=== PATIENT | female | born 1980 | race Caucasian/White ===

== ENCOUNTER 2016-08-23 15:30 | Emergency (ER) | payer MEDICARE, OTHER ==
[2016-08-23 15:47] VITALS: BP 133/86; PULSE 88; RESP 20; TEMP 98.3
--- NOTE | 2016-08-23 16:33 | XR ---
Right foot HISTORY: Pain, contusion 3 views of the right foot Bone mineralization, joint spaces and alignment are maintained. There is a plantar calcaneus spur. Mi ld degenerative change present at the first metatarsophalangeal joint. Small ossific densities presen t at the proximal fifth metatarsal. Question the acuity of this finding. Some spurring present at the intertarsal joints compatible with degenerative change. IMPRESSION: Correlate for point tenderness to assess for acuity of possible fracture proximal fifth m etatarsal.
--- NOTE | 2016-08-23 16:34 | ED ---
Lower Extremity Injury HPI - General Chief Complaint: Extremity Injury, Lower Stated Complaint: rt foot injury Time Seen by Provider: 08/23/16 15:54 Source: patient, RN notes reviewed Mode of arrival: ambulatory Limitations: no limitations - History of Present Illness Initial Comments: Patient is a 36-year-old female she complaint of right foot injury 2 weeks ago. She reports that she saw the Medical Center and They Told Her Was Broken. They State That They Gave Her a Blue She's Knowing Where Because It Was Too Big. She States That She Is Continuing to Have Pain over Her Right Foot. She Wants a Second Opinion to Conservative It's Broken. Patient States That She Hasn't Been Able to Walk Normally and Does Have To Walk with a Limp. She Denies Any Other Associated Symptoms. She Reports the Pain Is Mainly over the Fifth Metatarsal. She Denies Any Ankle or Lower Leg Pain. - Related Data Home Medications Medication Instructions Recorded Confirmed Albuterol Inhaler [Ventolin Hfa 1 - 2 puff INHALATION RT-QID PRN 08/23/16 Inhaler] Albuterol Nebulized [Ventolin 2.5 mg INHALATION RT-QID PRN 08/23/16 08/23/16 Nebulized] Cetirizine HCl [Zyrtec] 10 mg PO DAILY 08/23/16 08/23/16 Hydrocodone/Acetaminophen [Aston 1 tab PO BID 08/23/16 08/23/16 5-325] Paliperidone IM [Invega Sustenna] 234 mg IM Q30D 08/23/16 08/23/16 Sertraline [Zoloft] 100 mg PO BID 08/23/16 08/23/16 lamoTRIgine [LaMICtal] 150 mg PO BID 08/23/16 08/23/16 Allergies Allergy/AdvReac Type Severity Reaction Status Date / Time aspirin Allergy Anaphylaxis Verified 08/23/16 16:05 enalapril maleate Allergy Anaphylaxis Verified 08/23/16 16:05 [From Vasotec] enalaprilat dihydrate Allergy Anaphylaxis Verified 08/23/16 16:05 [From Vasotec] famotidine [From Pepcid] Allergy Anaphylaxis Verified 08/23/16 16:05 ibuprofen [From Motrin] Allergy Anaphylaxis Verified 08/23/16 16:05 methylphenidate HCl Allergy Anaphylaxis Verified 08/23/16 16:05 [From Ritalin] ranitidine HCl [From Zantac] Allergy Anaphylaxis Verified 08/23/16 16:05 ziprasidone HCl [From Geodon] Allergy Anaphylaxis Verified 08/23/16 16:05 ziprasidone mesylate Allergy Anaphylaxis Verified 08/23/16 16:05 [From Geodon] Review of Systems ROS Statement: Those systems with pertinent positive or pertinent negative responses have been documented in the HPI. ROS Other: All systems not noted in ROS Statement are negative. Past Medical History Past Medical History: Asthma, Chest Pain / Angina, COPD, Fibromyalgia, GERD/ Reflux, Hypertension, Memory Impairment, Syncope Additional Past Medical History / Comment(s): tachycardia,nerve damage lt leg, back pain/ neck pain has pinched nerves,bronchits,non alcoholic fatty liver disease, uti, small hiatal hernia, migraines, tmj, kidney stones,ddd, History of Any Multi-Drug Resistant Organisms: None Reported Past Surgical History: Cholecystectomy, Orthopedic Surgery, Tubal Ligation Additional Past Surgical History / Comment(s): sinus, stomach biopsy, egd w/ antral bx-neg, rt carpal tunnel release Past Anesthesia/Blood Transfusion Reactions: No Reported Reaction Additional Past Anesthesia/Blood Transfusion Reaction / Comment(s): clausterphobia Past Psychological History: Bipolar, Depression, Schizophrenia Additional Psychological History / Comment(s): pt lives with her asife is independant Smoking Status: Former smoker Past Alcohol Use History: Occasional Additional Past Alcohol Use History / Comment(s): quit smoking 2008 smopked 3 years 1 ppd Past Drug Use History: Marijuana Additional Drug Use History / Comment(s): smokes marijuana for pain controll General Exam - General Exam Comments Initial Comments: Pleasant 36-year-old female. No distress. Limitations: no limitations General appearance: alert, in no apparent distress Head exam: Present: atraumatic, normocephalic, normal inspection Eye exam: Present: normal appearance, PERRL, EOMI. Absent: scleral icterus, conjunctival injection, periorbital swelling ENT exam: Present: normal exam, mucous membranes moist Neck exam: Present: normal inspection. Absent: tenderness, meningismus, lymphadenopathy Respiratory exam: Present: normal lung sounds bilaterally. Absent: respiratory distress, wheezes, rales, rhonchi, stridor Cardiovascular Exam: Present: regular rate, normal rhythm, normal heart sounds. Absent: systolic murmur, diastolic murmur, rubs, gallop, clicks GI/Abdominal exam: Present: soft, normal bowel sounds. Absent: distended, tenderness, guarding, rebound, rigid Extremities exam: Present: normal inspection, full ROM, normal capillary refill. Absent: tenderness, pedal edema, joint swelling, calf tenderness Right Knee exam: Present: normal inspection, full ROM Lower Leg exam: Present: normal inspection, full ROM Ankle exam: Present: normal inspection, full ROM Foot/Toe exam: Present: normal inspection, tenderness (Swelling and tenderness over the fourth and fifth metatarsals.), swelling Neurovascular tendon exam: Present: no vascular compromise Gait: observed and normal Back exam: Present: normal inspection Neurological exam: Present: alert, oriented X3, CN II-XII intact Psychiatric exam: Present: normal affect, normal mood Skin exam: Present: warm, dry, intact, normal color. Absent: rash Course Vital Signs 08/23/16 15:42 Temperature 98.3 F Pulse Rate 88 Respiratory 20 Rate Blood Pressure 133/86 O2 Sat by Pulse 98 Oximetry Procedures - Orthopedic Splinting/Casting Injury #1 Side: right Lower Extremity Injury Location: foot Lower Extremity Immobilizer: posterior splint Medical Decision Making - Medical Decision Making Patient is a 36-year-old female with 2 weeks of right foot pain. She states that she was diagnosed with a fracture but is not wearing her boot the past 2 weeks. She states she is wondering whether still pain. X-ray was reviewed to show evidence of a proximal fifth metatarsal fracture. Patient will be put in a posterior OCL. Discuss that she has follow-up with orthopedic physician. Patient agrees with treatment plan will comply. Return parameters were discussed. Disposition Clinical Impression: Fracture of fifth metatarsal bone of right foot Disposition: HOME SELF-CARE Condition: Good Instructions: Foot Fracture in Adults (ED) Additional Instructions: Patient advised to elevate extremity. Patient needs to remain in splint until seen by orthopedic. Return the emergency department if any alarming signs or symptoms occur. Referrals: Reba Licea MD [Primary Care Provider] - 1-2 days Stevenson Gan MD [STAFF PHYSICIAN] - 1-2 days Time of Disposition: 16:34
== END 2016-08-23 16:30 | disposition home or self-care (01) ==
LOC: EC 15:30
DX: S92.351A Displaced fracture of fifth metatarsal bone, right foot, initial encounter for closed fracture (principal); M79.7 Fibromyalgia; F20.9 Schizophrenia, unspecified; F31.9 Bipolar disorder, unspecified; Z87.891 Personal history of nicotine dependence; Z79.891 Long term (current) use of opiate analgesic; Z79.899 Other long term (current) drug therapy; Z88.6 Allergy status to analgesic agent; Z88.8 Allergy status to other drugs, medicaments and biological substances; Z86.69 Personal history of other diseases of the nervous system and sense organs; X58.XXXA Exposure to other specified factors, initial encounter
CPT/HCPCS: 29515; 99283

== ENCOUNTER 2017-05-09 13:59 | Emergency (ER) | payer MEDICARE, OTHER ==
--- NOTE | 2017-05-09 14:15 | ED ---
General Adult HPI - General Chief complaint: Skin/Abscess/Foreign Body Stated complaint: Rash Time Seen by Provider: 05/09/17 14:06 Source: patient, RN notes reviewed Mode of arrival: ambulatory Limitations: no limitations - History of Present Illness Initial comments: Patient 37-year-old female who presents emergency room today with chief complaint of infection to the right side of the chest wall. Patient does admit that he noticed it when she was in the shower yesterday. States she follow-up the results of drainage from the area. Patient denies any other complaints or symptoms. Patient denies any recent fever, chills, shortness of breath, chest pain, back pain, abdominal pain, nausea or vomiting, numbness or tingling, dysuria or hematuria, constipation or diarrhea, headaches or visual changes, or any other complaints. - Related Data Home Medications Medication Instructions Recorded Confirmed Albuterol Inhaler [Ventolin Hfa 1 - 2 puff INHALATION RT-QID PRN 08/23/16 Inhaler] Albuterol Nebulized [Ventolin 2.5 mg INHALATION RT-QID PRN 08/23/16 08/23/16 Nebulized] Cetirizine HCl [Zyrtec] 10 mg PO DAILY 08/23/16 08/23/16 Hydrocodone/Acetaminophen [[place]lett 1 tab PO BID 08/23/16 08/23/16 5-325] Paliperidone IM [Invega Sustenna] 234 mg IM Q30D 08/23/16 08/23/16 Sertraline [Zoloft] 100 mg PO BID 08/23/16 08/23/16 lamoTRIgine [LaMICtal] 150 mg PO BID 08/23/16 08/23/16 Previous Rx's Medication Instructions Recorded Mupirocin 2% Oint [Bactroban Oint] 1 applic TOPICAL TID #1 gm 05/09/17 Sulfamethox-Tmp 800-160Mg [Bactrim 1 tab PO Q12HR #28 tab 05/09/17 DS 800-160 mg] Allergies Allergy/AdvReac Type Severity Reaction Status Date / Time aspirin Allergy Anaphylaxis Verified 05/09/17 14:04 enalapril maleate Allergy Anaphylaxis Verified 05/09/17 14:04 [From Vasotec] enalaprilat dihydrate Allergy Anaphylaxis Verified 05/09/17 14:04 [From Vasotec] famotidine [From Pepcid] Allergy Anaphylaxis Verified 05/09/17 14:04 ibuprofen [From Motrin] Allergy Anaphylaxis Verified 05/09/17 14:04 methylphenidate HCl Allergy Anaphylaxis Verified 05/09/17 14:04 [From Ritalin] ranitidine HCl [From Zantac] Allergy Anaphylaxis Verified 05/09/17 14:04 ziprasidone HCl [From Geodon] Allergy Anaphylaxis Verified 05/09/17 14:04 ziprasidone mesylate Allergy Anaphylaxis Verified 05/09/17 14:04 [From Geodon] Review of Systems ROS Statement: Those systems with pertinent positive or pertinent negative responses have been documented in the HPI. ROS Other: All systems not noted in ROS Statement are negative. Past Medical History Past Medical History: Asthma, Chest Pain / Angina, COPD, Fibromyalgia, GERD/ Reflux, Hypertension, Memory Impairment, Syncope Additional Past Medical History / Comment(s): tachycardia,nerve damage lt leg, back pain/ neck pain has pinched nerves,bronchits,non alcoholic fatty liver disease, uti, small hiatal hernia, migraines, tmj, kidney stones,ddd, History of Any Multi-Drug Resistant Organisms: None Reported Past Surgical History: Cholecystectomy, Orthopedic Surgery, Tubal Ligation Additional Past Surgical History / Comment(s): sinus, stomach biopsy, egd w/ antral bx-neg, rt carpal tunnel release Past Anesthesia/Blood Transfusion Reactions: No Reported Reaction Additional Past Anesthesia/Blood Transfusion Reaction / Comment(s): clausterphobia Past Psychological History: Bipolar, Depression, Schizophrenia Smoking Status: Former smoker Past Alcohol Use History: Occasional Past Drug Use History: Marijuana General Exam - General Exam Comments Initial Comments: General: The patient is awake and alert, in no distress, and does not appear acutely ill. Eye: Pupils are equal, round and reactive to light, extra-ocular movements are intact. No nystagmus. There is normal conjunctiva bilaterally. No signs of icterus. Ears, nose, mouth and throat: There are moist mucous membranes and no oral lesions. Neck: The neck is supple, there is no tenderness or JVD. Cardiovascular: There is a regular rate and rhythm. No murmur, rub or gallop is appreciated. Respiratory: Lungs are clear to auscultation, respirations are non-labored, breath sounds are equal. No wheezes, stridor, rales, or rhonchi. Musculoskeletal: Normal ROM, no tenderness. Strength 5/5. Sensation intact. Pulses equal bilaterally 2+. Neurological: A&O x 3. CN II-XII intact, There are no obvious motor or sensory deficits. Coordination appears grossly intact. Speech is normal. Skin: patient does have some skin breakdown between skin folds to the right side of the chest wall. Area measures approximately 3-4 cm. Psychiatric: Cooperative, appropriate mood & affect, normal judgment. Limitations: no limitations Course Vital Signs 05/09/17 14:01 Temperature 97.6 F Pulse Rate 116 H Respiratory 18 Rate Blood Pressure 136/87 O2 Sat by Pulse 98 Oximetry Medical Decision Making - Medical Decision Making patient advised to use topical antibiotic and also placed gauze into the skin fold to allow the. Given that the area for healing. Advised to also use oral antibiotic and continue to watch this area return if symptoms are increasing worsening. Disposition Clinical Impression: Skin infection Disposition: HOME SELF-CARE Condition: Good Instructions: Abscess (ED) Additional Instructions: Please use gauze to the area with topical antibiotics as discussed. Please call family doctor the next 2 days. Please return here to the emergency room symptoms increase worsen or fail concerns. Prescriptions: Mupirocin 2% Oint [Bactroban Oint] 1 applic TOPICAL TID #1 gm Sulfamethox-Tmp 800-160Mg [Bactrim DS 800-160 mg] 1 tab PO Q12HR #28 tab Referrals: Reba Licea MD [Primary Care Provider] - 1-2 days Time of Disposition: 14:14
[2017-05-09 16:41] VITALS: BP 136/87; PULSE 116; RESP 18; TEMP 97.6
== END 2017-05-09 14:29 | disposition home or self-care (01) ==
LOC: EC 13:59
DX: L08.9 Local infection of the skin and subcutaneous tissue, unspecified (principal); F20.9 Schizophrenia, unspecified; F31.9 Bipolar disorder, unspecified; Z87.891 Personal history of nicotine dependence; Z79.891 Long term (current) use of opiate analgesic; Z79.899 Other long term (current) drug therapy; Z88.6 Allergy status to analgesic agent; Z88.8 Allergy status to other drugs, medicaments and biological substances; Z87.39 Personal history of other diseases of the musculoskeletal system and connective tissue; Z86.69 Personal history of other diseases of the nervous system and sense organs
CPT/HCPCS: 99282

== ENCOUNTER → 2018-01-31 | Outpatient (CLI) | payer MEDICARE, OTHER | END | disposition home or self-care (01) | LOC: LABWHC1 15:23 | PROVIDERS: ATTEND Internal Medicine | DX: Z53.9 Procedure and treatment not carried out, unspecified reason (principal) ==

== ENCOUNTER → 2018-02-14 | Outpatient (CLI) | payer MEDICARE, OTHER | END | disposition home or self-care (01) | LOC: RADECHMAIN 12:25 | PROVIDERS: ATTEND Internal Medicine | DX: I49.3 Ventricular premature depolarization (principal) | CPT/HCPCS: 93225; 93226 ==

== ENCOUNTER 2018-08-15 14:30 | Observation (INO) | payer MEDICARE, OTHER ==
[2018-08-15] MEDS ORDERED: ASPIRIN 81 MG PO STA (14:53)
[2018-08-15] MEDS ORDERED: SODIUM CHLORIDE 0.9% 1,000 ML IV STA ×2 (14:53)
--- NOTE | 2018-08-15 15:05 | ED ---
SOB HPI - General Chief Complaint: Shortness of Breath Stated Complaint: Sob Time Seen by Provider: 08/15/18 14:32 Source: patient, EMS, RN notes reviewed, old records reviewed Mode of arrival: EMS Limitations: no limitations - History of Present Illness Initial Comments: Patient is a 38-year-old female who presents emergency department today complaining of dyspnea on exertion. She reports she was walking outside today and became very short of breath. She came into the building she was walking to and hadn't severe fatigue and near syncopal episode. Patient states that she has had a history of asthma and does use an inhaler. Patient states that it feel that she was coughing. She does report she's also been having some chest pain on exertion. Patient denies any recent fevers or chills, abdominal pain. - Related Data Home Medications Medication Instructions Recorded Confirmed Albuterol Inhaler [Ventolin Hfa 1 - 2 puff INHALATION RT-QID PRN 08/23/16 08/15/18 Inhaler] lamoTRIgine [LaMICtal] 150 mg PO BID 08/23/16 08/15/18 Atomoxetine HCl [Strattera] 60 mg PO DAILY 08/15/18 08/15/18 metFORMIN HCL 500 mg PO TID 08/15/18 08/15/18 Allergies Allergy/AdvReac Type Severity Reaction Status Date / Time aspirin Allergy Anaphylaxis Verified 08/15/18 14:57 enalapril maleate Allergy Anaphylaxis Verified 08/15/18 14:57 [From Vasotec] enalaprilat dihydrate Allergy Anaphylaxis Verified 08/15/18 14:57 [From Vasotec] famotidine [From Pepcid] Allergy Anaphylaxis Verified 08/15/18 14:57 ibuprofen [From Motrin] Allergy Anaphylaxis Verified 08/15/18 14:57 methylphenidate HCl Allergy Anaphylaxis Verified 08/15/18 14:57 [From Ritalin] ranitidine HCl [From Zantac] Allergy Anaphylaxis Verified 08/15/18 14:57 ziprasidone HCl [From Geodon] Allergy Anaphylaxis Verified 08/15/18 14:57 ziprasidone mesylate Allergy Anaphylaxis Verified 08/15/18 14:57 [From Geodon] Review of Systems ROS Statement: Those systems with pertinent positive or pertinent negative responses have been documented in the HPI. ROS Other: All systems not noted in ROS Statement are negative. Past Medical History Past Medical History: Asthma, Chest Pain / Angina, COPD, Fibromyalgia, GERD/Reflux, Hypertension, Memory Impairment, Syncope Additional Past Medical History / Comment(s): tachycardia,nerve damage lt leg, back pain/ neck pain has pinched nerves,bronchits,non alcoholic fatty liver disease, uti, small hiatal hernia, migraines, tmj, kidney stones,ddd, History of Any Multi-Drug Resistant Organisms: None Reported Past Surgical History: Cholecystectomy, Orthopedic Surgery, Tubal Ligation Additional Past Surgical History / Comment(s): sinus, stomach biopsy, egd w/antral bx-neg, rt carpal tunnel release Past Anesthesia/Blood Transfusion Reactions: No Reported Reaction Additional Past Anesthesia/Blood Transfusion Reaction / Comment(s): clausterphobia Past Psychological History: Bipolar, Depression, Schizophrenia Smoking Status: Former smoker Past Alcohol Use History: Occasional Past Drug Use History: Marijuana General Exam - General Exam Comments Initial Comments: Morbidly obese 38-year-old female. Limitations: no limitations General appearance: alert, in no apparent distress Head exam: Present: atraumatic, normocephalic, normal inspection Eye exam: Present: normal appearance, PERRL, EOMI. Absent: scleral icterus, conjunctival injection, periorbital swelling ENT exam: Present: normal exam, mucous membranes moist, other (hirsuitism noted. ) Neck exam: Present: normal inspection. Absent: tenderness, meningismus, lymphadenopathy Respiratory exam: Present: normal lung sounds bilaterally. Absent: respiratory distress, wheezes, rales, rhonchi, stridor Cardiovascular Exam: Present: regular rate, normal rhythm, normal heart sounds. Absent: systolic murmur, diastolic murmur, rubs, gallop, clicks GI/Abdominal exam: Present: soft, normal bowel sounds. Absent: distended, t enderness, guarding, rebound, rigid Extremities exam: Present: normal inspection, full ROM, normal capillary refill. Absent: tenderness, pedal edema, joint swelling, calf tenderness Back exam: Present: normal inspection Neurological exam: Present: alert, oriented X3, CN II-XII intact Psychiatric exam: Present: normal affect, normal mood Skin exam: Present: warm, dry, intact, normal color. Absent: rash Course Vital Signs 08/15/18 08/15/18 14:32 15:17 Temperature 98.3 F Pulse Rate 121 H 109 H Respiratory 18 18 Rate Blood Pressure 116/75 97/72 O2 Sat by Pulse 95 96 Oximetry Medical Decision Making - Medical Decision Making Patient is a 38-year-old female present sprains from table chest pain dyspnea on exertion. She is morbidly obese. History of hypertension is managed with atenolol. Patient this time as sinus tachycardia, otherwise normal EKG noted. First troponin is negative. She reports that when she was having difficulty breathing to came to play she was going to a walking and felt very fatigued close to collapsing. Patient at this time will be admitted for chest pain rule out. Repeat troponins. She is ALLERGIC to aspirin. This was held at this time. - Lab Data Result diagrams: 08/15/18 15:15 08/15/18 15:15 Lab Results 08/15/18 08/15/18 08/15/18 Range/Units 15:15 15:15 15:15 WBC 5.2 (3.8-10.6) k/uL RBC 5.06 (3.80-5.40) m/uL Hgb 14.1 (11.4-16.0) gm/dL Hct 43.9 (34.0-46.0) % MCV 86.8 (80.0-100.0) fL MCH 27.8 (25.0-35.0) pg MCHC 32.1 (31.0-37.0) g/dL RDW 13.3 (11.5-15.5) % Plt Count 157 (150-450) k/uL Neutrophils % 62 % Lymphocytes % 26 % Monocytes % 6 % Eosinophils % 4 % Basophils % 1 % Neutrophils # 3.2 (1.3-7.7) k/uL Lymphocytes # 1.3 (1.0-4.8) k/uL Monocytes # 0.3 (0-1.0) k/uL Eosinophils # 0.2 (0-0.7) k/uL Basophils # 0.1 (0-0.2) k/uL PT 10.4 (9.0-12.0) sec INR 1.0 (<1.2) APTT 27.7 (22.0-30.0) sec D-Dimer 0.45 (<0.60) mg/L FEU Sodium 137 (137-145) mmol/L Potassium 4.1 (3.5-5.1) mmol/L Chloride 105 (98-107) mmol/L Carbon Dioxide 23 (22-30) mmol/L Anion Gap 9 mmol/L BUN 5 L (7-17) mg/dL Creatinine 0.48 L (0.52-1.04) mg/dL Est GFR (CKD-EPI)AfAm >90 (>60 ml/min/1.73 sqM) Est GFR (CKD-EPI)NonAf >90 (>60 ml/min/1.73 sqM) Glucose 150 H (74-99) mg/dL Calcium 9.3 (8.4-10.2) mg/dL Magnesium 1.9 (1.6-2.3) mg/dL Total Bilirubin 0.5 (0.2-1.3) mg/dL AST 30 (14-36) U/L ALT 34 (9-52) U/L Alkaline Phosphatase 76 (38-126) U/L Troponin I (0.000-0.034) ng/mL NT-Pro-B Natriuret Pep pg/mL Total Protein 7.0 (6.3-8.2) g/dL Albumin 4.2 (3.5-5.0) g/dL 08/15/18 08/15/18 Range/Units 15:15 15:15 WBC (3.8-10.6) k/uL RBC (3.80-5.40) m/uL Hgb (11.4-16.0) gm/dL Hct (34.0-46.0) % MCV (80.0-100.0) fL MCH (25.0-35.0) pg MCHC (31.0-37.0) g/dL RDW (11.5-15.5) % Plt Count (150-450) k/uL Neutrophils % % Lymphocytes % % Monocytes % % Eosinophils % % Basophils % % Neutrophils # (1.3-7.7) k/uL Lymphocytes # (1.0-4.8) k/uL Monocytes # (0-1.0) k/uL Eosinophils # (0-0.7) k/uL Basophils # (0-0.2) k/uL PT (9.0-12.0) sec INR (<1.2) APTT (22.0-30.0) sec D-Dimer (<0.60) mg/L FEU Sodium (137-145) mmol/L Potassium (3.5-5.1) mmol/L Chloride (98-107) mmol/L Carbon Dioxide (22-30) mmol/L Anion Gap mmol/L BUN (7-17) mg/dL Creatinine (0.52-1.04) mg/dL Est GFR (CKD-EPI)AfAm (>60 ml/min/1.73 sqM) Est GFR (CKD-EPI)NonAf (>60 ml/min/1.73 sqM) Glucose (74-99) mg/dL Calcium (8.4-10.2) mg/dL Magnesium (1.6-2.3) mg/dL Total Bilirubin (0.2-1.3) mg/dL AST (14-36) U/L ALT (9-52) U/L Alkaline Phosphatase (38-126) U/L Troponin I <0.012 (0.000-0.034) ng/mL NT-Pro-B Natriuret Pep 31 pg/mL Total Protein (6.3-8.2) g/dL Albumin (3.5-5.0) g/dL 08/15/18 16:26 EKG shows sinus tachycardia, otherwise normal EKG. Ventricular rate of 117 bpm. KS interval is 1:30 milliseconds. QRS ration 86 no seconds. QT QTc is 332/463 ms. - Radiology Data Radiology results: report reviewed No acute process. Disposition Clinical Impression: Chest pain, Dyspnea on exertion Disposition: ADMITTED IP TO THIS HOSP Condition: Good Is patient prescribed a controlled substance at d/c from ED?: No Referrals: Reba Licea MD [Primary Care Provider] - 1-2 days Time of Disposition: 16:38
--- NOTE | 2018-08-15 15:39 | XR ---
EXAMINATION TYPE: XR chest 2V DATE OF EXAM: 08/15/2018 COMPARISON: 08/24/2015 HISTORY: Chest pain TECHNIQUE: Frontal and lateral views of the chest are obtained. FINDINGS: There is no focal air space opacity. No evidence for pneumothorax. No pleural effusion. The cardiac silhouette size is within normal limits. The osseous structures are grossly intact. IMPRESSION: 1. No acute cardiopulmonary process.
[2018-08-15 15:40] LABS: ALT 34 U/L (9-52); AST 30 U/L (14-36); Albumin 4.2 g/dL (3.5-5.0); Alkaline Phosphatase 76 U/L (38-126); Anion Gap 9 mmol/L; Blood Urea Nitrogen 5 mg/dL (7-17); Calcium 9.3 mg/dL (8.4-10.2); Carbon Dioxide 23 mmol/L (22-30); Chloride 105 mmol/L (98-107); Glucose 150 mg/dL (74-99); Magnesium 1.9 mg/dL (1.6-2.3); Sodium 137 mmol/L (137-145); Total Bilirubin 0.5 mg/dL (0.2-1.3)
[2018-08-15 15:43] LABS: Potassium 4.1 mmol/L (3.5-5.1)
[2018-08-15 15:47] LABS: Basophils # (A) 0.1 k/uL (0-0.2); Basophils % (A) 1 %; Eosinophils # (A) 0.2 k/uL (0-0.7); Eosinophils % (A) 4 %; HCT 43.9 % (34.0-46.0); HGB 14.1 gm/dL (11.4-16.0); Lymphocytes # (A) 1.3 k/uL (1.0-4.8); Lymphocytes % (A) 26 %; MCH 27.8 pg (25.0-35.0); MCHC 32.1 g/dL (31.0-37.0); MCV 86.8 fL (80.0-100.0); Mean Platelet Volume 9.7; Monocytes # (A) 0.3 k/uL (0-1.0); Monocytes % (A) 6 %; Neutrophils # (A) 3.2 k/uL (1.3-7.7); Neutrophils % (A) 62 %; Platelet Count 157 k/uL (150-450); RBC 5.06 m/uL (3.80-5.40); RDW 13.3 % (11.5-15.5); WBC 5.2 k/uL (3.8-10.6)
[2018-08-15 15:49] LABS: D-Dimer 0.45 mg/L FEU (<0.60); Prothrombin Time 10.4 sec (9.0-12.0)
[2018-08-15 15:50] LABS: Partial Thromboplastin Time 27.7 sec (22.0-30.0)
[2018-08-15] MEDS ORDERED: NITROGLYCERIN SL TABS 0.4 MG TAB SUBLINGUAL PRN (16:39)
[2018-08-15 21:14] LABS: Glucose,Whole Blood 123 mg/dL (75-99)
[2018-08-15] MEDS: INSULIN ASPART (NovoLOG) 100 UNIT/ML VIAL SQ SCH (21:17)
[2018-08-15] MEDS: HEPARIN SODIUM,PORCINE 5,000 UNIT/ML 1 ML VIAL SQ SCH (21:35)
[2018-08-15] MEDS: ACETAMINOPHEN TAB 325 MG TAB PO PRN (21:35)
[2018-08-15] MEDS: lamoTRIgine 100 MG TAB PO SCH (21:35)
[2018-08-16] MEDS: HEPARIN SODIUM,PORCINE 5,000 UNIT/ML 1 ML VIAL SQ SCH ×4 (00:09→23:58)
[2018-08-16 03:02] LABS: Hemoglobin A1C 5.5 % (4.0-6.0)
[2018-08-16 03:16] LABS: Cholesterol 131 mg/dL (<200); HDL Cholesterol 62 mg/dL (40-60); LDL Cholesterol,Calculated 48 mg/dL (0-99); Triglycerides 103 mg/dL (<150)
[2018-08-16 06:37] LABS: Glucose,Whole Blood 119 mg/dL (75-99)
[2018-08-16] MEDS: ACETAMINOPHEN TAB 325 MG TAB PO PRN (06:40)
[2018-08-16] MEDS: IPRATROPIUM-ALBUTEROL 3 ML NEB INHALATION PRN (07:03)
[2018-08-16] MEDS: INSULIN ASPART (NovoLOG) 100 UNIT/ML VIAL SQ SCH ×5 (09:19→20:46)
[2018-08-16] MEDS: PANTOPRAZOLE 40 MG TABLET PO SCH (09:25)
[2018-08-16] MEDS: lamoTRIgine 100 MG TAB PO SCH ×2 (09:25→20:08)
--- NOTE | 2018-08-16 10:42 | P.CRDCN ---
History of Present Illness History of present illness: this is a pleasant 38-year-old female past medical history significant for diabetes mellitus, asthma, schizophrenia, tachycardia and obesity. We have been asked to see her in consultation secondary to symptoms of chest discomfort. She states yesterday while she was walking to the mental health clinic for her scheduled appointment she started feeling a very heavy sensation in the chest described like someone was sitting on her chest associated with shortness of breath and wheezing. She was able to make it to her appointment but by the time she got there she was significantly short of breath since she called EMS. By the time EMS arrived she had been sitting for approximately 5-10 minutes and states all of her symptoms had subsided. She has had no further symptoms of c hest discomfort or shortness of breath since arriving at the hospital. She is seen and examined resting comfortably in bed in no acute distress. She states she has undergone stress testing in the past in our office with Dr. Wilson and per the patient her stress test was normal. EKG reveals sinus mechanism with no acute ST or T wave abnormalities noted. chest x-ray is negative for an acute cardiopulmonary process. Laboratory data reviewed, WBC 5.2, hemoglobin 14.1, platelets 157, d-dimer 0.45, sodium 137, potassium 4.1, creatinine 0.48, cardiac enzymes negative 3, LDL 48, NT proBNP 31 and TSH 2.46. Most recent echocardiogram obtained in 2016 reveals preserved left ventricular systolic function with ejection fraction 55-60%. She takes no daily cardiac medications. At the time of my exam: CONSTITUTIONAL: Denies fever. Denies chills. EYES: Denies blurred vision. Denies vision changes. Denies eye pain. EARS, NOSE, MOUTH & THROAT: Denies headache. Denies sore throat. Denies ear pain. CARDIOVASCULAR: Denies chest pain. Denies shortness of breath. Denies orthopnea. Denies PND. Denies palpitations. RESPIRATORY: Denies cough. GASTROINTESTINAL: Denies abdominal pain. Denies diarrhea. Denies constipation. Denies nausea. Denies vomiting. MUSCULOSKELETAL: Denies myalgias. INTEGUMENTARY: Denies pruitis. Denies rash. NEUROLOGIC: Denies numbness. Denies tingling. Denies weakness. PSYCHIATRIC: Denies anxiety. Denies depression. ENDOCRINE: Denies fatigue. Denies weight change. Denies polydipsia. Denies polyurina. GENITOURINARY: Denies burning, hematuria or urgency with micturation. HEMATOLOGIC: Denies history of anemia. Denies bleeding. Blood pressure 109/70 heart rate 108 afebrile maintaining oxygen saturation on room air GENERAL: This is a 38-year-old female in no apparent distress at the time of my examination.obese. HEENT: Head is atraumatic, normocephalic. Pupils are equal, round. Sclerae anicteric. Conjunctivae are clear. Mucous membranes of the mouth are moist. Neck is supple. There is no jugular venous distention. No carotid bruit is heard. LUNGS: Clear to auscultation no wheezes, rales or rhonchi. No chest wall tenderness is noted on palpation or with deep breathing. HEART: Regular rate and rhythm without murmurs, rubs or gallops. S1 and S2 heard. ABDOMEN: Soft, nontender. Bowel sounds are heard. No organomegaly noted. EXTREMITIES: No evidence of peripheral edema and no calf tenderness noted. VASCULAR: Radial and dorsalis pedis pulses palpated, no evidence of clubbing. NEUROLOGIC: Patient is awake, alert and oriented x3. ASSESSMENT Chest pain with shortness of breath and wheezing. An acute coronary event has been ruled out. Asthma Diabetes mellitus Obesity, BMI 37 PLAN An acute coronary event has been ruled out. Obtain 2D echocardiogram and doppler study to assess cardiac structure and function. Increase activity and ambulation in halls. Assess for ongoing symptoms of chest discomfort. If she remains asymptomatic she may be discharged home to follow up with Dr. Wilson for outpatient stress testing. Thank you kindly for this consultation. Nurse Practitioner note has been reviewed, I agree with a documented findings and plan of care. Patient was seen and examined. Past Medical History Past Medical History: Asthma, Chest Pain / Angina, COPD, Fibromyalgia, GERD/Reflux, Hypertension, Memory Impairment, Syncope Additional Past Medical History / Comment(s): tachycardia,nerve damage lt leg, back pain/ neck pain has pinched nerves,bronchits,non alcoholic fatty liver disease, uti, small hiatal hernia, migraines, tmj, kidney stones,ddd, History of Any Multi-Drug Resistant Organisms: None Reported Past Surgical History: Cholecystectomy, Orthopedic Surgery, Tubal Ligation Additional Past Surgical History / Comment(s): sinus, stomach biopsy, egd w/antral bx-neg, rt carpal tunnel release Past Anesthesia/Blood Transfusion Reactions: No Reported Reaction Additional Past Anesthesia/Blood Transfusion Reaction / Comment(s): frankie mann Past Psychological History: Bipolar, Depression, Schizophrenia Additional Psychological History / Comment(s): pt lives with her fiancee is independant. History of tobacco use does not work outside of the home. Multiple tattoos none of them are new. No current recreational drug use. No experience. No international travel. No animals in the home. 2 teenage children live with them Smoking Status: Former smoker Past Alcohol Use History: Occasional Additional Past Alcohol Use History / Comment(s): quit smoking 2007 smopked 3 years 1 ppd Past Drug Use History: Marijuana Additional Drug Use History / Comment(s): smokes marijuana for pain controll Medications and Allergies Home Medications Medication Instructions Recorded Confirmed Type Albuterol Inhaler [Ventolin Hfa 1 - 2 puff INHALATION RT-QID PRN 08/23/16 08/15/18 History Inhaler] lamoTRIgine [LaMICtal] 150 mg PO BID 08/23/16 08/15/18 History Atomoxetine HCl [Strattera] 60 mg PO DAILY 08/15/18 08/15/18 History metFORMIN HCL 500 mg PO TID 08/15/18 08/15/18 History Allergies Allergy/AdvReac Type Severity Reaction Status Date / Time aspirin Allergy Anaphylaxis Verified 08/15/18 14:57 enalapril maleate Allergy Anaphylaxis Verified 08/15/18 14:57 [From Vasotec] enalaprilat dihydrate Allergy Anaphylaxis Verified 08/15/18 14:57 [From Vasotec] famotidine [From Pepcid] Allergy Anaphylaxis Verified 08/15/18 14:57 ibuprofen [From Motrin] Allergy Anaphylaxis Verified 08/15/18 14:57 methylphenidate HCl Allergy Anaphylaxis Verified 08/15/18 14:57 [From Ritalin] ranitidine HCl [From Zantac] Allergy Anaphylaxis Verified 08/15/18 14:57 ziprasidone HCl [From Geodon] Allergy Anaphylaxis Verified 08/15/18 14:57 ziprasidone mesylate Allergy Anaphylaxis Verified 08/15/18 14:57 [From Geodon] Physical Exam Vitals: Vital Signs Temp Pulse Pulse Resp BP BP Pulse Ox 08/16/18 07:13 90 08/16/18 07:03 88 08/16/18 04:00 98.2 F 107 H 15 109/66 97 08/16/18 00:00 110 H 15 08/15/18 23:43 98.0 F 110 H 15 124/72 98 08/15/18 20:00 110 H 15 08/15/18 19:35 97.4 F L 108 H 15 125/76 97 08/15/18 17:43 24 08/15/18 17:33 97.4 F L 108 H 16 130/81 98 08/15/18 17:02 97.9 F 111 H 18 124/77 97 08/15/18 15:17 109 H 18 97/72 96 08/15/18 14:32 98.3 F 121 H 18 116/75 95 Intake and Output 08/15/18 08/16/18 08/16/18 22:59 06:59 14:59 Other: Voiding Method Toilet Toilet # Voids 1 Results 08/15/18 15:15 08/15/18 15:15 Cardiac Enzymes 08/15/18 08/15/18 08/15/18 Range/Units 15:15 15:15 21:30 AST 30 (14-36) U/L Troponin I <0.012 <0.012 (0.000-0.034) ng/mL 08/16/18 Range/Units 02:43 AST (14-36) U/L Troponin I <0.012 (0.000-0.034) ng/mL Coagulation 08/15/18 Range/Units 15:15 PT 10.4 (9.0-12.0) sec APTT 27.7 (22.0-30.0) sec Lipids 08/16/18 Range/Units 02:43 Triglycerides 103 (<150) mg/dL Cholesterol 131 (<200) mg/dL HDL Cholesterol 62 H (40-60) mg/dL CBC 08/15/18 Range/Units 15:15 WBC 5.2 (3.8-10.6) k/uL RBC 5.06 (3.80-5.40) m/uL Hgb 14.1 (11.4-16.0) gm/dL Hct 43.9 (34.0-46.0) % Plt Count 157 (150-450) k/uL Comprehensive Metabolic Panel 08/15/18 Range/Units 15:15 Sodium 137 (137-145) mmol/L Potassium 4.1 (3.5-5.1) mmol/L Chloride 105 (98-107) mmol/L Carbon Dioxide 23 (22-30) mmol/L BUN 5 L (7-17) mg/dL Creatinine 0.48 L (0.52-1.04) mg/dL Glucose 150 H (74-99) mg/dL Calcium 9.3 (8.4-10.2) mg/dL AST 30 (14-36) U/L ALT 34 (9-52) U/L Alkaline Phosphatase 76 (38-126) U/L Total Protein 7.0 (6.3-8.2) g/dL Albumin 4.2 (3.5-5.0) g/dL Current Medications Generic Name Dose Route Start Last Admin Trade Name Freq PRN Reason Stop Dose Admin Acetaminophen 650 mg 08/15/18 18:52 08/16/18 06:40 Tylenol Tab PO 650 mg Q6HR PRN Administration Fever and/ or Pain Albuterol/Ipratropium 3 ml 08/15/18 18:52 08/16/18 07:03 Duoneb 0.5 Mg-3 Mg/3 Ml Soln INHALATION 3 ml RT-QID PRN Administration Shortness Of Breath Heparin Sodium (Porcine) 5,000 unit 08/15/18 19:00 08/16/18 00:09 Heparin SQ Not Given Q8HR [facility] Insulin Aspart 0 unit 08/15/18 21:00 08/15/18 21:17 Novolog SQ Not Given ACHS [facility] Protocol Lamotrigine 150 mg 08/15/18 21:00 08/15/18 21:35 Lamictal PO 150 mg BID EDY Administration Nitroglycerin 0.4 mg 08/15/18 16:39 Nitrostat SUBLINGUAL Q5M PRN Chest Pain Pantoprazole Sodium 40 mg 08/16/18 07:30 Protonix PO AC-BRKFST [facility] Intake and Output 08/15/18 08/16/18 08/16/18 22:59 06:59 14:59 Other: Voiding Method Toilet Toilet # Voids 1 08/15/18 15:15 08/15/18 15:15
--- NOTE | 2018-08-16 10:55 | ECHOF ---
Referral Reason:cp MEASUREMENTS -------- HEIGHT: 170.2 cm WEIGHT: 107.1 kg BP: RVIDd: 2.8 cm (< 3.3) IVSd: 1.2 cm (0.6 - 1.1) LVIDd: 5.6 cm (3.9 - 5.3) LVPWd: 1.4 cm (0.6 - 1.1) IVSs: 1.4 cm LVIDs: 4.0 cm LVPWs: 1.7 cm Ao Diam: 2.7 cm (2.0 - 3.7) LA Diam: 3.7 cm (2.7 - 3.8) MV EXCURSION: 22.256 mm (> 18.000) MV EF SLOPE: 108 mm/s (70 - 150) EPSS: 0.6 cm MV E Terry: 0.79 m/s MV DecT: 178 ms MV A Terry: 0.68 m/s MV E/A Ratio: 1.16 FINDINGS -------- Sinus rhythm. Morbid Obesity This was a techncally difficult study with suboptimal views, , Lumason utilized for enhancement of im ages. The left ventricular size is normal. There is mild concentric left ventricular hypertrophy. Overa ll left ventricular systolic function is normal with, an EF between 60 - 65 %. The right ventricle is normal in size. The left atrial size is normal. The right atrial size is normal. 5.0mg OF Lumason UTLIZED: 2 OR MORE WALL SEGMENTS NOT VISUALIZED. The aortic valve was not well visualized. The mitral valve was not well visualized. The tricuspid valve was not well visualized. Unable to estimate RVSP due to inadequate TR jet spect ral doppler profile. There is no pericardial effusion. CONCLUSIONS -------- 1. Morbid Obesity 2. This was a techncally difficult study with suboptimal views, , Lumason utilized for enhancement of images. 3. The left ventricular size is normal. 4. There is mild concentric left ventricular hypertrophy. 5. Overall left ventricular systolic function is normal with, an EF between 60 - 65 %. 6. The right ventricle is normal in size. 7. The left atrial size is normal. 8. The right atrial size is normal. 9. 5.0mg OF Lumason UTLIZED: 2 OR MORE WALL SEGMENTS NOT VISUALIZED. 10. The aortic valve was not well visualized. 11. The mitral valve was not well visualized. 12. The tricuspid valve was not well visualized. 13. Unable to estimate RVSP due to inadequate TR jet spectral doppler profile. 14. There is no pericardial effusion. HOME HELP AIDE: Zarina Farmer RDCS
[2018-08-16 11:36] LABS: Glucose,Whole Blood 109 mg/dL (75-99)
[2018-08-16] MEDS: predniSONE 50 MG TAB PO SCH (13:13)
[2018-08-16 16:14] LABS: Amorphous Sediment,Urine Rare /hpf; Appearance,Urine Clear (Clear); Bacteria,Urine Few /hpf; Bilirubin,Urine Negative (Negative); Blood,Urine Negative (Negative); Color,Urine Light Yellow; Glucose,Urine (UA) Negative (Negative); Ketones,Urine Negative (Negative); Leukocyte Esterase,Urine Trace (Negative); Nitrite,Urine Negative (Negative); Protein,Urine Negative (Negative); Specific Gravity,Urine 1.011 (1.001-1.035); Squamous Epithelial Cell,Urine 1 /hpf (0-4); Urobilinogen,Urine <2.0 mg/dL (<2.0); WBC,Urine <1 /hpf (0-5)
[2018-08-16 16:42] LABS: Glucose,Whole Blood 132 mg/dL (75-99)
[2018-08-16 19:56] LABS: Glucose,Whole Blood 185 mg/dL (75-99)
[2018-08-17 06:35] LABS: Glucose,Whole Blood 123 mg/dL (75-99)
[2018-08-17 07:16] LABS: Basophils % (A) 0 %; Eosinophils # (A) 0.1 k/uL (0-0.7); Eosinophils % (A) 2 %; HCT 42.7 % (34.0-46.0); HGB 13.7 gm/dL (11.4-16.0); Lymphocytes # (A) 1.3 k/uL (1.0-4.8); Lymphocytes % (A) 23 %; MCHC 32.2 g/dL (31.0-37.0); MCV 86.9 fL (80.0-100.0); Mean Platelet Volume 9.1; Monocytes # (A) 0.4 k/uL (0-1.0); Monocytes % (A) 7 %; Neutrophils # (A) 3.8 k/uL (1.3-7.7); Neutrophils % (A) 66 %; Platelet Count 153 k/uL (150-450); RBC 4.91 m/uL (3.80-5.40); RDW 13.5 % (11.5-15.5); WBC 5.8 k/uL (3.8-10.6)
[2018-08-17 07:28] LABS: ALT 35 U/L (9-52); AST 18 U/L (14-36); Albumin 3.7 g/dL (3.5-5.0); Alkaline Phosphatase 65 U/L (38-126); Anion Gap 7 mmol/L; Blood Urea Nitrogen 11 mg/dL (7-17); Calcium 9.4 mg/dL (8.4-10.2); Carbon Dioxide 28 mmol/L (22-30); Chloride 106 mmol/L (98-107); Glucose 131 mg/dL (74-99); Potassium 3.8 mmol/L (3.5-5.1); Sodium 141 mmol/L (137-145); Total Bilirubin 0.4 mg/dL (0.2-1.3); Total Protein 6.6 g/dL (6.3-8.2)
[2018-08-17] MEDS ORDERED: INSULIN ASPART (NovoLOG) 100 UNIT/ML VIAL SQ SCH (07:30)
[2018-08-17] MEDS: IPRATROPIUM-ALBUTEROL 3 ML NEB INHALATION PRN (07:37)
--- NOTE | 2018-08-17 07:52 | PN ---
PROGRESS NOTE Niki is a 58-year-old lady who is admitted to hospital with chest pain. EKG does not reveal ischemic changes. This morning myocardial infarction was ruled out. At the time of my evaluation this morning, she appears comfortable at rest and is ambulating without any issue. She had an echocardiogram that showed normal LV function and wall motion is normal. EXAM: She is comfortable at rest. Blood pressure is 120/75. There is no jugular venous distention. Carotid upstroke is normal. No bruit. Chest exam reveals good air entry bilaterally. Heart exam reveals first and second heart sounds. No gallop. Abdomen is soft. Exam of extremities did not reveal any edema. Peripheral pulses are felt. LABS: Show a hemoglobin of 13.7, platelet count is 153. Potassium is 4.1. Creatinine is 0.48. Troponins are negative. ASSESSMENT: Chest pain atypical in a patient. Echocardiogram is normal. Cardiac enzymes have been negative. From cardiac standpoint, she is stable for discharge. She will follow up with Dr. Wilson and will have outpatient stress test. MMODL / IJN: [id number] /
[2018-08-17] MEDS: INSULIN ASPART (NovoLOG) 100 UNIT/ML VIAL SQ SCH ×4 (07:53→20:58)
[2018-08-17] MEDS: lamoTRIgine 100 MG TAB PO SCH ×2 (08:12→19:41)
[2018-08-17] MEDS: HEPARIN SODIUM,PORCINE 5,000 UNIT/ML 1 ML VIAL SQ SCH ×3 (08:12→23:03)
[2018-08-17] MEDS: PANTOPRAZOLE 40 MG TABLET PO SCH (08:12)
[2018-08-17] MEDS: predniSONE 50 MG TAB PO SCH (08:13)
[2018-08-17] MEDS: ACETAMINOPHEN TAB 325 MG TAB PO PRN (09:46)
[2018-08-17] MEDS ORDERED: RX INFO: IV CONTRAST WAS GIVEN 1 EACH MISC MISCELLANE PRN (11:37)
[2018-08-17 11:38] LABS: Glucose,Whole Blood 154 mg/dL (75-99)
--- NOTE | 2018-08-17 12:19 | P.HPIM ---
History of Present Illness H&P Date: 08/16/18 Chief Complaint: Chest pain and shortness of breath Mrs. wyatt is a 38-year-old female with a past medical history of asthma, schizophrenia, morbid obesity,chronic tachycardia coming into the hospital with a chief complaint of chest discomfort and difficulty in breathing. The patient states that she was walking from her mental health clinic and she felt a heavy sensation in her chest along with difficulty in breathing. Patient also mentions about having wheezing at that time. Patient denies having any nausea vomiting diaphoresis at that time. Patient's symptoms lasted for about 5-10 minutes. Patient denied having any loss of consciousness. Patient denies hav ing any recent travel or swelling of her lower extremities. Patient has history of asthma and takes albuterol 2-3 times a day for difficulty in breathing. Patient denies having any history of smoking. Patient denies having any history of underlying cardiac issues. In the ED patient had a chest x-ray and EKG within normal limits. Troponins 2 have been within normal limits. Patient d-dimer is 0.45. Patient had an echocardiogram done this morning and results are pending. As per nursing staff report patient had an audible wheeze this morning and she received a breathing treatment after which the patient's wheezing subsided. Review of Systems REVIEW OF SYSTEMS: PSYCH: History of seizure frenula. Patient denies having any depression or anxiety NEURO:No c/o weakness of the extremties, No facial droop, No speech abnormalities. VASCULAR: She complains of pain in both her lower extremities that is chronic HEMATOLOGIC: No history of easy bleeding and bruising . No recent infections . RESPIRATORY: As per HPI IMMUNE: No infections INTEGUMENT: no rashes OPHTHALMOLOGIC: No blurry vision and no eye discharge : No dysuria or hematuria APPEALS BOARD REFEREE: No bleeding PV CARDIAC: No paroxysmal nocturnal dyspnea. MUSCULOSKELETAL : No Aches or pains in the joints or muscles. GI: No abdominal pain, Nausea or vomiting. No constipation or diarrhea. Past Medical History Past Medical History: Asthma, Chest Pain / Angina, COPD, Fibromyalgia, GERD/Reflux, Hypertension, Memory Impairment, Syncope Additional Past Medical History / Comment(s): tachycardia,nerve damage lt leg, back pain/ neck pain has pinched nerves,bronchits,non alcoholic fatty liver disease, uti, small hiatal hernia, migraines, tmj, kidney stones,ddd, History of Any Multi-Drug Resistant Organisms: None Reported Past Surgical History: Cholecystectomy, Orthopedic Surgery, Tubal Ligation Additional Past Surgical History / Comment(s): sinus, stomach biopsy, egd w/antral bx-neg, rt carpal tunnel release Past Anesthesia/Blood Transfusion Reactions: No Reported Reaction Additional Past Anesthesia/Blood Transfusion Reaction / Comment(s): clausterphobia Past Psychological History: Bipolar, Depression, Schizophrenia Additional Psychological History / Comment(s): pt lives with her fiancee is independant. History of tobacco use does not work outside of the home. Multiple tattoos none of them are new. No current recreational drug use. No experience. No international travel. No animals in the home. 2 teenage children live with them Smoking Status: Former smoker Past Alcohol Use History: Occasional Additional Past Alcohol Use History / Comment(s): quit smoking 2007 smopked 3 years 1 ppd Past Drug Use History: Marijuana Additional Drug Use History / Comment(s): smokes marijuana for pain controll Medications and Allergies Home Medications Medication Instructions Recorded Confirmed Type Albuterol Inhaler [Ventolin Hfa 1 - 2 puff INHALATION RT-QID PRN 08/23/1604/23 History Inhaler] lamoTRIgine [LaMICtal] 150 mg PO BID 08/23/16 08/15/18 History Atomoxetine HCl [Strattera] 60 mg PO DAILY 08/15/18 08/15/18 History metFORMIN HCL 500 mg PO TID 08/15/18 08/15/18 History Allergies Allergy/AdvReac Type Severity Reaction Status Date / Time aspirin Allergy Anaphylaxis Verified 08/15/18 14:57 enalapril maleate Allergy Anaphylaxis Verified 08/15/18 14:57 [From Vasotec] enalaprilat dihydrate Allergy Anaphylaxis Verified 08/15/18 14:57 [From Vasotec] famotidine [From Pepcid] Allergy Anaphylaxis Verified 08/15/18 14:57 ibuprofen [From Motrin] Allergy Anaphylaxis Verified 08/15/18 14:57 methylphenidate HCl Allergy Anaphylaxis Verified 08/15/18 14:57 [From Ritalin] ranitidine HCl [From Zantac] Allergy Anaphylaxis Verified 08/15/18 14:57 ziprasidone HCl [From Geodon] Allergy Anaphylaxis Verified 08/15/18 14:57 ziprasidone mesylate Allergy Anaphylaxis Verified 08/15/18 14:57 [From Geodon] Physical Exam Vitals: Vital Signs Temp Pulse Pulse Resp BP BP Pulse Ox 08/16/18 12:00 98.4 F 107 H 16 126/81 95 08/16/18 08:00 98.1 F 108 H 18 109/70 95 08/16/18 07:13 90 08/16/18 07:03 88 08/16/18 04:00 98.2 F 107 H 15 109/66 97 08/16/18 00:00 110 H 15 08/15/18 23:43 98.0 F 110 H 15 124/72 98 08/15/18 20:00 110 H 15 08/15/18 19:35 97.4 F L 108 H 15 125/76 97 08/15/18 17:43 24 08/15/18 17:33 97.4 F L 108 H 16 130/81 98 08/15/18 17:02 97.9 F 111 H 18 124/77 97 08/15/18 15:17 109 H 18 97/72 96 08/15/18 14:32 98.3 F 121 H 18 116/75 95 Intake and Output 08/15/18 08/16/18 08/16/18 22:59 06:59 14:59 Other: Voiding Method Toilet Toilet Toilet # Voids 1 Physical EXAM GEN. APPEARANCE: Morbidly obese HEAD EXAM: atraumatic, normocephalic, normal inspection EYE EXAM: normal appearance, PERRL, EOMI. Absent: scleral icterus, conjunctival injection, periorbital swelling ENT EXAM: normal exam, mucous membranes moist NECK EXAM: normal inspection. Absent: tenderness, meningismus, full ROM, lymphadenopathy RESPIRATORY EXAM: Bilateral breath sounds are positive. No wheezes or crackles. CARDIOVASCULAR EXAM: S1 and S2 heard. Tachycardia. GI/ABDOMINAL EXAM: soft, normal bowel sounds. Difficult to appreciate organomegaly due to huge body habitus EXTREMITIES EXAM: No edema. No cough tenderness. NEUROLOGICAL EXAM: alert, oriented X3, no focal neurological deficits on gross exam. PSYCHIATRIC EXAM: normal affect, normal mood SKIN EXAM: warm, dry, intact, normal color. Absent: rash Results CBC & Chem 7: 08/15/18 15:15 08/15/18 15:15 Labs: Abnormal Lab Results - Last 24 Hours (Table) 08/15/18 08/15/18 08/16/18 Range/Units 15:15 21:12 02:43 BUN 5 L (7-17) mg/dL Creatinine 0.48 L (0.52-1.04) mg/dL Glucose 150 H (74-99) mg/dL POC Glucose (mg/dL) 123 H (75-99) mg/dL HDL Cholesterol 62 H (40-60) mg/dL 08/16/18 08/16/18 Range/Units 06:34 11:34 BUN (7-17) mg/dL Creatinine (0.52-1.04) mg/dL Glucose (74-99) mg/dL POC Glucose (mg/dL) 119 H 109 H (75-99) mg/dL HDL Cholesterol (40-60) mg/dL Thrombosis Risk Factor Assmnt - Choose All That Apply Any of the Below Risk Factors Present?: Yes Each Factor Represents 1 point: Abnormal pulmonary function (COPD) Thrombosis Risk Factor Assessment Total Risk Factor Score: 1 Thrombosis Risk Factor Assessment Level: Low Risk Assessment and Plan Assessment: ASSESSMENT Chest pain -workup for acute coronary syndrome with serial troponins and EKGs has been negative so far. Asthma exacerbation Obesity with BMI of 37 History of schizophrenia History of chronic tachycardia PLAN: Patient had workup for acute coronary syndrome with serial troponins and EKGs that have been negative so far. Currently we're treating her asthma exacerbation with breathing treatments and will add steroids. Continue with DVT prophylaxis and her home medications. Further recommendations to follow depending on the progress of the patient.
--- NOTE | 2018-08-17 12:48 | P.PN ---
Subjective Progress Note Date: 08/17/18 Principal diagnosis: Chest pain Ms. German is a 38-year-old female with a past medical history of asthma, schizophrenia, morbid obesity,chronic tachycardia coming into the hospital with a chief complaint of chest discomfort and difficulty in breathing. The patient states that she was walking from her mental health clinic and she felt a heavy sensation in her chest along with difficulty in breathing. Patient also mentions about having wheezing at that time. Patient denies having any nausea vomiting diaphoresis at that time. Patient's symptoms lasted for about 5-10 minutes. Patient denied having any loss of consciousness. Patient denies having any recent travel or swelling of her lower extremities. Patient has history of asthma and takes albuterol 2-3 times a day for difficulty in breathing. Patient denies having any history of smoking. Patient denies having any history of underlying cardiac issues. In the ED patient had a chest x-ray and EKG within normal limits. Troponins 2 have been within normal limits. Patient d-dimer is 0.45. Patient and an echoc ardiogram done yesterday showing ejection fraction of 60-65%. This morning patient is lying in bed, states that she still continues to have difficulty in breathing. She is okay when she is lying in the bed but when she gets up and moves around she has difficulty in breathing. She does not have any chest pain but complains of chest discomfort. Patient denies having any orthopnea or PND. No complaints of swelling in her lower extremities. Patient denies having any nausea vomiting or abdominal pain. No dysuria or hematuria. Patient's medications and labs have been reviewed. Active Medications Acetaminophen (Tylenol Tab) 650 mg PO Q6HR PRN PRN Reason: Fever and/ or Pain Last Admin: 08/17/18 09:46 Dose: 650 mg Documented by: Albuterol/Ipratropium (Duoneb 0.5 Mg-3 Mg/3 Ml Soln) 3 ml INHALATION RT-QID PRN PRN Reason: Shortness Of Breath Last Admin: 08/17/18 07:37 Dose: 3 ml Documented by: Heparin Sodium (Porcine) (Heparin) 5,000 unit SQ Q8HR EDY Last Admin: 08/17/18 08:12 Dose: 5,000 unit Documented by: Insulin Aspart (Novolog) 0 unit SQ ACHS [facility]; Protocol Last Admin: 08/17/18 11:54 Dose: 2 unit Documented by: Lamotrigine (Lamictal) 150 mg PO BID [facility] Last Admin: 08/17/18 08:12 Dose: 150 mg Documented by: Miscellaneous Information (Rx Info: Iv Contrast Was Given) 1 each MISCELLANE DAILY PRN PRN Reason: Per Protocol Stop: 08/19/18 11:38 Nitroglycerin (Nitrostat) 0.4 mg SUBLINGUAL Q5M PRN PRN Reason: Chest Pain Pantoprazole Sodium (Protonix) 40 mg PO AC-BRKFST [facility] Last Admin: 08/17/18 08:12 Dose: 40 mg Documented by: Prednisone () 50 mg PO DAILY [facility] Last Admin: 08/17/18 08:13 Dose: 50 mg Documented by: Objective - Vital Signs Vital signs: Vital Signs Temp 98.1 F 08/17/18 12:00 Pulse 107 H 08/17/18 12:00 Resp 16 08/17/18 08:00 BP 124/80 08/17/18 12:00 Pulse Ox 91 L 08/17/18 12:00 Intake & Output 08/16/18 08/17/18 08/17/18 18:59 06:59 18:59 Intake Total 240 Balance 240 Intake: Oral 240 Other: Voiding Method Toilet Toilet Toilet # Voids 2 - Exam GEN. APPEARANCE: Morbidly obese HEAD EXAM: atraumatic, normocephalic, normal inspection EYE EXAM: normal appearance, PERRL, EOMI. Absent: scleral icterus, conjunctival injection, periorbital swelling ENT EXAM: normal exam, mucous membranes moist NECK EXAM: normal inspection. Absent: tenderness, meningismus, full ROM, lymphadenopathy RESPIRATORY EXAM: Bilateral breath sounds are positive. No wheezes or crackles. CARDIOVASCULAR EXAM: S1 and S2 heard. Tachycardia. GI/ABDOMINAL EXAM: soft, normal bowel sounds. Difficult to appreciate organomegaly due to huge body habitus EXTREMITIES EXAM: No edema. No cough tenderness. NEUROLOGICAL EXAM: alert, oriented X3, no focal neurological deficits on gross exam. PSYCHIATRIC EXAM: normal affect, normal mood SKIN EXAM: warm, dry, intact, normal color. Absent: rash - Labs CBC & Chem 7: 08/17/18 06:47 08/17/18 06:47 Labs: Abnormal Lab Results - Last 24 Hours (Table) 08/16/18 08/16/18 08/16/18 Range/Units 16:03 16:40 19:55 Glucose (74-99) mg/dL POC Glucose (mg/dL) 132 H 185 H (75-99) mg/dL Ur Leukocyte Esterase Trace H (Negative) Amorphous Sediment Rare H (None) /hpf Urine Bacteria Few H (None) /hpf 08/17/18 08/17/18 08/17/18 Range/Units 06:33 06:47 11:36 Glucose 131 H (74-99) mg/dL POC Glucose (mg/dL) 123 H 154 H (75-99) mg/dL Ur Leukocyte Esterase (Negative) Amorphous Sediment (None) /hpf Urine Bacteria (None) /hpf Assessment and Plan Assessment: ASSESSMENT Chest pain -workup for acute coronary syndrome with serial troponins and EKGs has been negative so far. Asthma exacerbation Obesity with BMI of 37 History of schizophrenia History of chronic tachycardia PLAN: Patient had workup for acute coronary syndrome with serial troponins and EKGs that have been negative so far. Patient has been started on steroids, but she had only minimal relief of her symptoms. Patient get CTA of the chest and pulmonary medicine was also consulted. Continue with DVT prophylaxis and her home medications. Further recommendations to follow depending on the progress of the patient.
--- NOTE | 2018-08-17 15:44 | CT ---
EXAMINATION TYPE: CT chest angio for PE DATE OF EXAM: 08/17/2018 COMPARISON: None HISTORY: SOB CT DLP: 1113.4 mGycm Automated exposure control for dose reduction was used. CONTRAST: CT Chest for pulmonary embolism performed with with IV Contrast, patient injected with 87cc mL of Iso emily 370. FINDINGS: There are 3-D post processed images. Exam limited slightly by the patient size. Lungs are clear of consolidation. There is no evidence of a pulmonary mass. There is no mediastinal adenopathy. There are no hilar masses. Heart size is normal . There is no pericardial effusion. There is no pleural effusion. I see no filling defects in the pulmonary arteries. The thoracic aorta appears intact without evidenc e of aneurysm or dissection. The bony thorax appears intact. IMPRESSION: No evidence of pulmonary embolism. Negative exam.
--- NOTE | 2018-08-17 15:52 | P.CNPUL ---
History of Present Illness Consult date: 08/17/18 Reason for consult: dyspnea History of present illness: A 38-year-old female patient, morbidly obese with a BMI of 37, known history of schizophrenia and intermittent bronchial asthma maintained on Ventolin as needed basis in addition to diabetes mellitus, fibromyalgia, chronic and neck and back pain related to disc disease. The patient came into the hospital because of worsening shortness of breath and she states that she is chronically shortness of breath and recently her condition got worse and for that reason she came in. She was walking outside and she felt more short of breath. She also had a heavy sensation in her chest and she describes as if somebody was sitting on her chest along with some increased wheezing. She was brought in via EMS. Had no fever. No chills. Night sweats. No pleurisy. No hemoptysis. The patient has chronic pain in lower extremities bilaterally to the osteoarthritis and her morbid obesity. She has trace chronic lower extremity edema. Her EKG was nonspecific sinus rhythm. Chest x-ray was normal. White cell count was nonelevated. Kidney function was within normal limits. ProBNP level was 31. Cardiac enzymes essentially was negative. Echocardiogram from 2016 showed a normal ejection fraction and her d-dimer was also low at 0.4. The patient another echocardiogram that came back negative and the patient was seen by cardiology and ultimately sign off the case. There was suspicious for asthma exacerbation the patient was given is on burst taper starting with 50 mg and currently she is on DuoNeb nebulized treatment [id number] 4 times a day. I was informed by the nurse that she was slightly wheezy on yesterday's evaluation. I do not the patient any wheezing today. Her room air pulse ox is 93%. She does not use home oxygen. She is afebrile. On a separate note, the patient has typical features of obstructive sleep apnea. She has chronic tiredness and fatigue and sleepiness and she has a port history of apneas and loud snoring. No previous history of DVT. No previous history of pulmonary embolism. Review of Systems Constitutional: Reports chronic pain, Reports daytime sleepiness, Reports fatigue, Reports weakness, Reports weight gain Eyes: denies as per HPI, denies blurred vision, denies bulging eye, denies decreased vision, denies diplopia, denies discharge, denies dry eye, denies irritation, denies itching, denies pain, denies photophobia, denies loss of peripheral vision, denies loss of vision, denies tunnel vision/blind spots Ears: deny: decreased hearing, ear discharge, earache, tinnitus Ears, nose, mouth and throat: Denies headache, Denies sore throat Breasts: absent: as per HPI, change in shape, gynecomastia, masses, nipple discharge, pain, skin changes, swelling Cardiovascular: Reports decreased exercise tolerance, Reports dyspnea on exertion Respiratory: Reports dyspnea, Reports sleep apnea, Reports wheezing Gastrointestinal: Reports as per HPI Genitourinary: Reports as per HPI Musculoskeletal: Reports low back pain, Reports muscle weakness, Reports neck pain Musculoskeletal: bilateral: ankle swelling, absent: ankle pain, ankle stiffness Integumentary: Denies pruritus, Denies rash Neurological: Reports weakness Psychiatric: Reports as per HPI, Reports anxiety, Reports anxiety attacks, Reports depression, Reports hypersomnia, Reports memory loss, Reports sleep disturbances Endocrine: Reports as per HPI, Reports fatigue Hematologic/Lymphatic: Reports as per HPI Allergic/Immunologic: Reports as per HPI Past Medical History Past Medical History: Asthma, Fibromyalgia, GERD/Reflux, Hypertension, Memory Impairment, Syncope Additional Past Medical History / Comment(s): Schizophrenia, history of sinus tachycardia,nerve damage lt leg, back pain/ neck pain has pinched nerves,,non alcoholic fatty liver disease, uti, small hiatal hernia, migraines, tmj, kidney stones,ddd, History of Any Multi-Drug Resistant Organisms: None Reported Past Surgical History: Cholecystectomy, Orthopedic Surgery, Tubal Ligation Additional Past Surgical History / Comment(s): sinus, stomach biopsy, egd w/antral bx-neg, rt carpal tunnel release Past Anesthesia/Blood Transfusion Reactions: No Reported Reaction Additional Past Anesthesia/Blood Transfusion Reaction / Comment(s): clausterphobia Past Psychological History: Bipolar, Depression, Schizophrenia Additional Psychological History / Comment(s): pt lives with her fiancee is independant. History of tobacco use does not work outside of the home. Multiple tattoos none of them are new. No current recreational drug use. No experience. No international travel. No animals in the home. 2 teenage children live with them Smoking Status: Former smoker Past Alcohol Use History: Occasional Additional Past Alcohol Use History / Comment(s): quit smoking 2008 smopked 3 years 1 ppd Past Drug Use History: Marijuana Additional Drug Use History / Comment(s): smokes marijuana for pain controll Medications and Allergies Home Medications Medication Instructions Recorded Confirmed Type Albuterol Inhaler [Ventolin Hfa 1 - 2 puff INHALATION RT-QID PRN 08/23/16 08/15/18 History Inhaler] lamoTRIgine [LaMICtal] 150 mg PO BID 08/23/16 08/15/18 History Atomoxetine HCl [Strattera] 60 mg PO DAILY 08/15/18 08/15/18 History metFORMIN HCL 500 mg PO TID 08/15/18 08/15/18 History Allergies Allergy/AdvReac Type Severity Reaction Status Date / Time aspirin Allergy Anaphylaxis Verified 08/15/18 14:57 enalapril maleate Allergy Anaphylaxis Verified 08/15/18 14:57 [From Vasotec] enalaprilat dihydrate Allergy Anaphylaxis Verified 08/15/18 14:57 [From Vasotec] famotidine [From Pepcid] Allergy Anaphylaxis Verified 08/15/18 14:57 ibuprofen [From Motrin] Allergy Anaphylaxis Verified 08/15/18 14:57 methylphenidate HCl Allergy Anaphylaxis Verified 08/15/18 14:57 [From Ritalin] ranitidine HCl [From Zantac] Allergy Anaphylaxis Verified 08/15/18 14:57 ziprasidone HCl [From Geodon] Allergy Anaphylaxis Verified 08/15/18 14:57 ziprasidone mesylate Allergy Anaphylaxis Verified 08/15/18 14:57 [From Geodon] Physical Exam Vitals: Vital Signs Temp Pulse Pulse Pulse Resp BP Pulse Ox 08/17/18 15:42 93 L 08/17/18 12:00 98.1 F 107 H 124/80 91 L 08/17/18 08:00 97.7 F 104 H 16 120/80 93 L 08/17/18 07:51 108 H 08/17/18 07:39 100 94 L 08/17/18 04:00 98.3 F 101 H 15 120/75 94 L 08/17/18 03:18 15 08/16/18 23:57 98.6 F 109 H 15 101/67 96 08/16/18 23:10 15 08/16/18 20:00 15 08/16/18 18:50 99.8 F H 110 H 15 121/83 98 08/16/18 16:00 98.3 F 99 16 125/81 94 L Intake and Output 08/17/18 08/17/18 08/17/18 06:59 14:59 22:59 Other: Voiding Method Toilet Toilet Toilet # Voids 2 Morbid obese, comfortable not in acute distress is able to speak in full sentences without any major difficulties. She has hirsutism and facial hair. Head exam was generally normal. There was no scleral icterus or corneal arcus. Mucous membranes were moist. Neck was supple and without jugular venous distension, thyromegaly, or carotid bruits. Carotids were easily palpable bilaterally. There was no adenopathy. She has a Mallampati class IV was significant crowding of the posterior pharynx Lung sounds are diminished bilaterally. No significant wheezes appreciated. No crackles. No rhonchi. Heart sounds are tachycardic, normal S1-S2 and there is no significant murmurs appreciated. Abdomen is obese soft nontender organs cannot be accurately palpated. No direct tenderness rebound tensile guarding. No organomegaly. No ascites. Extremities trace edema and there is no cyanosis or clubbing. Examination of the skin revealed no evidence of significant rashes, suspicious appearing nevi or other concerning lesions. Neurologically awake and alert and there is no focal neurological deficit. Psychiatrically the patient has chronic anxiety and schizophrenia. Results - Laboratory Findings CBC and BMP: 08/17/18 06:47 08/17/18 06:47 PT/INR, D-dimer PT 10.4 sec (9.0-12.0) 08/15/18 15:15 INR 1.0 (<1.2) 08/15/18 15:15 D-Dimer 0.45 mg/L FEU (<0.60) 08/15/18 15:15 Abnormal lab findings: Abnormal Labs 08/15/18 08/15/18 08/16/18 15:15 21:12 02:43 BUN 5 L Creatinine 0.48 L Glucose 150 H POC Glucose (mg/dL) 123 H HDL Cholesterol 62 H Ur Leukocyte Esterase Amorphous Sediment Urine Bacteria 08/16/18 08/16/18 08/16/18 06:34 11:34 16:03 BUN Creatinine Glucose POC Glucose (mg/dL) 119 H 109 H HDL Cholesterol Ur Leukocyte Esterase Trace H Amorphous Sediment Rare H Urine Bacteria Few H 0408/16/18 08/17/18 16:40 19:55 06:33 BUN Creatinine Glucose POC Glucose (mg/dL) 132 H 185 H 123 H HDL Cholesterol Ur Leukocyte Esterase Amorphous Sediment Urine Bacteria 08/17/18 08/17/18 06:47 11:36 BUN Creatinine Glucose 131 H POC Glucose (mg/dL) 154 H HDL Cholesterol Ur Leukocyte Esterase Amorphous Sediment Urine Bacteria - Diagnostic Findings Chest x-ray: image reviewed CT scan - chest: image reviewed Assessment and Plan Plan: Assessment 1 shortness of breath multifactorial. The patient is morbidly obese and obviously she may have an underlying extrapulmonary restriction related to her morbid obesity. She does have some mild baseline hypoxemia in addition to that she has a mild component of bronchial asthma which is mild intermittent in nature which was probably active time of admission. D-dimer was low. CT angiogram was reviewed and there is no evidence of any pulmonary embolism or pneumonias. The patient is currently on a prednisone burst taper in addition to a donut otherwise units [id number]. Feeling already better and she is less short of breath 2 chronic sinus tachycardia 3 morbid obesity with a BMI of 37 4 hypertension suspicion for obstructive sleep apnea. 5 fibromyalgia 6 chronic neck and back pain 7 mental illness with depression and schizophrenia 8 small hiatal hernia 9 osteoarthritis 10 diabetes mellitus maintained on metformin Plan Discharge this patient home on a prednisone burst taper, and she can be given a short tapering course starting with 30 mg for 4 days, 20 mg for 4 days and then 10 mg for 4 days. Use Ventolin rescue inhaler on as needed basis. Weight loss. She is a nonsmoker. CTA jugular was checked and there is no evidence of any pulmonary embolism. She will need an outpatient follow-up regarding obstructive sleep apnea. I have a very high suspicion that she has less and she is quite symptomatically from that. Echocardiogram was noted and the patient has a normal LV function with a normal ejection fraction. No evidence of any valvular heart disease and a right-sided pressures could not be estimated because of her body habitus and absence of a tricuspid regurgitation jet. I will be glad to follow-up this patient outpatient basis patient will need to be supported function tests. She will need a sleep study. Discharge per medicine. I will sign off the case.
[2018-08-17 16:35] LABS: Glucose,Whole Blood 149 mg/dL (75-99)
[2018-08-17 20:12] LABS: Glucose,Whole Blood 158 mg/dL (75-99)
[2018-08-18 06:44] LABS: Glucose,Whole Blood 119 mg/dL (75-99)
[2018-08-18 06:56] VITALS: BP 141/84; RESP 16; TEMP 98.3
[2018-08-18] MEDS: INSULIN ASPART (NovoLOG) 100 UNIT/ML VIAL SQ SCH ×2 (09:18→16:54)
[2018-08-18] MEDS: lamoTRIgine 100 MG TAB PO SCH (09:18)
[2018-08-18] MEDS: HEPARIN SODIUM,PORCINE 5,000 UNIT/ML 1 ML VIAL SQ SCH ×2 (09:18→16:52)
[2018-08-18] MEDS: PANTOPRAZOLE 40 MG TABLET PO SCH (09:18)
[2018-08-18] MEDS: predniSONE 50 MG TAB PO SCH (09:18)
[2018-08-18] MEDS: ACETAMINOPHEN TAB 325 MG TAB PO PRN (09:23)
[2018-08-18 12:08] LABS: Glucose,Whole Blood 120 mg/dL (75-99)
[2018-08-18 15:01] VITALS: PULSE 97
--- NOTE | 2018-08-18 15:41 | P.DS ---
Providers Date of admission: 08/15/18 16:40 Attending physician: Maria Elena Rangel Consults: 08/15/18 16:40 Consult Physician Urgent Consulting Provider: Rob Ramirez Consult Reason/Comments: unstable angina Do you want consulting provider notified?: Yes 08/17/18 12:32 Consult Physician Routine Consulting Provider: Phil Starks Consult Reason/Comments: COPD/asthma Do you want consulting provider notified?: Yes Primary care physician: Vinayak Britton Hospital Course: Diagnoses: Chest pain, cardiac causes has been ruled out. Patient has been evaluated and cleared by pulmonary and cardiology teams for discharge. Resolved Bronchial asthma, with mild to moderate exacerbation. Dyspnea, multifactorial, related to bronchial asthma and possible obesity and obstructive sleep apnea. Improving Obesity with BMI of 37 History of schizophrenia Tachycardia on admission, resolved and his heart rate in the 90s which is within normal limits upon discharge Fibromyalgia Chronic neck and back pain Diabetes mellitus on metformin Hospital course This is a pleasant 68 years old female with past medical history of asthma, obesity, fibromyalgia, GERD, diabetes mellitus, hypertension. Presents with chest pain and dyspnea which are both resolved. Patient still have some exertional dyspnea which is close to her baseline. Patient had negative CT angiogram of the chest for pulmonary embolism. However patient has been evaluated by cardiology and pulmonary team and both teams cleared the patient for discharge. As per cardiology patient patient can follow up with her discovery guide Dr. Wilson and recommended outpatient stress test, patient informed about this recommendation and she agrees. Pulmonary evaluated the patient and recommended Taper steroids upon discharge and outpatient follow-up for evaluation for possible sleep study for possible obstructive sleep apnea. Patient denies abdominal pain. She is tolerating diet well. No nausea vomiting. She has regular bowel movements. She is mobile. No fever. Patient is back to her baseline due to think she can go home. Problems and management plan was discussed with patient in details and she verbalized understanding and acceptance Patient was found stable and can be discharged home however she needs follow-up as an outpatient. Gen: patient is a AAOx3, no distress, obese CVS: S1-S2, RRR, no murmur Lungs: B/L CTA, no wheezing Abdomen: soft, no distention, no tenderness, positive bowel sounds Extremity: no leg edema or induration Time spent more than 35 minutes Patient Condition at Discharge: Good Plan - Discharge Summary Discharge Rx Participant: No New Discharge Prescriptions: No Action Albuterol Inhaler [Ventolin Hfa Inhaler] 1 - 2 puff INHALATION RT-QID PRN PRN Reason: Shortness Of Breath lamoTRIgine [LaMICtal] 150 mg PO BID Atomoxetine HCl [Strattera] 60 mg PO DAILY metFORMIN HCL 500 mg PO TID Discharge Medication List Albuterol Inhaler [Ventolin Hfa Inhaler] 1 - 2 puff INHALATION RT-QID PRN 08/23/16 [History] lamoTRIgine [LaMICtal] 150 mg PO BID 08/23/16 [History] Atomoxetine HCl [Strattera] 60 mg PO DAILY 08/15/18 [History] metFORMIN HCL 500 mg PO TID 08/15/18 [History] Follow up Appointment(s)/Referral(s): Reba Licea MD [Primary Care Provider] - 1-2 days Phil Starks MD [STAFF PHYSICIAN] - 1 Week Domingo Wilson MD [STAFF PHYSICIAN] - 1 Week
[2018-08-18 16:12] LABS: Glucose,Whole Blood 166 mg/dL (75-99)
== END 2018-08-18 17:27 | disposition home or self-care (01) ==
LOC: EC 14:30 → 1SOBS 16:40
PROVIDERS: ADMIT Hospitalist; ATTEND Hospitalist
DX: R07.89 Other chest pain (principal); J45.21 Mild intermittent asthma with (acute) exacerbation; E11.9 Type 2 diabetes mellitus without complications; E66.01 Morbid (severe) obesity due to excess calories; Z68.37 Body mass index [BMI] 37.0-37.9, adult; F32.9 Major depressive disorder, single episode, unspecified; K76.0 Fatty (change of) liver, not elsewhere classified; R09.02 Hypoxemia; G47.33 Obstructive sleep apnea (adult) (pediatric); I10 Essential (primary) hypertension; F20.9 Schizophrenia, unspecified; G89.29 Other chronic pain; J44.9 Chronic obstructive pulmonary disease, unspecified; M19.90 Unspecified osteoarthritis, unspecified site; R00.0 Tachycardia, unspecified; K21.9 Gastro-esophageal reflux disease without esophagitis; K44.9 Diaphragmatic hernia without obstruction or gangrene; M54.2 Cervicalgia; M54.9 Dorsalgia, unspecified; M79.7 Fibromyalgia; Z87.442 Personal history of urinary calculi; Z87.891 Personal history of nicotine dependence; Z88.6 Allergy status to analgesic agent; Z79.84 Long term (current) use of oral hypoglycemic drugs; Z79.899 Other long term (current) drug therapy; Z90.49 Acquired absence of other specified parts of digestive tract; Z98.51 Tubal ligation status
CPT/HCPCS: 96372 ×4; 96360; 99285; 36415; 94640 ×2; 94760; 93005; 85379; 83880 ×2; 80061; 80053 ×2; 84443; 83735; 84484 ×2; 85025 ×2; 85610; 85730; 81001; 83036; 71046; 71275; G0378 ×4; C8929; J1644 ×4; J7512 ×3; Q9950; Q9967; 93306

== ENCOUNTER 2018-09-16 13:12 | Emergency (ER) | payer MEDICARE, OTHER ==
[2018-09-16 13:30] VITALS: BP 156/77; PULSE 103; RESP 20; TEMP 98
--- NOTE | 2018-09-16 15:06 | ED ---
General Adult HPI - General Chief complaint: Extremity Injury, Lower Stated complaint: Knee pain Time Seen by Provider: 09/16/18 14:27 Source: patient, RN notes reviewed, old records reviewed Mode of arrival: ambulatory Limitations: no limitations - History of Present Illness Initial comments: 38-year-old female patient presents to ED with chief complaint of pain of right knee. Patient reports that for approximately one week she has pain in anterior and posterior aspect of her right knee. Patient was initially seen by her primary care physician for this and told that she had a cyst. Patient reports that she has had pain while walking in her knee area. Patient denies any recent falls or trauma. Patient denies any chest pain or shortness of breath. Patient denies all other complaints at this time. Systemic: Pt denies fatigue, myalgia, fever/chills, rash. Pt denies weakness, night sweats, weight loss. Neuro: Pt denies headache, visual disturbances, syncope or pre-syncope. HEENT: Pt denies ocular discharge or irritation, otalgia, rhinorrhea, pharyngitis or notable lymphadenopathy. Cardiopulmonary: Pt denies chest pain, SOB, heart palpitations, dyspnea on exertion. Abdominal/GI: Pt denies abdominal pain, n/v/d. : Pt denies dysuria, burning w/ urination, frequency/urgency. Denies new onset urinary or bowel incontinence. MSK: Pt denies myalgia, loss of strength or function in extremities. Neuro: Pt denies new onset weakness, paresthesias. - Related Data Home Medications Medication Instructions Recorded Confirmed Albuterol Inhaler [Ventolin Hfa 1 - 2 puff INHALATION RT-QID PRN 08/23/16 08/15/18 Inhaler] lamoTRIgine [LaMICtal] 150 mg PO BID 08/23/16 08/15/18 metFORMIN HCL 500 mg PO TID 08/15/18 08/15/18 Previous Rx's Medication Instructions Recorded Nitroglycerin Sl Tabs [Nitrostat] 0.4 mg SUBLINGUAL Q5M PRN #20 tab 08/18/18 Pantoprazole [Protonix] 40 mg PO AC-BRKFST #30 tablet. 08/18/18 predniSONE 10 mg PO DIRECTED #24 tab 08/18/18 Allergies Allergy/AdvReac Type Severity Reaction Status Date / Time aspirin Allergy Anaphylaxis Verified 09/16/18 13:30 enalapril maleate Allergy Anaphylaxis Verified 09/16/18 13:30 [From Vasotec] enalaprilat dihydrate Allergy Anaphylaxis Verified 09/16/18 13:30 [From Vasotec] famotidine [From Pepcid] Allergy Anaphylaxis Verified 09/16/18 13:30 ibuprofen [From Motrin] Allergy Anaphylaxis Verified 09/16/18 13:30 methylphenidate HCl Allergy Anaphylaxis Verified 09/16/18 13:30 [From Ritalin] ranitidine HCl [From Zantac] Allergy Anaphylaxis Verified 09/16/18 13:30 ziprasidone HCl [From Geodon] Allergy Anaphylaxis Verified 09/16/18 13:30 ziprasidone mesylate Allergy Anaphylaxis Verified 09/16/18 13:30 [From Geodon] Review of Systems ROS Statement: Those systems with pertinent positive or pertinent negative responses have been documented in the HPI. ROS Other: All systems not noted in ROS Statement are negative. Past Medical History Past Medical History: Asthma, Fibromyalgia, GERD/Reflux, Hypertension, Memory Impairment, Syncope Additional Past Medical History / Comment(s): Schizophrenia, history of sinus tachycardia,nerve damage lt leg, back pain/ neck pain has pinched nerves,,non alcoholic fatty liver disease, uti, small hiatal hernia, migraines, tmj, kidney stones,ddd, History of Any Multi-Drug Resistant Organisms: None Reported Past Surgical History: Cholecystectomy, Orthopedic Surgery, Tubal Ligation Additional Past Surgical History / Comment(s): sinus, stomach biopsy, egd w/antral bx-neg, rt carpal tunnel release Past Anesthesia/Blood Transfusion Reactions: No Reported Reaction Additional Past Anesthesia/Blood Transfusion Reaction / Comment(s): clausterphobia Past Psychological History: Bipolar, Depression, Schizophrenia Smoking Status: Former smoker Past Alcohol Use History: Occasional Past Drug Use History: Marijuana General Exam - General Exam Comments Initial Comments: Constitutional: NAD, AOX3, Pt has pleasant affect. HEENT: NC/AT, trachea midline, neck supple, no lymphadenopathy. Posterior pharynx non erythematous, without exudates. External ears appear normal, without discharge. Mucous membranes moist. Eyes PERRLA, EOM intact. There is no scleral icterus. No pallor noted. Cardiopulmonary: RRR, no murmurs, rubs or gallops, no JVD noted. Lungs CTAB in anterior and posterior viveros. No peripheral edema. Abdominal exam: Abdomen soft and non-distended. Abdomen non-tender to palpation in all 4 quadrants. Bowel sounds active in LLQ. No hepatosplenomegaly. No ecchymosis Neuro: CN II-XII grossly intact. No nuchal rigidity. MSK: Right knee nonerythematous, nontender to palpation. Full active range of motion of knee. Patient able to bear weight without difficulty. No posterior calf tenderness bilaterally, homans sign negative bilaterally. Posterior tibialis and radial pulse +2 bilaterally. Sensation intact in upper and lower extremities. Full active ROM in upper and lower extremities, 5/5 stregnth. Limitations: no limitations Course Vital Signs 09/16/18 13:27 Temperature 98 F Pulse Rate 103 H Respiratory 20 Rate Blood Pressure 156/77 O2 Sat by Pulse 99 Oximetry Medical Decision Making - Medical Decision Making 38-year-old female patient presents to ED with chief complaint of pain of right knee. Patient reports that for approximately one week she has pain in anterior and posterior aspect of her right knee. Patient was initially seen by her primary care physician for this and told that she had a cyst. Patient reports that she has had pain while walking in her knee area. Patient denies any recent falls or trauma. Patient denies any chest pain or shortness of breath. Patient denies all other complaints at this time. Patient vital signs stable, afebrile. Physical exam displayed: Right knee nonerythematous, nontender to palpation. Full active range of motion of knee. Patient able to bear weight without difficulty. No posterior calf tenderness bilaterally, homans sign negative bilaterally. Posterior tibialis and radial pulse +2 bilaterally. Sensation intact in upper and lower extremities. Full active ROM in upper and lower extremities, 5/5 stregnth. Plain film of the knee displayed mild to moderate arthropathy. Venous Doppler right lower extremity was negative for DVT. Etiology of patient's pain is likely arthritis. Patient was discharged with orthopedic follow-up. Patient used Tylenol Motrin as needed for pain. Patient return to ER if condition worsens in any way. Case discussed with Dr. Duff. Disposition Clinical Impression: Knee pain, Arthralgia Disposition: HOME SELF-CARE Condition: Stable Instructions (If sedation given, give patient instructions): Knee Pain (ED) Additional Instructions: Patient to adhere to previously discussed treatment plan and will take medication(s) as directed. Patient to follow up with PCP in 1-2 days. Patient to return to ED if symptoms do not improve. Please follow-up with orthopedic consult 1-2 days. Please follow-up with primary care provider in 1-2 days. Return to ER if condition worsens in any way. Is patient prescribed a controlled substance at d/c from ED?: No Referrals: Reba Licea MD [Primary Care Provider] - 1-2 days Star Solis MD [STAFF PHYSICIAN] - 1-2 days
--- NOTE | 2018-09-16 15:09 | XR ---
EXAMINATION TYPE: XR knee 4V RT DATE OF EXAM: 09/16/2018 CLINICAL HISTORY: Right knee pain with no known injury TECHNIQUE: Three views of the right knee are obtained. COMPARISON: None. FINDINGS: There is no acute fracture/dislocation evident in right knee. The tri-compartment joint s paces demonstrate joint space narrowing with small marginal osteophytes. No radio opaque foreign body . The overlying soft tissue appears unremarkable. IMPRESSION: There is no acute fracture or dislocation in the right knee. Mild to moderate tricompart mental arthropathy, advanced for the patient's age.
[2018-09-16] MEDS ORDERED: TOPICAL SKIN ADHESIVE 1 EACH AMP TOPICAL ONE (15:30)
--- NOTE | 2018-09-16 15:57 | US ---
EXAMINATION TYPE: US venous doppler duplex LE RT DATE OF EXAM: 09/16/2018 2:47 PM COMPARISON: NONE CLINICAL HISTORY: Pain. Right leg pain SIDE PERFORMED: Right TECHNIQUE: The lower extremity deep venous system is examined utilizing real time linear array sonog aryan with graded compression, doppler sonography and color-flow sonography. VESSELS IMAGED: External Iliac Vein (EIV) Common Femoral Vein Deep Femoral Vein Greater Saphenous Vein * Femoral Vein Popliteal Vein Small Saphenous Vein * Proximal Calf Veins (* superficial vessels) Difficult and limited study due to patient body habitus Right Leg: Appears negative for DVT There is normal flow, compressibility, vascular waveforms. Peripheral aspect of the femoral vein is n ot well evaluated. IMPRESSION: Exam is limited technically. No evident deep venous thrombosis at or above the right kn ee as described. Follow-up as indicated.
== END 2018-09-16 16:30 | disposition home or self-care (01) ==
LOC: EC 13:12
DX: M25.561 Pain in right knee (principal); M12.861 Other specific arthropathies, not elsewhere classified, right knee; J45.909 Unspecified asthma, uncomplicated; F31.9 Bipolar disorder, unspecified; Z87.891 Personal history of nicotine dependence; Z88.6 Allergy status to analgesic agent; Z88.8 Allergy status to other drugs, medicaments and biological substances; Z79.84 Long term (current) use of oral hypoglycemic drugs; Z79.899 Other long term (current) drug therapy; Z53.8 Procedure and treatment not carried out for other reasons
CPT/HCPCS: 99284

== ENCOUNTER 2018-11-19 14:25 | Observation (INO) | payer MEDICARE, OTHER ==
[2018-11-19] MEDS ORDERED: ASPIRIN 81 MG PO STA (14:36)
[2018-11-19] MEDS ORDERED: SODIUM CHLORIDE 0.9% 1,000 ML IV STA (14:36)
[2018-11-19 15:31] LABS: Basophils % (A) 1 %; Eosinophils # (A) 0.2 k/uL (0-0.7); Eosinophils % (A) 4 %; HCT 44.8 % (34.0-46.0); HGB 14.8 gm/dL (11.4-16.0); Lymphocytes % (A) 22 %; MCH 28.3 pg (25.0-35.0); MCV 85.8 fL (80.0-100.0); Mean Platelet Volume 10.2; Monocytes # (A) 0.3 k/uL (0-1.0); Monocytes % (A) 5 %; Neutrophils # (A) 3.2 k/uL (1.3-7.7); Neutrophils % (A) 68 %; Platelet Count 139 k/uL (150-450); RBC 5.22 m/uL (3.80-5.40); RDW 15.2 % (11.5-15.5); WBC 4.8 k/uL (3.8-10.6)
[2018-11-19 15:34] LABS: Appearance,Urine Cloudy (Clear); Bacteria,Urine Rare /hpf; Bilirubin,Urine Negative (Negative); Blood,Urine Trace (Negative); Color,Urine Yellow; Glucose,Urine (UA) Negative (Negative); Ketones,Urine Negative (Negative); Leukocyte Esterase,Urine Small (Negative); Mucus,Urine Occasional /hpf; Nitrite,Urine Negative (Negative); Protein,Urine Trace (Negative); RBC,Urine 2 /hpf (0-5); Specific Gravity,Urine 1.026 (1.001-1.035); Squamous Epithelial Cell,Urine 6 /hpf (0-4); WBC,Urine 4 /hpf (0-5)
--- NOTE | 2018-11-19 15:36 | XR ---
EXAMINATION TYPE: XR chest 2V DATE OF EXAM: 11/19/2018 COMPARISON: 08/15/2018 INDICATION: Chest pain TECHNIQUE: Frontal and lateral views of the chest are obtained. FINDINGS: The heart size is normal. The pulmonary vasculature is normal. The lungs are clear. IMPRESSION: 1. No acute pulmonary process.
[2018-11-19 15:39] LABS: INR 0.9 (<1.2); Partial Thromboplastin Time 23.4 sec (22.0-30.0); Prothrombin Time 9.5 sec (9.0-12.0)
[2018-11-19 15:40] LABS: ALT 17 U/L (9-52); AST 19 U/L (14-36); African American GFR (CKD) >90 (>60 ml/min/1.73 sqM); Albumin 4.3 g/dL (3.5-5.0); Alkaline Phosphatase 81 U/L (38-126); Amylase 43 U/L (30-110); Anion Gap 10 mmol/L; Blood Urea Nitrogen 9 mg/dL (7-17); Calcium 9.4 mg/dL (8.4-10.2); Carbon Dioxide 26 mmol/L (22-30); Chloride 104 mmol/L (98-107); Glucose 98 mg/dL (74-99); Lipase 87 U/L (23-300); Magnesium 2.2 mg/dL (1.6-2.3); Potassium 4.2 mmol/L (3.5-5.1); Sodium 140 mmol/L (137-145); Total Bilirubin 0.5 mg/dL (0.2-1.3); Total Protein 7.1 g/dL (6.3-8.2)
[2018-11-19] MEDS ORDERED: MORPHINE SULFATE 4 MG/ML SYRINGE IVP STA (16:31)
--- NOTE | 2018-11-19 16:33 | ED ---
Chest Pain HPI - General Chief Complaint: Chest Pain Stated Complaint: Chest Pain Time Seen by Provider: 11/19/18 14:35 Source: patient, RN notes reviewed, old records reviewed Mode of arrival: wheelchair Limitations: no limitations - History of Present Illness Initial Comments: Patient is a 38-year-old female presents emergency department today with co mplaining of heaviness to her chest. She states it seems to be at all times, with exertion and resting. Patient states that she's had no significant cough first denies any significant shortness of breath or nausea. She reports that she has a history of palpitations. She's previously seen Dr. Berumen, for cardiology. She is a diabetic. Patient states that she has had no significant fevers or chills. No history of blood clots. Denies any leg swelling. - Related Data Home Medications Medication Instructions Recorded Confirmed metFORMIN HCL 500 mg PO TID 08/15/18 11/19/18 Atomoxetine HCl [Strattera] 60 mg PO QAM 11/19/18 11/19/18 Benztropine Mesylate 1 mg PO BID 11/19/18 11/19/18 Diltiazem HCl 30 mg PO BID 11/19/18 11/19/18 Loratadine [Claritin] 10 mg PO DAILY 11/19/18 11/19/18 Meloxicam [Mobic] 15 mg PO DAILY 11/19/18 11/19/18 Paliperidone IM [Invega Sustenna] 234 mg IM Q14D 11/19/18 11/19/18 Sertraline HCl [Zoloft] 100 mg PO BID 11/19/18 11/19/18 lamoTRIgine [LaMICtal] 150 mg PO BID 11/19/18 11/19/18 Allergies Allergy/AdvReac Type Severity Reaction Status Date / Time aspirin Allergy Anaphylaxis Verified 11/19/18 15:57 enalapril maleate Allergy Anaphylaxis Verified 11/19/18 15:57 [From Vasotec] enalaprilat dihydrate Allergy Anaphylaxis Verified 11/19/18 15:57 [From Vasotec] famotidine [From Pepcid] Allergy Anaphylaxis Verified 11/19/18 15:57 ibuprofen [From Motrin] Allergy Anaphylaxis Verified 11/19/18 15:57 methylphenidate HCl Allergy Anaphylaxis Verified 11/19/18 15:57 [From Ritalin] ranitidine HCl [From Zantac] Allergy Anaphylaxis Verified 11/19/18 15:57 ziprasidone HCl [From Geodon] Allergy Anaphylaxis Verified 11/19/18 15:57 ziprasidone mesylate Allergy Anaphylaxis Verified 11/19/18 15:57 [From Geodon] Review of Systems ROS Statement: Those systems with pertinent positive or pertinent negative responses have been documented in the HPI. ROS Other: All systems not noted in ROS Statement are negative. EKG Findings - EKG Comments: EKG Findings:: EKG performed at work and 48 shows sinus rhythm normal EKG. Ventricular rate 96 bpm. FL interval is 1:30 milliseconds. QS duration 80 ms. QT QTc is 350/452 ms. Past Medical History Past Medical History: Asthma, Fibromyalgia, GERD/Reflux, Hypertension, Memory Impairment, Syncope Additional Past Medical History / Comment(s): Schizophrenia, history of sinus tachycardia,nerve damage lt leg, back pain/ neck pain has pinched nerves,,non alcoholic fatty liver disease, uti, small hiatal hernia, migraines, tmj, kidney stones,ddd, History of Any Multi-Drug Resistant Organisms: None Reported Past Surgical History: Cholecystectomy, Orthopedic Surgery, Tubal Ligation Additional Past Surgical History / Comment(s): sinus, stomach biopsy, egd w/antral bx-neg, rt carpal tunnel release Past Anesthesia/Blood Transfusion Reactions: No Reported Reaction Additional Past Anesthesia/Blood Transfusion Reaction / Comment(s): clausterphobia Past Psychological History: Bipolar, Depression, Schizophrenia Smoking Status: Former smoker Past Alcohol Use History: Occasional Past Drug Use History: Marijuana General Exam - General Exam Comments Initial Comments: Patient is a morbidly obese 38-year-old female. No significant distress. Limitations: no limitations General appearance: alert, in no apparent distress Head exam: Present: atraumatic, normocephalic, normal inspection Eye exam: Present: normal appearance, PERRL, EOMI. Absent: scleral icterus, conjunctival injection, periorbital swelling ENT exam: Present: normal exam, mucous membranes moist Neck exam: Present: normal inspection. Absent: tenderness, meningismus, lymphadenopathy Respiratory exam: Present: normal lung sounds bilaterally. Absent: respiratory distress, wheezes, rales, rhonchi, stridor Cardiovascular Exam: Present: regular rate, normal rhythm, normal heart sounds, other (Chest pain is not reproducible.). Absent: systolic murmur, diastolic murmur, rubs, gallop, clicks GI/Abdominal exam: Present: soft, normal bowel sounds. Absent: distended, tenderness, guarding, rebound, rigid Extremities exam: Present: normal inspection, full ROM, normal capillary refill. Absent: tenderness, pedal edema, joint swelling, calf tenderness Back exam: Present: normal inspection Neurological exam: Present: alert, oriented X3, CN II-XII intact Psychiatric exam: Present: normal affect, normal mood Course Vital Signs 11/19/18 11/19/18 11/19/18 14:30 15:02 16:37 Temperature 97.8 F Pulse Rate 98 100 Pulse Rate [ 92 [employer] ] Respiratory 16 18 Rate Blood Pressure 120/84 137/67 O2 Sat by Pulse 98 100 Oximetry Chest Pain MDM - MDM This is a 38-year-old female, history diabetes, hypertension. She presents emergency department today for evaluation. Heavy chest pain. Onset of today. Patient's EKG was reviewed to be normal. Initial troponin is negative. She describes as persistent sitting on her chest. She does report some radiation to the neck and jaw. Denies any arm tingling or shortness of breath. Patient's labwork was reviewed and unremarkable. Chest x-rays negative for any acute process. At this time Patient admitted with atypical chest pain symptoms rule out ACS. Repeat troponins. Patient's case discussed with Dr. Carrasco Disposition Clinical Impression: Chest pain Disposition: ADMITTED IP TO THIS HOSP Condition: Stable Is patient prescribed a controlled substance at d/c from ED?: No Referrals: Reba Licea MD [Primary Care Provider] - 1-2 days Time of Disposition: 16:57
[2018-11-19] MEDS ORDERED: HEPARIN SODIUM,PORCINE 5,000 UNIT/ML 1 ML VIAL IV ONE (16:57)
[2018-11-19] MEDS ORDERED: NITROGLYCERIN SL TABS 0.4 MG TAB SUBLINGUAL PRN (16:57)
[2018-11-19] MEDS ORDERED: HEPARIN SOD,PORK IN 0.45% NACL 25,000 UNIT in 0.45% NACL 1 250ML.BAG IV SCH (17:30)
[2018-11-19 18:03] VITALS: BMI 56.9
[2018-11-19 18:13] LABS: Glucose,Whole Blood 106 mg/dL (75-99)
[2018-11-19] MEDS: lamoTRIgine 100 MG TAB PO SCH (20:08)
[2018-11-19] MEDS: metFORMIN 500 MG TAB PO SCH (20:09)
[2018-11-19] MEDS: DILTIAZEM ORAL 30 MG TAB PO SCH (20:09)
[2018-11-19] MEDS: SERTRALINE 100 MG TAB PO SCH (20:09)
[2018-11-19] MEDS: BENZTROPINE MESYLATE 1 MG TAB PO SCH (20:09)
[2018-11-19 20:26] LABS: Glucose,Whole Blood 141 mg/dL (75-99)
[2018-11-20 06:12] LABS: Cholesterol 132 mg/dL (<200); HDL Cholesterol 62 mg/dL (40-60); LDL Cholesterol,Calculated 58 mg/dL (0-99); Triglycerides 61 mg/dL (<150)
[2018-11-20 06:54] LABS: Glucose,Whole Blood 105 mg/dL (75-99)
[2018-11-20] MEDS: ATOMOXETINE HCL 60 MG PO SCH (08:29)
[2018-11-20] MEDS ORDERED: ASPIRIN 325 MG TAB PO SCH (09:00)
[2018-11-20] MEDS ORDERED: DOBUTamine DRIP for NUC MED 500 MG in DEXTROSE/WATER 1 250ML.BAG IV ONE (09:20)
--- NOTE | 2018-11-20 11:16 | P.CRDCN ---
History of Present Illness History of present illness: This is a pleasant 38-year-old female past medical history significant for hypertension, diabetes mellitus, schizophrenia, fibromyalgia and asthma. She follows in the office with Dr. Frost. We have been asked to see her in consultation secondary to chest discomfort. She states yesterday while she was laying in bed after waking up she started feeling a heavy pressure sensation in the left precordial region described as somebody sitting on her chest. She took sublingual nitroglycerin and it subsided her discomfort. At that time there is no radiation to the arm, back, neck or jaw. There is no associated shortness of breath, dizziness, nausea, vomiting, palpitations or diaphoresis. Couple of hours later while she was sitting up playing cards she again had another heavy pressure sensation in the left precordial region. Again there is no radiation or associated symptoms. She took a sublingual nitroglycerin and this time it did not subside her discomfort she came to the hospital for further evaluation. Upon arrival she was having ongoing chest discomfort and received morphine and her symptoms subsided. She has had no further chest discomfort since coming to the hospital. She has been following in the office and recently underwent a Lexiscan stress test revealing mild reversibility in the anterior lateral aspect. She is scheduled in the office for a dobutamine stress test December 03. Recent echocardiogram obtained this year reveals preserved LV systolic function with ejection fraction 60-60%. EKG reveals sinus mechanism with no acute ST or T wave abnormalities noted. Chest x-ray is negative for acute cardiopulmonary process. Laboratory data reviewed, WBC 4.8, hemoglobin 14.8, platelets 139, sodium 140, potassium 4.2, creatinine 0.66, magnesium 2.2, cardiac enzymes negative 3, LDL 58. Current cardiac medications include diltiazem 30 mg twice a day. At the time of my exam: CONSTITUTIONAL: Denies fever. Denies chills. EYES: Denies blurred vision. Denies vision changes. Denies eye pain. EARS, NOSE, MOUTH & THROAT: Denies headache. Denies sore throat. Denies ear pain. CARDIOVASCULAR: Denies chest pain. Denies shortness of breath. Denies orthopnea. Denies PND. Denies palpitations. RESPIRATORY: Denies cough. GASTROINTESTINAL: Denies abdominal pain. Denies diarrhea. Denies constipation. Denies nausea. Denies vomiting. MUSCULOSKELETAL: Denies myalgias. INTEGUMENTARY: Denies pruitis. Denies rash. NEUROLOGIC: Denies numbness. Denies tingling. Denies weakness. PSYCHIATRIC: Denies anxiety. Denies depression. ENDOCRINE: Denies fatigue. Denies weight change. Denies polydipsia. Denies polyurina. GENITOURINARY: Denies burning, hematuria or urgency with micturation. HEMATOLOGIC: Denies history of anemia. Denies bleeding. Blood pressure 111/75 heart rate 87 afebrile maintaining oxygen saturation on room air GENERAL: This is a 38-year-old female in no apparent distress at the time of my examination. Morbidly obese. HEENT: Head is atraumatic, normocephalic. Pupils are equal, round. Sclerae anicteric. Conjunctivae are clear. Mucous membranes of the mouth are moist. Neck is supple. There is no jugular venous distention. No carotid bruit is heard. LUNGS: Faint expiratory wheeze on auscultation, no rales or rhonchi. No chest wall tenderness is noted on palpation or with deep breathing. HEART: Regular rate and rhythm without murmurs, rubs or gallops. S1 and S2 heard. ABDOMEN: Soft, nontender. Bowel sounds are heard. No organomegaly noted. EXTREMITIES: No evidence of peripheral edema and no calf tenderness noted. VASCULAR: Radial and dorsalis pedis pulses palpated, no evidence of clubbing. NEUROLOGIC: Patient is awake, alert and oriented x3. ASSESSMENT Chest pain at rest, atypical for angina. An acute coronary event has been ruled out. Hypertension Diabetes mellitus Asthma Fibromyalgia Schizophrenia Morbid obesity, BMI 57 PLAN An acute coronary event has been ruled out, discontinue heparin infusion. Proceed with dobutamine stress echocardiogram to assess for stress-induced cardiac ischemia. If stress test is normal she is stable from a cardiac perspective. Symptoms possibly related to gastroesophageal reflux disease, consider initiation of an antacid. Follow-up in the office with Dr. Frost upon discharge. Thank you kindly for this consultation. Nurse Practitioner note has been reviewed, I agree with a documented findings and plan of care. Patient was seen and examined. Past Medical History Past Medical History: Asthma, Fibromyalgia, GERD/Reflux, Hypertension, Memory Impairment, Syncope Additional Past Medical History / Comment(s): Schizophrenia, history of sinus tachycardia,nerve damage lt leg, back pain/ neck pain has pinched nerves,,non alcoholic fatty liver disease, uti, small hiatal hernia, migraines, tmj, kidney stones,ddd, History of Any Multi-Drug Resistant Organisms: None Reported Past Surgical History: Cholecystectomy, Tubal Ligation Additional Past Surgical History / Comment(s): sinus, stomach biopsy, egd w/antral bx-neg, rt carpal tunnel release Past Anesthesia/Blood Transfusion Reactions: No Reported Reaction Additional Past Anesthesia/Blood Transfusion Reaction / Comment(s): clausterphobia Past Psychological History: Bipolar, Depression, Schizophrenia Additional Psychological History / Comment(s): pt takes marijuana at home for pain Smoking Status: Former smoker Past Alcohol Use History: Occasional Additional Past Alcohol Use History / Comment(s): pt stated quit smoking in high school Past Drug Use History: Marijuana Additional Drug Use History / Comment(s): smokes marijuana for pain control - Past Family History Father Family Medical History: No Reported History Mother Family Medical History: Diabetes Mellitus Medications and Allergies Home Medications Medication Instructions Recorded Confirmed Type metFORMIN HCL 500 mg PO TID 08/15/18 11/19/18 History Atomoxetine HCl [Strattera] 60 mg PO QAM 11/19/18 11/19/18 History Benztropine Mesylate 1 mg PO BID 11/19/18 11/19/18 History Diltiazem HCl 30 mg PO BID 11/19/18 11/19/18 History Loratadine [Claritin] 10 mg PO DAILY 11/19/18 11/19/18 History Meloxicam [Mobic] 15 mg PO DAILY 11/19/18 11/19/18 History Paliperidone IM [Invega Sustenna] 234 mg IM Q14D 11/19/18 11/19/18 History Sertraline HCl [Zoloft] 100 mg PO BID 11/19/18 11/19/18 History lamoTRIgine [LaMICtal] 150 mg PO BID 11/19/18 11/19/18 History Allergies Allergy/AdvReac Type Severity Reaction Status Date / Time aspirin Allergy Anaphylaxis Verified 11/19/18 15:57 enalapril maleate Allergy Anaphylaxis Verified 11/19/18 15:57 [From Vasotec] enalaprilat dihydrate Allergy Anaphylaxis Verified 11/19/18 15:57 [From Vasotec] famotidine [From Pepcid] Allergy Anaphylaxis Verified 11/19/18 15:57 ibuprofen [From Motrin] Allergy Anaphylaxis Verified 11/19/18 15:57 methylphenidate HCl Allergy Anaphylaxis Verified 11/19/18 15:57 [From Ritalin] ranitidine HCl [From Zantac] Allergy Anaphylaxis Verified 11/19/18 15:57 ziprasidone HCl [From Geodon] Allergy Anaphylaxis Verified 11/19/18 15:57 ziprasidone mesylate Allergy Anaphylaxis Verified 11/19/18 15:57 [From Geodon] Physical Exam Vitals: Vital Signs Temp Pulse Pulse Pulse Resp BP BP 11/20/18 07:39 98.7 F 87 18 111/75 11/20/18 07:12 11/20/18 03:55 98.7 F 94 18 118/71 11/20/18 02:26 16 11/19/18 23:37 16 11/19/18 23:35 98.7 F 98 16 126/72 11/19/18 20:00 16 11/19/18 19:29 98.5 F 92 16 110/73 11/19/18 17:45 97.5 F L 93 20 132/81 11/19/18 17:22 92 18 117/69 11/19/18 16:37 100 18 137/67 11/19/18 15:02 92 11/19/18 14:30 97.8 F 98 16 120/84 Pulse Ox 11/20/18 07:39 96 11/20/18 07:12 94 L 11/20/18 03:55 94 L 11/20/18 02:26 11/19/18 23:37 11/19/18 23:35 96 11/19/18 20:00 11/19/18 19:29 96 11/19/18 17:45 97 11/19/18 17:22 99 11/19/18 16:37 100 11/19/18 15:02 11/19/18 14:30 98 Intake and Output 11/19/18 11/20/18 11/20/18 22:59 06:59 14:59 Intake Total 500 59.106 Balance 500 59.106 Intake: Amount of Fluid Infused ( 500 ml) Intake, IV Titration 59.106 Amount Heparin Sod,Pork in 0.45% 59.106 NaCl 25,000 unit In 0.45 % NaCl 1 250ml.bag @ 6 UNITS/KG/HR 9.906 mls/hr IV .Q24H [facility] Rx#: [id number] Other: # Voids 1 Results 11/19/18 15:14 11/19/18 15:14 Cardiac Enzymes 11/19/18 11/19/18 11/19/18 Range/Units 15:14 15:14 22:21 AST 19 (14-36) U/L Troponin I <0.012 <0.012 (0.000-0.034) ng/mL 11/20/18 Range/Units 03:07 AST (14-36) U/L Troponin I <0.012 (0.000-0.034) ng/mL Coagulation 11/19/18 11/19/18 11/20/18 Range/Units 15:14 22:21 05:34 PT 9.5 (9.0-12.0) sec APTT 23.4 34.5 H 57.3 H (22.0-30.0) sec Lipids 11/20/18 Range/Units 05:34 Triglycerides 61 (<150) mg/dL Cholesterol 132 (<200) mg/dL HDL Cholesterol 62 H (40-60) mg/dL CBC 11/19/18 Range/Units 15:14 WBC 4.8 (3.8-10.6) k/uL RBC 5.22 (3.80-5.40) m/uL Hgb 14.8 (11.4-16.0) gm/dL Hct 44.8 (34.0-46.0) % Plt Count 139 L (150-450) k/uL Comprehensive Metabolic Panel 11/19/18 Range/Units 15:14 Sodium 140 (137-145) mmol/L Potassium 4.2 (3.5-5.1) mmol/L Chloride 104 (98-107) mmol/L Carbon Dioxide 26 (22-30) mmol/L BUN 9 (7-17) mg/dL Creatinine 0.66 (0.52-1.04) mg/dL Glucose 98 (74-99) mg/dL Calcium 9.4 (8.4-10.2) mg/dL AST 19 (14-36) U/L ALT 17 (9-52) U/L Alkaline Phosphatase 81 (38-126) U/L Total Protein 7.1 (6.3-8.2) g/dL Albumin 4.3 (3.5-5.0) g/dL Current Medications Generic Name Dose Route Start Last Admin Trade Name Gregorio PRN Reason Stop Dose Admin Benztropine Mesylate 1 mg 11/19/18 21:00 11/19/18 20:09 Cogentin PO 1 mg BID EDY Administration Diltiazem HCl 30 mg 11/19/18 21:00 11/19/18 20:09 Cardizem Oral PO 30 mg BID EDY Administration Heparin Sodium/Sodium Chloride 250 mls @ 9.906 mls/hr 11/19/18 17:30 11/19/18 23:17 25,000 unit/ Sodium Chloride IV 9 units/kg/hr .Q24H EDY 14.86 mls/hr Titration Protocol 6 UNITS/KG/HR Lamotrigine 150 mg 11/19/18 21:00 11/19/18 20:08 Lamictal PO 150 mg BID EDY Administration Loratadine 10 mg 11/20/18 09:00 Claritin PO DAILY [facility] Meloxicam 15 mg 11/20/18 09:00 Mobic PO DAILY [facility] Metformin HCl 500 mg 11/19/18 22:00 11/19/18 20:09 Glucophage PO 500 mg TID EDY Administration Nitroglycerin 0.4 mg 11/19/18 16:57 Nitrostat SUBLINGUAL Q5M PRN Chest Pain Non-Formulary Medication 60 mg 11/20/18 09:00 Atomoxetine Hcl [Strattera] PO QAM [facility] Paliperidone Palmitate 234 mg 11/25/18 09:00 Invega Sustenna IM Q14D [facility] Sertraline HCl 100 mg 11/19/18 21:00 11/19/18 20:09 Zoloft PO 100 mg BID EDY Administration Intake and Output 11/19/18 11/20/18 11/20/18 22:59 06:59 14:59 Intake Total 500 59.106 Balance 500 59.106 Intake: Amount of Fluid Infused ( 500 ml) Intake, IV Titration 59.106 Amount Heparin Sod,Pork in 0.45% 59.106 NaCl 25,000 unit In 0.45 % NaCl 1 250ml.bag @ 6 UNITS/KG/HR 9.906 mls/hr IV .Q24H [facility] Rx#: [id number] Other: # Voids 1 11/19/18 15:14 11/19/18 15:14
[2018-11-20 11:39] LABS: Glucose,Whole Blood 91 mg/dL (75-99)
[2018-11-20] MEDS: DILTIAZEM ORAL 30 MG TAB PO SCH ×2 (11:43→20:10)
[2018-11-20] MEDS: BENZTROPINE MESYLATE 1 MG TAB PO SCH ×2 (11:43→20:10)
[2018-11-20] MEDS: SERTRALINE 100 MG TAB PO SCH ×2 (11:44→20:10)
[2018-11-20] MEDS: LORATADINE 10 MG TAB PO SCH (11:44)
[2018-11-20] MEDS: lamoTRIgine 100 MG TAB PO SCH ×2 (11:44→20:10)
[2018-11-20] MEDS: MELOXICAM 7.5 MG TAB PO SCH (11:44)
[2018-11-20] MEDS: metFORMIN 500 MG TAB PO SCH ×3 (11:44→20:10)
--- NOTE | 2018-11-20 11:57 | P.HPIM ---
History of Present Illness Chief Complaint: Chest pain This is a minute history and physical and discharge summary for this patient This very pleasant 38-year-old morbidly obese female with a past medical history significant for hypertension, diabetes, fibromyalgia, asthma comes in for above- mentioned complaints. The patient said that she was okay until yesterday morning when she suddenly started having heaviness in the chest while lying on the bed and this summary sitting on her chest. She was having the sensation more on the left side. She said that she was also having associated shortness of breath but no cough. She did not complain of any radiation of the pain, she did not complain of any diaphoresis, any dizziness, no abdominal pain, nausea and vomiting, no diarrhea constipation. She did not complain of any palpitations as well. She tried to take nitro but did not help the discomfort. She does came to the ER for further evaluation and management. He ER course-Labwork was done which showed WBC 4.8 hemoglobin 14.8 platelets 139 sodium 140 potassium 4.2 creatinine 0.66 magnesium 2.2 troponins were negative. Patient's EKG showed no ST-T wave changes, chest x-ray showed no acute cardiopulmonary process. Patient was given morphine of the chest pain subsided. Patient was thus admitted to the hospitalist service a further evaluation and management with a cardiology consult Review of Systems All systems: negative Past Medical History Past Medical History: Asthma, Fibromyalgia, GERD/Reflux, Hypertension, Memory Impairment, Syncope Additional Past Medical History / Comment(s): Schizophrenia, history of sinus tachycardia,nerve damage lt leg, back pain/ neck pain has pinched nerves,,non alcoholic fatty liver disease, uti, small hiatal hernia, migraines, tmj, kidney stones,ddd, History of Any Multi-Drug Resistant Organisms: None Reported Past Surgical History: Cholecystectomy, Tubal Ligation Additional Past Surgical History / Comment(s): sinus, stomach biopsy, egd w/antral bx-neg, rt carpal tunnel release Past Anesthesia/Blood Transfusion Reactions: No Reported Reaction Additional Past Anesthesia/Blood Transfusion Reaction / Comment(s): clausterphobia Past Psychological History: Bipolar, Depression, Schizophrenia Additional Psychological History / Comment(s): pt takes marijuana at home for pain Smoking Status: Former smoker Past Alcohol Use History: Occasional Additional Past Alcohol Use History / Comment(s): pt stated quit smoking in high school Past Drug Use History: Marijuana Additional Drug Use History / Comment(s): smokes marijuana for pain control - Past Family History Father Family Medical History: No Reported History Mother Family Medical History: Diabetes Mellitus Medications and Allergies Home Medications Medication Instructions Recorded Confirmed Type metFORMIN HCL 500 mg PO TID 08/15/18 11/19/18 History Atomoxetine HCl [Strattera] 60 mg PO QAM 11/19/18 11/19/18 History Benztropine Mesylate 1 mg PO BID 11/19/18 11/19/18 History Diltiazem HCl 30 mg PO BID 11/19/18 11/19/18 History Loratadine [Claritin] 10 mg PO DAILY 11/19/18 11/19/18 History Meloxicam [Mobic] 15 mg PO DAILY 11/19/18 11/19/18 History Paliperidone IM [Invega Sustenna] 234 mg IM Q14D 11/19/18 11/19/18 History Sertraline HCl [Zoloft] 100 mg PO BID 11/19/18 11/19/18 History lamoTRIgine [LaMICtal] 150 mg PO BID 11/19/18 11/19/18 History Allergies Allergy/AdvReac Type Severity Reaction Status Date / Time aspirin Allergy Anaphylaxis Verified 11/19/18 15:57 enalapril maleate Allergy Anaphylaxis Verified 11/19/18 15:57 [From Vasotec] enalaprilat dihydrate Allergy Anaphylaxis Verified 11/19/18 15:57 [From Vasotec] famotidine [From Pepcid] Allergy Anaphylaxis Verified 11/19/18 15:57 ibuprofen [From Motrin] Allergy Anaphylaxis Verified 11/19/18 15:57 methylphenidate HCl Allergy Anaphylaxis Verified 11/19/18 15:57 [From Ritalin] ranitidine HCl [From Zantac] Allergy Anaphylaxis Verified 11/19/18 15:57 ziprasidone HCl [From Geodon] Allergy Anaphylaxis Verified 11/19/18 15:57 ziprasidone mesylate Allergy Anaphylaxis Verified 11/19/18 15:57 [From Geodon] Physical Exam Vitals: Vital Signs Temp Pulse Pulse Pulse Resp BP BP 11/20/18 07:39 98.7 F 87 18 111/75 11/20/18 07:12 11/20/18 03:55 98.7 F 94 18 118/71 11/20/18 02:26 16 11/19/18 23:37 16 11/19/18 23:35 98.7 F 98 16 126/72 11/19/18 20:00 16 11/19/18 19:29 98.5 F 92 16 110/73 11/19/18 17:45 97.5 F L 93 20 132/81 11/19/18 17:22 92 18 117/69 11/19/18 16:37 100 18 137/67 11/19/18 15:02 92 11/19/18 14:30 97.8 F 98 16 120/84 Pulse Ox 11/20/18 07:39 96 11/20/18 07:12 94 L 11/20/18 03:55 94 L 11/20/18 02:26 11/19/18 23:37 11/19/18 23:35 96 11/19/18 20:00 11/19/18 19:29 96 11/19/18 17:45 97 11/19/18 17:22 99 11/19/18 16:37 100 11/19/18 15:02 11/19/18 14:30 98 Intake and Output 11/19/18 11/20/18 11/20/18 22:59 06:59 14:59 Intake Total 500 59.106 Balance 500 59.106 Intake: Amount of Fluid Infused ( 500 ml) Intake, IV Titration 59.106 Amount Heparin Sod,Pork in 0.45% 59.106 NaCl 25,000 unit In 0.45 % NaCl 1 250ml.bag @ 6 UNITS/KG/HR 9.906 mls/hr IV .Q24H [facility] Rx#: [id number] Other: # Voids 1 Weight 165.108 kg On exam, alert and oriented x3. Morbidly obese HEENT: Conjunctivae normal. eyes normal. NECK: No JVD. No thyroid enlargement. No LNs CARDIOVASCULAR: S1, S2 muffled. No murmur RESPIRATION: Breath sounds diminished in the bases. No rhonchi or crackles. No bronchial breathing. ABDOMEN: Soft, nontender . No guarding. no masses palpable. No ascites, No hepatosplenomegaly.Bowel sounds heard. LEGS: No edema. no swelling NERVOUS SYSTEM: Cranial N 2-12 grossly normal. Moves all 4 limbs. No focal deficits. No sensory deficit. No signs of cerebellar dysfucntion. Skin: no ulcer no rash Joints: No active swelling. No inflammation. Lymphatic system. No LN neck axilla or groin. Results CBC & Chem 7: 11/19/18 15:14 11/19/18 15:14 Labs: Abnormal Lab Results - Last 24 Hours (Table) 11/19/18 11/19/18 11/19/18 Range/Units 15:14 15:14 18:12 Plt Count 139 L (150-450) k/uL APTT (22.0-30.0) sec POC Glucose (mg/dL) 106 H (75-99) mg/dL HDL Cholesterol (40-60) mg/dL Urine Appearance Cloudy H (Clear) Urine Protein Trace H (Negative) Urine Blood Trace H (Negative) Ur Leukocyte Esterase Small H (Negative) Ur Squamous Epith Cells 6 H (0-4) /hpf Urine Bacteria Rare H (None) /hpf Urine Mucus Occasional H (None) /hpf 11/19/18 11/19/18 11/20/18 Range/Units 20:07 22:21 05:34 Plt Count (150-450) k/uL APTT 34.5 H (22.0-30.0) sec POC Glucose (mg/dL) 141 H (75-99) mg/dL HDL Cholesterol 62 H (40-60) mg/dL Urine Appearance (Clear) Urine Protein (Negative) Urine Blood (Negative) Ur Leukocyte Esterase (Negative) Ur Squamous Epith Cells (0-4) /hpf Urine Bacteria (None) /hpf Urine Mucus (None) /hpf 11/20/18 11/20/18 Range/Units 05:34 06:53 Plt Count (150-450) k/uL APTT 57.3 H (22.0-30.0) sec POC Glucose (mg/dL) 105 H (75-99) mg/dL HDL Cholesterol (40-60) mg/dL Urine Appearance (Clear) Urine Protein (Negative) Urine Blood (Negative) Ur Leukocyte Esterase (Negative) Ur Squamous Epith Cells (0-4) /hpf Urine Bacteria (None) /hpf Urine Mucus (None) /hpf Thrombosis Risk Factor Assmnt - Choose All That Apply Any of the Below Risk Factors Present?: Yes Each Factor Represents 1 point: Obesity (BMI >25) Thrombosis Risk Factor Assessment Total Risk Factor Score: 1 Thrombosis Risk Factor Assessment Level: Low Risk Assessment and Plan Assessment: - Chest pain acute coronary event has been ruled out - Hypertension - Diabetes - Fibromyalgia - Asthma - Schizophrenia - Morbid obesity BMI 57 Plan - Patient is admitted to observation telemetry - She was initially started on heparin infusion which was DC'd. Patient had a dobutamine stress echo. Awaiting results - She was complaining of shortness of breath along with chest pain she is not complaining of either right now. We'll order for d-dimer and if elevated would pursue further with a CTA to rule out PE - If the above results are negative, patient can be discharged and followed up with ship fastener and PCP as an outpatient - In the meanwhile we will continue her home medications - DVT and GI prophylaxis - We'll order for lab work in the morning if the patient is abstaining - Patient is full code
--- NOTE | 2018-11-20 12:30 | P.STRESS ---
- Stress Test Note Stress Test Results/Findings: Exam Performed: dobutamine stress echo with con Exam Date: 11/20/18 Reason for Exam: CHEST PAIN Height: 5 ft 7 in Weight: 165.108 kg Protocol: DOBUTAMINE STRESS ECHO Stage: IV Duration of Exercise: 10:45 Resting Heart Rate: 86 Resting Blood Pressure: 152/59 Maximum Achieved Heart Rate: 157 Maximum Achieved Blood Pressure: 213/93 85% PMHR: 154 100% PMHR: 181 METS: N/A Technologist Comment: Stress Test Results/Findings: This is a 38-year-old female was admitted to the hospital with chest pain. She has history of hypercholesterolemia and hypertension. EKGs and cardiac enzymes are negative. Stress data: Baseline EKG showed sinus rhythm with normal WA interval and QRS duration. This tenderness on dobutamine was initiated and was titrated to maximum of 40 mics, achieving a maximal rate of 157 with a blood pressure 150/52. EKGs taken today and after the exercise did not reveal any changes of ischemia. Patient did not experience any chest pain. No arrhythmias were detected. Echo data. This stress echo is done with contrast. Baseline echo images show normal wall motion and thickening. Echo images at low dose and high dose dobutamine showed augmentation of wall motion and thickening in all the segments. Final impression: #1. Negative dobutamine stress test #2 #2. Negative dobutamine stress echo
[2018-11-20 16:44] LABS: Glucose,Whole Blood 110 mg/dL (75-99)
--- NOTE | 2018-11-20 16:45 | ECHOS ---
Stress Test Results/Findings: Exam Performed: dobutamine stress echo with con Exam Date: 11/20/18 Reason for Exam: CHEST PAIN Height: 5 ft 7 in Weight: 165.108 kg Protocol: DOBUTAMINE STRESS ECHO Stage: IV Duration of Exercise: 10:45 Resting Heart Rate: 86 Resting Blood Pressure: 152/59 Maximum Achieved Heart Rate: 157 Maximum Achieved Blood Pressure: 213/93 85% PMHR: 154 100% PMHR: 181 METS: N/A Technologist Comment: Stress Test Results/Findings: This is a 38-year-old female was admitted to the hospital with chest pain. She has history of hypercholesterolemia and hypertension. EKGs and cardiac enzymes are negative. Stress data: Baseline EKG showed sinus rhythm with normal HI interval and QRS duration. This tenderness on dobutamine was initiated and was titrated to maximum of 40 mics, achieving a maximal rate of 157 with a blood pressure 150/52. EKGs taken today and after the exercise did not reveal any changes of ischemia. Patient did not experience any chest pain. No arrhythmias were detected. Echo data. This stress echo is done with contrast. Baseline echo images show normal wall motion and thickening. Echo images at low dose and high dose dobutamine showed augmentation of wall motion and thickening in all the segments. Final impression: #1. Negative dobutamine stress test #2 #2. Negative dobutamine stress echo MTDD
--- NOTE | 2018-11-20 19:06 | CT ---
EXAMINATION TYPE: CT chest angio for PE DATE OF EXAM: 11/20/2018 COMPARISON: 08/17/2018 HISTORY: Left chest pain and elevated d-dimer. CT DLP: 1037.2 mGycm Automated exposure control for dose reduction was used. CONTRAST: CT Chest for pulmonary embolism performed with with IV Contrast, patient injected with 100 mL of Isov ue 370. FINDINGS: There is no pericardial effusion. Heart appears borderline enlarged. There is no pleural effusion. Th ere are no hilar masses. There is no mediastinal adenopathy. Thoracic aorta is intact. There is no ev idence of aneurysm or dissection. There is normal contrast opacification of the pulmonary arteries. I see no filling defect. The lungs are clear of infiltrate. There is no evidence of a pulmonary mass. The bony thorax is intac t. IMPRESSION: Negative CT scan of the chest. No evidence of pulmonary embolism. No change compared to old exam.
[2018-11-20 20:07] LABS: Glucose,Whole Blood 100 mg/dL (75-99)
[2018-11-21 06:05] LABS: HCT 37.7 % (34.0-46.0); HGB 12.6 gm/dL (11.4-16.0); MCH 28.7 pg (25.0-35.0); MCHC 33.3 g/dL (31.0-37.0); MCV 86.2 fL (80.0-100.0); Mean Platelet Volume 9.8; Platelet Count 141 k/uL (150-450); RBC 4.37 m/uL (3.80-5.40); RDW 14.2 % (11.5-15.5); WBC 4.1 k/uL (3.8-10.6)
[2018-11-21 06:15] LABS: African American GFR (CKD) >90 (>60 ml/min/1.73 sqM); Anion Gap 7 mmol/L; Blood Urea Nitrogen 8 mg/dL (7-17); Carbon Dioxide 27 mmol/L (22-30); Chloride 105 mmol/L (98-107); Glucose 91 mg/dL (74-99); Sodium 139 mmol/L (137-145)
[2018-11-21 06:40] LABS: Glucose,Whole Blood 93 mg/dL (75-99)
[2018-11-21] MEDS: BENZTROPINE MESYLATE 1 MG TAB PO SCH (08:32)
[2018-11-21] MEDS: DILTIAZEM ORAL 30 MG TAB PO SCH (08:32)
[2018-11-21] MEDS: lamoTRIgine 100 MG TAB PO SCH (08:33)
[2018-11-21] MEDS: MELOXICAM 7.5 MG TAB PO SCH (08:33)
[2018-11-21] MEDS: LORATADINE 10 MG TAB PO SCH (08:33)
[2018-11-21] MEDS: SERTRALINE 100 MG TAB PO SCH (08:34)
[2018-11-21 08:37] VITALS: RESP 18
[2018-11-21] MEDS: ATOMOXETINE HCL 60 MG PO SCH (08:45)
[2018-11-21 11:37] LABS: Glucose,Whole Blood 103 mg/dL (75-99)
[2018-11-21] MEDS: metFORMIN 500 MG TAB PO SCH (12:07)
[2018-11-21 12:09] VITALS: BP 130/80; PULSE 86; TEMP 98.4
--- NOTE | 2018-11-21 12:18 | P.PN ---
Subjective Principal diagnosis: Patient not complaining of any chest pain racing heart No cough no shortness of breath Objective - Vital Signs Vital signs: Vital Signs Temp 98.4 F 11/21/18 12:00 Pulse 86 11/21/18 12:00 Resp 18 11/21/18 12:00 BP 130/80 11/21/18 12:00 Pulse Ox 95 11/21/18 12:00 Intake & Output 11/20/18 11/21/18 11/21/18 18:59 06:59 18:59 Weight 165.108 kg - Exam On exam, alert and oriented x3 morbidly obese. HEENT: Conjunctivae normal. eyes normal. NECK: No JVD. No thyroid enlargement. No LNs CARDIOVASCULAR: S1, S2 muffled. No murmur RESPIRATION: Breath sounds diminished in the bases. No rhonchi or crackles. No bronchial breathing. ABDOMEN: Soft, nontender . No guarding. no masses palpable. No ascites, No hepatosplenomegaly.Bowel sounds heard. LEGS: No edema. no swelling NERVOUS SYSTEM: Cranial N 2-12 grossly normal. Moves all 4 limbs. No focal deficits. No sensory deficit. No signs of cerebellar dysfucntion. Skin: no ulcer no rash Joints: No active swelling. No inflammation. Lymphatic system. No LN neck axilla or groin. - Labs CBC & Chem 7: 11/21/18 05:20 11/21/18 05:20 Labs: Abnormal Lab Results - Last 24 Hours (Table) 11/20/18 11/20/18 11/20/18 Range/Units 11:55 16:42 20:03 Plt Count (150-450) k/uL D-Dimer 0.76 H (<0.60) mg/L FEU POC Glucose (mg/dL) 110 H 100 H (75-99) mg/dL 11/21/18 11/21/18 Range/Units 05:20 11:37 Plt Count 141 L (150-450) k/uL D-Dimer (<0.60) mg/L FEU POC Glucose (mg/dL) 103 H (75-99) mg/dL Assessment and Plan Assessment: - Chest pain acute coronary event has been ruled out - Hypertension - Diabetes - Fibromyalgia - Asthma - Schizophrenia - Morbid obesity BMI 57 Plan - Patient is admitted to observation telemetry - She was initially started on heparin infusion which was DC'd. Patient had a dobutamine stress echo. Awaiting results - She was complaining of shortness of breath along with chest pain she is not complaining of either right now. We'll order for d-dimer and if elevated would pursue further with a CTA to rule out PE - If the above results are negative, patient can be discharged and followed up with lead vulcanizing operator and PCP as an outpatient - In the meanwhile we will continue her home medications - DVT and GI prophylaxis - We'll order for lab work in the morning if the patient is abstaining - Patient is full code 11/21/2018 Computed tomography scan negative patient can be discharged
[2018-11-25] MEDS ORDERED: PALIPERIDONE IM 234 MG/1.5 ML SYG IM SCH (09:00)
== END 2018-11-21 14:05 | disposition home or self-care (01) ==
LOC: EC 14:25 → 1SOBS 16:58
PROVIDERS: ADMIT Hospitalist; ATTEND Hospitalist
DX: R07.89 Other chest pain (principal); I10 Essential (primary) hypertension; E11.9 Type 2 diabetes mellitus without complications; M79.7 Fibromyalgia; J45.909 Unspecified asthma, uncomplicated; F20.9 Schizophrenia, unspecified; E66.01 Morbid (severe) obesity due to excess calories; Z68.43 Body mass index [BMI] 50.0-59.9, adult; K21.9 Gastro-esophageal reflux disease without esophagitis; R41.3 Other amnesia; K76.0 Fatty (change of) liver, not elsewhere classified; M54.9 Dorsalgia, unspecified; M54.2 Cervicalgia; R00.0 Tachycardia, unspecified; K44.9 Diaphragmatic hernia without obstruction or gangrene; G43.909 Migraine, unspecified, not intractable, without status migrainosus; F40.240 Claustrophobia; F31.9 Bipolar disorder, unspecified; M26.609 Unspecified temporomandibular joint disorder, unspecified side; F12.90 Cannabis use, unspecified, uncomplicated; Z79.84 Long term (current) use of oral hypoglycemic drugs; Z79.1 Long term (current) use of non-steroidal anti-inflammatories (NSAID); Z79.899 Other long term (current) drug therapy; Z88.6 Allergy status to analgesic agent; Z88.8 Allergy status to other drugs, medicaments and biological substances; Z87.442 Personal history of urinary calculi; Z87.440 Personal history of urinary (tract) infections; Z90.49 Acquired absence of other specified parts of digestive tract; Z98.51 Tubal ligation status; Z86.79 Personal history of other diseases of the circulatory system; Z87.891 Personal history of nicotine dependence; Z83.3 Family history of diabetes mellitus
CPT/HCPCS: 96366 ×2; 96376; 96361; 96365; 96375; 99285; 36415; 94760; 93005; 85379; 83880; 80061; 80053; 80048; 82150; 83690; 83735; 84484 ×2; 85025; 85027; 85610; 85730 ×2; 81001; 71046; 71275; G0378 ×3; C8930; J1250; J2270; J1644 ×2; Q9950; Q9967; 93351

== ENCOUNTER 2019-07-16 | Observation (INO) | payer MEDICARE, OTHER | END 2019-07-16 21:35 | disposition home or self-care (01) | PROVIDERS: ADMIT Internal Medicine | CPT/HCPCS: 96374; 99285; 36415; 94640; 93005; 85379; 83880; 80053; 83735; 84484; 85025; 85610; 85730; 71046; G0378; J2270 ==

== ENCOUNTER 2020-08-05 10:48 | Inpatient (IN) | payer MEDICARE, OTHER ==
[2020-08-05] MEDS ORDERED: DEXAMETHASONE SOD PHOSPHATE 10 MG/ML 1 ML VIAL IV STA (11:14)
[2020-08-05] MEDS ORDERED: ALBUTEROL HFA INHALER INHALATION STA (11:14)
[2020-08-05] MEDS ORDERED: ACETAMINOPHEN TAB 500 MG TAB PO STA (11:14)
--- NOTE | 2020-08-05 11:18 | ED ---
General Adult HPI - General Chief complaint: Shortness of Breath Stated complaint: Poss Vaccine Reaction Time Seen by Provider: 08/05/20 10:50 Source: patient, RN notes reviewed, old records reviewed Mode of arrival: ambulatory Limitations: no limitations - History of Present Illness Initial comments: This is a 40-year-old female who presents emergency Department complaining of difficulty breathing and dizziness. Patient states she was so dizzy it was making it difficult for her to walk. Patient states she got the first of 2 vaccines for COVID and the day after she got the vaccine on July 28 she started having the symptoms. Patient states he short of breath has gotten considerably worse. Patient also complains that she has had a fever and chills. Patient denies any diarrhea. Patient denies any abdominal pain patient denies nausea or vomiting. Patient denies any headache patient denies any numbness or weakness. - Related Data Home Medications Medication Instructions Recorded Confirmed Atomoxetine HCl [Strattera] 60 mg PO DAILY 11/19/18 08/05/20 Benztropine Mesylate 1 mg PO BID 11/19/18 08/05/20 Loratadine [Claritin] 10 mg PO DAILY 11/19/18 08/05/20 Paliperidone IM [Invega Sustenna] 234 mg IM Q28D 11/19/18 08/05/20 Sertraline HCl [Zoloft] 100 mg PO BID 11/19/18 08/05/20 lamoTRIgine [LaMICtal] 150 mg PO BID 11/19/18 08/05/20 Advair Unkown Dose 1 puff INHALATION RT-DAILY PRN 07/16/19 08/05/20 Oxybutynin Chloride [Ditropan XL] 5 mg PO DAILY 08/05/20 08/05/20 metFORMIN HCL [Glucophage] 500 mg PO DAILY 08/05/20 08/05/20 Allergies Allergy/AdvReac Type Severity Reaction Status Date / Time aspirin Allergy Anaphylaxis Verified 08/05/20 12:17 enalapril maleate Allergy Anaphylaxis Verified 08/05/20 12:17 [From Vasotec] enalaprilat dihydrate Allergy Anaphylaxis Verified 08/05/20 12:17 [From Vasotec] famotidine [From Pepcid] Allergy Anaphylaxis Verified 08/05/20 12:17 ibuprofen [From Motrin] Allergy Anaphylaxis Verified 08/05/20 12:17 methylphenidate HCl Allergy Anaphylaxis Verified 08/05/20 12:17 [From Ritalin] ranitidine HCl [From Zantac] Allergy Anaphylaxis Verified 08/05/20 12:17 ziprasidone HCl [From Geodon] Allergy Anaphylaxis Verified 08/05/20 12:17 ziprasidone mesylate Allergy Anaphylaxis Verified 08/05/20 12:17 [From Geodon] Review of Systems ROS Statement: Those systems with pertinent positive or pertinent negative responses have been documented in the HPI. ROS Other: All systems not noted in ROS Statement are negative. Past Medical History Past Medical History: Asthma, Chest Pain / Angina, COPD, Fibromyalgia, GERD/Reflux, Hypertension, Liver Disease, Memory Impairment, Pneumonia, Renal Disease, Syncope Additional Past Medical History / Comment(s): Bronchitis, small hiatal hernia, migraines, TMJ, sinus tach, chronic back and cervical pain d/t pinched nerves, DDD, L leg nerve damage, nonalcoholic fatty liver, nephrolithiasis-passed stones on he own, UTI, past cellulitis beneath r breast History of Any Multi-Drug Resistant Organisms: None Reported Past Surgical History: Cholecystectomy, Tubal Ligation Additional Past Surgical History / Comment(s): EGD with stomach scraping/bx, R carpal tunnel release, sinus surgery. Past Anesthesia/Blood Transfusion Reactions: No Reported Reaction Additional Past Anesthesia/Blood Transfusion Reaction / Comment(s): clausterphobia Past Psychological History: Bipolar, Depression, Schizophrenia Past Alcohol Use History: None Reported, Occasional Past Drug Use History: Marijuana - Past Family History Father History Unknown: Yes Family Medical History: No Reported History Mother Family Medical History: Diabetes Mellitus Additional Family Medical History / Comment(s): Mother is living. General Exam - General Exam Comments Initial Comments: GENERAL: Patient is well-developed and well-nourished. Patient is nontoxic and well- hydrated and is in no acute distress. Patient's pulse ox on room air was in the 60s on arrival ENT: Neck is soft and supple. No significant lymphadenopathy is noted. Oropharynx is clear. Moist mucous membranes. Neck has full range of motion without elic iting any pain. EYES: The sclera were anicteric and conjunctiva were pink and moist. Extraocular movements were intact and pupils were equal round and reactive to light. Eyelids were unremarkable. PULMONARY: Patient has wheezing diffusely and is decreased lung volumes. CARDIOVASCULAR: There is a regular rate and rhythm without any murmurs gallops or rubs. ABDOMEN: Soft and nontender with normal bowel sounds. SKIN: Skin is clear with no lesions or rashes and otherwise unremarkable. NEUROLOGIC: Patient is alert and oriented x3. Cranial nerves II through XII are grossly intact. Motor and sensory are also intact. Normal speech, volume and content. Symmetrical smile. MUSCULOSKELETAL: Normal extremities with adequate strength and full range of motion. No calf tenderness. LYMPHATICS: No significant lymphadenopathy is noted PSYCHIATRIC: Normal psychiatric evaluation. Limitations: no limitations Course Vital Signs 08/05/20 08/05/20 08/05/20 10:53 11:31 11:32 Temperature 102.2 F H Pulse Rate 121 H 115 H Respiratory 56 H 42 H 42 H Rate Blood Pressure 109/55 118/65 O2 Sat by Pulse 66 L 92 L Oximetry 08/05/20 13:43 Temperature Pulse Rate 104 H Respiratory 40 H Rate Blood Pressure 113/72 O2 Sat by Pulse 91 L Oximetry Medical Decision Making - Medical Decision Making EKG shows sinus tachycardia at 116 bpm PA interval 218 QRS is 84 QT interval 328 QTC is 455. Patient's EKG shows no ST segment elevation or depression. X-ray shows signs of colon pneumonia bilaterally. I placed the patient high flow oxygen. Patient was able to oxygenate in the 90s on this. I spoke with Dr. Rangel he agreed to admit the patient admitted the patient I consulted pulmonary. Patient was started on steroids. Lactic acidosis is secondary to hypoxia - Lab Data Result diagrams: 08/05/20 11:28 08/05/20 11:28 Lab Results 08/05/20 08/05/20 08/05/20 Range/Units 11:28 11:28 11:28 WBC 3.0 L (3.8-10.6) k/uL RBC 4.65 (3.80-5.40) m/uL Hgb 13.3 (11.4-16.0) gm/dL Hct 39.8 (34.0-46.0) % MCV 85.6 (80.0-100.0) fL MCH 28.7 (25.0-35.0) pg MCHC 33.5 (31.0-37.0) g/dL RDW 14.1 (11.5-15.5) % Plt Count 102 L (150-450) k/uL MPV 10.2 Neutrophils % 82 % Lymphocytes % 11 % Monocytes % 5 % Eosinophils % 1 % Basophils % 1 % Neutrophils # 2.4 (1.3-7.7) k/uL Lymphocytes # 0.3 L (1.0-4.8) k/uL Monocytes # 0.2 (0-1.0) k/uL Eosinophils # 0.0 (0-0.7) k/uL Basophils # 0.0 (0-0.2) k/uL PT 10.4 (9.0-12.0) sec INR 1.0 (<1.2) APTT 26.4 (22.0-30.0) sec D-Dimer 1.05 H (<0.60) mg/L FEU Sodium (137-145) mmol/L Potassium (3.5-5.1) mmol/L Chloride (98-107) mmol/L Carbon Dioxide (22-30) mmol/L Anion Gap mmol/L BUN (7-17) mg/dL Creatinine (0.52-1.04) mg/dL Est GFR (CKD-EPI)AfAm (>60 ml/min/1.73 sqM) Est GFR (CKD-EPI)NonAf (>60 ml/min/1.73 sqM) Glucose (74-99) mg/dL Plasma Lactic Acid Rob (0.7-2.0) mmol/L Calcium (8.4-10.2) mg/dL Magnesium (1.6-2.3) mg/dL Total Bilirubin (0.2-1.3) mg/dL AST (14-36) U/L ALT (4-34) U/L Alkaline Phosphatase (38-126) U/L Lactate Dehydrogenase (313-618) U/L C-Reactive Protein (<10.0) mg/L Total Protein (6.3-8.2) g/dL Albumin (3.5-5.0) g/dL Coronavirus (PCR) Detected A (Not Detectd) 08/05/20 08/05/20 Range/Units 11:28 11:28 WBC (3.8-10.6) k/uL RBC (3.80-5.40) m/uL Hgb (11.4-16.0) gm/dL Hct (34.0-46.0) % MCV (80.0-100.0) fL MCH (25.0-35.0) pg MCHC (31.0-37.0) g/dL RDW (11.5-15.5) % Plt Count (150-450) k/uL MPV Neutrophils % % Lymphocytes % % Monocytes % % Eosinophils % % Basophils % % Neutrophils # (1.3-7.7) k/uL Lymphocytes # (1.0-4.8) k/uL Monocytes # (0-1.0) k/uL Eosinophils # (0-0.7) k/uL Basophils # (0-0.2) k/uL PT (9.0-12.0) sec INR (<1.2) APTT (22.0-30.0) sec D-Dimer (<0.60) mg/L FEU Sodium 138 (137-145) mmol/L Potassium 3.1 L (3.5-5.1) mmol/L Chloride 94 L (98-107) mmol/L Carbon Dioxide 31 H (22-30) mmol/L Anion Gap 13 mmol/L BUN 13 (7-17) mg/dL Creatinine 1.14 H (0.52-1.04) mg/dL Est GFR (CKD-EPI)AfAm 69 (>60 ml/min/1.73 sqM) Est GFR (CKD-EPI)NonAf 60 (>60 ml/min/1.73 sqM) Glucose 156 H (74-99) mg/dL Plasma Lactic Acid Rob 5.9 H* (0.7-2.0) mmol/L Calcium 7.8 L (8.4-10.2) mg/dL Magnesium 1.9 (1.6-2.3) mg/dL Total Bilirubin 0.9 (0.2-1.3) mg/dL AST 173 H (14-36) U/L ALT 87 H (4-34) U/L Alkaline Phosphatase 74 (38-126) U/L Lactate Dehydrogenase 1382 H (313-618) U/L C-Reactive Protein 170.9 H (<10.0) mg/L Total Protein 6.6 (6.3-8.2) g/dL Albumin 3.9 (3.5-5.0) g/dL Coronavirus (PCR) (Not Detectd) Critical Care Time Critical Care Time: Yes Total Critical Care Time: 35 Disposition Clinical Impression: Pneumonia due to COVID-19 virus Disposition: ADMITTED IP TO THIS HOSP Referrals: Reba Licea MD [Primary Care Provider] - 1-2 days Time of Disposition: 14:09
[2020-08-05 11:57] LABS: Basophils % (A) 1 %; Eosinophils % (A) 1 %; HCT 39.8 % (34.0-46.0); HGB 13.3 gm/dL (11.4-16.0); Lymphocytes # (A) 0.3 k/uL (1.0-4.8); Lymphocytes % (A) 11 %; MCH 28.7 pg (25.0-35.0); MCHC 33.5 g/dL (31.0-37.0); MCV 85.6 fL (80.0-100.0); Mean Platelet Volume 10.2; Monocytes # (A) 0.2 k/uL (0-1.0); Monocytes % (A) 5 %; Neutrophils # (A) 2.4 k/uL (1.3-7.7); Neutrophils % (A) 82 %; Platelet Count 102 k/uL (150-450); RBC 4.65 m/uL (3.80-5.40); RDW 14.1 % (11.5-15.5)
[2020-08-05 12:08] LABS: Partial Thromboplastin Time 26.4 sec (22.0-30.0); Prothrombin Time 10.4 sec (9.0-12.0)
[2020-08-05 12:12] LABS: Albumin 3.9 g/dL (3.5-5.0); Calcium 7.8 mg/dL (8.4-10.2); Magnesium 1.9 mg/dL (1.6-2.3); Potassium 3.1 mmol/L (3.5-5.1); Total Bilirubin 0.9 mg/dL (0.2-1.3); Total Protein 6.6 g/dL (6.3-8.2)
[2020-08-05 12:32] LABS: D-Dimer 1.05 mg/L FEU (<0.60)
[2020-08-05 12:44] LABS: C Reactive Protein 170.9 mg/L (<10.0)
--- NOTE | 2020-08-05 13:28 | XR ---
EXAMINATION TYPE: XR chest 1V portable DATE OF EXAM: 08/05/2020 Comparison: 07/16/2019 Clinical History: 40 year-old female shortness of breath, chest pain, Suspected COVID-19 pneumonia Findings: Extensive bilateral airspace disease, right greater than left obscuring the heart margins. No sizable effusion. Large patient body habitus. Impression: Extensive bilateral airspace disease, right greater than left, can be seen with COVID pneumonia.
[2020-08-05] MEDS ORDERED: SODIUM CHLORIDE 0.9% 1,000 ML IV ONE (14:09)
[2020-08-05] MEDS ORDERED: HYDROmorphone 0.5 MG/0.5 ML SYRINGE IVP PRN (17:30)
[2020-08-05] MEDS ORDERED: HYDROcodone/APAP 5-325MG 1 EACH TAB PO PRN (17:30)
[2020-08-05] MEDS ORDERED: ALPRAZolam 0.25 MG TAB PO PRN (17:30)
--- NOTE | 2020-08-05 19:55 | CT ---
EXAMINATION TYPE: CT angio chest DATE OF EXAM: 08/05/2020 COMPARISON: 11/20/2018 HISTORY: PE CT DLP: 930.1 mGycm Automated exposure control for dose reduction was used. CONTRAST: Performed with IV Contrast, patient injected with 100 mL of Isovue 370. There are 3-D post processed images. There is extensive bilateral airspace and interstitial infiltrates. Heart is slightly enlarged. There is no pericardial effusion. There is no pleural effusion. There is no mediastinal adenopathy. Thoracic aorta is intact. There is no aneurysm or dissection. I s ee no evidence of filling defect in the pulmonary arteries. The bony thorax is intact. Sternum is intact upper abdominal soft tissues are intact. IMPRESSION: No evidence of pulmonary embolism. There is extensive bilateral pneumonia which is new compared to old exam.
--- NOTE | 2020-08-05 20:18 | HP ---
HISTORY AND PHYSICAL CHIEF COMPLAINT: Shortness of breath. HISTORY OF PRESENT ILLNESS: This 40-year-old woman with a past medical history of multiple medical problems, including asthma, COPD, fibromyalgia, GERD, hypertension, liver disease, being followed by Dr. Licea in the outpatient setting, apparently had a COVID vaccine recently. The last dose was on July 27. The patient was having shortness of breath and cough and other symptoms which were getting progressively worse. The patient came to [facility] and was admitted for further evaluation and treatment. COVID-19 was positive. The patient also had multiple other medical abnormalities, including elevated lactic acid. D-dimer was 1.05. The chest x-ray, which was personally reviewed by me, showed evidence of extensive bilateral airspace disease. The patient was admitted for further evaluation and treatment. There is no history of any fever, rigor or chills. No history of headache, loss of consciousness, seizures at this time. PAST MEDICAL HISTORY: History of asthma, COPD, fibromyalgia, GERD, hypertension, history of memory impairment, history of pneumonia, history of cholecystectomy, history of bipolar, depression, schizophrenia. HOME MEDICATIONS: Glucophage, Lamictal, Zoloft, Invega, Ditropan, Claritin, benztropine, Strattera, Advair. ALLERGIES: ASPIRIN, VASOTEC, PEPCID, MOTRIN, RITALIN, ZANTAC, GEODON. FAMILY HISTORY: No history of heart disease or strokes in the family. SOCIAL HISTORY: Previous history of smoking. History of THC. REVIEW OF SYSTEMS: ENT: No diminished hearing. No diminished vision. CARDIOVASCULAR SYSTEM: No angina, palpitations. RESPIRATORY SYSTEM: As mentioned earlier. GI: As mentioned earlier. : No dysuria or retention. NERVOUS SYSTEM: No numbness, weakness. ALLERGY/IMMUNOLOGY: As mentioned earlier. HEMATOLOGY/ONCOLOGY: No history of anemia. ENDOCRINE: As mentioned earlier. CONSTITUTIONAL: As mentioned earlier. DERMATOLOGY: Negative. RHEUMATOLOGY: Negative. PSYCHIATRY: As mentioned earlier. PHYSICAL EXAMINATION: Patient is alert, oriented x3. The pulse is 100, blood pressure 113/72, respiration 40, temperature 99.2, pulse ox 90% on 15 L high-flow nasal cannula. HEENT: Conjunctivae normal. NECK: No jugular venous distention. CARDIOVASCULAR SYSTEM: S1, S2 muffled. RESPIRATORY SYSTEM: Breath sounds diminished at the bases. Bilateral scattered rhonchi and crackles. ABDOMEN: Soft, obese, non-tender. LEGS: No edema. No swelling. NERVOUS SYSTEM: Higher functions as mentioned earlier. Moves all 4 limbs. No focal motor or sensory deficit. LYMPHATICS: No lymph node palpable in neck, axillae or groin. SKIN: No ulcer, rash, bleeding. JOINTS: No active deforming arthropathy. LABS: WBC 3 and platelets are 102. Sodium 138, potassium 3.1. ASSESSMENT: 1. Acute bilateral COVID-19 interstitial pneumonia with acute hypoxic hypercarbic respiratory failure. 2. Possible sepsis with elevated lactic acid, present on admission. 3. Leukopenia. 4. Thrombocytopenia. 5. Hypokalemia. 6. Increased creatinine with mild acute renal failure. 7. Elevated AST, ALT. 8. Elevated inflammatory markers of COVID-19, including LDH and C-reactive protein. 9. History of asthma, chronic obstructive pulmonary disease. 10.Fibromyalgia. 11.Gastroesophageal reflux disease. 12.Hypertension. 13.History of chronic liver disease. 14.History of memory impairment. 15.History of pneumonia. 16.History of syncope. 17.History of bronchitis. 18.History of degenerative joint disease. 19.History of nephrolithiasis. 20.History of cholecystectomy. 21.History of bipolar, depression, schizophrenia. 22.History of tetrahydrocannabinol. 23.Morbid obesity with a body mass index of 56.5. RECOMMENDATIONS AND DISCUSSION: In this 40-year-old woman who presented with multiple medical issues, we will monitor the patient closely, continue the current medications, continue symptomatic treatment, bronchodilators, steroids. I would also recommend pulmonary and infectious disease consultations. Patient might be a candidate for remdesivir. Other than that, I would recommend resuming the home medications. Prognosis is extremely guarded because of multiple problems and medical issues. The patient has a history of vaccine, but because of the temporal association, it could be that this may not indicate a complete vaccine failure; however, the possibility of variants of the COVID-19 is to be considered. Overall prognosis guarded. Further recommendations to follow. A copy of this dictation is being forwarded to Dr. Licea, who is the primary physician. MMODL / IJN: [id number] /
[2020-08-05] MEDS: ALBUTEROL HFA INHALER INHALATION SCH (20:27)
[2020-08-05 21:07] LABS: ALT 122 U/L (4-34); AST 214 U/L (14-36); African American GFR (CKD) >90 (>60 ml/min/1.73 sqM); Albumin 3.8 g/dL (3.5-5.0); Alkaline Phosphatase 73 U/L (38-126); Anion Gap 11 mmol/L; Blood Urea Nitrogen 17 mg/dL (7-17); Calcium 7.8 mg/dL (8.4-10.2); Carbon Dioxide 32 mmol/L (22-30); Chloride 95 mmol/L (98-107); Glucose 172 mg/dL (74-99); Non-African American GFR(CKD) 85 (>60 ml/min/1.73 sqM); Potassium 3.6 mmol/L (3.5-5.1); Sodium 138 mmol/L (137-145); Total Bilirubin 0.8 mg/dL (0.2-1.3); Total Protein 6.6 g/dL (6.3-8.2)
[2020-08-05 22:40] LABS: Appearance,Urine Clear (Clear); Bilirubin,Urine Negative (Negative); Blood,Urine Large (Negative); Color,Urine Yellow; Glucose,Urine (UA) Negative (Negative); Ketones,Urine 1+ (Negative); Leukocyte Esterase,Urine Negative (Negative); Nitrite,Urine Negative (Negative); PH, Urine 6.5 (5.0-8.0); Protein,Urine 1+ (Negative); RBC,Urine 16 /hpf (0-5); Squamous Epithelial Cell,Urine <1 /hpf (0-4); Urobilinogen,Urine <2.0 mg/dL (<2.0); WBC,Urine 2 /hpf (0-5)
[2020-08-05] MEDS ORDERED: ALPRAZolam 0.5 MG TAB PO STA (23:04)
[2020-08-05 23:18] LABS: Specific Gravity,Urine >1.050 (1.001-1.035)
[2020-08-05] MEDS: SERTRALINE 100 MG TAB PO SCH ×2 (23:20→23:21)
[2020-08-05] MEDS: lamoTRIgine 100 MG TAB PO SCH (23:21)
[2020-08-05] MEDS: ENOXAPARIN 40 MG/0.4 ML SYRINGE SQ SCH (23:21)
[2020-08-05 23:27] LABS: Ferritin 514.6 ng/mL (10.0-291.0)
[2020-08-06 00:50] LABS: Glucose,Whole Blood 216 mg/dL (75-99)
[2020-08-06] MEDS: ALBUTEROL HFA INHALER INHALATION PRN ×2 (00:54→23:27)
[2020-08-06] MEDS: BENZTROPINE MESYLATE 1 MG TAB PO SCH ×3 (01:00→21:15)
[2020-08-06 05:01] LABS: Basophils % (A) 0 %; Eosinophils # (A) 0.1 k/uL (0-0.7); Eosinophils % (A) 1 %; HCT 38.3 % (34.0-46.0); HGB 13.2 gm/dL (11.4-16.0); Lymphocytes # (A) 0.4 k/uL (1.0-4.8); Lymphocytes % (A) 10 %; MCH 29.7 pg (25.0-35.0); MCHC 34.5 g/dL (31.0-37.0); MCV 85.9 fL (80.0-100.0); Mean Platelet Volume 10.3; Monocytes # (A) 0.3 k/uL (0-1.0); Monocytes % (A) 7 %; Neutrophils # (A) 3.4 k/uL (1.3-7.7); Neutrophils % (A) 81 %; Platelet Count 105 k/uL (150-450); RBC 4.46 m/uL (3.80-5.40); RDW 14.1 % (11.5-15.5); WBC 4.2 k/uL (3.8-10.6)
[2020-08-06 05:10] LABS: ALT 114 U/L (4-34); AST 200 U/L (14-36); African American GFR (CKD) >90 (>60 ml/min/1.73 sqM); Albumin 3.5 g/dL (3.5-5.0); Alkaline Phosphatase 69 U/L (38-126); Anion Gap 5 mmol/L; Blood Urea Nitrogen 14 mg/dL (7-17); Calcium 7.6 mg/dL (8.4-10.2); Carbon Dioxide 35 mmol/L (22-30); Chloride 97 mmol/L (98-107); Glucose 171 mg/dL (74-99); Non-African American GFR(CKD) >90 (>60 ml/min/1.73 sqM); Potassium 3.7 mmol/L (3.5-5.1); Sodium 137 mmol/L (137-145); Total Bilirubin 0.7 mg/dL (0.2-1.3); Total Protein 6.3 g/dL (6.3-8.2)
[2020-08-06 05:54] LABS: Glucose,Whole Blood 171 mg/dL (75-99)
[2020-08-06] MEDS: INSULIN ASPART (NovoLOG) 100 UNIT/ML VIAL SQ SCH ×4 (06:22→21:13)
[2020-08-06] MEDS: POTASSIUM CHLORIDE 10 MEQ in WATER FOR INJECTION 1 100ML.BAG IVPB SCH ×2 (06:23→09:20)
--- NOTE | 2020-08-06 07:04 | XR ---
EXAMINATION TYPE: XR chest 1V portable DATE OF EXAM: 08/06/2020 COMPARISON: 08/05/2020 HISTORY: Covid pneumonia TECHNIQUE: Single frontal view of the chest is obtained. FINDINGS: There is marked diffuse interstitial and airspace opacity bilaterally when allowing for di fferences in technique compared to the prior study and essentially stable. There is no pneumothorax. There is no large pleural effusion. The osseous structures are intact IMPRESSION: No significant interval change.
[2020-08-06] MEDS ORDERED: PANTOPRAZOLE 40 MG TABLET PO SCH (07:30)
[2020-08-06] MEDS: ALBUTEROL HFA INHALER INHALATION SCH ×4 (07:38→19:38)
[2020-08-06] MEDS ORDERED: DEXAMETHASONE SOD PHOSPHATE 10 MG/ML 1 ML VIAL IV SCH (09:00)
[2020-08-06] MEDS: ENOXAPARIN 40 MG/0.4 ML SYRINGE SQ SCH ×2 (09:18→21:14)
[2020-08-06] MEDS: ZINC SULFATE 220 MG CAP PO SCH (09:19)
[2020-08-06] MEDS: lamoTRIgine 100 MG TAB PO SCH ×2 (09:19→21:15)
[2020-08-06] MEDS: CHOLECALCIFEROL 25 MCG (1000 IU) TABLET PO SCH (09:20)
[2020-08-06] MEDS: ASCORBIC ACID 500 MG TAB PO SCH (09:20)
[2020-08-06] MEDS: LORATADINE 10 MG TAB PO SCH (09:20)
[2020-08-06] MEDS: DEXAMETHASONE SOD PHOSPHATE 10 MG/ML 1 ML VIAL IV SCH ×2 (09:21→21:14)
[2020-08-06] MEDS: OXYBUTYNIN XL 5 MG TAB.ER.24 PO SCH (10:24)
[2020-08-06] MEDS: ATOMOXETINE HCL 60 MG PO SCH (10:32)
[2020-08-06 11:22] LABS: Glucose,Whole Blood 133 mg/dL (75-99)
--- NOTE | 2020-08-06 14:12 | P.CNPUL ---
History of Present Illness Consult date: 08/06/20 Requesting physician: Maria Elena Rangel Reason for consult: dyspnea, abnormal CXR/CT Chief complaint: Shortness of breath History of present illness: This is a pleasant 40-year-old female patient who has a history of obesity, fibromyalgia, hypertension, fatty liver disease, asthma schizophrenia, marijuana use. She presented to the emergency room yesterday with complaints of increasing shortness of breath, dizziness and lightheadedness. She states she had gotten a first dose of the CoVID vaccine on July 28 and started having symptoms shortly after that. She had symptoms of progressive shortness of breath, fever, chills. She tested positive for the CoVID 19 infection. CAT scan of the chest ruled out pulmonary embolism. There is extensive bilateral pneumonia bilaterally. White count 4.2. Hemoglobin 13.2. Lymphocytes 0.4. D- dimer 1.05. Sodium 137. Potassium 3.7. Creatinine 0.62. AST 200, ALT 114. Pro-calcitonin 0.15. LDH 1382. C-reactive protein 170. She is seen today in consultation in the intensive care unit. She is currently on BiPAP 14/7 and 100% FiO2 to maintain O2 saturations in the mid to upper 80s. She has been initiated on bronchodilators, Lovenox, dexamethasone vitamin supplements Review of Systems REVIEW OF SYSTEMS: CONSTITUTIONAL: Denies any recent significant weight loss or weight gain. EYES: Denies change in vision. EARS, NOSE, MOUTH, THROAT: Denies headaches, denies sore throat. CARDIOVASCULAR: Denies chest pain, palpitations or syncopal episodes. RESPIRATORY: Positive for shortness of breath, cough, congestion or hemoptysis. GASTROINTESTINAL: Denies change in appetite, denies abdominal pain GENITOURINARY: Denies hematuria, denies infections. MUSKULOSKELETAL: Denies pain, denies swelling. INTEGUMENTARY: Denies rash, denies eczema. NEUROLOGICAL: Denies recent memory loss, no recent seizure activity. PSYCHIATRIC: Denies anxiety, denies depression. HEMATOLOGIC/LYMPHATIC: Denies anemia, denies enlarged lymph nodes. Past Medical History Past Medical History: Asthma, Chest Pain / Angina, COPD, Fibromyalgia, GERD/Reflux, Hypertension, Liver Disease, Memory Impairment, Pneumonia, Renal Disease, Syncope Additional Past Medical History / Comment(s): Bronchitis, small hiatal hernia, migraines, TMJ, sinus tach, chronic back and cervical pain d/t pinched nerves, DDD, L leg nerve damage, nonalcoholic fatty liver, nephrolithiasis-passed stones on he own, UTI, past cellulitis beneath r breast History of Any Multi-Drug Resistant Organisms: None Reported Past Surgical History: Cholecystectomy, Tubal Ligation Additional Past Surgical History / Comment(s): EGD with stomach scraping/bx, R carpal tunnel release, sinus surgery. Past Anesthesia/Blood Transfusion Reactions: No Reported Reaction Additional Past Anesthesia/Blood Transfusion Reaction / Comment(s): clausterphobia Past Psychological History: Bipolar, Depression, Schizophrenia Additional Psychological History / Comment(s): Pt resides with a friend. She uses no assistive device. She does not drive, she uses the bus or her friend will drive. Pt is seen at [facility] and they deliver her medications. Smoking Status: Former smoker Past Alcohol Use History: None Reported, Occasional Additional Past Alcohol Use History / Comment(s): Pt started smoking in 2004 and quit in 2007 Past Drug Use History: Marijuana Additional Drug Use History / Comment(s): smokes marijuana for pain control on occasion. - Past Family History Father History Unknown: Yes Family Medical History: No Reported History Mother Family Medical History: Diabetes Mellitus Additional Family Medical History / Comment(s): Mother is living. Medications and Allergies Home Medications Medication Instructions Recorded Confirmed Type Atomoxetine HCl [Strattera] 60 mg PO DAILY 11/19/18 08/05/20 History Benztropine Mesylate 1 mg PO BID 11/19/18 08/05/20 History Loratadine [Claritin] 10 mg PO DAILY 11/19/18 08/05/20 History Paliperidone IM [Invega Sustenna] 234 mg IM Q28D 11/19/18 08/05/20 History Sertraline HCl [Zoloft] 100 mg PO BID 11/19/18 08/05/20 History lamoTRIgine [LaMICtal] 150 mg PO BID 11/19/18 08/05/20 History Advair Unkown Dose 1 puff INHALATION RT-DAILY PRN 07/16/19 08/05/20 History Oxybutynin Chloride [Ditropan XL] 5 mg PO DAILY 08/05/20 08/05/20 History metFORMIN HCL [Glucophage] 500 mg PO DAILY 08/05/20 08/05/20 History Allergies Allergy/AdvReac Type Severity Reaction Status Date / Time aspirin Allergy Anaphylaxis Verified 08/05/20 12:17 enalapril maleate Allergy Anaphylaxis Verified 08/05/20 12:17 [From Vasotec] enalaprilat dihydrate Allergy Anaphylaxis Verified 08/05/20 12:17 [From Vasotec] famotidine [From Pepcid] Allergy Anaphylaxis Verified 08/05/20 12:17 ibuprofen [From Motrin] Allergy Anaphylaxis Verified 08/05/20 12:17 methylphenidate HCl Allergy Anaphylaxis Verified 08/05/20 12:17 [From Ritalin] ranitidine HCl [From Zantac] Allergy Anaphylaxis Verified 08/05/20 12:17 ziprasidone HCl [From Geodon] Allergy Anaphylaxis Verified 08/05/20 12:17 ziprasidone mesylate Allergy Anaphylaxis Verified 08/05/20 12:17 [From Geodon] Physical Exam Vitals: Vital Signs Temp Pulse Pulse Resp BP BP Pulse Ox 08/06/20 13:00 74 52 H 110/70 86 L 08/06/20 12:30 74 49 H 110/70 85 L 08/06/20 12:00 98.1 F 73 95 54 H 112/63 84 L 08/06/20 11:30 82 43 H 112/63 84 L 08/06/20 11:00 90 49 H 113/71 84 L 08/06/20 10:30 86 51 H 113/71 85 L 08/06/20 10:00 86 44 H 110/73 86 L 08/06/20 09:30 71 53 H 110/73 87 L 08/06/20 09:00 77 42 H 116/77 87 L 08/06/20 08:30 77 49 H 116/77 84 L 08/06/20 08:00 97.6 F 90 95 51 H 112/71 84 L 08/06/20 07:30 76 55 H 112/71 84 L 08/06/20 07:00 85 51 H 112/71 85 L 08/06/20 06:30 87 52 H 88 L 08/06/20 06:00 73 51 H 109/75 88 L 08/06/20 05:30 74 48 H 86 L 08/06/20 05:00 73 45 H 116/71 86 L 08/06/20 04:30 71 45 H 116/71 87 L 08/06/20 04:00 99 F 72 30 H 85 L 08/06/20 03:30 70 35 H 114/66 89 L 08/06/20 03:00 71 35 H 87 L 08/06/20 02:30 76 35 H 122/71 87 L 08/06/20 02:04 44 H 08/06/20 02:00 77 45 H 133/57 86 L 08/06/20 01:30 80 44 H 119/73 85 L 08/06/20 01:00 80 43 H 124/75 90 L 08/06/20 00:48 87 19 08/06/20 00:00 52 H 82 L 08/05/20 22:45 48 H 87 L 08/05/20 22:30 98.3 F 88 95 32 H 113/71 129/77 75 L 08/05/20 22:29 75 L 08/05/20 21:52 88 32 H 99/74 87 L 08/05/20 20:30 90 L 08/05/20 20:23 82 L 08/05/20 17:25 89 22 102/81 89 L 08/05/20 15:25 99.1 F 100 26 H 90 L 08/05/20 14:33 94 L Intake and Output 08/05/20 08/06/20 08/06/20 22:59 06:59 14:59 Intake Total 480 300 125 Output Total 1215 660 Balance 480 -997 -535 Intake: IV 300 75 Sodium Chloride 0.9% 1, 300 75 000 ml @ 75 mls/hr IV . [id number] ONE Rx#:[id number] Oral 480 50 Output: Urine 1215 660 Uretheral (K[place]s) 180 Other: Voiding Method Indwelling Catheter Indwelling Catheter Indwelling Catheter Weight 158.757 kg GENERAL EXAM: Alert, pleasant, morbidly obese 40-year-old female patient on BiP AP at 100%, comfortable in no apparent distress. HEAD: Normocephalic. EYES: Normal reaction of pupils, equal size. NOSE: Clear with pink turbinates. THROAT: No erythema or exudates. NECK: No masses, no JVD. CHEST: No chest wall deformity. LUNGS: Equal air entry with bibasilar crackles. CVS: S1 and S2 normal with no audible murmur, regular rhythm. ABDOMEN: No hepatosplenomegaly, normal bowel sounds, no guarding or rigidity. SPINE: No scoliosis or deformity SKIN: No rashes CENTRAL NERVOUS SYSTEM: No focal deficits, tone is normal in all 4 extremities. EXTREMITIES: There is no peripheral edema. No clubbing, no cyanosis. Peripheral pulses are intact. Results - Laboratory Findings CBC and BMP: 08/06/20 04:45 08/06/20 04:45 PT/INR, D-dimer PT 10.4 sec (9.0-12.0) 08/05/20 11:28 INR 1.0 (<1.2) 08/05/20 11:28 D-Dimer 1.05 mg/L FEU (<0.60) H 08/05/20 11:28 Abnormal lab findings: Abnormal Labs 08/05/20 08/05/20 08/05/20 11:28 11:28 11:28 WBC 3.0 L Plt Count 102 L Lymphocytes # 0.3 L D-Dimer 1.05 H Potassium Chloride Carbon Dioxide Creatinine Glucose POC Glucose (mg/dL) Plasma Lactic Acid Rob Calcium Ferritin AST ALT Lactate Dehydrogenase CK-MB (CK-2) C-Reactive Protein Procalcitonin Ur Specific [place] Urine Protein Urine Ketones Urine Blood Urine RBC Coronavirus (PCR) Detected A 08/05/20 08/05/20 08/05/20 11:28 11:28 11:28 WBC Plt Count Lymphocytes # D-Dimer Potassium 3.1 L Chloride 94 L Carbon Dioxide 31 H Creatinine 1.14 H Glucose 156 H POC Glucose (mg/dL) Plasma Lactic Acid Rob 5.9 H* Calcium 7.8 L Ferritin 514.6 H AST 173 H ALT 87 H Lactate Dehydrogenase 1382 H CK-MB (CK-2) C-Reactive Protein 170.9 H Procalcitonin 0.15 H Ur Specific [place] Urine Protein Urine Ketones Urine Blood Urine RBC Coronavirus (PCR) 08/05/20 08/05/20 08/06/20 17:42 22:10 00:15 WBC Plt Count Lymphocytes # D-Dimer Potassium Chloride 95 L Carbon Dioxide 32 H Creatinine Glucose 172 H POC Glucose (mg/dL) Plasma Lactic Acid Rob Calcium 7.8 L Ferritin AST 214 H ALT 122 H Lactate Dehydrogenase CK-MB (CK-2) 5.9 H C-Reactive Protein Procalcitonin Ur Specific [place] >1.050 H Urine Protein 1+ H Urine Ketones 1+ H Urine Blood Large H Urine RBC 16 H Coronavirus (PCR) 08/06/20 08/06/20 08/06/20 00:48 04:45 04:45 WBC Plt Count 105 L Lymphocytes # 0.4 L D-Dimer Potassium Chloride 97 L Carbon Dioxide 35 H Creatinine Glucose 171 H POC Glucose (mg/dL) 216 H Plasma Lactic Acid Rob Calcium 7.6 L Ferritin AST 200 H ALT 114 H Lactate Dehydrogenase CK-MB (CK-2) C-Reactive Protein Procalcitonin Ur Specific [place] Urine Protein Urine Ketones Urine Blood Urine RBC Coronavirus (PCR) 08/06/20 08/06/20 05:53 11:20 WBC Plt Count Lymphocytes # D-Dimer Potassium Chloride Carbon Dioxide Creatinine Glucose POC Glucose (mg/dL) 171 H 133 H Plasma Lactic Acid Rob Calcium Ferritin AST ALT Lactate Dehydrogenase CK-MB (CK-2) C-Reactive Protein Procalcitonin Ur Specific [place] Urine Protein Urine Ketones Urine Blood Urine RBC Coronavirus (PCR) - Diagnostic Findings Chest x-ray: image reviewed CT scan - chest: image reviewed Assessment and Plan Assessment: 1 Acute hypoxemic respiratory failure secondary to acute CoVID 19 pneumonia/pneumonitis 2 Transaminitis in a patient with a known history of fatty liver disease versus CoVID 19 infection 3 Elevated inflammatory markers secondary to above 4 Morbid obesity 5 History of bipolar disorder 6 History of schizophrenia 7 History of chronic bronchial asthma 8 History of fibromyalgia 9 Hypertension 10 Gastric esophageal reflux disease Plan: The patient was seen and evaluated by Dr. Arzola Chest x-ray, CAT scan of labs reviewed Continue BiPAP support for now at 100% FiO2 May require intubation and mechanical ventilatory support Lovenox 40 mg subcutaneous twice a day Increase Decadron to 6 mg IV twice a day Order a unit of convalescent plasma Repeat chest x-ray, inflammatory markers, d-dimer in a.m. We'll continue to follow and make further recommendations based on her clinical status I, the cosigning physician, performed a history & physical examination of the patient. Lungs sounds worse crackles in the bilateral posterior bases. Maintaining good O2 saturations in the 90s on 100% FiO2 via the BiPAP. I discussed the assessment and plan of care with my nurse practitioner, Christina Casey. I attest to the above consultation as dictated by her. Time with Patient: Greater than 30
--- NOTE | 2020-08-06 14:46 | PN ---
PROGRESS NOTE DATE OF SERVICE: 08/06/2020 This 40-year-old woman who was admitted with shortness of breath and acute bilateral COVID-19 pneumonia is on BiPAP. Patient is monitored in the ICU at this time. The most recent chest x-ray which was reviewed personally by me showed extensive bilateral pneumonia. The patient has been ordered to have convalescent plasma. At this time the patient is on Dexamethasone as well as Lovenox also. PAST MEDICAL HISTORY: Reviewed. REVIEW OF SYSTEMS: Could not be taken, the patient is on BiPAP. CURRENT MEDICATIONS: Reviewed include Veyo, ventolin, Xanax, vitamin C, Cogentin, vitamin D3 PHYSICAL EXAM: Patient is alert, oriented x2. Pulse blood pressure 110/70, respiration 24, temperature 98.0, pulse ox 86% on BiPAP. HEENT: Conjunctivae normal. Oral mucosa moist. NECK: No jugular venous distention. No lymph node enlargement. CARDIOVASCULAR: S1, S2, muffled. No S3, no S4, RESPIRATORY: Diminished breath sounds at the bases. Bilateral scattered rhonchi and crackles. ABDOMEN: Soft, obese. LEGS: No edema, no swelling. NERVOUS SYSTEM: No focal motor or sensory deficits. LABS: Accu-Cheks 171. WBC 4, hemoglobin 13.2. Labs are reviewed. ASSESSMENT: 1. Acute bilateral COVID-19 interstitial pneumonia with acute hypoxic and hypercarbic respiratory failure. 2. Possible sepsis with elevated lactic acid present on admission. 3. Leukopenia. 4. Thrombocytopenia, possibly viral induced. 5. Hypokalemia. 6. Increased creatinine with mild acute renal failure. 7. Elevated AST ALT. 8. Elevated inflammatory markers of COVID-19 including LDH and CRP. 9. History of asthma, chronic obstructive pulmonary disease. 10.Fibromyalgia. 11.Gastroesophageal reflux disease. 12.History of Hypertension. 13.History of chronic liver disease. 14.History of memory impairment. 15.History of pneumonia. 16.History of syncope. 17.History of bronchitis. 18.History of degenerative joint disease. 19.History of nephrolithiasis. 20.History of cholecystectomy. 21.History of bipolar depression. 22.Schizophrenia. 23.History of THC. 24.Morbid obesity with body mass index of 56.5. RECOMMENDATIONS: Recommend to continue current management, continue symptomatic treatment. This patient admitted with COVID has got extensive bilateral pneumonia with significant hypoxia. The Pulmonology and Infectious Disease evaluation in progress at this time. Otherwise, will monitor blood sugars closely. Continue the BiPAP. Repeat labs. Guarded prognosis because of multiple complex medical issues and further recommendations to follow. Prognosis extremely guarded. MMODL / IJN: [id number] /
[2020-08-06 16:47] LABS: Glucose,Whole Blood 148 mg/dL (75-99)
[2020-08-06 20:45] LABS: Glucose,Whole Blood 139 mg/dL (75-99)
[2020-08-06] MEDS: SERTRALINE 100 MG TAB PO SCH (21:14)
--- NOTE | 2020-08-06 22:36 | CONS ---
CONSULTATION DATE OF SERVICE: 08/06/2020 REASON FOR CONSULTATION: Covid. HISTORY OF PRESENT ILLNESS: The patient is a 40-year-old morbidly obese female who presented to the ER yesterday afternoon for evaluation of difficulty in breathing. The patient apparently got her vaccine on July 28 and the patient started having symptoms of increasing shortness of breath and cough on the same day. The patient has been complaining of fever and chills and diarrhea with breathing getting worse. She presented to the hospital for further evaluation. The patient denies having any chest pain. She did have a cough with occasional sputum. No hemoptysis. Some nausea but no vomiting. No abdominal pain. Did have some diarrhea. With these symptoms, the patient has been evaluated by the ER physician. On arrival to the ER, the patient did have fever of 102 degrees Fahrenheit. The patient was hypoxic, saturating 86. She was 66% on presentation to hospital. Currently on a BiPAP setting at about 85%. She is hemodynamically stable, not on pressor support though. She did have a normal white count with no lymphopenia. D. dimer 1.05. Liver enzymes elevated. Procalcitonin 0.15. Urine is negative. Beckwith PCR is positive. The patient did have a chest x-ray with evidence of extensive bilateral infiltrate, which was confirmed on a CT angiogram of the chest. There was no PE. The patient is currently in the ICU and is being treated with zinc, Lovenox, dexamethasone, ascorbic acid. Infectious disease was consulted for further management. REVIEW OF SYSTEMS: Positive points have been mentioned in HPI. Rest of systems are negative. PAST MEDICAL HISTORY: Asthma, chest pain, COPD, fibromyalgia, gastroesophageal reflux disease, hypertension, pneumonia, renal insufficiency. PAST SURGICAL HISTORY: Cholecystectomy, tubal ligation, right carpal tunnel release. SOCIAL HISTORY: The patient occasionally drinks. Dos admit to marijuana use. FAMILY HISTORY: Mother history of diabetes. ALLERGIES: TO MULTIPLE MEDICATION and those have been reviewed on the chart. MEDICATIONS: Currently the patient is on Pattison, Ventolin, Xanax, vitamin C, vitamin D3, Decadron 6 mg q.12h, Lovenox, Claritin, Ditropan, Protonix, Zoloft and zinc. PHYSICAL EXAMINATION: Her blood pressure is 114/74, pulse of 72. Temperature is 97.6, she is 85% on BiPAP. General description is a middle-aged female lying in bed in no distress. No tachypnea or accessory muscles of respiration use. HEENT: Examination shows no pallor or scleral icterus. Oral mucosa could not be done because of the BiPAP. NECK: Trachea central. No thyromegaly. LUNGS unlabored breathing with coarse breath sounds bilaterally. No wheeze. HEART S1, S2. Regular rate and rhythm. ABDOMEN: Soft, no tenderness. No guarding. No rigidity. EXTREMITIES: No edema of the feet. SKIN: No rash or mass palpable. NEUROLOGICAL patient is awake, alert, oriented times three. Mood and affect normal. LABS: Hemoglobin 13.1, white count 4.2, BUN of 14, creatinine 0.62, elevated liver enzymes. Chest x-ray report as mentioned above. DIAGNOSTIC IMPRESSION AND PLAN: Patient with acute respiratory failure secondary to COVID-19 pneumonia and with evidence of extensive disease on this chest x-ray and CT in this patient has been sick since July 28 and is currently out of the therapeutic window per institution policy as her symptoms have been more than for 7 days. With extensive infiltrate, more likely dealing with picture and no evidence of any secondary bacterial pneumonia. PLAN: 1. The patient benefit from Actemra. This will be ordered after discussion with Pulmonary. 2. The patient to continue with dexamethasone, Lovenox, zinc and ascorbic acid. 3. Droplet isolation and respiratory support. 4. We will follow up on clinical condition to further adjust medication if needed. Thank you for this consultation. We will follow this patient along with you. MMODL / IJN: [id number] /
[2020-08-07] MEDS ORDERED: propofoL 100 ML IV ONE (03:20)
[2020-08-07] MEDS ORDERED: SUCCINYLCHOLINE CHLORIDE VIAL 200 MG/10 ML VIAL IV ONE (03:45)
[2020-08-07] MEDS ORDERED: PROPOFOL 10 MG/ML 20 ML VIAL IV ONE (03:45)
[2020-08-07] MEDS ORDERED: CISATRACURIUM 2 MG/ML 5 ML VIAL IV ONE (03:54)
--- NOTE | 2020-08-07 04:09 | XR ---
EXAM: XR Chest, 1 View CLINICAL HISTORY: Endotracheal tube placement. TECHNIQUE: Frontal view of the chest. COMPARISON: 42,021. FINDINGS: Lungs: There is extensive and diffuse consolidation throughout the right lung having worsened since the previous study. There is extensive consolidation of the left lung most notably in the mid lower lung zones also having slightly worsened. Pleural space: Unremarkable. No pneumothorax. Heart: Cardiomegaly per Mediastinum: Unremarkable. Bones/joints: Osteopenia. Tubes, lines and devices: Endotracheal tube is noted in place with its tip at the thoracic inlet approximate 3 cm above the demetrius. IMPRESSION: 1. Endotracheal tube is noted in place in good position. 2. Extensive and diffuse consolidation of both lungs having worsened since the earlier study. 3. Cardiomegaly. 4. Osteopenia.
[2020-08-07] MEDS: fentaNYL (PF) 1,000 MCG in SODIUM CHLORIDE 0.9% 80 ML IV SCH ×4 (04:33→20:15)
[2020-08-07] MEDS: CISATRACURIUM 200 MG in SODIUM CHLORIDE 0.9% 180 ML IV SCH ×2 (04:35→09:24)
[2020-08-07 05:05] LABS: Basophils % (A) 0 %; Eosinophils % (A) 0 %; HCT 38.5 % (34.0-46.0); HGB 12.7 gm/dL (11.4-16.0); Lymphocytes # (A) 0.3 k/uL (1.0-4.8); Lymphocytes % (A) 7 %; MCH 28.8 pg (25.0-35.0); MCV 87.2 fL (80.0-100.0); Mean Platelet Volume 10.2; Monocytes # (A) 0.2 k/uL (0-1.0); Monocytes % (A) 6 %; Neutrophils # (A) 3.3 k/uL (1.3-7.7); Neutrophils % (A) 86 %; Platelet Count 127 k/uL (150-450); RBC 4.42 m/uL (3.80-5.40); RDW 14.2 % (11.5-15.5); WBC 3.9 k/uL (3.8-10.6)
[2020-08-07 05:13] LABS: ALT 97 U/L (4-34); AST 193 U/L (14-36); African American GFR (CKD) >90 (>60 ml/min/1.73 sqM); Albumin 3.3 g/dL (3.5-5.0); Alkaline Phosphatase 65 U/L (38-126); Anion Gap 4 mmol/L; Blood Urea Nitrogen 18 mg/dL (7-17); Calcium 7.5 mg/dL (8.4-10.2); Carbon Dioxide 36 mmol/L (22-30); Chloride 102 mmol/L (98-107); Glucose 169 mg/dL (74-99); LDH 1583 U/L (313-618); Non-African American GFR(CKD) >90 (>60 ml/min/1.73 sqM); Potassium 3.9 mmol/L (3.5-5.1); Sodium 142 mmol/L (137-145); Total Bilirubin 0.7 mg/dL (0.2-1.3)
[2020-08-07 05:15] LABS: D-Dimer 1.74 mg/L FEU (<0.60)
[2020-08-07] MEDS ORDERED: Potassium Replacement Protocol 1 EACH MISC MISCELLANE PRN (05:42)
[2020-08-07 05:54] LABS: Creatine Kinase 5648 U/L (30-135)
[2020-08-07 06:09] LABS: Allen Test Performed? Yes
[2020-08-07 06:10] LABS: ABG Base Excess 10.6 mmol/L; ABG HCO3 36 mmol/L (21-25); ABG PCO2 61 mmHg (35-45); ABG PH 7.38 (7.35-7.45); ABG PO2 87 mmHg (83-108); ABG TCO2 38 mmol/L (19-24)
[2020-08-07 06:45] LABS: Glucose,Whole Blood 172 mg/dL (75-99)
[2020-08-07] MEDS: INSULIN ASPART (NovoLOG) 100 UNIT/ML VIAL SQ SCH ×4 (06:49→23:38)
--- NOTE | 2020-08-07 07:40 | XR ---
EXAMINATION TYPE: XR chest 1V portable DATE OF EXAM: 08/07/2020 COMPARISON: Earlier same day HISTORY: 2 placement TECHNIQUE: Single frontal view of the chest is obtained. FINDINGS: There is interval placement of nasogastric tube coursing below the diaphragm. The endotrac heal tube remains in place. There is improved mild aeration. There is slight decrease of bilateral di ffuse patchy opacities, relatively sparing the left apex with moderate residual. No pleural effusion, or pneumothorax seen. The cardiac silhouette size is stable. The osseous structures are unchanged . IMPRESSION: Improved mild aeration with ongoing diffuse airspace disease.
[2020-08-07] MEDS: DEXAMETHASONE SOD PHOSPHATE 10 MG/ML 1 ML VIAL IV SCH ×2 (08:07→20:45)
[2020-08-07] MEDS: ASCORBIC ACID 500 MG TAB PO SCH (08:07)
[2020-08-07] MEDS: lamoTRIgine 100 MG TAB PO SCH ×2 (08:07→20:46)
[2020-08-07] MEDS: ENOXAPARIN 40 MG/0.4 ML SYRINGE SQ SCH ×2 (08:07→20:45)
[2020-08-07] MEDS: CHOLECALCIFEROL 25 MCG (1000 IU) TABLET PO SCH (08:07)
[2020-08-07] MEDS: PANTOPRAZOLE 40 MG/10 ML VIAL IVP SCH (08:07)
[2020-08-07] MEDS: LORATADINE 10 MG TAB PO SCH (08:07)
[2020-08-07] MEDS: ZINC SULFATE 220 MG CAP PO SCH (08:07)
[2020-08-07] MEDS: SERTRALINE 100 MG TAB PO SCH ×2 (08:08→20:46)
[2020-08-07] MEDS: BENZTROPINE MESYLATE 1 MG TAB PO SCH ×2 (08:08→20:46)
[2020-08-07] MEDS: OXYBUTYNIN XL 5 MG TAB.ER.24 PO SCH (08:08)
[2020-08-07] MEDS: ATOMOXETINE HCL 60 MG PO SCH (08:09)
[2020-08-07] MEDS: CHLORHEXIDINE GLUCONATE 15 ML CUP MUCOUS MEM SCH ×2 (08:14→20:45)
[2020-08-07] MEDS: ALBUTEROL HFA INHALER INHALATION SCH ×4 (08:52→20:33)
[2020-08-07] MEDS ORDERED: PALIPERIDONE IM 234 MG/1.5 ML SYG IM SCH (09:00)
[2020-08-07] MEDS ORDERED: POTASSIUM BICARBONATE/CIT AC 20 MEQ TABLET.EFF NG-TUBE SCH (09:00)
--- NOTE | 2020-08-07 11:21 | XR ---
EXAMINATION TYPE: XR chest 1V confirm line plcky DATE OF EXAM: 08/07/2020 COMPARISON: Earlier today HISTORY: 40-year-old female right IJ line placement. TECHNIQUE: Single frontal view of the chest is obtained. FINDINGS: ET and NG tubes are satisfactory. Interval placement of right IJ CVC with tip in the mid right atrium . Heart mildly enlarged. Bilateral diffuse airspace opacity persists. No sizable effusion on the fron loretta view. IMPRESSION: 1. Right IJ CVC tip in the mid right atrium. 2. Continued bilateral diffuse airspace disease.
[2020-08-07 11:40] LABS: Glucose,Whole Blood 177 mg/dL (75-99)
--- NOTE | 2020-08-07 12:15 | P.PN ---
Subjective Progress Note Date: 08/07/20 Principal diagnosis: Acute hypoxemic respiratory failure secondary to CoVID 19 pneumonia/pneumonitis This is a pleasant 40-year-old female patient who has a history of obesity, fi bromyalgia, hypertension, fatty liver disease, asthma schizophrenia, marijuana use. She presented to the emergency room yesterday with complaints of increasing shortness of breath, dizziness and lightheadedness. She states she had gotten a first dose of the CoVID vaccine on July 28 and started having symptoms shortly after that. She had symptoms of progressive shortness of breath, fever, chills. She tested positive for the CoVID 19 infection. CAT scan of the chest ruled out pulmonary embolism. There is extensive bilateral pneumonia bilaterally. White count 4.2. Hemoglobin 13.2. Lymphocytes 0.4. D- dimer 1.05. Sodium 137. Potassium 3.7. Creatinine 0.62. AST 200, ALT 114. Pro-calcitonin 0.15. LDH 1382. C-reactive protein 170. She is seen today in consultation in the intensive care unit. She is currently on BiPAP 14/7 and 100% FiO2 to maintain O2 saturations in the mid to upper 80s. She has been initiated on bronchodilators, Lovenox, dexamethasone vitamin supplements The patient is seen today 08/07/2020 in follow-up in the intensive care unit. She ended up requiring intubation mechanical ventilatory support earlier this morning for continued poor oxygenation. She is currently on mechanical ventilator with assist control mode at a rate of 26, tidal volume 400, FiO2 100% and a PEEP of 17. Blood gases revealed a pO2 of 87, pCO2 61, pH 7.38. She is now sedated on propofol 50 mcg/kg/m, Nimbex at 2 mcg/kg/m, fentanyl at 1 mcg/kg per hour. Normal saline at 75 ML's per hour. She does now qualify for tocilizumab, however, none is available today. We will order convalescent plasma. Right internal jugular triple lumen catheter and right radial arterial lines were placed this morning. Blood cultures reveal no growth. White count 3.9. Hemoglobin 12.7. D-dimer 1.74. Sodium 142. Potassium 3.9. Creatinine 0.68. Lactic dehydrogenase 1583. Creatinine kinase 5648. She remains on Lovenox, dexamethasone, vitamin supplements. Objective - Vital Signs Vital signs: Vital Signs Temp 98.1 F 04/04/21 08:00 Pulse 85 08/07/20 10:00 Resp 13 08/07/20 10:00 BP 110/60 08/07/20 10:00 Pulse Ox 91 L 08/07/20 10:00 Intake & Output 08/06/20 08/07/20 08/07/20 18:59 06:59 18:59 Intake Total 125 962.075 593.708 Output Total 1230 455 100 Balance -1105 507.075 493.708 Weight 164.4 kg Intake: IV 75 900 225 Sodium Chloride 0.9% 1, 75 900 225 000 ml @ 75 mls/hr IV . [id number] [facility] Rx#:[id number] Intake, IV Titration 62.075 368.708 Amount Cisatracurium 200 mg In 0.159 91.445 Sodium Chloride 0.9% 180 ml @ 1 MCG/KG/MIN 9.525 mls/hr IV .Q21H [facility] Rx#: [id number] fentaNYL (PF) 1,000 mcg 77.263 In Sodium Chloride 0.9% 80 ml @ Per Protocol IV . Q0M [facility] Rx#:[id number] propofoL 1,000 mg In 61.916 200 Empty Bag 1 bag @ Titrate IV .Q0M [facility] Rx#: [id number] Oral 50 Output: Urine 1230 455 100 Uretheral ([place]s) 210 Other: Voiding Method Indwelling Catheter Indwelling Catheter Indwelling Catheter - Exam GENERAL EXAM: Intubated, sedated, paralyzed morbidly obese 40-year-old female patient on FiO2 at 100%, comfortable in no apparent distress. HEAD: Normocephalic. EYES: Normal reaction of pupils, equal size. NOSE: Clear with pink turbinates. THROAT: No erythema or exudates. NECK: No masses, no JVD. CHEST: No chest wall deformity. LUNGS: Equal air entry with bibasilar crackles. CVS: S1 and S2 normal with no audible murmur, regular rhythm. ABDOMEN: No hepatosplenomegaly, normal bowel sounds, no guarding or rigidity. SPINE: No scoliosis or deformity SKIN: No rashes CENTRAL NERVOUS SYSTEM: Sedated, paralyzed, tone is normal in all 4 extremities. EXTREMITIES: There is no peripheral edema. No clubbing, no cyanosis. Peripheral pulses are intact. - Labs CBC & Chem 7: 04/04/21 04:47 08/07/20 04:47 Labs: Abnormal Lab Results - Last 24 Hours (Table) 08/06/20 08/06/20 08/07/20 Range/Units 16:46 20:44 04:47 Plt Count (150-450) k/uL Lymphocytes # (1.0-4.8) k/uL Fibrinogen 584 H (200-500) mg/dL D-Dimer 1.74 H (<0.60) mg/L FEU ABG pCO2 (35-45) mmHg ABG HCO3 (21-25) mmol/L ABG Total CO2 (19-24) mmol/L Carbon Dioxide (22-30) mmol/L BUN (7-17) mg/dL Glucose (74-99) mg/dL POC Glucose (mg/dL) 148 H 139 H (75-99) mg/dL Calcium (8.4-10.2) mg/dL Ferritin (10.0-291.0) ng/mL AST (14-36) U/L ALT (4-34) U/L Lactate Dehydrogenase (313-618) U/L Creatine Kinase (30-135) U/L Total Protein (6.3-8.2) g/dL Albumin (3.5-5.0) g/dL 08/07/20 08/07/20 08/07/20 Range/Units 04:47 04:47 05:57 Plt Count 127 L (150-450) k/uL Lymphocytes # 0.3 L (1.0-4.8) k/uL Fibrinogen (200-500) mg/dL D-Dimer (<0.60) mg/L FEU ABG pCO2 61 H (35-45) mmHg ABG HCO3 36 H (21-25) mmol/L ABG Total CO2 38 H (19-24) mmol/L Carbon Dioxide 36 H (22-30) mmol/L BUN 18 H (7-17) mg/dL Glucose 169 H (74-99) mg/dL POC Glucose (mg/dL) (75-99) mg/dL Calcium 7.5 L (8.4-10.2) mg/dL Ferritin 410.0 H (10.0-291.0) ng/mL AST 193 H (14-36) U/L ALT 97 H (4-34) U/L Lactate Dehydrogenase 1583 H (313-618) U/L Creatine Kinase 5648 H* (30-135) U/L Total Protein 6.0 L (6.3-8.2) g/dL Albumin 3.3 L (3.5-5.0) g/dL 08/07/20 08/07/20 Range/Units 06:44 11:39 Plt Count (150-450) k/uL Lymphocytes # (1.0-4.8) k/uL Fibrinogen (200-500) mg/dL D-Dimer (<0.60) mg/L FEU ABG pCO2 (35-45) mmHg ABG HCO3 (21-25) mmol/L ABG Total CO2 (19-24) mmol/L Carbon Dioxide (22-30) mmol/L BUN (7-17) mg/dL Glucose (74-99) mg/dL POC Glucose (mg/dL) 172 H 177 H (75-99) mg/dL Calcium (8.4-10.2) mg/dL Ferritin (10.0-291.0) ng/mL AST (14-36) U/L ALT (4-34) U/L Lactate Dehydrogenase (313-618) U/L Creatine Kinase (30-135) U/L Total Protein (6.3-8.2) g/dL Albumin (3.5-5.0) g/dL Microbiology - Last 24 Hours (Table) 08/05/20 11:28 Blood Culture - Preliminary Blood No Growth after 24 hours 08/05/20 11:28 Blood Culture - Preliminary Blood No Growth after 24 hours Assessment and Plan Assessment: 1 Acute hypoxemic respiratory failure secondary to acute CoVID 19 pneumonia/pne umonitis requiring intubation and mechanical ventilatory support on 08/07/2020. No tocilizumab available. Ordered convalescent plasma. 2 Transaminitis in a patient with a known history of fatty liver disease versus CoVID 19 infection 3 Elevated inflammatory markers secondary to above 4 Morbid obesity 5 History of bipolar disorder 6 History of schizophrenia 7 History of chronic bronchial asthma 8 History of fibromyalgia 9 Hypertension 10 Gastric esophageal reflux disease Plan: The patient was seen and evaluated by Dr. Arzola Chest x-ray, ABGs and labs reviewed. Increase PEEP to 18 Continue FiO2 at 100% No tocilizumab available today, ordered and pending now Ordered a unit of convalescent plasma Remains on Lovenox, dexamethasone, vitamin supplements Repeat chest x-ray, ABGs, inflammatory markers, d-dimer in a.m. We'll continue to follow and make further recommendations based on her clinical status Critical care time 38 minutes, not including procedures I, the cosigning physician, performed a history & physical examination of the patient. Lungs sounds worse crackles in the bilateral posterior bases. Maintaining good O2 saturations in the 90s on 100% FiO2 via the mechanical ventilator. I discussed the assessment and plan of care with my nurse pra Christina bela. I attest to the above note as dictated by her.
--- NOTE | 2020-08-07 12:37 | PCN ---
PROCEDURE NOTE OPERATIVE REPORT: Placement of the right IJ triple-lumen catheter. PREOPERATIVE DIAGNOSIS: Acute hypoxic respiratory failure secondary to Covid 19 pneumonitis. POSTOPERATIVE DIAGNOSIS: Acute hypoxic respiratory failure secondary to Covid 19 pneumonitis. ANESTHESIA USED: 2 mL of 1% lidocaine. PROCEDURE DETAILS: The patient was placed in the Trendelenburg position, the area of the right neck was prepared in a sterile fashion and drapes were applied. Using the anterior approach, the right internal jugular vein was easily cannulated, and this was after localizing the area with 2 mL of 1% lidocaine. After cannulating the right IJ vein, a guidewire was placed, the area around the guidewire wire was dilated, and a triple-lumen catheter was inserted over the guidewire, and guidewire was removed. Good blood flow noted, no evidence of any immediate complications. Line was secured using 3.0 silk sutures, chest x-ray showed adequate placement of central line. MMODL / IJN: [id number] /
--- NOTE | 2020-08-07 12:40 | PCN ---
PROCEDURE NOTE OPERATIVE REPORT: Placement of a right radial arterial line. PREOPERATIVE DIAGNOSIS: Acute hypoxic respiratory failure secondary to Covid 19 pneumonitis. POSTOPERATIVE DIAGNOSIS: Acute hypoxic respiratory failure secondary to Covid 19 pneumonitis. ANESTHESIA: Used none deployed. PROCEDURE DETAILS: The patient was placed in supine position, the right chest was prepared in a sterile fashion. Drapes were applied. The right radial artery was palpated, cannulated easily. A guidewire was placed. A Cook's catheter was inserted over the guidewire, and the guidewire was removed. Good blood flow and good waveform noted, no evidence of any immediate complications. MMODL / IJN: [id number] /
[2020-08-07 14:13] LABS: Hemoglobin A1C 5.9 % (4.0-6.0)
--- NOTE | 2020-08-07 15:28 | PN ---
PROGRESS NOTE DATE OF SERVICE: 08/07/2020 INTERVAL HISTORY: This is a 40-year-old woman who was admitted with acute bilateral COVID-19 pneumonia, interstitial pneumonia also had hypoxic hypercarbic respiratory failure. The patient had progressive worsening of the respiratory status. The patient required mechanical ventilation early this morning because of poor oxygenation the Dr. Arzola is following the patient closely. The most recent chest x-ray which was reviewed personally by me showed significant bilateral interstitial COVID-19 pneumonia, right more the left, indicative of interstitial viral pneumonia. The patient is being closely monitored. Currently the patient is on Nimbex and propofol, tidal volume of 400, 50% FiO2 with 18 of PEEP. The patient is saturating around 96%. The patient is also seen by Infectious Disease. Currently the patient is on usual treatment including Lovenox and as well as dexamethasone. The patient is being closely monitored. D-dimer is 1.74. There is no evidence of any pulmonary embolism. Patient's creatinine kinase is also elevated. PAST MEDICAL HISTORY: Reviewed. REVIEW OF SYSTEMS: Could not be taken. The patient is mechanically ventilated and sedated. CURRENT MEDICATIONS: Reviewed include [place], Ventolin, Cogentin, vitamin C, vitamin D3, Lovenox. Doses reviewed. PHYSICAL EXAM: GENERAL: Patient is mechanically ventilated and sedated. VITAL SIGNS: Pulse 66, blood pressure 111/50, respirations 20, temperature 98.3, pulse ox 94% on mechanical ventilation with vent settings noted as above. HEENT: Conjunctivae normal. Oral mucosa moist. NECK: No jugular venous distention. No carotid bruits. No lymph node enlargement. RESPIRATORY: Breath sounds diminished at the bases. A few scattered rhonchi. HEART: S1 and S2, muffled. ABDOMEN: Soft, obese. EXTREMITIES: No edema, no swelling. NERVOUS: Patient is mechanically sedated. LABS: WBC 3.2, hemoglobin 12.7, platelets are 127. D-dimer is 1.74. Other labs are noted. ASSESSMENT: 1. Acute bilateral COVID-19 interstitial pneumonia with acute hypoxic hypercarbic respiratory failure on mechanical ventilation. 2. Possible sepsis with elevated lactic acid, present on admission. 3. Leukopenia. 4. Thrombocytopenia possibly viral induced. 5. Hypokalemia. 6. Increased creatinine with mild acute renal failure. 7. Acute rhabdomyolysis. 8. Elevated AST and ALT. 9. Elevated inflammatory markers of COVID-19 including LDH and CRP. 10.History of asthma and chronic obstructive pulmonary disease. 11.Fibromyalgia. 12.Gastroesophageal reflux disease. 13.Hypotension. 14.Chronic liver disease. 15.History of chronic memory impairment. 16.History of pneumonia. 17.History of syncope. 18.History of bronchitis. 19.History of degenerative joint disease. 20.History of nephrolithiasis. 21.History of cholecystectomy. 22.History of bipolar depression. 23.Schizophrenia. 24.History of THC. 25.Morbid obesity with body mass index of 56.5. RECOMMENDATIONS AND DISCUSSION: I recommend to continue current medications, continue with monitoring and symptomatic treatment. Otherwise at this time continue with mechanical ventilation. Tocilizumab was apparently not available. We will monitor the creatinine closely. Continue the usual medications including dexamethasone and Lovenox. Monitor blood sugars closely. Continue the rest of medications. Serum procalcitonin is slightly elevated. I would recommend a sputum culture and repeat a serum procalcitonin. Continue to monitor. Further recommendations to follow. MMODL / IJN: [id number] /
[2020-08-07 17:31] LABS: Glucose,Whole Blood 179 mg/dL (75-99)
--- NOTE | 2020-08-07 19:02 | PN ---
PROGRESS NOTE DATE OF SERVICE: 08/07/2020 REASON FOR FOLLOWUP: COVID-19 pneumonia. INTERVAL HISTORY: Patient is getting intubated for worsening respiratory status. The patient is currently hemodynamically stable, not on any pressor support. FiO2 is currently 95%. No significant purulent secretions through the ET or any diarrhea reported by nursing staff. PHYSICAL EXAMINATION: Blood pressure 135/73, pulse of 56, temperature 98. She is 93% on 95% FiO2. General description is a middle-aged female intubated on the vent. Respiratory system: Unlabored breathing, decreased intensity of breath sounds, no wheeze. Heart S1, S2. Regular rate and rhythm. Abdomen soft, no tenderness. LABS: Hemoglobin is 12.8, white count 3.9, BUN of 18, creatinine 0.68. Blood culture has been negative. IMPRESSION/PLAN: Patient with acute respiratory failure, multifactorial and this patient did have a COVID-19 pneumonia and concern for possible ( ). We did ask for Actemra, unfortunately not available at this facility. The patient is currently covered with dexamethasone, Lovenox, zinc and ascorbic acid and monitor clinical course closely. MMODL / IJN: [id number] /
[2020-08-07] MEDS: SODIUM CHLORIDE 0.9% 1,000 ML IV SCH (22:25)
[2020-08-07 23:31] LABS: Glucose,Whole Blood 172 mg/dL (75-99)
[2020-08-07] MEDS: ARTIFICIAL TEARS-HYPROMELLOSE DROPS 15 ML BTL BOTH EYES SCH (23:38)
[2020-08-08] MEDS: fentaNYL (PF) 1,000 MCG in SODIUM CHLORIDE 0.9% 80 ML IV SCH ×3 (04:00→18:57)
[2020-08-08 05:50] LABS: Glucose,Whole Blood 179 mg/dL (75-99)
[2020-08-08] MEDS: ALBUTEROL HFA INHALER INHALATION SCH ×4 (07:13→20:51)
--- NOTE | 2020-08-08 07:33 | XR ---
EXAMINATION TYPE: XR chest 1V portable DATE OF EXAM: 08/08/2020 Comparison: 08/07/2020 Clinical History: 40-year-old female Tube placement Findings: ET tube tip at the level of the medial clavicular heads. NG tube courses below the diaphragm. Right I J CVC tip in the upper right atrium. Heart mildly enlarged. Diffuse interstitial opacities and patchy mid and lower lung airspace opacities persist without significant change. No sizable effusion. Impression: Similar mild cardiomegaly and diffuse interstitial changes with bilateral airspace disease in the mid and lower lungs.
[2020-08-08 07:38] LABS: ABG Base Excess 11.7 mmol/L; ABG HCO3 36 mmol/L (21-25); ABG PCO2 55 mmHg (35-45); ABG PH 7.43 (7.35-7.45); ABG PO2 147 mmHg (83-108); ABG TCO2 38 mmol/L (19-24); Allen Test Performed? Yes
[2020-08-08] MEDS: CISATRACURIUM 200 MG in SODIUM CHLORIDE 0.9% 180 ML IV SCH (07:48)
[2020-08-08] MEDS: ARTIFICIAL TEARS-HYPROMELLOSE DROPS 15 ML BTL BOTH EYES SCH ×5 (07:49→20:31)
[2020-08-08 07:52] LABS: Glucose,Whole Blood 185 mg/dL (75-99)
[2020-08-08] MEDS: SODIUM CHLORIDE 0.9% 1,000 ML IV SCH ×2 (07:52→20:31)
[2020-08-08] MEDS: INSULIN ASPART (NovoLOG) 100 UNIT/ML VIAL SQ SCH ×3 (07:56→17:51)
[2020-08-08 08:06] LABS: Basophils % (A) 1 %; Eosinophils % (A) 1 %; HCT 36.2 % (34.0-46.0); Lymphocytes # (A) 0.3 k/uL (1.0-4.8); Lymphocytes % (A) 7 %; MCHC 33.1 g/dL (31.0-37.0); MCV 87.7 fL (80.0-100.0); Mean Platelet Volume 10.2; Monocytes # (A) 0.3 k/uL (0-1.0); Monocytes % (A) 8 %; Neutrophils # (A) 3.2 k/uL (1.3-7.7); Neutrophils % (A) 82 %; Platelet Count 153 k/uL (150-450); RBC 4.13 m/uL (3.80-5.40); RDW 14.3 % (11.5-15.5); WBC 3.9 k/uL (3.8-10.6)
[2020-08-08 08:31] LABS: ALT 127 U/L (4-34); AST 186 U/L (14-36); African American GFR (CKD) >90 (>60 ml/min/1.73 sqM); Albumin 3.2 g/dL (3.5-5.0); Alkaline Phosphatase 68 U/L (38-126); Anion Gap 2 mmol/L; Blood Urea Nitrogen 14 mg/dL (7-17); Calcium 7.7 mg/dL (8.4-10.2); Carbon Dioxide 38 mmol/L (22-30); Chloride 103 mmol/L (98-107); Glucose 192 mg/dL (74-99); Non-African American GFR(CKD) >90 (>60 ml/min/1.73 sqM); Potassium 4.5 mmol/L (3.5-5.1); Sodium 143 mmol/L (137-145); Total Bilirubin 1.3 mg/dL (0.2-1.3); Total Protein 5.8 g/dL (6.3-8.2)
[2020-08-08] MEDS: lamoTRIgine 100 MG TAB PO SCH ×2 (09:14→20:30)
[2020-08-08] MEDS: ENOXAPARIN 40 MG/0.4 ML SYRINGE SQ SCH ×2 (09:14→20:31)
[2020-08-08] MEDS: CHOLECALCIFEROL 25 MCG (1000 IU) TABLET PO SCH (09:14)
[2020-08-08] MEDS: ASCORBIC ACID 500 MG TAB PO SCH (09:15)
[2020-08-08] MEDS: CHLORHEXIDINE GLUCONATE 15 ML CUP MUCOUS MEM SCH ×2 (09:15→20:31)
[2020-08-08] MEDS: PANTOPRAZOLE 40 MG/10 ML VIAL IVP SCH (09:15)
[2020-08-08] MEDS: ZINC SULFATE 220 MG CAP PO SCH (09:15)
[2020-08-08] MEDS: SERTRALINE 100 MG TAB PO SCH ×2 (09:16→20:30)
[2020-08-08] MEDS: BENZTROPINE MESYLATE 1 MG TAB PO SCH ×2 (09:17→20:30)
[2020-08-08] MEDS: LORATADINE 10 MG TAB PO SCH (09:18)
[2020-08-08] MEDS: DEXAMETHASONE SOD PHOSPHATE 10 MG/ML 1 ML VIAL IV SCH ×2 (09:18→20:30)
[2020-08-08] MEDS: OXYBUTYNIN XL 5 MG TAB.ER.24 PO SCH (09:18)
[2020-08-08] MEDS: ATOMOXETINE HCL 60 MG PO SCH (09:30)
[2020-08-08] MEDS ORDERED: TOCILIZUMAB 800 MG in SODIUM CHLORIDE 0.9% 60 ML IV ONE (10:30)
[2020-08-08 11:47] LABS: Glucose,Whole Blood 209 mg/dL (75-99)
--- NOTE | 2020-08-08 13:09 | P.PN ---
Subjective Progress Note Date: 08/08/20 Principal diagnosis: Hypoxemic respiratory failure. This is a pleasant 40-year-old female patient who has a history of obesity, fibromyalgia, hypertension, fatty liver disease, asthma schizophrenia, marijuana use. She presented to the emergency room yesterday with complaints of increasing shortness of breath, dizziness and lightheadedness. She states she had gotten a first dose of the CoVID vaccine on July 28 and started having symptoms shortly after that. She had symptoms of progressive shortness of breath, fever, chills. She tested positive for the CoVID 19 infection. CAT scan of the chest ruled out pulmonary embolism. There is extensive bilateral pneumonia bilaterally. White count 4.2. Hemoglobin 13.2. Lymphocytes 0.4. D- dimer 1.05. Sodium 137. Potassium 3.7. Creatinine 0.62. AST 200, ALT 114. Pro-calcitonin 0.15. LDH 1382. C-reactive protein 170. She is seen today in consultation in the intensive care unit. She is currently on BiPAP 14/7 and 100% FiO2 to maintain O2 saturations in the mid to upper 80s. She has been initiated on bronchodilators, Lovenox, dexamethasone vitamin supplements The patient is seen today 08/07/2020 in follow-up in the intensive care unit. She ended up requiring intubation mechanical ventilatory support earlier this morning for continued poor oxygenation. She is currently on mechanical ventilator with assist control mode at a rate of 26, tidal volume 400, FiO2 100% and a PEEP of 17. Blood gases revealed a pO2 of 87, pCO2 61, pH 7.38. She is now sedated on propofol 50 mcg/kg/m, Nimbex at 2 mcg/kg/m, fentanyl at 1 mcg/kg per hour. Normal saline at 75 ML's per hour. She does now qualify for tocilizu mab, however, none is available today. We will order convalescent plasma. Right internal jugular triple lumen catheter and right radial arterial lines were placed this morning. Blood cultures reveal no growth. White count 3.9. Hemoglobin 12.7. D-dimer 1.74. Sodium 142. Potassium 3.9. Creatinine 0.68. Lactic dehydrogenase 1583. Creatinine kinase 5648. She remains on Lovenox, dexamethasone, vitamin supplements. Progress note dated 08/08/2020. This is a 40-year-old female, quite obese, admitted on August 05, with COVID 19 pneumonia. The patient was intubated on August 07 for worsening respiratory status. Currently, she is on the volume assist control mode, rate is 26, tidal volume 400, FiO2 now down to 70%, PEEP of 18. Arterial blood gases on 85%, show pO2 147, a CO2 of 55, and a pH is 7.43. The patient is receiving saline at 75 mL an hour, fentanyl 1 mcg/kg/h, propofol at 40 mcg/kg/m, and Nimbex at 1 mcg/m. The patient we started on tube feeds today. We did order TOCI on this patient. It may or may not be available. The Rocephin was discontinued. White count is 3.9, hemoglobin 12, hematocrit 36.2, platelet count 153,000. D-dimer is 3.23. Sodium 143, potassium 4.5, chlorides 103, CO2 38, anion gap 2, BUN 14, and creatinine 0.61. Chest x-ray shows diffuse bilateral infiltrates. Objective - Vital Signs Vital signs: Vital Signs Temp 97.6 F 08/08/20 12:00 Pulse 54 L 08/08/20 12:00 Resp 26 H 08/08/20 12:00 BP 131/81 08/08/20 12:00 Pulse Ox 97 08/08/20 12:00 Intake & Output 08/07/20 08/08/20 08/08/20 18:59 06:59 18:59 Intake Total 2014.890 1453.412 885.295 Output Total 425 695 420 Balance 1589.890 758.412 465.295 Weight 163.7 kg 163.7 kg Intake: IV 825 900 465 0.9 NS 600 900 450 0.9NS flush 15 Sodium Chloride 0.9% 1, 225 000 ml @ 75 mls/hr IV . [id number] Rx#:[id number] Intake, IV Titration 876.890 553.412 350.295 Amount Cisatracurium 200 mg In 195.749 95.696 Sodium Chloride 0.9% 180 ml @ 1 MCG/KG/MIN 9.525 mls/hr IV .Q21H [facility] Rx#: [id number] Tocilizumab 800 mg In 60 Sodium Chloride 0.9% 60 ml @ 100 mls/hr IV [facility] Rx#:[id number] cefTRIAXone 1 gm In 50 Sodium Chloride 0.9% 50 ml @ 100 mls/hr IVPB Q24HR [facility] Rx#:[id number] fentaNYL (PF) 1,000 mcg 177.263 170.913 100 In Sodium Chloride 0.9% 80 ml @ Per Protocol IV . Q0M [facility] Rx#:[id number] propofoL 1,000 mg In 453.878 286.803 190.295 Empty Bag 1 bag @ Titrate IV .Q0M [facility] Rx#: [id number] Tube Feeding 40 Blood Product 313 Ffp Convalescent Plasma 313 Cpd Unit [id number] Other 30 Output: Urine 425 695 420 Other: Voiding Method Indwelling Catheter Indwelling Catheter Indwelling Catheter # Bowel Movements 1 ABP, PAP, CO, CI - Last Documented Arterial Blood Pressure 100/79 - Exam Sedated and paralyzed, with an orally placed endotracheal tube and NG tube. HEENT examination is grossly unremarkable. Neck supple. Full range of motion. No adenopathy thyromegaly or neck vein distention. Cardiovascular examination reveals regular rhythm rate. S1-S2 normal. No S3 or S4. No discernible murmur noted. Heart rate 54 bpm. Lungs diminished bilateral breath sounds. No wheezes or rhonchi. Sounds equal bilaterally. Bilateral crackles are noted. Abdomen soft bowel sounds are heard. No masses or tenderness. Abdomen is obese. Extremities are intact. No cyanosis clubbing or edema. Skin is without rash or lesion. Neurologic examination cannot be adequately assessed as the patient's currently sedated and paralyzed. - Labs CBC & Chem 7: 08/08/20 07:50 08/08/20 07:50 Labs: Abnormal Lab Results - Last 24 Hours (Table) 08/07/20 08/07/20 08/08/20 Range/Units 17:30 23:29 05:48 Lymphocytes # (1.0-4.8) k/uL D-Dimer (<0.60) mg/L FEU ABG pCO2 (35-45) mmHg ABG pO2 (83-108) mmHg ABG HCO3 (21-25) mmol/L ABG Total CO2 (19-24) mmol/L ABG O2 Saturation (94-97) % Carbon Dioxide (22-30) mmol/L Glucose (74-99) mg/dL POC Glucose (mg/dL) 179 H 172 H 179 H (75-99) mg/dL Calcium (8.4-10.2) mg/dL AST (14-36) U/L ALT (4-34) U/L Total Protein (6.3-8.2) g/dL Albumin (3.5-5.0) g/dL 08/08/20 08/08/20 08/08/20 Range/Units 07:30 07:50 07:50 Lymphocytes # 0.3 L (1.0-4.8) k/uL D-Dimer 3.23 H (<0.60) mg/L FEU ABG pCO2 55 H (35-45) mmHg ABG pO2 147 H (83-108) mmHg ABG HCO3 36 H (21-25) mmol/L ABG Total CO2 38 H (19-24) mmol/L ABG O2 Saturation 99.0 H (94-97) % Carbon Dioxide (22-30) mmol/L Glucose (74-99) mg/dL POC Glucose (mg/dL) (75-99) mg/dL Calcium (8.4-10.2) mg/dL AST (14-36) U/L ALT (4-34) U/L Total Protein (6.3-8.2) g/dL Albumin (3.5-5.0) g/dL 08/08/20 08/08/20 08/08/20 Range/Units 07:50 07:50 11:45 Lymphocytes # (1.0-4.8) k/uL D-Dimer (<0.60) mg/L FEU ABG pCO2 (35-45) mmHg ABG pO2 (83-108) mmHg ABG HCO3 (21-25) mmol/L ABG Total CO2 (19-24) mmol/L ABG O2 Saturation (94-97) % Carbon Dioxide 38 H (22-30) mmol/L Glucose 192 H (74-99) mg/dL POC Glucose (mg/dL) 185 H 209 H (75-99) mg/dL Calcium 7.7 L (8.4-10.2) mg/dL AST 186 H (14-36) U/L ALT 127 H (4-34) U/L Total Protein 5.8 L (6.3-8.2) g/dL Albumin 3.2 L (3.5-5.0) g/dL Microbiology - Last 24 Hours (Table) 08/07/20 20:40 Sputum Culture - Preliminary Sputum 08/08/20 00:15 Sputum Culture - Preliminary Sputum 08/05/20 11:28 Blood Culture - Preliminary Blood No Growth after 48 hours 08/05/20 11:28 Blood Culture - Preliminary Blood No Growth after 48 hours Assessment and Plan Assessment: Acute hypoxemic respiratory failure secondary to COVID 19 pneumonia/pneumonitis. Status post intubation and mechanical ventilation on 08/07/2020. Morbid obesity. History of bipolar disorder. History of schizophrenia. History of chronic bronchial asthma. History of fibromyalgia. History of hypertension. History of gastroesophageal reflux disease. Plan: Plan dated 08/08/2020. The patient's FiO2 was reduced from 85%, down to 70%. Blood gases showed a PaO2 of 147. In addition, the patient will be started on tube feeds. We'll discontinue the Rocephin. TOCI has been ordered. The patient did receive convalescent plasma. Additional recommendations and suggestions forthcoming. Prognosis is guarded. We'll continue to follow make recommendations were ap propriate. The medications will be reviewed. Time with Patient: Greater than 30
[2020-08-08 14:16] LABS: Amorphous Sediment,Urine Moderate /hpf; Appearance,Urine Turbid (Clear); Bilirubin,Urine 1+ (Negative); Blood,Urine Moderate (Negative); Color,Urine Dark Brown; Glucose,Urine (UA) Negative (Negative); Ketones,Urine 1+ (Negative); Leukocyte Esterase,Urine Negative (Negative); Mucus,Urine Rare /hpf; Nitrite,Urine Negative (Negative); PH, Urine 6.5 (5.0-8.0); Protein,Urine 1+ (Negative); RBC,Urine 153 /hpf (0-5); Specific Gravity,Urine 1.034 (1.001-1.035); WBC,Urine 3 /hpf (0-5)
[2020-08-08 17:06] LABS: Glucose,Whole Blood 206 mg/dL (75-99)
--- NOTE | 2020-08-08 22:10 | PN ---
PROGRESS NOTE DATE OF SERVICE: 08/08/2020 This 40-year-old woman who was admitted with acute bilateral COVID-19 interstitial pneumonia with acute hypoxic hypercarbic respiratory failure is on mechanical ventilation at this time. The patient had possible sepsis also with elevated lactic acid. The most recent chest x-ray, which was reviewed personally by me, showed extensive bilateral pulmonary infiltrates, left more than the right. The cultures are negative so far. Otherwise, the patient does have hematuria. Multiple consultants are following the patient closely. The patient has also received tocilizumab 800 mg dosage. The patient is on Lovenox. Past medical history reviewed. Review of systems could not be taken; the patient is mechanically ventilated. CURRENT MEDICATIONS: Current medications include Ventolin, Artificial Tears, vitamin C, Peridex, vitamin D3, dexamethasone, Lovenox, fentanyl, Lamictal, Ditropan, Protonix, Invega, Zoloft, propofol. PHYSICAL EXAMINATION: Patient is mechanically ventilated and sedated. Pulse is 55, blood pressure 120/70, respiration 26, temperature 97.6, pulse ox 96% on mechanical ventilation. HEENT: Conjunctivae normal. NECK: No jugular venous distention. CARDIOVASCULAR SYSTEM: S1, S2 muffled. RESPIRATORY SYSTEM: Breath sounds diminished at the bases. A few scattered rhonchi and crackles. ABDOMEN: Soft, obese, non-tender. LEGS: No edema. No swelling. NERVOUS SYSTEM: No focal deficit. LABS: D-dimer is 3.23. UA noted. ASSESSMENT: 1. Acute bilateral COVID-19 interstitial pneumonia with acute hypoxic hypercarbic respiratory failure, on mechanical ventilation. 2. Status post tocilizumab. 3. Possible sepsis with elevated lactic acid, present on admission. 4. Leukopenia. 5. Thrombocytopenia, possibly viral-induced. 6. Hypokalemia. 7. Increased creatinine with mild acute renal failure. 8. Acute rhabdomyolysis. 9. Increased AST, ALT. 10.Elevated inflammatory markers of COVID-19, including LDH and CRP. 11.History of asthma, chronic obstructive pulmonary disease. 12.Fibromyalgia. 13.Gastroesophageal reflux disease. 14.Hypertension. 15.History of chronic liver disease. 16.Chronic memory impairment. 17.History of pneumonia. 18.History of syncope. 19.History of bronchitis. 20.History of degenerative joint disease. 21.History of nephrolithiasis. 22.History of cholecystectomy. 23.History of bipolar, depression. 24.Schizophrenia. 25.History of tetrahydrocannabinol. 26.Morbid obesity with body mass index of 56.5. RECOMMENDATIONS AND DISCUSSION: I recommend to continue current medications, continue with the monitoring, symptomatic treatment. Otherwise, will continue to monitor. Continue with mechanical ventilation. Overall prognosis is guarded because of multiple complex medical issues. Further recommendations to follow. MMODL / IJN: [id number] /
--- NOTE | 2020-08-08 23:18 | PN ---
PROGRESS NOTE DATE OF SERVICE: 08/08/2020 REASON FOR FOLLOWUP: COVID-19 pneumonia. INTERVAL HISTORY: The patient remains afebrile. The patient is hemodynamically stable. The patient remains intubated on the vent. FiO2 is currently 70%. No significant purulent secretions in the ET or diarrhea reported by the nursing staff. PHYSICAL EXAMINATION: Blood pressure 129/73, pulse of 56, temperature 98. He is 97% on 70% FiO2. General description is a middle-aged female lying in bed in no distress. RESPIRATORY SYSTEM: Unlabored breathing with decreased intensity of breath sounds. HEART: S1, S2. Regular rate and rhythm. ABDOMEN: Soft. No tenderness. LABS: Hemoglobin is 12, white count of 3.9, BUN of 14, creatinine 0.61. Liver enzymes are mildly elevated. Urine is negative. Sputum culture is pending. DIAGNOSTIC IMPRESSION AND PLAN: Patient with acute respiratory failure which is multifactorial in this patient who did have a component of COVID-19 infection, severe, requiring intubation. Chest x-ray with no worsening. The patient is currently on dexamethasone, Lovenox, zinc, ascorbic acid; to continue. She has received a dose of Actemra. Will monitor her clinical course closely. MMODL / IJN: [id number] /
[2020-08-09 00:24] LABS: Glucose,Whole Blood 194 mg/dL (75-99)
[2020-08-09] MEDS: INSULIN ASPART (NovoLOG) 100 UNIT/ML VIAL SQ SCH ×4 (00:24→18:05)
[2020-08-09] MEDS: ARTIFICIAL TEARS-HYPROMELLOSE DROPS 15 ML BTL BOTH EYES SCH ×6 (00:24→19:43)
[2020-08-09] MEDS: fentaNYL (PF) 1,000 MCG in SODIUM CHLORIDE 0.9% 80 ML IV SCH ×4 (00:25→19:59)
[2020-08-09] MEDS: CISATRACURIUM 200 MG in SODIUM CHLORIDE 0.9% 180 ML IV SCH (03:35)
[2020-08-09 04:54] LABS: Basophils % (A) 1 %; Eosinophils % (A) 0 %; HCT 35.8 % (34.0-46.0); Lymphocytes # (A) 0.2 k/uL (1.0-4.8); Lymphocytes % (A) 7 %; MCH 29.5 pg (25.0-35.0); MCHC 33.7 g/dL (31.0-37.0); MCV 87.6 fL (80.0-100.0); Monocytes # (A) 0.3 k/uL (0-1.0); Monocytes % (A) 8 %; Neutrophils # (A) 2.8 k/uL (1.3-7.7); Neutrophils % (A) 82 %; Platelet Count 185 k/uL (150-450); RBC 4.08 m/uL (3.80-5.40); RDW 14.1 % (11.5-15.5); WBC 3.4 k/uL (3.8-10.6)
[2020-08-09 05:10] LABS: ABG Base Excess 12.3 mmol/L; ABG HCO3 37 mmol/L (21-25); ABG Oxygen Saturation 99.1 % (94-97); ABG PCO2 55 mmHg (35-45); ABG PH 7.44 (7.35-7.45); ABG PO2 135 mmHg (83-108); ABG TCO2 38 mmol/L (19-24); Allen Test Performed? Yes
[2020-08-09 05:20] LABS: ALT 225 U/L (4-34); AST 220 U/L (14-36); African American GFR (CKD) >90 (>60 ml/min/1.73 sqM); Alkaline Phosphatase 68 U/L (38-126); Anion Gap -1 mmol/L; Blood Urea Nitrogen 15 mg/dL (7-17); Calcium 7.8 mg/dL (8.4-10.2); Carbon Dioxide 37 mmol/L (22-30); Chloride 104 mmol/L (98-107); Glucose 226 mg/dL (74-99); Non-African American GFR(CKD) >90 (>60 ml/min/1.73 sqM); Potassium 4.4 mmol/L (3.5-5.1); Sodium 140 mmol/L (137-145); Total Bilirubin 1.2 mg/dL (0.2-1.3); Total Protein 5.5 g/dL (6.3-8.2)
[2020-08-09 06:06] LABS: Glucose,Whole Blood 206 mg/dL (75-99)
[2020-08-09] MEDS: ALBUTEROL HFA INHALER INHALATION SCH ×4 (07:33→19:33)
[2020-08-09] MEDS: CHLORHEXIDINE GLUCONATE 15 ML CUP MUCOUS MEM SCH ×2 (08:12→19:43)
[2020-08-09] MEDS: PANTOPRAZOLE 40 MG/10 ML VIAL IVP SCH (08:13)
[2020-08-09] MEDS: lamoTRIgine 100 MG TAB PO SCH ×2 (08:15→19:43)
[2020-08-09] MEDS: CHOLECALCIFEROL 25 MCG (1000 IU) TABLET PO SCH (08:15)
[2020-08-09] MEDS: SERTRALINE 100 MG TAB PO SCH ×2 (08:15→19:43)
[2020-08-09] MEDS: BENZTROPINE MESYLATE 1 MG TAB PO SCH ×2 (08:15→19:43)
[2020-08-09] MEDS: ZINC SULFATE 220 MG CAP PO SCH (08:15)
[2020-08-09] MEDS: ASCORBIC ACID 500 MG TAB PO SCH (08:15)
[2020-08-09] MEDS: OXYBUTYNIN XL 5 MG TAB.ER.24 PO SCH (08:15)
[2020-08-09] MEDS: ENOXAPARIN 40 MG/0.4 ML SYRINGE SQ SCH ×2 (08:16→19:43)
[2020-08-09] MEDS: DEXAMETHASONE SOD PHOSPHATE 10 MG/ML 1 ML VIAL IV SCH ×2 (08:16→19:43)
[2020-08-09] MEDS: ATOMOXETINE HCL 60 MG PO SCH (08:16)
--- NOTE | 2020-08-09 10:04 | XR ---
EXAMINATION TYPE: XR chest 1V portable DATE OF EXAM: 08/09/2020 COMPARISON: 08/08/2020 INDICATION: Tube placement TECHNIQUE: Single frontal view of the chest is obtained. FINDINGS: The heart size is normal. The pulmonary vasculature is normal. Mild/moderate residual infiltrates are present of the mid to lower lung viveros. This has significantl y improved over the interval. Endotracheal tube tip remains above the demetrius. Nasogastric tube transverses the thorax. Right centra l venous catheter tip is in the proximal right atrium. IMPRESSION: 1. Improving bilateral lung infiltrates with mild residual the lung bases. 2. Lines and catheters discussed above.
--- NOTE | 2020-08-09 11:14 | P.PN ---
Subjective Progress Note Date: 08/09/20 Principal diagnosis: Hypoxemic respiratory failure. This is a pleasant 40-year-old female patient who has a history of obesity, fibromyalgia, hypertension, fatty liver disease, asthma schizophrenia, marijuana use. She presented to the emergency room yesterday with complaints of increasing shortness of breath, dizziness and lightheadedness. She states she had gotten a first dose of the CoVID vaccine on July 28 and started having symptoms shortly after that. She had symptoms of progressive shortness of breath, fever, chills. She tested positive for the CoVID 19 infection. CAT scan of the chest ruled out pulmonary embolism. There is extensive bilateral pneumonia bilaterally. White count 4.2. Hemoglobin 13.2. Lymphocytes 0.4. D- dimer 1.05. Sodium 137. Potassium 3.7. Creatinine 0.62. AST 200, ALT 114. Pro-calcitonin 0.15. LDH 1382. C-reactive protein 170. She is seen today in consultation in the intensive care unit. She is currently on BiPAP 14/7 and 100% FiO2 to maintain O2 saturations in the mid to upper 80s. She has been initiated on bronchodilators, Lovenox, dexamethasone vitamin supplements The patient is seen today 08/07/2020 in follow-up in the intensive care unit. She ended up requiring intubation mechanical ventilatory support earlier this morning for continued poor oxygenation. She is currently on mechanical ventilator with assist control mode at a rate of 26, tidal volume 400, FiO2 100% and a PEEP of 17. Blood gases revealed a pO2 of 87, pCO2 61, pH 7.38. She is now sedated on propofol 50 mcg/kg/m, Nimbex at 2 mcg/kg/m, fentanyl at 1 mcg/kg per hour. Normal saline at 75 ML's per hour. She does now qualify for tocilizu mab, however, none is available today. We will order convalescent plasma. Right internal jugular triple lumen catheter and right radial arterial lines were placed this morning. Blood cultures reveal no growth. White count 3.9. Hemoglobin 12.7. D-dimer 1.74. Sodium 142. Potassium 3.9. Creatinine 0.68. Lactic dehydrogenase 1583. Creatinine kinase 5648. She remains on Lovenox, dexamethasone, vitamin supplements. Progress note dated 08/08/2020. This is a 40-year-old female, quite obese, admitted on August 05, with COVID 19 pneumonia. The patient was intubated on August 07 for worsening respiratory status. Currently, she is on the volume assist control mode, rate is 26, tidal volume 400, FiO2 now down to 70%, PEEP of 18. Arterial blood gases on 85%, show pO2 147, a CO2 of 55, and a pH is 7.43. The patient is receiving saline at 75 mL an hour, fentanyl 1 mcg/kg/h, propofol at 40 mcg/kg/m, and Nimbex at 1 mcg/m. The patient we started on tube feeds today. We did order TOCI on this patient. It may or may not be available. The Rocephin was discontinued. White count is 3.9, hemoglobin 12, hematocrit 36.2, platelet count 153,000. D-dimer is 3.23. Sodium 143, potassium 4.5, chlorides 103, CO2 38, anion gap 2, BUN 14, and creatinine 0.61. Chest x-ray shows diffuse bilateral infiltrates. Progress note dated 08/09/2020. 40-year-old female, admitted on August 05 with COVID 19 pneumonia. The patient was intubated on August 07 for worsening respiratory failure. Currently, she remains on mechanical ventilator. She is on the volume assist control mode, rate 26, tidal volume 400, FiO2 65%, and a PEEP of 18. The blood gases show a PaO2 of 135, he's a CO2 of 55, the pH is 7.44. The FiO2 will be reduced down to 50%. Currently, patient's on saline at 75 mL an hour, fentanyl at 1 mcg/kg/h, Nimbex at 1 mcg/kg/m, propofol at 40 g kilogram per minute, vital high protein at 41 cc per hour, which is goal. In addition to reducing the FiO2 down to 50%, we'll see if we can discontinue the Nimbex. White count 3.4, hemoglobin and hematocrit and platelet count all normal. Sodium 140, potassium 4.4, chlorides 104, CO2 37, BUN 15, and creatinine 0.57. Chest x-ray show slightly improved infiltrates in both lungs. Objective - Vital Signs Vital signs: Vital Signs Temp 98.8 F 08/09/20 08:00 Pulse 58 L 08/09/20 10:00 Resp 26 H 08/09/20 10:00 BP 115/66 08/09/20 10:00 Pulse Ox 94 L 08/09/20 10:00 Intake & Output 08/08/20 08/09/20 08/09/20 18:59 06:59 18:59 Intake Total 1220.077 7535.488 493.814 Output Total 795 609 150 Balance 8483.312 6855.488 343.814 Weight 163.7 kg Intake: IV 933 936 228 0.9 NS 900 900 225 0.9NS flush 33 36 3 Intake, IV Titration 643.931 778.488 183.814 Amount Cisatracurium 200 mg In 188.437 Sodium Chloride 0.9% 180 ml @ 1 MCG/KG/MIN 9.525 mls/hr IV .Q21H [facility] Rx#: [id number] Tocilizumab 800 mg In 60 Sodium Chloride 0.9% 60 ml @ 100 mls/hr IV ONCE ONE Rx#:[id number] fentaNYL (PF) 1,000 mcg 200 177.282 In Sodium Chloride 0.9% 80 ml @ Per Protocol IV . Q0M [facility] Rx#:[id number] propofoL 1,000 mg In 383.931 412.769 183.814 Empty Bag 1 bag @ Titrate IV .Q0M [facility] Rx#: [id number] Tube Feeding 160 210 82 Other 60 60 Output: Urine 795 609 150 Other: Voiding Method Indwelling Catheter Indwelling Catheter Indwelling Catheter ABP, PAP, CO, CI - Last Documented Arterial Blood Pressure 102/73 - Exam Sedated and paralyzed, with an orally placed endotracheal tube and NG tube. HEENT examination is grossly unremarkable. Neck supple. Full range of motion. No adenopathy thyromegaly or neck vein distention. Cardiovascular examination reveals regular rhythm rate. S1-S2 normal. No S3 or S4. No discernible murmur noted. Heart rate 58 bpm. Lungs diminished severely diminished breath sounds bilaterally. A few scattered rhonchi. No wheezes. Some bilateral crackles are noted. Breath sounds equal bilaterally. Abdomen soft bowel sounds are heard. No masses or tenderness. Abdomen is obese. Extremities are intact. No cyanosis clubbing or edema. Skin is without rash or lesion. Neurologic examination cannot be adequately assessed as the patient's currently sedated and paralyzed. - Labs CBC & Chem 7: 08/09/20 04:35 08/09/20 04:35 Labs: Abnormal Lab Results - Last 24 Hours (Table) 08/08/20 08/08/20 08/08/20 Range/Units 11:10 11:45 17:05 WBC (3.8-10.6) k/uL Lymphocytes # (1.0-4.8) k/uL ABG pCO2 (35-45) mmHg ABG pO2 (83-108) mmHg ABG HCO3 (21-25) mmol/L ABG Total CO2 (19-24) mmol/L ABG O2 Saturation (94-97) % Carbon Dioxide (22-30) mmol/L Glucose (74-99) mg/dL POC Glucose (mg/dL) 209 H 206 H (75-99) mg/dL Calcium (8.4-10.2) mg/dL AST (14-36) U/L ALT (4-34) U/L Total Protein (6.3-8.2) g/dL Albumin (3.5-5.0) g/dL Urine Appearance Turbid H (Clear) Urine Protein 1+ H (Negative) Urine Ketones 1+ H (Negative) Urine Blood Moderate H (Negative) Urine Bilirubin 1+ H (Negative) Urine RBC 153 H (0-5) /hpf Amorphous Sediment Moderate H (None) /hpf Urine Mucus Rare H (None) /hpf 08/09/20 08/09/20 08/09/20 Range/Units 00:22 04:35 04:35 WBC 3.4 L (3.8-10.6) k/uL Lymphocytes # 0.2 L (1.0-4.8) k/uL ABG pCO2 (35-45) mmHg ABG pO2 (83-108) mmHg ABG HCO3 (21-25) mmol/L ABG Total CO2 (19-24) mmol/L ABG O2 Saturation (94-97) % Carbon Dioxide 37 H (22-30) mmol/L Glucose 226 H (74-99) mg/dL POC Glucose (mg/dL) 194 H (75-99) mg/dL Calcium 7.8 L (8.4-10.2) mg/dL AST 220 H (14-36) U/L ALT 225 H (4-34) U/L Total Protein 5.5 L (6.3-8.2) g/dL Albumin 3.0 L (3.5-5.0) g/dL Urine Appearance (Clear) Urine Protein (Negative) Urine Ketones (Negative) Urine Blood (Negative) Urine Bilirubin (Negative) Urine RBC (0-5) /hpf Amorphous Sediment (None) /hpf Urine Mucus (None) /hpf 08/09/20 08/09/20 Range/Units 04:56 06:04 WBC (3.8-10.6) k/uL Lymphocytes # (1.0-4.8) k/uL ABG pCO2 55 H (35-45) mmHg ABG pO2 135 H (83-108) mmHg ABG HCO3 37 H (21-25) mmol/L ABG Total CO2 38 H (19-24) mmol/L ABG O2 Saturation 99.1 H (94-97) % Carbon Dioxide (22-30) mmol/L Glucose (74-99) mg/dL POC Glucose (mg/dL) 206 H (75-99) mg/dL Calcium (8.4-10.2) mg/dL AST (14-36) U/L ALT (4-34) U/L Total Protein (6.3-8.2) g/dL Albumin (3.5-5.0) g/dL Urine Appearance (Clear) Urine Protein (Negative) Urine Ketones (Negative) Urine Blood (Negative) Urine Bilirubin (Negative) Urine RBC (0-5) /hpf Amorphous Sediment (None) /hpf Urine Mucus (None) /hpf Microbiology - Last 24 Hours (Table) 08/08/20 00:15 Gram Stain - Preliminary Sputum Sputum Culture - Preliminary 08/07/20 20:40 Gram Stain - Preliminary Sputum Sputum Culture - Preliminary 08/05/20 11:28 Blood Culture - Preliminary Blood No Growth after 72 hours 08/05/20 11:28 Blood Culture - Preliminary Blood No Growth after 72 hours Assessment and Plan Assessment: Acute hypoxemic respiratory failure secondary to COVID 19 pneumonia/pneumonitis. Status post intubation and mechanical ventilation on 08/07/2020. Morbid obesity. History of bipolar disorder. History of schizophrenia. History of chronic bronchial asthma. History of fibromyalgia. History of hypertension. History of gastroesophageal reflux disease. Plan: Plan dated 08/08/2020. The patient's FiO2 was reduced from 85%, down to 70%. Blood gases showed a PaO2 of 147. In addition, the patient will be started on tube feeds. We'll discontinue the Rocephin. TOCI has been ordered. The patient did receive convalescent plasma. Additional recommendations and suggestions forthcoming. Prognosis is guarded. We'll continue to follow make recommendations were appropriate. The medications will be reviewed. Plan dated 08/09/2020. The FiO2 was reduced further from 65% to 50%. The patient remains on PEEP of 18. Blood gases are reviewed. The patient's on saline at 75 mL an hour, fentanyl 1 mcg/kg per hour, Nimbex at 1 mcg/kg/m, and propofol at 40 mcg/kg/m. The nurse will try to DC Nimbex. The patient overall prognosis remains guarded. Labs and x-rays are reviewed. Additional recommendations and suggestions. The medications are reviewed. We did order TOCI for her yesterday. Time with Patient: Greater than 30
[2020-08-09 11:46] LABS: Glucose,Whole Blood 196 mg/dL (75-99)
[2020-08-09] MEDS: SODIUM CHLORIDE 0.9% 1,000 ML IV SCH (11:51)
--- NOTE | 2020-08-09 15:31 | PN ---
PROGRESS NOTE DATE OF SERVICE: 08/09/2020 This 40-year-old woman who was admitted with acute bilateral COVID-19 interstitial pneumonia has acute hypoxic respiratory failure. The patient is on mechanical ventilation at this time. The patient is being closely monitored. The most recent chest x-ray, which was reviewed personally by me, showed bilateral lower lobe lung lesions suggestive of interstitial pneumonia. The patient is being closely monitored. Dr. Lennon is following the patient closely. Cultures are showing Strep agalactiae group B in the sputum. The patient is on no antibiotics at this time. The patient . Past medical history reviewed. Review of systems could not be taken; the patient is mechanically ventilated and sedated. CURRENT MEDICATIONS: Reviewed. They include Ventolin, vitamin C, Cogentin, Peridex, cholecalciferol, Decadron, Lovenox, fentanyl. PHYSICAL EXAMINATION: Patient is alert, oriented x3. Pulse is 56, blood pressure 125/72, respiration 21, temperature 98.4, pulse ox 96% on 50% mechanical ventilation. HEENT: Conjunctivae normal. NECK: No jugular venous distention. CARDIOVASCULAR SYSTEM: S1, S2 muffled. RESPIRATORY SYSTEM: Breath sounds diminished at the bases. A few scattered rhonchi. ABDOMEN: Soft, non-tender. NERVOUS SYSTEM: Patient is mechanically ventilated and sedated. LABS: WBC 3.4. ABGs noted. Sodium 140, potassium 4.4. Glucose 206. AST is 220, ALT is 225. ASSESSMENT: 1. Acute bilateral COVID-19 interstitial pneumonia with acute hypoxic hypercarbic respiratory failure, on mechanical ventilation. 2. Strep agalactiae from the sputum culture. 3. Status post tocilizumab. 4. Possible sepsis with elevated lactic acid, present on admission. 5. Leukopenia. 6. Thrombocytopenia, possibly viral-induced. 7. Hypkalemia. 8. Increased creatinine with mild acute renal failure. 9. Acute rhabdomyolysis. 10.Increased AST, ALT. 11.Elevated inflammatory markers of COVID-19, including LDH and CRP. 12.History of asthma, chronic obstructive pulmonary disease. 13.Fibromyalgia. 14.Gastroesophageal reflux disease. 15.Hypertension. 16.History of chronic liver disease. 17.Chronic memory impairment. 18.History of pneumonia. 19.History of syncope. 20.History of bronchitis. 21.History of degenerative joint disease. 22.History of nephrolithiasis. 23.History of cholecystectomy. 24.History of bipolar, depression. 25.Schizophrenia. 26.History of tetrahydrocannabinol. 27.Morbid obesity with body mass index of 56.5. RECOMMENDATIONS AND DISCUSSION: I recommend to continue current medications, continue with the monitoring, symptomatic treatment. Monitor blood sugars closely. Otherwise, continue the rest of the medications. Also recommend a course of antibiotics. Further recommendations to follow. MMTERESAL / IJN: [id number] / MTDD
[2020-08-09 18:04] LABS: Glucose,Whole Blood 167 mg/dL (75-99)
[2020-08-10 00:03] LABS: Glucose,Whole Blood 161 mg/dL (75-99)
[2020-08-10] MEDS: INSULIN ASPART (NovoLOG) 100 UNIT/ML VIAL SQ SCH ×4 (00:49→18:20)
[2020-08-10] MEDS: SODIUM CHLORIDE 0.9% 1,000 ML IV SCH ×2 (00:50→15:19)
[2020-08-10] MEDS: ARTIFICIAL TEARS-HYPROMELLOSE DROPS 15 ML BTL BOTH EYES SCH (00:50)
[2020-08-10] MEDS: fentaNYL (PF) 1,000 MCG in SODIUM CHLORIDE 0.9% 80 ML IV SCH ×4 (02:14→20:59)
[2020-08-10 04:27] LABS: Basophils % (A) 1 %; Eosinophils % (A) 1 %; HCT 36.6 % (34.0-46.0); HGB 12.2 gm/dL (11.4-16.0); Lymphocytes # (A) 0.4 k/uL (1.0-4.8); Lymphocytes % (A) 12 %; MCH 29.2 pg (25.0-35.0); MCHC 33.4 g/dL (31.0-37.0); MCV 87.5 fL (80.0-100.0); Mean Platelet Volume 9.9; Monocytes # (A) 0.3 k/uL (0-1.0); Monocytes % (A) 9 %; Neutrophils # (A) 2.6 k/uL (1.3-7.7); Neutrophils % (A) 76 %; Platelet Count 199 k/uL (150-450); RBC 4.19 m/uL (3.80-5.40); RDW 14.1 % (11.5-15.5); WBC 3.4 k/uL (3.8-10.6)
[2020-08-10 04:37] LABS: ALT 318 U/L (4-34); AST 223 U/L (14-36); African American GFR (CKD) >90 (>60 ml/min/1.73 sqM); Alkaline Phosphatase 74 U/L (38-126); Anion Gap 1 mmol/L; Blood Urea Nitrogen 17 mg/dL (7-17); Calcium 7.9 mg/dL (8.4-10.2); Carbon Dioxide 38 mmol/L (22-30); Chloride 104 mmol/L (98-107); Glucose 192 mg/dL (74-99); Non-African American GFR(CKD) >90 (>60 ml/min/1.73 sqM); Potassium 4.6 mmol/L (3.5-5.1); Sodium 143 mmol/L (137-145); Total Protein 5.5 g/dL (6.3-8.2)
--- NOTE | 2020-08-10 05:28 | PN ---
PROGRESS NOTE DATE OF SERVICE: 08/09/2020 REASON FOR FOLLOWUP: Pneumonia. INTERVAL HISTORY: The patient remains to be intubated on the vent. The patient is hemodynamically stable, not on pressor support. FiO2 is currently down to 50%. No significant purulent secretions through the ET or diarrhea per the nursing staff. PHYSICAL EXAMINATION: Blood pressure 122/75, pulse of 53, temp 98, she is 97% on 50% FiO2. General description is a middle-aged female intubated on the vent. Respiratory system: Unlabored breathing with decreased intensity of breath sounds in the base, with no wheeze. Heart S1, S2. Regular rate and rhythm. ABDOMEN: Soft, no tenderness. LABS: Hemoglobin is 12.7, white count 3.4, BUN of 15, creatinine 0.57. Liver enzymes are mildly elevated. Sputum is Streptococcus agalactiae. DIAGNOSTIC IMPRESSION AND PLAN: Patient with acute respiratory failure which is multifactorial. This did a COVID-19 infection for which the patient has received a dose of Actemra. Currently on zinc, dexamethasone, vitamin C, Lovenox. Sputum with Streptococcus agalactiae, currently covered with Rocephin. Monitor clinical course closely. MMODL / IJN: [id number] /
[2020-08-10 05:40] LABS: ABG Base Excess 12.2 mmol/L; ABG HCO3 36 mmol/L (21-25); ABG Oxygen Saturation 98.7 % (94-97); ABG PCO2 49 mmHg (35-45); ABG PH 7.47 (7.35-7.45); ABG PO2 122 mmHg (83-108); ABG TCO2 37 mmol/L (19-24); Allen Test Performed? Yes
[2020-08-10 06:36] LABS: Glucose,Whole Blood 189 mg/dL (75-99)
--- NOTE | 2020-08-10 07:19 | XR ---
EXAMINATION TYPE: XR chest 1V portable DATE OF EXAM: 08/10/2020 COMPARISON: 08/09/2020 HISTORY: SOB, Follow Up FINDINGS: Indwelling tubes and catheters are unchanged. Scattered infiltrates are stable. Stable appearance of the cardio-mediastinal structures at this time. Pleural effusion unchanged. IMPRESSION: 1. Stable portable chest. Clinical correlation and follow up until resolution is recommended.
[2020-08-10] MEDS: ALBUTEROL HFA INHALER INHALATION SCH ×4 (08:35→21:00)
[2020-08-10] MEDS: CHLORHEXIDINE GLUCONATE 15 ML CUP MUCOUS MEM SCH ×2 (08:49→21:34)
[2020-08-10] MEDS: BENZTROPINE MESYLATE 1 MG TAB PO SCH ×2 (08:49→21:34)
[2020-08-10] MEDS: PANTOPRAZOLE 40 MG/10 ML VIAL IVP SCH (08:49)
[2020-08-10] MEDS: ENOXAPARIN 40 MG/0.4 ML SYRINGE SQ SCH ×2 (08:49→21:34)
[2020-08-10] MEDS: OXYBUTYNIN XL 5 MG TAB.ER.24 PO SCH (08:50)
[2020-08-10] MEDS: SERTRALINE 100 MG TAB PO SCH ×2 (08:50→21:34)
[2020-08-10] MEDS: CHOLECALCIFEROL 25 MCG (1000 IU) TABLET PO SCH (08:50)
[2020-08-10] MEDS: ZINC SULFATE 220 MG CAP PO SCH (08:50)
[2020-08-10] MEDS: ASCORBIC ACID 500 MG TAB PO SCH (08:50)
[2020-08-10] MEDS: DEXAMETHASONE SOD PHOSPHATE 10 MG/ML 1 ML VIAL IV SCH ×2 (08:50→21:34)
[2020-08-10] MEDS: lamoTRIgine 100 MG TAB PO SCH ×2 (08:50→21:34)
[2020-08-10] MEDS: ATOMOXETINE HCL 60 MG PO SCH (08:51)
--- NOTE | 2020-08-10 10:39 | PCN ---
PROCEDURE NOTE PULMONARY/CRITICAL CARE PROCEDURE NOTE: PROCEDURE: Left radial arterial line. PREOPERATIVE DIAGNOSIS: Frequent blood draws and blood gas monitoring. POSTOPERATIVE DIAGNOSIS: Frequent blood draws and blood gas monitoring. OPERATORS: Dr. Casey and Dr. Lennon. There was informed consent and universal timeout. ARTERIAL LINE PLACEMENT: Indications: Hemodynamic monitoring. A time-out was completed verifying correct patient, procedure, site, positioning, and implant(s) or special equipment if applicable. Ricci's test was performed to ensure adequate perfusion. The patient's left wrist was prepped and draped in sterile fashion. 1% Lidocaine was used to anesthetize the area. An 18G Arrow arterial line was introduced into the left radial artery. The catheter was threaded over the guide wire and the needle was removed with appropriate pulsatile blood return. Blood loss was minimal. The catheter was then sutured in place to the skin and a sterile dressing applied. Perfusion to the extremity distal to the point of catheter insertion was checked and found to be adequate. The patient tolerated the procedure well and there were no complications. We used the left radial artery. There was no immediate complication. The patient tolerated procedure well. There was good waveform and blood pressure reading. The catheter was sutured in place. Sterile dressing was applied by the nurse. MMODL / IJN: [id number] /
[2020-08-10 11:27] LABS: Glucose,Whole Blood 198 mg/dL (75-99)
--- NOTE | 2020-08-10 12:24 | P.PN ---
Subjective Progress Note Date: 08/10/20 Principal diagnosis: Acute hypoxemic respiratory failure secondary to CoVID 19 pneumonia/pneumonitis This is a pleasant 40-year-old female patient who has a history of obesity, fi bromyalgia, hypertension, fatty liver disease, asthma schizophrenia, marijuana use. She presented to the emergency room yesterday with complaints of increasing shortness of breath, dizziness and lightheadedness. She states she had gotten a first dose of the CoVID vaccine on July 28 and started having symptoms shortly after that. She had symptoms of progressive shortness of breath, fever, chills. She tested positive for the CoVID 19 infection. CAT scan of the chest ruled out pulmonary embolism. There is extensive bilateral pneumonia bilaterally. White count 4.2. Hemoglobin 13.2. Lymphocytes 0.4. D- dimer 1.05. Sodium 137. Potassium 3.7. Creatinine 0.62. AST 200, ALT 114. Pro-calcitonin 0.15. LDH 1382. C-reactive protein 170. She is seen today in consultation in the intensive care unit. She is currently on BiPAP 14/7 and 100% FiO2 to maintain O2 saturations in the mid to upper 80s. She has been initiated on bronchodilators, Lovenox, dexamethasone vitamin supplements The patient is seen today 08/07/2020 in follow-up in the intensive care unit. She ended up requiring intubation mechanical ventilatory support earlier this morning for continued poor oxygenation. She is currently on mechanical ventilator with assist control mode at a rate of 26, tidal volume 400, FiO2 100% and a PEEP of 17. Blood gases revealed a pO2 of 87, pCO2 61, pH 7.38. She is now sedated on propofol 50 mcg/kg/m, Nimbex at 2 mcg/kg/m, fentanyl at 1 mcg/kg per hour. Normal saline at 75 ML's per hour. She does now qualify for tocilizumab, however, none is available today. We will order convalescent plasma. Right internal jugular triple lumen catheter and right radial arterial lines were placed this morning. Blood cultures reveal no growth. White count 3.9. Hemoglobin 12.7. D-dimer 1.74. Sodium 142. Potassium 3.9. Creatinine 0.68. Lactic dehydrogenase 1583. Creatinine kinase 5648. She remains on Lovenox, dexamethasone, vitamin supplements. Progress note dated 08/08/2020. This is a 40-year-old female, quite obese, admitted on August 05, with COVID 19 pneumonia. The patient was intubated on August 07 for worsening respiratory status. Currently, she is on the volume assist control mode, rate is 26, tidal volume 400, FiO2 now down to 70%, PEEP of 18. Arterial blood gases on 85%, show pO2 147, a CO2 of 55, and a pH is 7.43. The patient is receiving saline at 75 mL an hour, fentanyl 1 mcg/kg/h, propofol at 40 mcg/kg/m, and Nimbex at 1 mcg/m. The patient we started on tube feeds today. We did order TOCI on this patient. It may or may not be available. The Rocephin was discontinued. White count is 3.9, hemoglobin 12, hematocrit 36.2, platelet count 153,000. D-dimer is 3.23. Sodium 143, potassium 4.5, chlorides 103, CO2 38, anion gap 2, BUN 14, and c reatinine 0.61. Chest x-ray shows diffuse bilateral infiltrates. Progress note dated 08/09/2020. 40-year-old female, admitted on August 05 with COVID 19 pneumonia. The patient was intubated on August 07 for worsening respiratory failure. Currently, she remains on mechanical ventilator. She is on the volume assist control mode, rate 26, tidal volume 400, FiO2 65%, and a PEEP of 18. The blood gases show a PaO2 of 135, he's a CO2 of 55, the pH is 7.44. The FiO2 will be reduced down to 50%. Currently, patient's on saline at 75 mL an hour, fentanyl at 1 mcg/kg/h, Nimbex at 1 mcg/kg/m, propofol at 40 g kilogram per minute, vital high protein at 41 cc per hour, which is goal. In addition to reducing the FiO2 down to 50%, we'll see if we can discontinue the Nimbex. White count 3.4, hemoglobin and hematocrit and platelet count all normal. Sodium 140, potassium 4.4, chlorides 104, CO2 37, BUN 15, and creatinine 0.57. Chest x-ray show slightly improved infiltrates in both lungs. The patient is seen today 08/10/2020 in follow-up in the intensive care unit. She remains intubated on the mechanical ventilator and assist control mode with a rate of 26, tidal on 400, FiO2 50% and a PEEP of 18. Morning blood gases revealed a PaO2 122, pCO2 49, pH 7.47. She is sedated on propofol at 40 mcg/kg/m. Fentanyl at 1 mcg/kg per hour. 0.9 normal saline at 75 ML's per hour. She is being nourished with vital HP at 41 mL per hour which is goal. Blood cultures reveal no growth. Sputum culture positive for strep agalactiae, group B. White count 3.4. Hemoglobin 12.2. Lymphocytes 0.4. Sodium 143. Potassium 4.6. Creatinine 0.65. AST 223. ALT 318. She remains on dexamethasone, Lovenox, vitamin supplements. Antibiotics in the form of ceftriaxone. Objective - Vital Signs Vital signs: Vital Signs Temp 98.8 F 08/10/20 12:00 Pulse 51 L 08/10/20 12:00 Resp 26 H 08/10/20 12:00 BP 126/74 08/10/20 10:00 Pulse Ox 96 08/10/20 12:00 Intake & Output 08/09/20 08/10/20 08/10/20 18:59 06:59 18:59 Intake Total 2116.682 2103.225 598 Output Total 650 640 150 Balance 7660.974 6129.225 448 Weight 173 kg 173 kg Intake: IV 228 936 225 0.9 NS 225 900 225 0.9NS flush 3 36 Intake, IV Titration 1387.682 574.225 250 Amount Cisatracurium 200 mg In 96.363 Sodium Chloride 0.9% 180 ml @ 1 MCG/KG/MIN 9.525 mls/hr IV .Q21H [facility] Rx#: [id number] Sodium Chloride 0.9% 1, 675 75 000 ml @ 75 mls/hr IV . [id number] [facility] Rx#:[id number] cefTRIAXone 1 gm In 50 50 Sodium Chloride 0.9% 50 ml @ 100 mls/hr IVPB Q24HR [facility] Rx#:[id number] fentaNYL (PF) 1,000 mcg 100 199.225 100 In Sodium Chloride 0.9% 80 ml @ Per Protocol IV . Q0M [facility] Rx#:[id number] propofoL 1,000 mg In 466.319 300 100 Empty Bag 1 bag @ Titrate IV .Q0M [facility] Rx#: [id number] Oral 50 Tube Feeding 451 533 123 Other 60 Output: Urine 650 640 150 Other: Voiding Method Indwelling Catheter Indwelling Catheter ABP, PAP, CO, CI - Last Documented Arterial Blood Pressure 121/79 - Exam GENERAL EXAM: Intubated, sedated, morbidly obese 40-year-old female patient on FiO2 at 50%, comfortable in no apparent distress. HEAD: Normocephalic. EYES: Normal reaction of pupils, equal size. NOSE: Clear with pink turbinates. THROAT: No erythema or exudates. NECK: No masses, no JVD. CHEST: No chest wall deformity. LUNGS: Equal air entry with bibasilar crackles. CVS: S1 and S2 normal with no audible murmur, regular rhythm. ABDOMEN: No hepatosplenomegaly, normal bowel sounds, no guarding or rigidity. SPINE: No scoliosis or deformity SKIN: No rashes CENTRAL NERVOUS SYSTEM: Sedated, tone is normal in all 4 extremities. EXTREMITIES: There is no peripheral edema. No clubbing, no cyanosis. Peripheral pulses are intact. - Labs CBC & Chem 7: 08/10/20 04:05 08/10/20 04:05 Labs: Abnormal Lab Results - Last 24 Hours (Table) 08/09/20 08/10/20 08/10/20 Range/Units 18:03 00:01 04:05 WBC 3.4 L (3.8-10.6) k/uL Lymphocytes # 0.4 L (1.0-4.8) k/uL ABG pH (7.35-7.45) ABG pCO2 (35-45) mmHg ABG pO2 (83-108) mmHg ABG HCO3 (21-25) mmol/L ABG Total CO2 (19-24) mmol/L ABG O2 Saturation (94-97) % Carbon Dioxide (22-30) mmol/L Glucose (74-99) mg/dL POC Glucose (mg/dL) 167 H 161 H (75-99) mg/dL Calcium (8.4-10.2) mg/dL AST (14-36) U/L ALT (4-34) U/L Total Protein (6.3-8.2) g/dL Albumin (3.5-5.0) g/dL 08/10/20 08/10/20 08/10/20 Range/Units 04:05 05:38 06:35 WBC (3.8-10.6) k/uL Lymphocytes # (1.0-4.8) k/uL ABG pH 7.47 H (7.35-7.45) ABG pCO2 49 H (35-45) mmHg ABG pO2 122 H (83-108) mmHg ABG HCO3 36 H (21-25) mmol/L ABG Total CO2 37 H (19-24) mmol/L ABG O2 Saturation 98.7 H (94-97) % Carbon Dioxide 38 H (22-30) mmol/L Glucose 192 H (74-99) mg/dL POC Glucose (mg/dL) 189 H (75-99) mg/dL Calcium 7.9 L (8.4-10.2) mg/dL AST 223 H (14-36) U/L ALT 318 H (4-34) U/L Total Protein 5.5 L (6.3-8.2) g/dL Albumin 3.0 L (3.5-5.0) g/dL 08/10/20 Range/Units 11:26 WBC (3.8-10.6) k/uL Lymphocytes # (1.0-4.8) k/uL ABG pH (7.35-7.45) ABG pCO2 (35-45) mmHg ABG pO2 (83-108) mmHg ABG HCO3 (21-25) mmol/L ABG Total CO2 (19-24) mmol/L ABG O2 Saturation (94-97) % Carbon Dioxide (22-30) mmol/L Glucose (74-99) mg/dL POC Glucose (mg/dL) 198 H (75-99) mg/dL Calcium (8.4-10.2) mg/dL AST (14-36) U/L ALT (4-34) U/L Total Protein (6.3-8.2) g/dL Albumin (3.5-5.0) g/dL Microbiology - Last 24 Hours (Table) 08/07/20 20:40 Gram Stain - Final Sputum Sputum Culture - Final 08/08/20 00:15 Gram Stain - Final Sputum Sputum Culture - Final Strep agalactiae - (group b) 08/05/20 11:28 Blood Culture - Preliminary Blood No Growth after 96 hours 08/05/20 11:28 Blood Culture - Preliminary Blood No Growth after 96 hours Assessment and Plan Assessment: 1 Acute hypoxemic respiratory failure secondary to acute CoVID 19 pneumonia/pneumonitis requiring intubation and mechanical ventilatory support on 08/07/2020. Received tocilizumab. Received convalescent plasma. 2 Transaminitis in a patient with a known history of fatty liver disease versus CoVID 19 infection 3 Elevated inflammatory markers secondary to above 4 Morbid obesity 5 History of bipolar disorder 6 History of schizophrenia 7 History of chronic bronchial asthma 8 History of fibromyalgia 9 Hypertension 10 Gastric esophageal reflux disease Plan: The patient was seen and evaluated by Dr. Lennon Chest x-ray, ABGs and labs reviewed Continue FiO2 at 50%, decreased PEEP to 15 Tocilizumab and convalescent plasma given previously Remains on Lovenox, dexamethasone, vitamin supplements Repeat chest x-ray, ABGs, inflammatory markers, d-dimer in a.m. Left radial art line placed We'll continue to follow and make further recommendations based on her clinical status Critical care time 35 minutes, not including procedures I, the cosigning physician, performed a history & physical examination of the patient. Lungs sounds worse crackles in the bilateral posterior bases. Maintaining good O2 saturations in the 90s on 50% FiO2 via the mechanical ventilator. I discussed the assessment and plan of care with my nurse practitioner, Christina Casey. I attest to the above note as dictated by her.
[2020-08-10] MEDS: CISATRACURIUM 200 MG in SODIUM CHLORIDE 0.9% 180 ML IV SCH (14:23)
--- NOTE | 2020-08-10 15:34 | US ---
EXAMINATION TYPE: US venous doppler duplex LE BI DATE OF EXAM: 08/10/2020 3:08 PM COMPARISON: NONE CLINICAL HISTORY: DVT. Intubated Covid ICU patient that is 381lbs, bilateral leg swelling. SIDE PERFORMED: Bilateral TECHNIQUE: The lower extremity deep venous system is examined utilizing real time linear array sonog aryan with graded compression, doppler sonography and color-flow sonography. VESSELS IMAGED: Common Femoral Vein Deep Femoral Vein Greater Saphenous Vein * Femoral Vein Popliteal Vein Small Saphenous Vein * Proximal Calf Veins (* superficial vessels) nondiagnostic exam on morbidly obese, intubated ICU patient with extensive edema and large panis th at blocked proximal FV and CFV bilaterally. Right Leg: very limited exam due to extensive swelling on morbidly obese patient. Right FV mid/dist blood flow was seen, right popiteal vein did compress and blood flow was only seen in TRV due to larg e, swollen habitus and could not turn probe SAG. Left Leg: very limited exam due to extensive swelling on morbidly obese patient. Left FV mid/dist bl ood flow was seen, left popiteal vein could not be properly assessed due to reasons stated above. IMPRESSION: Limited examination
[2020-08-10 17:37] LABS: Glucose,Whole Blood 187 mg/dL (75-99)
[2020-08-10 18:16] LABS: Glucose,Whole Blood 187 mg/dL (75-99)
--- NOTE | 2020-08-10 18:52 | PN ---
PROGRESS NOTE DATE OF SERVICE: 08/10/2020 This 40-year-old woman who was admitted with acute COVID-19 bilateral interstitial pneumonia is on mechanical ventilation. The patient being closely monitored at this time. The patient is on broad-spectrum IV antibiotics, dexamethasone and Lovenox also. The culture showed strep agalactiae group B from the sputum. PAST MEDICAL HISTORY: Reviewed. REVIEW OF SYSTEM: Could not be taken, the patient is mechanically ventilated and sedated. CURRENT MEDICATIONS: Current medications are reviewed and include Ventolin, vitamin C, Cogentin, Rocephin, vitamin D3, dexamethasone. PHYSICAL EXAMINATION: Patient is alert and oriented. Pulse is 54, blood pressure 129/76, respiration 26, temperature 98.8, pulse ox 96% on 50% mechanical ventilation. HEENT: Conjunctivae normal. NECK: No jugular venous distention. CARDIOVASCULAR: S1, S2 muffled. RESPIRATORY: Breath sounds diminished at the bases. A few scattered rhonchi. ABDOMEN: Soft, nontender. LEGS: No edema, no swelling. NERVOUS SYSTEM: No focal deficits. LABS: WBC 3.4. AST and ALT are elevated. Other labs are noted. ASSESSMENT: 1. Acute COVID-19 interstitial pneumonia with acute hypoxic hypercarbic respiratory failure on mechanical ventilation. 2. Strep agalactiae from the sputum culture, possibly superinfection. 3. Status post tocilizumab. 4. Possible sepsis and elevated lactic acid, present on admission. 5. Leukopenia. 6. Thrombocytopenia possibly viral induced. 7. Hypokalemia. 8. Increased creatinine with acute renal failure, acute tubular necrosis. 9. Acute rhabdomyolysis. 10.Increased AST ALT. 11.Elevated inflammatory markers of COVID-19 including LDH and CRP. 12.History of asthma, chronic obstructive pulmonary disease. 13.Fibromyalgia. 14.Gastroesophageal reflux disease. 15.Hypertension. 16.History of chronic liver disease. 17.Chronic memory impairment. 18.History of pneumonia. 19.History of syncope. 20.History of bronchitis. 21.History of degenerative joint disease. 22.History of nephrolithiasis. 23.History of cholecystectomy. 24.History of anxiety, bipolar, depression. 25.Schizophrenia. 26.History of THC. 27.Morbid obesity with body mass index of 56.5. RECOMMENDATIONS AND DISCUSSION: Recommend to continue current medications, continue symptomatic treatment. Otherwise, continue with antibiotics. Continue the bronchodilators. Continue with dexamethasone, continue Lovenox. Prognosis guarded because of multiple complex medical issues. Further recommendations to follow. D-dimer is also elevated but there was no evidence of PE. I would also recommend ultrasound of the leg to rule out the possibility of any DVT. MMODL / IJN: [id number] /
--- NOTE | 2020-08-10 22:23 | PN ---
PROGRESS NOTE DATE OF SERVICE: 08/10/2020 REASON FOR FOLLOWUP: COVID-19 pneumonia. INTERVAL HISTORY: The patient is currently afebrile. Patient remains to be intubated on the vent. FiO2 is currently 50%. No significant purulent secretions in the ET or any diarrhea per the nursing staff. PHYSICAL EXAMINATION: Blood pressure 146/74, pulse of 81, temperature 98. She is 96% on 50% FIO2. General description is a middle-aged female intubated on the vent. Respiratory system: Unlabored breathing, decreased intensity of breath sounds. No wheeze. HEART: S1, S2. Regular rate and rhythm. Abdomen soft, no tenderness. LABS: Hemoglobin is 2.1, white count 3.4. BUN of 17, creatinine 0.65. Sputum is Streptococcus agalactiae. DIAGNOSTIC IMPRESSION/PLAN: 1. Patient with acute respiratory failure which is multifactorial. This patient with acute Covid 19 pneumonia. The patient is currently on Dexamethasone, Lovenox, zinc, ascorbic acid. 2. Sputum showing a Streptococcus agalactiae. Antibiotic transitioned from Rocephin, to continue and monitor clinical course closely. MMODL / IJN: [id number] /
[2020-08-10 23:56] LABS: Glucose,Whole Blood 193 mg/dL (75-99)
[2020-08-11] MEDS: fentaNYL (PF) 1,000 MCG in SODIUM CHLORIDE 0.9% 80 ML IV SCH ×2 (02:26→19:56)
[2020-08-11] MEDS: SODIUM CHLORIDE 0.9% 1,000 ML IV SCH ×2 (02:26→16:08)
[2020-08-11 04:38] LABS: Basophils % (A) 0 %; Eosinophils % (A) 1 %; HCT 36.2 % (34.0-46.0); Lymphocytes # (A) 0.5 k/uL (1.0-4.8); Lymphocytes % (A) 14 %; MCH 28.9 pg (25.0-35.0); MCHC 33.1 g/dL (31.0-37.0); MCV 87.3 fL (80.0-100.0); Mean Platelet Volume 10.4; Monocytes # (A) 0.2 k/uL (0-1.0); Monocytes % (A) 6 %; Neutrophils # (A) 2.8 k/uL (1.3-7.7); Neutrophils % (A) 79 %; Platelet Count 183 k/uL (150-450); RBC 4.14 m/uL (3.80-5.40); RDW 14.1 % (11.5-15.5); WBC 3.5 k/uL (3.8-10.6)
[2020-08-11 04:57] LABS: ALT 341 U/L (4-34); AST 169 U/L (14-36); African American GFR (CKD) >90 (>60 ml/min/1.73 sqM); Albumin 2.9 g/dL (3.5-5.0); Alkaline Phosphatase 76 U/L (38-126); Anion Gap 4 mmol/L; Blood Urea Nitrogen 19 mg/dL (7-17); C Reactive Protein 14.7 mg/L (<10.0); Calcium 8.1 mg/dL (8.4-10.2); Carbon Dioxide 33 mmol/L (22-30); Chloride 103 mmol/L (98-107); Glucose 227 mg/dL (74-99); LDH 1100 U/L (313-618); Non-African American GFR(CKD) >90 (>60 ml/min/1.73 sqM); Potassium 4.7 mmol/L (3.5-5.1); Sodium 140 mmol/L (137-145); Total Bilirubin 0.8 mg/dL (0.2-1.3); Total Protein 5.3 g/dL (6.3-8.2)
[2020-08-11 05:25] LABS: ABG Base Excess 10.6 mmol/L; ABG HCO3 35 mmol/L (21-25); ABG Oxygen Saturation 96.6 % (94-97); ABG PCO2 50 mmHg (35-45); ABG PH 7.45 (7.35-7.45); ABG PO2 87 mmHg (83-108); ABG TCO2 36 mmol/L (19-24); Allen Test Performed? Yes
[2020-08-11 05:52] LABS: Glucose,Whole Blood 193 mg/dL (75-99)
[2020-08-11] MEDS: INSULIN ASPART (NovoLOG) 100 UNIT/ML VIAL SQ SCH ×5 (05:57→23:44)
--- NOTE | 2020-08-11 07:25 | XR ---
EXAMINATION TYPE: XR chest 1V portable DATE OF EXAM: 08/11/2020 COMPARISON: 08/10/2020 HISTORY: SOB, Follow Up FINDINGS: Indwelling tubes and catheters are unchanged. No change in bibasilar opacities. Stable appearance of the cardio-mediastinal structures at this time. Pleural effusion unchanged. IMPRESSION: 1. Stable portable chest. Clinical correlation and follow up until resolution is recommended.
[2020-08-11] MEDS: ASCORBIC ACID 500 MG TAB PO SCH (08:38)
[2020-08-11] MEDS: DEXAMETHASONE SOD PHOSPHATE 10 MG/ML 1 ML VIAL IV SCH ×2 (08:38→21:20)
[2020-08-11] MEDS: CHOLECALCIFEROL 25 MCG (1000 IU) TABLET PO SCH (08:38)
[2020-08-11] MEDS: lamoTRIgine 100 MG TAB PO SCH ×2 (08:38→21:20)
[2020-08-11] MEDS: ZINC SULFATE 220 MG CAP PO SCH (08:38)
[2020-08-11] MEDS: PANTOPRAZOLE 40 MG/10 ML VIAL IVP SCH (08:39)
[2020-08-11] MEDS: CHLORHEXIDINE GLUCONATE 15 ML CUP MUCOUS MEM SCH ×2 (08:39→21:20)
[2020-08-11] MEDS: ENOXAPARIN 40 MG/0.4 ML SYRINGE SQ SCH ×2 (08:39→21:20)
[2020-08-11] MEDS: SERTRALINE 100 MG TAB PO SCH ×2 (08:41→21:20)
[2020-08-11] MEDS: BENZTROPINE MESYLATE 1 MG TAB PO SCH ×2 (08:41→21:20)
[2020-08-11] MEDS: OXYBUTYNIN XL 5 MG TAB.ER.24 PO SCH (08:41)
[2020-08-11] MEDS: ALBUTEROL HFA INHALER INHALATION SCH ×4 (08:49→19:59)
[2020-08-11] MEDS: ATOMOXETINE HCL 60 MG PO SCH (10:08)
--- NOTE | 2020-08-11 10:36 | P.PN ---
Subjective This is a pleasant 40 years old female with past medical history of fibromyalgia, GERD, hypertension, COPD/asthma, non-alcoholic fatty liver disease , migraines, chronic back and cervical pain, degenerative disc disease, kidney stone and UTI. Presents with dyspnea and found to have bilateral colic pneumonia. Patient currently is debated and sedated in the ICU with pulmonary/critical care team following her closely No issues overnight, no sedation trial today. She is currently on fentanyl and propofol.no pressors. Also she is on vitamin C, vitamin D and zinc, she is on ceftriaxone, dexamethasone IV 6 mg twice a day, she is on normal saline 75 mL/h, Lovenox 40 mg twice a day She is a status post tocizilumab and convalescent plasma Review of system: N/a Active Medications Generic Name Dose Route Start Last Admin Trade Name Freq PRN Reason Stop Dose Admin Albuterol Sulfate 2 puff 08/05/20 20:00 08/11/20 08:49 Albuterol Hfa Inhaler INHALATION 2 puff RT-QID [facility] Administration Albuterol Sulfate 2 puff 08/05/20 23:41 08/06/20 23:27 Albuterol Hfa Inhaler INHALATION 2 puff RT-QID PRN Administration Shortness Of Breath Or Wheezing Ascorbic Acid 500 mg 08/06/20 09:00 08/11/20 08:38 Ascorbic Acid 500 Mg Tab PO 500 mg DAILY [facility] Administration Benztropine Mesylate 1 mg 08/05/20 21:00 08/11/20 08:41 Benztropine Mesylate 1 Mg Tab PO 1 mg BID [facility] Administration Chlorhexidine Gluconate 15 ml 08/07/20 09:00 08/11/20 08:39 Chlorhexidine Gluconate 15 Ml Cup MUCOUS MEM 15 ml BID [facility] Administration Cholecalciferol 25 mcg 08/06/20 09:00 08/11/20 08:38 Cholecalciferol 25 Mcg (1000 Iu) Tablet PO 25 mcg DAILY [facility] Administration Dexamethasone Sodium Phosphate 6 mg 08/06/20 09:15 08/11/20 08:38 Dexamethasone Sod Phosphate 10 Mg/Ml 1 Ml Vial IV 6 mg BID [facility] Administration Enoxaparin Sodium 40 mg 08/05/20 21:00 08/11/20 08:39 Enoxaparin 40 Mg/0.4 Ml Syringe SQ 40 mg BID [facility] Administration Fentanyl Citrate 1,000 mcg/ 100 mls @ 0 mls/hr 08/07/20 03:30 08/11/20 02:26 Sodium Chloride IV 1 mcg/kg/h .Q0M [facility] 15.876 mls/hr Administration Protocol Per Protocol Propofol 1,000 mg/ IV Solution 100 mls @ 0 mls/hr 08/07/20 03:30 08/11/20 07:00 IV 30 mcg/kg/min .Q0M [facility] 31.14 mls/hr Administration Protocol Titrate Cisatracurium Besylate 200 mg/ 200 mls @ 9.525 mls/hr 08/07/20 03:30 08/10/20 14:23 Sodium Chloride IV Not Given .Q21H [facility] Protocol 1 MCG/KG/MIN Sodium Chloride 1,000 mls @ 75 mls/hr 08/07/20 19:30 08/11/20 02:26 Saline 0.9% IV 75 mls/hr .[id number] [facility] Administration Ceftriaxone Sodium 1 gm/ 50 mls @ 100 mls/hr 08/09/20 14:45 08/11/20 08:39 Sodium Chloride IVPB 100 mls/hr Q24HR [facility] Administration Insulin Aspart 0 unit 08/07/20 12:00 08/11/20 05:57 Insulin Aspart (Novolog) 100 Unit/Ml Vial SQ 5 unit Q6HR [facility] Administration Protocol Lamotrigine 150 mg 08/05/20 21:00 08/11/20 08:38 Lamotrigine 100 Mg Tab PO 150 mg BID [facility] Administration Miscellaneous Information 1 each 08/07/20 05:42 Potassium Replacement Protocol 1 Each Misc MISCELLANE DAILY PRN Per Protocol Protocol Patient's Own( 60 mg 08/06/20 09:00 08/11/20 10:08 Atomoxetine Hcl [ PO Not Given Strattera] 60 Mg DAILY [facility] Capsule) Oxybutynin Chloride 5 mg 08/06/20 09:00 08/11/20 08:41 Oxybutynin Xl 5 Mg Tab.Er.24 PO 5 mg DAILY [facility] Administration Paliperidone Palmitate 234 mg 08/07/20 09:00 08/07/20 09:24 Paliperidone Im 234 Mg/1.5 Ml Syg IM 234 mg Q28D [facility] Administration Pantoprazole Sodium 40 mg 08/07/20 09:00 08/11/20 08:39 Pantoprazole 40 Mg/10 Ml Vial IVP 40 mg DAILY [facility] Administration Sertraline HCl 100 mg 08/05/20 21:00 08/11/20 08:41 Sertraline 100 Mg Tab PO 100 mg BID [facility] Administration Zinc Sulfate 220 mg 08/06/20 09:00 08/11/20 08:38 Zinc Sulfate 220 Mg Cap PO 220 mg DAILY [facility] Administration Objective - Vital Signs Vital signs: Vital Signs Temp 97.9 F 08/11/20 08:00 Pulse 49 L 08/11/20 10:00 Resp 17 08/11/20 10:00 BP 126/74 08/10/20 10:00 Pulse Ox 94 L 08/11/20 10:00 Intake & Output 08/10/20 08/11/20 08/11/20 18:59 06:59 18:59 Intake Total 3422.880 5180.363 370 Output Total 675 810 185 Balance 1067.362 1858.363 185 Weight 173 kg 175.1 kg Intake: IV 825 933 312 0.9 NS 825 900 300 pressure bag 33 12 Intake, IV Titration 595.678 475.363 Amount cefTRIAXone 1 gm In 50 Sodium Chloride 0.9% 50 ml @ 100 mls/hr IVPB Q24HR [facility] Rx#:[id number] fentaNYL (PF) 1,000 mcg 200 176.753 In Sodium Chloride 0.9% 80 ml @ Per Protocol IV . Q0M [facility] Rx#:[id number] propofoL 1,000 mg In 345.678 298.61 Empty Bag 1 bag @ Titrate IV .Q0M [facility] Rx#: [id number] Tube Feeding 526 638 58 Other 90 Output: Urine 675 810 185 Other: Voiding Method Indwelling Catheter Indwelling Catheter Indwelling Catheter ABP, PAP, CO, CI - Last Documented Arterial Blood Pressure 142/70 - Exam -GENERAL: The patient is Sedated and intubated HEENT: Pupils are round and equally reacting to light. EOMI. No scleral icterus. No conjunctival pallor. Normocephalic, atraumatic. No pharyngeal erythema. No thyromegaly. CARDIOVASCULAR: S1 and S2 present. No murmurs, rubs, or gallops. PULMONARY: Chest is clear to auscultation, no wheezing or crackles. ABDOMEN: Soft, nontender, nondistended, normoactive bowel sounds. No palpable organomegaly. MUSCULOSKELETAL: No joint swelling or deformity. EXTREMITIES: No cyanosis, clubbing, or pedal edema. NEUROLOGICAL: Gross neurological examination did not reveal any focal deficits. SKIN: No rashes. no petechiae. - Labs CBC & Chem 7: 08/11/20 04:00 08/11/20 04:00 Labs: Abnormal Lab Results - Last 24 Hours (Table) 08/10/20 08/10/20 08/10/20 Range/Units 11:26 17:36 18:15 WBC (3.8-10.6) k/uL Lymphocytes # (1.0-4.8) k/uL D-Dimer (<0.60) mg/L FEU ABG pCO2 (35-45) mmHg ABG HCO3 (21-25) mmol/L ABG Total CO2 (19-24) mmol/L Carbon Dioxide (22-30) mmol/L BUN (7-17) mg/dL Glucose (74-99) mg/dL POC Glucose (mg/dL) 198 H 187 H 187 H (75-99) mg/dL Calcium (8.4-10.2) mg/dL AST (14-36) U/L ALT (4-34) U/L Lactate Dehydrogenase (313-618) U/L C-Reactive Protein (<10.0) mg/L Total Protein (6.3-8.2) g/dL Albumin (3.5-5.0) g/dL 08/10/20 08/11/20 08/11/20 Range/Units 23:56 04:00 04:00 WBC 3.5 L (3.8-10.6) k/uL Lymphocytes # 0.5 L (1.0-4.8) k/uL D-Dimer 3.50 H (<0.60) mg/L FEU ABG pCO2 (35-45) mmHg ABG HCO3 (21-25) mmol/L ABG Total CO2 (19-24) mmol/L Carbon Dioxide (22-30) mmol/L BUN (7-17) mg/dL Glucose (74-99) mg/dL POC Glucose (mg/dL) 193 H (75-99) mg/dL Calcium (8.4-10.2) mg/dL AST (14-36) U/L ALT (4-34) U/L Lactate Dehydrogenase (313-618) U/L C-Reactive Protein (<10.0) mg/L Total Protein (6.3-8.2) g/dL Albumin (3.5-5.0) g/dL 08/11/20 08/11/20 08/11/20 Range/Units 04:00 05:20 05:51 WBC (3.8-10.6) k/uL Lymphocytes # (1.0-4.8) k/uL D-Dimer (<0.60) mg/L FEU ABG pCO2 50 H (35-45) mmHg ABG HCO3 35 H (21-25) mmol/L ABG Total CO2 36 H (19-24) mmol/L Carbon Dioxide 33 H (22-30) mmol/L BUN 19 H (7-17) mg/dL Glucose 227 H (74-99) mg/dL POC Glucose (mg/dL) 193 H (75-99) mg/dL Calcium 8.1 L (8.4-10.2) mg/dL AST 169 H (14-36) U/L ALT 341 H (4-34) U/L Lactate Dehydrogenase 1100 H (313-618) U/L C-Reactive Protein 14.7 H (<10.0) mg/L Total Protein 5.3 L (6.3-8.2) g/dL Albumin 2.9 L (3.5-5.0) g/dL Microbiology - Last 24 Hours (Table) 08/05/20 11:28 Blood Culture - Preliminary Blood No Growth after 120 hours 08/05/20 11:28 Blood Culture - Preliminary Blood No Growth after 120 hours 08/07/20 20:40 Gram Stain - Final Sputum Sputum Culture - Final 08/08/20 00:15 Gram Stain - Final Sputum Sputum Culture - Final Strep agalactiae - (group b) Assessment and Plan Assessment: Bilateral covid pneumonia Acute hypoxic respiratory failure needing mechanical ventilation Increased inflammatory markers Hypertension History of fibromyalgia History of COPD/asthma History of nonalcoholic fatty liver disease History of migraine Pain and cervical pain and degenerative disc disease History of kidney stones and UTI. History of schizophrenia, depression and bipolar Plan: This is a pleasant 40 years old female who presents with colic pneumonia. Continue with vitamin C, vitamin D and zinc. Also continue with Lovenox and steroids. New with antibiotic Pulmonary/critical care team will help with vent management. Labs and medication were reviewed.. Continue same treatment. Continue with symptomatic treatment. Resume home medication. Monitor lytes and vitals. DVT and GI prophylaxis. Further recommendationsas per clinical course of the patient DVT prophylaxis: Subcutaneous heparin GI Prophylaxis: Ppi Prognosis is guarded
--- NOTE | 2020-08-11 11:01 | P.PN ---
Subjective Progress Note Date: 08/11/20 Principal diagnosis: Acute hypoxemic respiratory failure secondary to CoVID 19 pneumonia/pneumonitis This is a pleasant 40-year-old female patient who has a history of obesity, fi bromyalgia, hypertension, fatty liver disease, asthma schizophrenia, marijuana use. She presented to the emergency room yesterday with complaints of increasing shortness of breath, dizziness and lightheadedness. She states she had gotten a first dose of the CoVID vaccine on July 28 and started having symptoms shortly after that. She had symptoms of progressive shortness of breath, fever, chills. She tested positive for the CoVID 19 infection. CAT scan of the chest ruled out pulmonary embolism. There is extensive bilateral pneumonia bilaterally. White count 4.2. Hemoglobin 13.2. Lymphocytes 0.4. D- dimer 1.05. Sodium 137. Potassium 3.7. Creatinine 0.62. AST 200, ALT 114. Pro-calcitonin 0.15. LDH 1382. C-reactive protein 170. She is seen today in consultation in the intensive care unit. She is currently on BiPAP 14/7 and 100% FiO2 to maintain O2 saturations in the mid to upper 80s. She has been initiated on bronchodilators, Lovenox, dexamethasone vitamin supplements The patient is seen today 08/07/2020 in follow-up in the intensive care unit. She ended up requiring intubation mechanical ventilatory support earlier this morning for continued poor oxygenation. She is currently on mechanical ventilator with assist control mode at a rate of 26, tidal volume 400, FiO2 100% and a PEEP of 17. Blood gases revealed a pO2 of 87, pCO2 61, pH 7.38. She is now sedated on propofol 50 mcg/kg/m, Nimbex at 2 mcg/kg/m, fentanyl at 1 mcg/kg per hour. Normal saline at 75 ML's per hour. She does now qualify for tocilizumab, however, none is available today. We will order convalescent plasma. Right internal jugular triple lumen catheter and right radial arterial lines were placed this morning. Blood cultures reveal no growth. White count 3.9. Hemoglobin 12.7. D-dimer 1.74. Sodium 142. Potassium 3.9. Creatinine 0.68. Lactic dehydrogenase 1583. Creatinine kinase 5648. She remains on Lovenox, dexamethasone, vitamin supplements. Progress note dated 08/08/2020. This is a 40-year-old female, quite obese, admitted on August 05, with COVID 19 pneumonia. The patient was intubated on August 07 for worsening respiratory status. Currently, she is on the volume assist control mode, rate is 26, tidal volume 400, FiO2 now down to 70%, PEEP of 18. Arterial blood gases on 85%, show pO2 147, a CO2 of 55, and a pH is 7.43. The patient is receiving saline at 75 mL an hour, fentanyl 1 mcg/kg/h, propofol at 40 mcg/kg/m, and Nimbex at 1 mcg/m. The patient we started on tube feeds today. We did order TOCI on this patient. It may or may not be available. The Rocephin was discontinued. White count is 3.9, hemoglobin 12, hematocrit 36.2, platelet count 153,000. D-dimer is 3.23. Sodium 143, potassium 4.5, chlorides 103, CO2 38, anion gap 2, BUN 14, and c reatinine 0.61. Chest x-ray shows diffuse bilateral infiltrates. Progress note dated 08/09/2020. 40-year-old female, admitted on August 05 with COVID 19 pneumonia. The patient was intubated on August 07 for worsening respiratory failure. Currently, she remains on mechanical ventilator. She is on the volume assist control mode, rate 26, tidal volume 400, FiO2 65%, and a PEEP of 18. The blood gases show a PaO2 of 135, he's a CO2 of 55, the pH is 7.44. The FiO2 will be reduced down to 50%. Currently, patient's on saline at 75 mL an hour, fentanyl at 1 mcg/kg/h, Nimbex at 1 mcg/kg/m, propofol at 40 g kilogram per minute, vital high protein at 41 cc per hour, which is goal. In addition to reducing the FiO2 down to 50%, we'll see if we can discontinue the Nimbex. White count 3.4, hemoglobin and hematocrit and platelet count all normal. Sodium 140, potassium 4.4, chlorides 104, CO2 37, BUN 15, and creatinine 0.57. Chest x-ray show slightly improved infiltrates in both lungs. The patient is seen today 08/10/2020 in follow-up in the intensive care unit. She remains intubated on the mechanical ventilator and assist control mode with a rate of 26, tidal on 400, FiO2 50% and a PEEP of 18. Morning blood gases revealed a PaO2 122, pCO2 49, pH 7.47. She is sedated on propofol at 40 mcg/kg/m. Fentanyl at 1 mcg/kg per hour. 0.9 normal saline at 75 ML's per hour. She is being nourished with vital HP at 41 mL per hour which is goal. Blood cultures reveal no growth. Sputum culture positive for strep agalactiae, group B. White count 3.4. Hemoglobin 12.2. Lymphocytes 0.4. Sodium 143. Potassium 4.6. Creatinine 0.65. AST 223. ALT 318. She remains on dexamethasone, Lovenox, vitamin supplements. Antibiotics in the form of ceftriaxone. The patient is seen today 08/11/2020 and follow-up in the intensive care unit. She remains intubated on the mechanical ventilator at assist control mode at a rate of 26, tidal volume 400, FiO2 50% and a PEEP of 15. Morning blood gases revealed a PaO2 of 87, pCO2 50, pH 7.44. Currently sedated on propofol at 30 mcg/kg/m. Fentanyl at 1 mcg/mg per hour. 0.9 normal saline at 75 ML's per hour. Vital HP at 58 MLS per hour which is goal. Doppler of the lower extremities were negative for DVT. Chest x-ray reveals bibasilar opacities. Stable compared to previous. Blood cultures reveal no growth. Sputum cultures revealed few strep agalactiae group B. White count 3.5. Hemoglobin 12.0. Lymphocytes 0.5. D-dimer 3.50. Sodium 140. Potassium 4.7. Creatinine 0.60. LDH 1100. C-reactive protein 14.7. She remains on ceftriaxone. Continued on dexamethasone, Lovenox, vitamin supplements. Objective - Vital Signs Vital signs: Vital Signs Temp 97.9 F 08/11/20 08:00 Pulse 49 L 08/11/20 10:00 Resp 17 08/11/20 10:00 BP 126/74 08/10/20 10:00 Pulse Ox 94 L 08/11/20 10:00 Intake & Output 08/10/20 08/11/20 08/11/20 18:59 06:59 18:59 Intake Total 2730.146 7033.363 370 Output Total 675 810 185 Balance 4940.101 2946.363 185 Weight 173 kg 175.1 kg Intake: IV 825 933 312 0.9 NS 825 900 300 pressure bag 33 12 Intake, IV Titration 595.678 475.363 Amount cefTRIAXone 1 gm In 50 Sodium Chloride 0.9% 50 ml @ 100 mls/hr IVPB Q24HR [facility] Rx#:[id number] fentaNYL (PF) 1,000 mcg 200 176.753 In Sodium Chloride 0.9% 80 ml @ Per Protocol IV . Q0M EDY Rx#:[id number] propofoL 1,000 mg In 345.678 298.61 Empty Bag 1 bag @ Titrate IV .Q0M EDY Rx#: [id number] Tube Feeding 526 638 58 Other 90 Output: Urine 675 810 185 Other: Voiding Method Indwelling Catheter Indwelling Catheter Indwelling Catheter ABP, PAP, CO, CI - Last Documented Arterial Blood Pressure 142/70 - Exam GENERAL EXAM: Intubated, sedated, morbidly obese 40-year-old female patient on FiO2 at 50%, comfortable in no apparent distress. HEAD: Normocephalic. EYES: Normal reaction of pupils, equal size. NOSE: Clear with pink turbinates. THROAT: Oral endotracheal and gastric tube secured in place. No erythema or exudates. NECK: No masses, no JVD. CHEST: No chest wall deformity. LUNGS: Equal air entry with bibasilar crackles. CVS: S1 and S2 normal with no audible murmur, regular rhythm. ABDOMEN: No hepatosplenomegaly, normal bowel sounds, no guarding or rigidity. SPINE: No scoliosis or deformity SKIN: No rashes CENTRAL NERVOUS SYSTEM: Sedated, tone is normal in all 4 extremities. EXTREMITIES: There is no peripheral edema. No clubbing, no cyanosis. Peripheral pulses are intact. - Labs CBC & Chem 7: 08/11/20 04:00 08/11/20 04:00 Labs: Abnormal Lab Results - Last 24 Hours (Table) 08/10/20 08/10/20 08/10/20 Range/Units 11:26 17:36 18:15 WBC (3.8-10.6) k/uL Lymphocytes # (1.0-4.8) k/uL D-Dimer (<0.60) mg/L FEU ABG pCO2 (35-45) mmHg ABG HCO3 (21-25) mmol/L ABG Total CO2 (19-24) mmol/L Carbon Dioxide (22-30) mmol/L BUN (7-17) mg/dL Glucose (74-99) mg/dL POC Glucose (mg/dL) 198 H 187 H 187 H (75-99) mg/dL Calcium (8.4-10.2) mg/dL AST (14-36) U/L ALT (4-34) U/L Lactate Dehydrogenase (313-618) U/L C-Reactive Protein (<10.0) mg/L Total Protein (6.3-8.2) g/dL Albumin (3.5-5.0) g/dL 08/10/20 08/11/20 08/11/20 Range/Units 23:56 04:00 04:00 WBC 3.5 L (3.8-10.6) k/uL Lymphocytes # 0.5 L (1.0-4.8) k/uL D-Dimer 3.50 H (<0.60) mg/L FEU ABG pCO2 (35-45) mmHg ABG HCO3 (21-25) mmol/L ABG Total CO2 (19-24) mmol/L Carbon Dioxide (22-30) mmol/L BUN (7-17) mg/dL Glucose (74-99) mg/dL POC Glucose (mg/dL) 193 H (75-99) mg/dL Calcium (8.4-10.2) mg/dL AST (14-36) U/L ALT (4-34) U/L Lactate Dehydrogenase (313-618) U/L C-Reactive Protein (<10.0) mg/L Total Protein (6.3-8.2) g/dL Albumin (3.5-5.0) g/dL 08/11/20 08/11/20 08/11/20 Range/Units 04:00 05:20 05:51 WBC (3.8-10.6) k/uL Lymphocytes # (1.0-4.8) k/uL D-Dimer (<0.60) mg/L FEU ABG pCO2 50 H (35-45) mmHg ABG HCO3 35 H (21-25) mmol/L ABG Total CO2 36 H (19-24) mmol/L Carbon Dioxide 33 H (22-30) mmol/L BUN 19 H (7-17) mg/dL Glucose 227 H (74-99) mg/dL POC Glucose (mg/dL) 193 H (75-99) mg/dL Calcium 8.1 L (8.4-10.2) mg/dL AST 169 H (14-36) U/L ALT 341 H (4-34) U/L Lactate Dehydrogenase 1100 H (313-618) U/L C-Reactive Protein 14.7 H (<10.0) mg/L Total Protein 5.3 L (6.3-8.2) g/dL Albumin 2.9 L (3.5-5.0) g/dL Microbiology - Last 24 Hours (Table) 08/05/20 11:28 Blood Culture - Preliminary Blood No Growth after 120 hours 08/05/20 11:28 Blood Culture - Preliminary Blood No Growth after 120 hours 08/07/20 20:40 Gram Stain - Final Sputum Sputum Culture - Final 08/08/20 00:15 Gram Stain - Final Sputum Sputum Culture - Final Strep agalactiae - (group b) Assessment and Plan Assessment: 1 Acute hypoxemic respiratory failure secondary to acute CoVID 19 pneumonia/pneumonitis requiring intubation and mechanical ventilatory support on 08/07/2020. Received tocilizumab. Received convalescent plasma. 2 Transaminitis in a patient with a known history of fatty liver disease versus CoVID 19 infection 3 Elevated inflammatory markers secondary to above 4 Morbid obesity 5 History of bipolar disorder 6 History of schizophrenia 7 History of chronic bronchial asthma 8 History of fibromyalgia 9 Hypertension 10 Gastric esophageal reflux disease Plan: The patient was seen and evaluated by Dr. Lennon Continue FiO2 at 50%, decreased PEEP to 10 Remains on Lovenox, dexamethasone, vitamin supplements We'll continue to follow and make further recommendations based on her clinical status Critical care time 36 minutes I, the cosigning physician, performed a history & physical examination of the patient. Lungs sounds worse crackles in the bilateral posterior bases. Maintaining good O2 saturations in the 90s on 50% FiO2 via the mechanical ventilator. I discussed the assessment and plan of care with my nurse practitioner, Christina Casey. I attest to the above note as dictated by her.
[2020-08-11 11:54] LABS: Glucose,Whole Blood 221 mg/dL (75-99)
[2020-08-11] MEDS: CISATRACURIUM 200 MG in SODIUM CHLORIDE 0.9% 180 ML IV SCH (16:08)
--- NOTE | 2020-08-11 17:51 | PN ---
PROGRESS NOTE DATE OF SERVICE: 08/11/2020 REASON FOR FOLLOWUP: COVID-19 infection/pneumonia. INTERVAL HISTORY: The patient is currently afebrile. The patient is hemodynamically stable, not on any pressor support. FiO2 is currently stable at 50%. The patient has been tolerating her tube feeds. No diarrhea has been reported. No purulent secretions through the ET. PHYSICAL EXAMINATION: Blood pressure 160/67 with a pulse of 55. Temperature 98.9. She is 92% on 50% FiO2. General description is a middle-aged female intubated on the vent. RESPIRATORY SYSTEM: Unlabored breathing with decreased intensity of breath sounds. No wheeze. HEART: S1, S2. Regular rate and rhythm. ABDOMEN: Soft. No tenderness. LABS: Hemoglobin is 12, white count 3.5. D-dimer is 3.50, creatinine 0.60. Sputum is Streptococcus agalactiae. DIAGNOSTIC IMPRESSION AND PLAN: Patient with acute respiratory failure which is multifactorial in this patient who did have COVID-19 pneumonia plus/minus a component of possible secondary bacterial with sputum showing Streptococcus agalactiae. The patient is currently covered with dexamethasone, Lovenox, zinc, ascorbic acid along with Rocephin. To continue and monitor clinical course closely. MMODL / IJN: [id number] /
[2020-08-11 18:50] LABS: Glucose,Whole Blood 226 mg/dL (75-99)
[2020-08-11 23:32] LABS: Glucose,Whole Blood 151 mg/dL (75-99)
[2020-08-12] MEDS: fentaNYL (PF) 1,000 MCG in SODIUM CHLORIDE 0.9% 80 ML IV SCH ×2 (01:56→07:05)
[2020-08-12 04:25] LABS: Basophils % (A) 0 %; Eosinophils # (A) 0.1 k/uL (0-0.7); Eosinophils % (A) 2 %; HGB 12.2 gm/dL (11.4-16.0); Lymphocytes # (A) 0.5 k/uL (1.0-4.8); Lymphocytes % (A) 10 %; MCH 29.5 pg (25.0-35.0); MCV 86.7 fL (80.0-100.0); Mean Platelet Volume 10.5; Monocytes # (A) 0.3 k/uL (0-1.0); Monocytes % (A) 6 %; Neutrophils # (A) 3.6 k/uL (1.3-7.7); Neutrophils % (A) 81 %; Platelet Count 189 k/uL (150-450); RBC 4.15 m/uL (3.80-5.40); RDW 14.2 % (11.5-15.5); WBC 4.5 k/uL (3.8-10.6)
[2020-08-12 05:01] LABS: ABG Base Excess 9.1 mmol/L; ABG HCO3 34 mmol/L (21-25); ABG Oxygen Saturation 94.9 % (94-97); ABG PCO2 51 mmHg (35-45); ABG PH 7.43 (7.35-7.45); ABG PO2 76 mmHg (83-108); ABG TCO2 35 mmol/L (19-24); Allen Test Performed? Yes
[2020-08-12 05:32] LABS: ALT 297 U/L (4-34); AST 83 U/L (14-36); African American GFR (CKD) >90 (>60 ml/min/1.73 sqM); Albumin 2.8 g/dL (3.5-5.0); Alkaline Phosphatase 69 U/L (38-126); Anion Gap 2 mmol/L; Blood Urea Nitrogen 20 mg/dL (7-17); C Reactive Protein 9.7 mg/L (<10.0); Calcium 8.2 mg/dL (8.4-10.2); Carbon Dioxide 33 mmol/L (22-30); Chloride 103 mmol/L (98-107); Glucose 204 mg/dL (74-99); LDH 737 U/L (313-618); Non-African American GFR(CKD) >90 (>60 ml/min/1.73 sqM); Potassium 4.6 mmol/L (3.5-5.1); Sodium 138 mmol/L (137-145); Total Bilirubin 0.7 mg/dL (0.2-1.3); Total Protein 5.2 g/dL (6.3-8.2)
[2020-08-12 06:05] LABS: Glucose,Whole Blood 190 mg/dL (75-99)
[2020-08-12] MEDS: INSULIN ASPART (NovoLOG) 100 UNIT/ML VIAL SQ SCH ×3 (06:19→19:38)
[2020-08-12] MEDS: SODIUM CHLORIDE 0.9% 1,000 ML IV SCH ×2 (06:19→21:13)
[2020-08-12] MEDS: ATOMOXETINE HCL 60 MG PO SCH (07:30)
[2020-08-12] MEDS: ALBUTEROL HFA INHALER INHALATION SCH ×4 (07:55→22:21)
--- NOTE | 2020-08-12 08:57 | XR ---
EXAMINATION TYPE: XR chest 1V portable DATE OF EXAM: 08/12/2020 Comparison: 08/11/2020 Clinical History: 40-year-old female Tube placement Findings: ET tube satisfactory. NG tube courses below the diaphragm. Right IJ CVC tip in the right atrium. Hear t is enlarged. Patient rotated and obliqued towards the right. Increasing interstitial opacities and continued patency basilar opacities. Impression: Cardiomegaly with slight worsening acute interstitial lung disease. Persistent patchy bibasilar infil trates.
[2020-08-12] MEDS: ENOXAPARIN 40 MG/0.4 ML SYRINGE SQ SCH ×2 (09:33→21:14)
[2020-08-12] MEDS: lamoTRIgine 100 MG TAB PO SCH ×2 (09:38→21:14)
[2020-08-12] MEDS: SERTRALINE 100 MG TAB PO SCH ×2 (09:38→21:14)
[2020-08-12] MEDS: ZINC SULFATE 220 MG CAP PO SCH (09:39)
[2020-08-12] MEDS: OXYBUTYNIN XL 5 MG TAB.ER.24 PO SCH (09:39)
[2020-08-12] MEDS: DEXAMETHASONE SOD PHOSPHATE 10 MG/ML 1 ML VIAL IV SCH ×2 (09:39→21:14)
[2020-08-12] MEDS: ASCORBIC ACID 500 MG TAB PO SCH (09:39)
[2020-08-12] MEDS: BENZTROPINE MESYLATE 1 MG TAB PO SCH ×2 (09:39→21:14)
[2020-08-12] MEDS: PANTOPRAZOLE 40 MG/10 ML VIAL IVP SCH (09:39)
[2020-08-12] MEDS: CHOLECALCIFEROL 25 MCG (1000 IU) TABLET PO SCH (09:39)
[2020-08-12] MEDS: CHLORHEXIDINE GLUCONATE 15 ML CUP MUCOUS MEM SCH ×2 (09:40→21:14)
[2020-08-12] MEDS: CISATRACURIUM 200 MG in SODIUM CHLORIDE 0.9% 180 ML IV SCH (09:40)
[2020-08-12] MEDS ORDERED: FUROSEMIDE 10 MG/ML 4 ML VIAL IV STA (11:17)
--- NOTE | 2020-08-12 11:17 | P.PN ---
Subjective Progress Note Date: 08/12/20 Principal diagnosis: Acute hypoxemic respiratory failure secondary to CoVID 19 pneumonia/pneumonitis This is a pleasant 40-year-old female patient who has a history of obesity, fi bromyalgia, hypertension, fatty liver disease, asthma schizophrenia, marijuana use. She presented to the emergency room yesterday with complaints of increasing shortness of breath, dizziness and lightheadedness. She states she had gotten a first dose of the CoVID vaccine on July 28 and started having symptoms shortly after that. She had symptoms of progressive shortness of breath, fever, chills. She tested positive for the CoVID 19 infection. CAT scan of the chest ruled out pulmonary embolism. There is extensive bilateral pneumonia bilaterally. White count 4.2. Hemoglobin 13.2. Lymphocytes 0.4. D- dimer 1.05. Sodium 137. Potassium 3.7. Creatinine 0.62. AST 200, ALT 114. Pro-calcitonin 0.15. LDH 1382. C-reactive protein 170. She is seen today in consultation in the intensive care unit. She is currently on BiPAP 14/7 and 100% FiO2 to maintain O2 saturations in the mid to upper 80s. She has been initiated on bronchodilators, Lovenox, dexamethasone vitamin supplements The patient is seen today 08/07/2020 in follow-up in the intensive care unit. She ended up requiring intubation mechanical ventilatory support earlier this morning for continued poor oxygenation. She is currently on mechanical ventilator with assist control mode at a rate of 26, tidal volume 400, FiO2 100% and a PEEP of 17. Blood gases revealed a pO2 of 87, pCO2 61, pH 7.38. She is now sedated on propofol 50 mcg/kg/m, Nimbex at 2 mcg/kg/m, fentanyl at 1 mcg/kg per hour. Normal saline at 75 ML's per hour. She does now qualify for tocilizumab, however, none is available today. We will order convalescent plasma. Right internal jugular triple lumen catheter and right radial arterial lines were placed this morning. Blood cultures reveal no growth. White count 3.9. Hemoglobin 12.7. D-dimer 1.74. Sodium 142. Potassium 3.9. Creatinine 0.68. Lactic dehydrogenase 1583. Creatinine kinase 5648. She remains on Lovenox, dexamethasone, vitamin supplements. Progress note dated 08/08/2020. This is a 40-year-old female, quite obese, admitted on August 05, with COVID 19 pneumonia. The patient was intubated on August 07 for worsening respiratory status. Currently, she is on the volume assist control mode, rate is 26, tidal volume 400, FiO2 now down to 70%, PEEP of 18. Arterial blood gases on 85%, show pO2 147, a CO2 of 55, and a pH is 7.43. The patient is receiving saline at 75 mL an hour, fentanyl 1 mcg/kg/h, propofol at 40 mcg/kg/m, and Nimbex at 1 mcg/m. The patient we started on tube feeds today. We did order TOCI on this patient. It may or may not be available. The Rocephin was discontinued. White count is 3.9, hemoglobin 12, hematocrit 36.2, platelet count 153,000. D-dimer is 3.23. Sodium 143, potassium 4.5, chlorides 103, CO2 38, anion gap 2, BUN 14, and c reatinine 0.61. Chest x-ray shows diffuse bilateral infiltrates. Progress note dated 08/09/2020. 40-year-old female, admitted on August 05 with COVID 19 pneumonia. The patient was intubated on August 07 for worsening respiratory failure. Currently, she remains on mechanical ventilator. She is on the volume assist control mode, rate 26, tidal volume 400, FiO2 65%, and a PEEP of 18. The blood gases show a PaO2 of 135, he's a CO2 of 55, the pH is 7.44. The FiO2 will be reduced down to 50%. Currently, patient's on saline at 75 mL an hour, fentanyl at 1 mcg/kg/h, Nimbex at 1 mcg/kg/m, propofol at 40 g kilogram per minute, vital high protein at 41 cc per hour, which is goal. In addition to reducing the FiO2 down to 50%, we'll see if we can discontinue the Nimbex. White count 3.4, hemoglobin and hematocrit and platelet count all normal. Sodium 140, potassium 4.4, chlorides 104, CO2 37, BUN 15, and creatinine 0.57. Chest x-ray show slightly improved infiltrates in both lungs. The patient is seen today 08/10/2020 in follow-up in the intensive care unit. She remains intubated on the mechanical ventilator and assist control mode with a rate of 26, tidal on 400, FiO2 50% and a PEEP of 18. Morning blood gases revealed a PaO2 122, pCO2 49, pH 7.47. She is sedated on propofol at 40 mcg/kg/m. Fentanyl at 1 mcg/kg per hour. 0.9 normal saline at 75 ML's per hour. She is being nourished with vital HP at 41 mL per hour which is goal. Blood cultures reveal no growth. Sputum culture positive for strep agalactiae, group B. White count 3.4. Hemoglobin 12.2. Lymphocytes 0.4. Sodium 143. Potassium 4.6. Creatinine 0.65. AST 223. ALT 318. She remains on dexamethasone, Lovenox, vitamin supplements. Antibiotics in the form of ceftriaxone. The patient is seen today 08/11/2020 and follow-up in the intensive care unit. She remains intubated on the mechanical ventilator at assist control mode at a rate of 26, tidal volume 400, FiO2 50% and a PEEP of 15. Morning blood gases revealed a PaO2 of 87, pCO2 50, pH 7.44. Currently sedated on propofol at 30 mcg/kg/m. Fentanyl at 1 mcg/mg per hour. 0.9 normal saline at 75 ML's per hour. Vital HP at 58 MLS per hour which is goal. Doppler of the lower extremities were negative for DVT. Chest x-ray reveals bibasilar opacities. Stable compared to previous. Blood cultures reveal no growth. Sputum cultures revealed few strep agalactiae group B. White count 3.5. Hemoglobin 12.0. Lymphocytes 0.5. D-dimer 3.50. Sodium 140. Potassium 4.7. Creatinine 0.60. LDH 1100. C-reactive protein 14.7. She remains on ceftriaxone. Continued on dexamethasone, Lovenox, vitamin supplements. The patient is seen today 08/22/2020 and follow-up in the intensive care unit. She remains intubated and sedated on the mechanical ventilator currently assist- control mode, rate of 26, FiO2 50%, tidal volume 400, PEEP of 10. Morning blood gases reveal a pO2 of 75, pCO2 50, pH 7.43. She is sedated on propofol at 30 mcg/kg/m. 0.9 normal saline at 75 ML's per hour. Fentanyl drip at 1 mcg/kg per hour. Vital HP at 56 ML's per hour which is goal. His chest x-ray reveals cardiomegaly with slight worsening of interstitial bilateral infiltrates. She did receive 1 unit of convalescent plasma. White count 4.5. Hemoglobin 12.2. D-dimer 3.8. Sodium 138. Potassium 4.6. Creatinine 0.53. LDH 737. C- reactive protein 9.7. Continued on dexamethasone, Lovenox, vitamin supplements. Antibiotics in the form of ceftriaxone. Previous sputum culture positive for strep agalactiae group B. Blood cultures revealed no growth. Objective - Vital Signs Vital signs: Vital Signs Temp 98.9 F 08/12/20 08:00 Pulse 55 L 08/12/20 08:00 Resp 20 08/12/20 08:00 BP 126/74 08/10/20 10:00 Pulse Ox 91 L 08/12/20 08:00 Intake & Output 08/11/20 08/12/20 08/12/20 18:59 06:59 18:59 Intake Total 1194 2059.256 295.761 Output Total 885 905 160 Balance 309 1154.256 135.761 Weight 177.9 kg 177.9 kg Intake: IV 936 936 156 0.9 NS 900 900 150 pressure bag 36 36 6 Intake, IV Titration 200 395.256 81.761 Amount fentaNYL (PF) 1,000 mcg 100 95.256 81.761 In Sodium Chloride 0.9% 80 ml @ Per Protocol IV . Q0M [facility] Rx#:[id number] propofoL 1,000 mg In 100 300 Empty Bag 1 bag @ Titrate IV .Q0M EDY Rx#: [id number] Tube Feeding 58 638 58 Other 90 Output: Urine 885 905 160 Other: Voiding Method Indwelling Catheter Indwelling Catheter Indwelling Catheter ABP, PAP, CO, CI - Last Documented Arterial Blood Pressure 123/58 - Exam GENERAL EXAM: Intubated, sedated, morbidly obese 40-year-old female patient on FiO2 at 50%, comfortable in no apparent distress. HEAD: Normocephalic. EYES: Normal reaction of pupils, equal size. NOSE: Clear with pink turbinates. THROAT: Oral endotracheal and gastric tube secured in place. No erythema or exudates. NECK: No masses, no JVD. CHEST: No chest wall deformity. LUNGS: Equal air entry with bibasilar crackles. CVS: S1 and S2 normal with no audible murmur, regular rhythm. ABDOMEN: No hepatosplenomegaly, normal bowel sounds, no guarding or rigidity. SPINE: No scoliosis or deformity SKIN: No rashes CENTRAL NERVOUS SYSTEM: Sedated, tone is normal in all 4 extremities. EXTREMITIES: There is no peripheral edema. No clubbing, no cyanosis. Peripheral pulses are intact. - Labs CBC & Chem 7: 08/12/20 04:00 08/12/20 04:00 Labs: Abnormal Lab Results - Last 24 Hours (Table) 08/11/20 08/11/20 08/11/20 Range/Units 11:54 18:49 23:31 Lymphocytes # (1.0-4.8) k/uL D-Dimer (<0.60) mg/L FEU ABG pCO2 (35-45) mmHg ABG pO2 (83-108) mmHg ABG HCO3 (21-25) mmol/L ABG Total CO2 (19-24) mmol/L Carbon Dioxide (22-30) mmol/L BUN (7-17) mg/dL Glucose (74-99) mg/dL POC Glucose (mg/dL) 221 H 226 H 151 H (75-99) mg/dL Calcium (8.4-10.2) mg/dL AST (14-36) U/L ALT (4-34) U/L Lactate Dehydrogenase (313-618) U/L Total Protein (6.3-8.2) g/dL Albumin (3.5-5.0) g/dL 08/12/20 08/12/20 08/12/20 Range/Units 04:00 04:00 04:00 Lymphocytes # 0.5 L (1.0-4.8) k/uL D-Dimer 3.80 H (<0.60) mg/L FEU ABG pCO2 (35-45) mmHg ABG pO2 (83-108) mmHg ABG HCO3 (21-25) mmol/L ABG Total CO2 (19-24) mmol/L Carbon Dioxide 33 H (22-30) mmol/L BUN 20 H (7-17) mg/dL Glucose 204 H (74-99) mg/dL POC Glucose (mg/dL) (75-99) mg/dL Calcium 8.2 L (8.4-10.2) mg/dL AST 83 H (14-36) U/L ALT 297 H (4-34) U/L Lactate Dehydrogenase 737 H (313-618) U/L Total Protein 5.2 L (6.3-8.2) g/dL Albumin 2.8 L (3.5-5.0) g/dL 08/12/20 08/12/20 Range/Units 04:55 06:04 Lymphocytes # (1.0-4.8) k/uL D-Dimer (<0.60) mg/L FEU ABG pCO2 51 H (35-45) mmHg ABG pO2 76 L (83-108) mmHg ABG HCO3 34 H (21-25) mmol/L ABG Total CO2 35 H (19-24) mmol/L Carbon Dioxide (22-30) mmol/L BUN (7-17) mg/dL Glucose (74-99) mg/dL POC Glucose (mg/dL) 190 H (75-99) mg/dL Calcium (8.4-10.2) mg/dL AST (14-36) U/L ALT (4-34) U/L Lactate Dehydrogenase (313-618) U/L Total Protein (6.3-8.2) g/dL Albumin (3.5-5.0) g/dL Microbiology - Last 24 Hours (Table) 08/05/20 11:28 Blood Culture - Final Blood No Growth after 144 hours 08/05/20 11:28 Blood Culture - Final Blood No Growth after 144 hours Assessment and Plan Assessment: 1 Acute hypoxemic respiratory failure secondary to acute CoVID 19 pneumonia/pneumonitis requiring intubation and mechanical ventilatory support on 08/07/2020. Received tocilizumab. Received convalescent plasma. 2 Transaminitis in a patient with a known history of fatty liver disease versus CoVID 19 infection 3 Elevated inflammatory markers secondary to above 4 Morbid obesity 5 History of bipolar disorder 6 History of schizophrenia 7 History of chronic bronchial asthma 8 History of fibromyalgia 9 Hypertension 10 Gastric esophageal reflux disease Plan: The patient was seen and evaluated by Dr. Lennon Chest x-ray, ABGs and labs reviewed Give Lasix 40 mg IVP 1 today Continue FiO2 at 50%, PEEP to 10 Remains on Lovenox, dexamethasone, vitamin supplements We'll continue to follow and make further recommendations based on her clinical status Critical care time 38 minutes I, the cosigning physician, performed a history & physical examination of the patient. Lungs sounds worse crackles in the bilateral posterior bases. Maintaining good O2 saturations in the 90s on 50% FiO2 via the mechanical ventilator. I discussed the assessment and plan of care with my nurse practitioner, Christina Casey. I attest to the above note as dictated by her.
[2020-08-12 11:49] LABS: Glucose,Whole Blood 188 mg/dL (75-99)
[2020-08-12 18:17] LABS: Glucose,Whole Blood 174 mg/dL (75-99)
--- NOTE | 2020-08-12 23:07 | P.PN ---
Subjective This is a pleasant 40 years old female with past medical history of fibromyalgia, GERD, hypertension, COPD/asthma, non-alcoholic fatty liver disease , migraines, chronic back and cervical pain, degenerative disc disease, kidney stone and UTI. Presents with dyspnea and found to have bilateral colic pneumonia. Patient currently is debated and sedated in the ICU with pulmonary/critical care team following her closely No issues overnight, no sedation trial today. She is currently on fentanyl and propofol.no pressors. Also she is on vitamin C, vitamin D and zinc, she is on ceftriaxone, dexamethasone IV 6 mg twice a day, she is on normal saline 75 mL/h, Lovenox 40 mg twice a day She is a status post tocizilumab and convalescent plasma 08/12/2020 Patient remains in the ICU sedated and intubated with pulmonary/critical care team following the case closely and manage and her friend. Currently she is on PEEP of 10. D-dimer is stable at 3.8 compared to 3.5 yesterday. LDH going down to 1100 to 73 7, C-reactive protein is back to normal today at 9.7. Sputum culture is growing Streptococcus agalactiae Patient is covered with ceftriaxone besides that dexamethasone, normal saline at 75, Lovenox 40 twice a day and vitamins Review of system: N/a Active Medications Generic Name Dose Route Start Last Admin Trade Name Freq PRN Reason Stop Dose Admin Albuterol Sulfate 2 puff 08/05/20 20:00 08/12/20 22:21 Albuterol Hfa Inhaler INHALATION 2 puff RT-QID EDY Administration Albuterol Sulfate 2 puff 08/05/20 23:41 08/06/20 23:27 Albuterol Hfa Inhaler INHALATION 2 puff RT-QID PRN Administration Shortness Of Breath Or Wheezing Ascorbic Acid 500 mg 08/06/20 09:00 08/12/20 09:39 Ascorbic Acid 500 Mg Tab PO 500 mg DAILY EDY Administration Benztropine Mesylate 1 mg 08/05/20 21:00 08/12/20 21:14 Benztropine Mesylate 1 Mg Tab PO 1 mg BID EDY Administration Chlorhexidine Gluconate 15 ml 08/07/20 09:00 08/12/20 21:14 Chlorhexidine Gluconate 15 Ml Cup MUCOUS MEM 15 ml BID EDY Administration Cholecalciferol 25 mcg 08/06/20 09:00 08/12/20 09:39 Cholecalciferol 25 Mcg (1000 Iu) Tablet PO 25 mcg DAILY EDY Administration Dexamethasone Sodium Phosphate 6 mg 08/06/20 09:15 08/12/20 21:14 Dexamethasone Sod Phosphate 10 Mg/Ml 1 Ml Vial IV 6 mg BID EDY Administration Enoxaparin Sodium 40 mg 08/05/20 21:00 08/12/20 21:14 Enoxaparin 40 Mg/0.4 Ml Syringe SQ 40 mg BID EDY Administration Fentanyl Citrate 1,000 mcg/ 100 mls @ 0 mls/hr 08/07/20 03:30 08/12/20 07:05 Sodium Chloride IV 1 mcg/kg/h .Q0M EDY 15.876 mls/hr Administration Protocol Per Protocol Propofol 1,000 mg/ IV Solution 100 mls @ 0 mls/hr 08/07/20 03:30 08/12/20 20:27 IV 30 mcg/kg/min .Q0M EDY 31.14 mls/hr Administration Protocol Titrate Cisatracurium Besylate 200 mg/ 200 mls @ 9.525 mls/hr 08/07/20 03:30 08/12/20 09:40 Sodium Chloride IV Not Given .Q21H EDY Protocol 1 MCG/KG/MIN Sodium Chloride 1,000 mls @ 75 mls/hr 08/07/20 19:30 08/12/20 21:13 Saline 0.9% IV 75 mls/hr .[id number] EDY Administration Ceftriaxone Sodium 1 gm/ 50 mls @ 100 mls/hr 08/09/20 14:45 08/12/20 09:39 Sodium Chloride IVPB 100 mls/hr Q24HR EDY Administration Insulin Aspart 0 unit 08/07/20 12:00 08/12/20 19:38 Insulin Aspart (Novolog) 100 Unit/Ml Vial SQ Not Given Q6HR EDY Protocol Lamotrigine 150 mg 08/05/20 21:00 08/12/20 21:14 Lamotrigine 100 Mg Tab PO 150 mg BID EDY Administration Miscellaneous Information 1 each 08/07/20 05:42 Potassium Replacement Protocol 1 Each Misc MISCELLANE DAILY PRN Per Protocol Protocol Patient's Own( 60 mg 08/06/20 09:00 08/12/20 07:30 Atomoxetine Hcl [ PO Not Given Strattera] 60 Mg DAILY EDY Capsule) Oxybutynin Chloride 5 mg 08/06/20 09:00 08/12/20 09:39 Oxybutynin Xl 5 Mg Tab.Er.24 PO 5 mg DAILY EDY Administration Paliperidone Palmitate 234 mg 08/07/20 09:00 08/07/20 09:24 Paliperidone Im 234 Mg/1.5 Ml Syg IM 234 mg Q28D EDY Administration Pantoprazole Sodium 40 mg 08/07/20 09:00 08/12/20 09:39 Pantoprazole 40 Mg/10 Ml Vial IVP 40 mg DAILY EDY Administration Sertraline HCl 100 mg 08/05/20 21:00 08/12/20 21:14 Sertraline 100 Mg Tab PO 100 mg BID EDY Administration Zinc Sulfate 220 mg 08/06/20 09:00 08/12/20 09:39 Zinc Sulfate 220 Mg Cap PO 220 mg DAILY EDY Administration Objective - Vital Signs Vital signs: Vital Signs Temp 98.9 F 08/12/20 08:00 Pulse 55 L 08/12/20 08:00 Resp 20 08/12/20 08:00 BP 126/74 08/10/20 10:00 Pulse Ox 91 L 08/12/20 08:00 Intake & Output 08/11/20 08/12/20 08/12/20 18:59 06:59 18:59 Intake Total 1194 2059.256 295.761 Output Total 885 905 160 Balance 309 1154.256 135.761 Weight 177.9 kg 177.9 kg Intake: IV 936 936 156 0.9 NS 900 900 150 pressure bag 36 36 6 Intake, IV Titration 200 395.256 81.761 Amount fentaNYL (PF) 1,000 mcg 100 95.256 81.761 In Sodium Chloride 0.9% 80 ml @ Per Protocol IV . Q0M EDY Rx#:[id number] propofoL 1,000 mg In 100 300 Empty Bag 1 bag @ Titrate IV .Q0M EDY Rx#: [id number] Tube Feeding 58 638 58 Other 90 Output: Urine 885 905 160 Other: Voiding Method Indwelling Catheter Indwelling Catheter Indwelling Catheter ABP, PAP, CO, CI - Last Documented Arterial Blood Pressure 123/58 - Exam -GENERAL: The patient is Sedated and intubated HEENT: Pupils are round and equally reacting to light. EOMI. No scleral icterus. No conjunctival pallor. Normocephalic, atraumatic. No pharyngeal erythema. No thyromegaly. CARDIOVASCULAR: S1 and S2 present. No murmurs, rubs, or gallops. PULMONARY: Chest is clear to auscultation, no wheezing or crackles. ABDOMEN: Soft, nontender, nondistended, normoactive bowel sounds. No palpable organomegaly. MUSCULOSKELETAL: No joint swelling or deformity. EXTREMITIES: No cyanosis, clubbing, or pedal edema. NEUROLOGICAL: Gross neurological examination did not reveal any focal deficits. SKIN: No rashes. no petechiae. - Labs CBC & Chem 7: 08/12/20 04:00 08/12/20 04:00 Labs: Abnormal Lab Results - Last 24 Hours (Table) 08/11/20 08/11/20 08/12/20 Range/Units 18:49 23:31 04:00 Lymphocytes # 0.5 L (1.0-4.8) k/uL D-Dimer (<0.60) mg/L FEU ABG pCO2 (35-45) mmHg ABG pO2 (83-108) mmHg ABG HCO3 (21-25) mmol/L ABG Total CO2 (19-24) mmol/L Carbon Dioxide (22-30) mmol/L BUN (7-17) mg/dL Glucose (74-99) mg/dL POC Glucose (mg/dL) 226 H 151 H (75-99) mg/dL Calcium (8.4-10.2) mg/dL AST (14-36) U/L ALT (4-34) U/L Lactate Dehydrogenase (313-618) U/L Total Protein (6.3-8.2) g/dL Albumin (3.5-5.0) g/dL 08/12/20 08/12/20 08/12/20 Range/Units 04:00 04:00 04:55 Lymphocytes # (1.0-4.8) k/uL D-Dimer 3.80 H (<0.60) mg/L FEU ABG pCO2 51 H (35-45) mmHg ABG pO2 76 L (83-108) mmHg ABG HCO3 34 H (21-25) mmol/L ABG Total CO2 35 H (19-24) mmol/L Carbon Dioxide 33 H (22-30) mmol/L BUN 20 H (7-17) mg/dL Glucose 204 H (74-99) mg/dL POC Glucose (mg/dL) (75-99) mg/dL Calcium 8.2 L (8.4-10.2) mg/dL AST 83 H (14-36) U/L ALT 297 H (4-34) U/L Lactate Dehydrogenase 737 H (313-618) U/L Total Protein 5.2 L (6.3-8.2) g/dL Albumin 2.8 L (3.5-5.0) g/dL 08/12/20 08/12/20 Range/Units 06:04 11:48 Lymphocytes # (1.0-4.8) k/uL D-Dimer (<0.60) mg/L FEU ABG pCO2 (35-45) mmHg ABG pO2 (83-108) mmHg ABG HCO3 (21-25) mmol/L ABG Total CO2 (19-24) mmol/L Carbon Dioxide (22-30) mmol/L BUN (7-17) mg/dL Glucose (74-99) mg/dL POC Glucose (mg/dL) 190 H 188 H (75-99) mg/dL Calcium (8.4-10.2) mg/dL AST (14-36) U/L ALT (4-34) U/L Lactate Dehydrogenase (313-618) U/L Total Protein (6.3-8.2) g/dL Albumin (3.5-5.0) g/dL Microbiology - Last 24 Hours (Table) 08/05/20 11:28 Blood Culture - Final Blood No Growth after 144 hours 08/05/20 11:28 Blood Culture - Final Blood No Growth after 144 hours Assessment and Plan Assessment: Bilateral covid pneumonia Acute hypoxic respiratory failure needing mechanical ventilation Increased inflammatory markers Hypertension History of fibromyalgia History of COPD/asthma History of nonalcoholic fatty liver disease History of migraine Pain and cervical pain and degenerative disc disease History of kidney stones and UTI. History of schizophrenia, depression and bipolar Plan: This is a pleasant 40 years old female who presents with colic pneumonia. Continue with vitamin C, vitamin D and zinc. Also continue with Lovenox and steroids. New with antibiotic Pulmonary/critical care team will help with vent management. Labs and medication were reviewed.. Continue same treatment. Continue with symptomatic treatment. Resume home medication. Monitor lytes and vitals. DVT and GI prophylaxis. Further recommendationsas per clinical course of the patient DVT prophylaxis: Subcutaneous heparin GI Prophylaxis: Ppi Prognosis is guarded
--- NOTE | 2020-08-12 23:16 | PN ---
PROGRESS NOTE DATE OF SERVICE: 08/12/2020 REASON FOR FOLLOWUP: Pneumonia. INTERVAL HISTORY: The patient remains intubated on the vent. The patient is hemodynamically stable, not on any pressor support. No fever. FiO2 is currently stable at 50%. No purulent secretions through the ET or diarrhea reported by the nursing staff. PHYSICAL EXAMINATION: Blood pressure 143/81 with a pulse of 82, temperature 98.6. She is 95% on 50% FiO2. General description is a middle-aged female intubated on the vent. RESPIRATORY SYSTEM: Unlabored breathing with decreased intensity of breath sounds. No wheeze. HEART: S1, S2. Regular rate and rhythm. ABDOMEN: Soft. No tenderness. LABS: Hemoglobin is 12.2, white count 4.5, BUN of 20, creatinine 0.53. DIAGNOSTIC IMPRESSION AND PLAN: Patient with acute respiratory failure which is multifactorial in this patient who did have a COVID-19 infection plus/minus a component of bacterial infection. Sputum has been streptococcus. Patient is covered with dexamethasone, Lovenox, zinc, ascorbic acid, Rocephin. Monitor her clinical course closely. MMODL / IJN: [id number] /
[2020-08-13 00:41] LABS: Glucose,Whole Blood 189 mg/dL (75-99)
[2020-08-13] MEDS: INSULIN ASPART (NovoLOG) 100 UNIT/ML VIAL SQ SCH ×5 (00:49→23:55)
[2020-08-13 04:25] LABS: Basophils % (A) 0 %; Eosinophils # (A) 0.1 k/uL (0-0.7); Eosinophils % (A) 2 %; HCT 36.4 % (34.0-46.0); HGB 12.3 gm/dL (11.4-16.0); Lymphocytes # (A) 0.5 k/uL (1.0-4.8); Lymphocytes % (A) 11 %; MCH 29.2 pg (25.0-35.0); MCV 85.9 fL (80.0-100.0); Mean Platelet Volume 10.5; Monocytes # (A) 0.3 k/uL (0-1.0); Monocytes % (A) 6 %; Neutrophils # (A) 3.5 k/uL (1.3-7.7); Neutrophils % (A) 80 %; Platelet Count 176 k/uL (150-450); RBC 4.23 m/uL (3.80-5.40); RDW 14.1 % (11.5-15.5); WBC 4.4 k/uL (3.8-10.6)
[2020-08-13 04:37] LABS: African American GFR (CKD) >90 (>60 ml/min/1.73 sqM); Albumin 2.8 g/dL (3.5-5.0); Blood Urea Nitrogen 21 mg/dL (7-17); Carbon Dioxide 33 mmol/L (22-30); Non-African American GFR(CKD) >90 (>60 ml/min/1.73 sqM); Total Protein 5.2 g/dL (6.3-8.2)
[2020-08-13 04:47] LABS: ALT 227 U/L (4-34); AST 47 U/L (14-36); Alkaline Phosphatase 66 U/L (38-126); Anion Gap 3 mmol/L; Calcium 8.4 mg/dL (8.4-10.2); Chloride 98 mmol/L (98-107); Glucose 223 mg/dL (74-99); Potassium 4.2 mmol/L (3.5-5.1); Sodium 134 mmol/L (137-145); Total Bilirubin 0.6 mg/dL (0.2-1.3)
[2020-08-13 05:37] LABS: Glucose,Whole Blood 237 mg/dL (75-99)
[2020-08-13] MEDS: CISATRACURIUM 200 MG in SODIUM CHLORIDE 0.9% 180 ML IV SCH (05:40)
[2020-08-13 05:44] LABS: ABG HCO3 34 mmol/L (21-25); ABG PCO2 52 mmHg (35-45); ABG PH 7.43 (7.35-7.45); ABG PO2 77 mmHg (83-108); ABG TCO2 36 mmol/L (19-24)
[2020-08-13 06:24] LABS: Allen Test Performed? no
[2020-08-13] MEDS: ALBUTEROL HFA INHALER INHALATION SCH ×4 (08:12→20:03)
[2020-08-13] MEDS: SODIUM CHLORIDE 0.9% 1,000 ML IV SCH ×2 (08:38→21:37)
[2020-08-13] MEDS: ATOMOXETINE HCL 60 MG PO SCH (08:39)
[2020-08-13] MEDS: ASCORBIC ACID 500 MG TAB PO SCH (08:39)
[2020-08-13] MEDS: CHLORHEXIDINE GLUCONATE 15 ML CUP MUCOUS MEM SCH ×2 (08:41→20:28)
[2020-08-13] MEDS: CHOLECALCIFEROL 25 MCG (1000 IU) TABLET PO SCH (08:41)
[2020-08-13] MEDS: DEXAMETHASONE SOD PHOSPHATE 10 MG/ML 1 ML VIAL IV SCH ×2 (08:41→20:29)
[2020-08-13] MEDS: ENOXAPARIN 40 MG/0.4 ML SYRINGE SQ SCH ×2 (08:43→20:29)
[2020-08-13] MEDS: lamoTRIgine 100 MG TAB PO SCH ×2 (08:43→20:29)
[2020-08-13] MEDS: PANTOPRAZOLE 40 MG/10 ML VIAL IVP SCH (08:44)
[2020-08-13] MEDS: ZINC SULFATE 220 MG CAP PO SCH (08:45)
[2020-08-13] MEDS: OXYBUTYNIN XL 5 MG TAB.ER.24 PO SCH (08:46)
[2020-08-13] MEDS: SERTRALINE 100 MG TAB PO SCH ×2 (09:04→20:29)
[2020-08-13] MEDS: BENZTROPINE MESYLATE 1 MG TAB PO SCH ×2 (09:04→20:29)
--- NOTE | 2020-08-13 11:19 | XR ---
EXAMINATION TYPE: XR chest 1V portable DATE OF EXAM: 08/13/2020 COMPARISON: 08/12/2020 INDICATION: COVID TECHNIQUE: Single frontal view of the chest is obtained. FINDINGS: The heart size is mildly prominent. The pulmonary vasculature is prominent. Bibasilar infiltrates are present. Findings are nonspecific and can be compatible with atypical pneum onia. Endotracheal tube tip is above the demetrius. Nasogastric tube transverses the thorax with tip in the pr oximal left upper quadrant. This could be advanced. Right central venous catheter is present with tip in the right atrium. IMPRESSION: 1. Cardiomegaly with prominent pulmonary vascular markings. Bibasilar infiltrates are present. Correl ate for congestive heart failure. Atypical pneumonia is within the differential. Continued follow-up is recommended. 2. Nasogastric tube tip is within the left upper quadrant of the abdomen but could be advanced for be tter seating.
[2020-08-13 11:29] LABS: Glucose,Whole Blood 176 mg/dL (75-99)
[2020-08-13] MEDS ORDERED: FUROSEMIDE 10 MG/ML 4 ML VIAL IV STA (11:56)
--- NOTE | 2020-08-13 11:57 | P.PN ---
Subjective Progress Note Date: 08/13/20 Principal diagnosis: Acute hypoxemic respiratory failure secondary to CoVID 19 pneumonia/pneumonitis This is a pleasant 40-year-old female patient who has a history of obesity, fi bromyalgia, hypertension, fatty liver disease, asthma schizophrenia, marijuana use. She presented to the emergency room yesterday with complaints of increasing shortness of breath, dizziness and lightheadedness. She states she had gotten a first dose of the CoVID vaccine on July 28 and started having symptoms shortly after that. She had symptoms of progressive shortness of breath, fever, chills. She tested positive for the CoVID 19 infection. CAT scan of the chest ruled out pulmonary embolism. There is extensive bilateral pneumonia bilaterally. White count 4.2. Hemoglobin 13.2. Lymphocytes 0.4. D- dimer 1.05. Sodium 137. Potassium 3.7. Creatinine 0.62. AST 200, ALT 114. Pro-calcitonin 0.15. LDH 1382. C-reactive protein 170. She is seen today in consultation in the intensive care unit. She is currently on BiPAP 14/7 and 100% FiO2 to maintain O2 saturations in the mid to upper 80s. She has been initiated on bronchodilators, Lovenox, dexamethasone vitamin supplements The patient is seen today 08/07/2020 in follow-up in the intensive care unit. She ended up requiring intubation mechanical ventilatory support earlier this morning for continued poor oxygenation. She is currently on mechanical ventilator with assist control mode at a rate of 26, tidal volume 400, FiO2 100% and a PEEP of 17. Blood gases revealed a pO2 of 87, pCO2 61, pH 7.38. She is now sedated on propofol 50 mcg/kg/m, Nimbex at 2 mcg/kg/m, fentanyl at 1 mcg/kg per hour. Normal saline at 75 ML's per hour. She does now qualify for tocilizumab, however, none is available today. We will order convalescent plasma. Right internal jugular triple lumen catheter and right radial arterial lines were placed this morning. Blood cultures reveal no growth. White count 3.9. Hemoglobin 12.7. D-dimer 1.74. Sodium 142. Potassium 3.9. Creatinine 0.68. Lactic dehydrogenase 1583. Creatinine kinase 5648. She remains on Lovenox, dexamethasone, vitamin supplements. Progress note dated 08/08/2020. This is a 40-year-old female, quite obese, admitted on August 05, with COVID 19 pneumonia. The patient was intubated on August 07 for worsening respiratory status. Currently, she is on the volume assist control mode, rate is 26, tidal volume 400, FiO2 now down to 70%, PEEP of 18. Arterial blood gases on 85%, show pO2 147, a CO2 of 55, and a pH is 7.43. The patient is receiving saline at 75 mL an hour, fentanyl 1 mcg/kg/h, propofol at 40 mcg/kg/m, and Nimbex at 1 mcg/m. The patient we started on tube feeds today. We did order TOCI on this patient. It may or may not be available. The Rocephin was discontinued. White count is 3.9, hemoglobin 12, hematocrit 36.2, platelet count 153,000. D-dimer is 3.23. Sodium 143, potassium 4.5, chlorides 103, CO2 38, anion gap 2, BUN 14, and c reatinine 0.61. Chest x-ray shows diffuse bilateral infiltrates. Progress note dated 08/09/2020. 40-year-old female, admitted on August 05 with COVID 19 pneumonia. The patient was intubated on August 07 for worsening respiratory failure. Currently, she remains on mechanical ventilator. She is on the volume assist control mode, rate 26, tidal volume 400, FiO2 65%, and a PEEP of 18. The blood gases show a PaO2 of 135, he's a CO2 of 55, the pH is 7.44. The FiO2 will be reduced down to 50%. Currently, patient's on saline at 75 mL an hour, fentanyl at 1 mcg/kg/h, Nimbex at 1 mcg/kg/m, propofol at 40 g kilogram per minute, vital high protein at 41 cc per hour, which is goal. In addition to reducing the FiO2 down to 50%, we'll see if we can discontinue the Nimbex. White count 3.4, hemoglobin and hematocrit and platelet count all normal. Sodium 140, potassium 4.4, chlorides 104, CO2 37, BUN 15, and creatinine 0.57. Chest x-ray show slightly improved infiltrates in both lungs. The patient is seen today 08/10/2020 in follow-up in the intensive care unit. She remains intubated on the mechanical ventilator and assist control mode with a rate of 26, tidal on 400, FiO2 50% and a PEEP of 18. Morning blood gases revealed a PaO2 122, pCO2 49, pH 7.47. She is sedated on propofol at 40 mcg/kg/m. Fentanyl at 1 mcg/kg per hour. 0.9 normal saline at 75 ML's per hour. She is being nourished with vital HP at 41 mL per hour which is goal. Blood cultures reveal no growth. Sputum culture positive for strep agalactiae, group B. White count 3.4. Hemoglobin 12.2. Lymphocytes 0.4. Sodium 143. Potassium 4.6. Creatinine 0.65. AST 223. ALT 318. She remains on dexamethasone, Lovenox, vitamin supplements. Antibiotics in the form of ceftriaxone. The patient is seen today 08/11/2020 and follow-up in the intensive care unit. She remains intubated on the mechanical ventilator at assist control mode at a rate of 26, tidal volume 400, FiO2 50% and a PEEP of 15. Morning blood gases revealed a PaO2 of 87, pCO2 50, pH 7.44. Currently sedated on propofol at 30 mcg/kg/m. Fentanyl at 1 mcg/mg per hour. 0.9 normal saline at 75 ML's per hour. Vital HP at 58 MLS per hour which is goal. Doppler of the lower extremities were negative for DVT. Chest x-ray reveals bibasilar opacities. Stable compared to previous. Blood cultures reveal no growth. Sputum cultures revealed few strep agalactiae group B. White count 3.5. Hemoglobin 12.0. Lymphocytes 0.5. D-dimer 3.50. Sodium 140. Potassium 4.7. Creatinine 0.60. LDH 1100. C-reactive protein 14.7. She remains on ceftriaxone. Continued on dexamethasone, Lovenox, vitamin supplements. The patient is seen today 08/12/2020 and follow-up in the intensive care unit. She remains intubated and sedated on the mechanical ventilator currently assist- control mode, rate of 26, FiO2 50%, tidal volume 400, PEEP of 10. Morning blood gases reveal a pO2 of 75, pCO2 50, pH 7.43. She is sedated on propofol at 30 mcg/kg/m. 0.9 normal saline at 75 ML's per hour. Fentanyl drip at 1 mcg/kg per hour. Vital HP at 56 ML's per hour which is goal. His chest x-ray reveals cardiomegaly with slight worsening of interstitial bilateral infiltrates. She did receive 1 unit of convalescent plasma. White count 4.5. Hemoglobin 12.2. D-dimer 3.8. Sodium 138. Potassium 4.6. Creatinine 0.53. LDH 737. C- reactive protein 9.7. Continued on dexamethasone, Lovenox, vitamin supplements. Antibiotics in the form of ceftriaxone. Previous sputum culture positive for strep agalactiae group B. Blood cultures revealed no growth. The patient is seen today 08/13/2020 and follow-up in the intensive care unit. She remains intubated and on mechanical ventilator. Current settings are assist-control mode at a rate of 26, tidal volume 400, FiO2 50% and a PEEP of 10. Arterial blood gases reveal a P O2 of 77, pCO2 52, pH 7.43. She is sedated on propofol 50 mcg/kg/m. 0.9 normal saline at 75 ML's per hour. Being nourished with vital HP 58 MLS per hour which is goal. Chest x-ray reveals cardiomegaly with prominent pulmonary vascular markings. Bibasilar infiltrates continued. She did receive convalescent plasma 1. Blood cultures revealed no growth. Sputum culture revealed no growth. White count 4.4. Hemoglobin 12.3. Lymphocytes 0.5. Sodium 134. Potassium 4.2. Creatinine 0.48. AST 47. ALT 227. She remains on dexamethasone, Lovenox, vitamin supplements. Objective - Vital Signs Vital signs: Vital Signs Temp 96.5 F L 08/13/20 08:00 Pulse 62 08/13/20 10:00 Resp 26 H 08/13/20 10:00 BP 126/74 08/10/20 10:00 Pulse Ox 94 L 08/13/20 10:00 Intake & Output 08/12/20 08/13/20 08/13/20 18:59 06:59 18:59 Intake Total 9834.225 3247.61 738.294 Output Total 510 1460 520 Balance 665.761 602.61 218.294 Weight 177.9 kg 173.3 kg Intake: IV 936 936 312 0.9 NS 900 900 300 pressure bag 36 36 12 Intake, IV Titration 181.761 398.61 164.294 Amount fentaNYL (PF) 1,000 mcg 81.761 In Sodium Chloride 0.9% 80 ml @ Per Protocol IV . Q0M EDY Rx#:[id number] propofoL 1,000 mg In 100 398.61 164.294 Empty Bag 1 bag @ Titrate IV .Q0M EDY Rx#: [id number] Tube Feeding 58 638 232 Other 90 30 Output: Urine 510 1460 520 Other: Voiding Method Indwelling Catheter Indwelling Catheter Indwelling Catheter ABP, PAP, CO, CI - Last Documented Arterial Blood Pressure 152/74 - Exam GENERAL EXAM: Intubated, sedated, morbidly obese 40-year-old female patient on FiO2 at 50%, comfortable in no apparent distress. HEAD: Normocephalic. EYES: Normal reaction of pupils, equal size. NOSE: Clear with pink turbinates. THROAT: Oral endotracheal and gastric tube secured in place. No erythema or exudates. NECK: No masses, no JVD. CHEST: No chest wall deformity. LUNGS: Equal air entry with bibasilar crackles. CVS: S1 and S2 normal with no audible murmur, regular rhythm. ABDOMEN: No hepatosplenomegaly, normal bowel sounds, no guarding or rigidity. SPINE: No scoliosis or deformity SKIN: No rashes CENTRAL NERVOUS SYSTEM: Sedated, tone is normal in all 4 extremities. EXTREMITIES: There is no peripheral edema. No clubbing, no cyanosis. Peripheral pulses are intact. - Labs CBC & Chem 7: 08/13/20 04:00 08/13/20 04:00 Labs: Abnormal Lab Results - Last 24 Hours (Table) 08/12/20 08/13/20 08/13/20 Range/Units 18:15 00:38 04:00 Lymphocytes # 0.5 L (1.0-4.8) k/uL ABG pCO2 (35-45) mmHg ABG pO2 (83-108) mmHg ABG HCO3 (21-25) mmol/L ABG Total CO2 (19-24) mmol/L Sodium (137-145) mmol/L Carbon Dioxide (22-30) mmol/L BUN (7-17) mg/dL Creatinine (0.52-1.04) mg/dL Glucose (74-99) mg/dL POC Glucose (mg/dL) 174 H 189 H (75-99) mg/dL AST (14-36) U/L ALT (4-34) U/L Total Protein (6.3-8.2) g/dL Albumin (3.5-5.0) g/dL 08/13/20 08/13/20 08/13/20 Range/Units 04:00 05:35 05:42 Lymphocytes # (1.0-4.8) k/uL ABG pCO2 52 H (35-45) mmHg ABG pO2 77 L (83-108) mmHg ABG HCO3 34 H (21-25) mmol/L ABG Total CO2 36 H (19-24) mmol/L Sodium 134 L (137-145) mmol/L Carbon Dioxide 33 H (22-30) mmol/L BUN 21 H (7-17) mg/dL Creatinine 0.48 L (0.52-1.04) mg/dL Glucose 223 H (74-99) mg/dL POC Glucose (mg/dL) 237 H (75-99) mg/dL AST 47 H (14-36) U/L ALT 227 H (4-34) U/L Total Protein 5.2 L (6.3-8.2) g/dL Albumin 2.8 L (3.5-5.0) g/dL 08/13/20 Range/Units 11:28 Lymphocytes # (1.0-4.8) k/uL ABG pCO2 (35-45) mmHg ABG pO2 (83-108) mmHg ABG HCO3 (21-25) mmol/L ABG Total CO2 (19-24) mmol/L Sodium (137-145) mmol/L Carbon Dioxide (22-30) mmol/L BUN (7-17) mg/dL Creatinine (0.52-1.04) mg/dL Glucose (74-99) mg/dL POC Glucose (mg/dL) 176 H (75-99) mg/dL AST (14-36) U/L ALT (4-34) U/L Total Protein (6.3-8.2) g/dL Albumin (3.5-5.0) g/dL Assessment and Plan Assessment: 1 Acute hypoxemic respiratory failure secondary to acute CoVID 19 pneumonia/pneumonitis requiring intubation and mechanical ventilatory support on 08/07/2020. Received tocilizumab. Received convalescent plasma. 2 Transaminitis in a patient with a known history of fatty liver disease versus CoVID 19 infection 3 Elevated inflammatory markers secondary to above 4 Morbid obesity 5 History of bipolar disorder 6 History of schizophrenia 7 History of chronic bronchial asthma 8 History of fibromyalgia 9 Hypertension 10 Gastric esophageal reflux disease Plan: The patient was seen and evaluated by Dr. Lennon Chest x-ray, ABGs and labs reviewed Daily interruption of sedation and spontaneous breathing trial, pressure support of 10 and a CPAP of 5 Give Lasix 40 mg IVP 1 today Remains on Lovenox, dexamethasone, vitamin supplements We'll continue to follow and make further recommendations based on her clinical status Critical care time 36 minutes I, the cosigning physician, performed a history & physical examination of the patient. Lungs sounds worse crackles in the bilateral posterior bases. Mainta ining good O2 saturations in the 90s on 50% FiO2 and a PEEP of 10 via the mechanical ventilator. I discussed the assessment and plan of care with my nurse practitioner, Christina Casey. I attest to the above note as dictated by her.
[2020-08-13 18:01] LABS: Glucose,Whole Blood 221 mg/dL (75-99)
--- NOTE | 2020-08-13 19:44 | PN ---
PROGRESS NOTE DATE OF SERVICE: 08/13/2020 REASON FOR FOLLOWUP: COVID-19 pneumonia. INTERVAL HISTORY: Patient is currently afebrile. The patient is hemodynamically stable not on pressor support. FiO2 is currently stable at 50%. No purulent secretions through the ET, diarrhea or any change reported by the nursing staff. PHYSICAL EXAMINATION: Blood pressure 120/75 with a pulse of 95, temperature 98.3. She is 95% on 50% FIO2. General description is a middle-aged female intubated on the vent. Respiratory system: Unlabored breathing, decreased intensity of breath sounds. No wheeze. HEART: S1, S2. Regular rate and rhythm. ABDOMEN: Soft, no tenderness. LABS: Hemoglobin is 12.1, white count 4.4. BUN of 21, creatinine 0.48. DIAGNOSTIC IMPRESSION AND PLAN: Patient acute respiratory failure which is multifactorial in this patient who did have a COVID-19 pneumonia. Sputum showing Streptococcus and the patient is covered with Rocephin in addition to the dexamethasone, Lovenox, zinc and ascorbic acid and monitor clinical course closely. MMODL / IJN: [id number] /
--- NOTE | 2020-08-13 23:18 | P.PN ---
Subjective This is a pleasant 40 years old female with past medical history of fibromyalgia, GERD, hypertension, COPD/asthma, non-alcoholic fatty liver disease , migraines, chronic back and cervical pain, degenerative disc disease, kidney stone and UTI. Presents with dyspnea and found to have bilateral colic pneumonia. Patient currently is debated and sedated in the ICU with pulmonary/critical care team following her closely No issues overnight, no sedation trial today. She is currently on fentanyl and propofol.no pressors. Also she is on vitamin C, vitamin D and zinc, she is on ceftriaxone, dexamethasone IV 6 mg twice a day, she is on normal saline 75 mL/h, Lovenox 40 mg twice a day She is a status post tocizilumab and convalescent plasma 08/12/2020 Patient remains in the ICU sedated and intubated with pulmonary/critical care team following the case closely and manage and her friend. Currently she is on PEEP of 10. D-dimer is stable at 3.8 compared to 3.5 yesterday. LDH going down to 1100 to 73 7, C-reactive protein is back to normal today at 9.7. Sputum culture is growing Streptococcus agalactiae Patient is covered with ceftriaxone besides that dexamethasone, normal saline at 75, Lovenox 40 twice a day and vitamins 08/13/2020 Patient still sedated and intubated, vent management as per pulmonary/critical care team. Patient needing PEEP of 10 daily. Similar to yesterday. She is undergoing sedation holiday and interruption. Chest x-ray showing bilateral infiltrates especially in the lower parts. She remains on ceftriaxone for pneumonia with Streptococcus and sputum culture. She is on Lovenox 40 mg twice daily, normal saline at 75 mL/h. Also she is on dexamethasone, vitamin cocktail for cold. Review of system: N/a Active Medications Generic Name Dose Route Start Last Admin Trade Name Freq PRN Reason Stop Dose Admin Albuterol Sulfate 2 puff 08/05/20 20:00 08/13/20 20:03 Albuterol Hfa Inhaler INHALATION 2 puff RT-QID EDY Administration Albuterol Sulfate 2 puff 08/05/20 23:41 08/06/20 23:27 Albuterol Hfa Inhaler INHALATION 2 puff RT-QID PRN Administration Shortness Of Breath Or Wheezing Ascorbic Acid 500 mg 08/06/20 09:00 08/13/20 08:39 Ascorbic Acid 500 Mg Tab PO 500 mg DAILY EDY Administration Benztropine Mesylate 1 mg 08/05/20 21:00 08/13/20 20:29 Benztropine Mesylate 1 Mg Tab PO 1 mg BID EDY Administration Chlorhexidine Gluconate 15 ml 08/07/20 09:00 08/13/20 20:28 Chlorhexidine Gluconate 15 Ml Cup MUCOUS MEM 15 ml BID EDY Administration Cholecalciferol 25 mcg 08/06/20 09:00 08/13/20 08:41 Cholecalciferol 25 Mcg (1000 Iu) Tablet PO 25 mcg DAILY EDY Administration Dexamethasone Sodium Phosphate 6 mg 08/06/20 09:15 08/13/20 20:29 Dexamethasone Sod Phosphate 10 Mg/Ml 1 Ml Vial IV 6 mg BID EDY Administration Enoxaparin Sodium 40 mg 08/05/20 21:00 08/13/20 20:29 Enoxaparin 40 Mg/0.4 Ml Syringe SQ 40 mg BID EDY Administration Fentanyl Citrate 1,000 mcg/ 100 mls @ 0 mls/hr 08/07/20 03:30 08/12/20 07:05 Sodium Chloride IV 1 mcg/kg/h .Q0M EDY 15.876 mls/hr Administration Protocol Per Protocol Propofol 1,000 mg/ IV Solution 100 mls @ 0 mls/hr 08/07/20 03:30 08/13/20 21:36 IV 50 mcg/kg/min .Q0M EDY 51.99 mls/hr Administration Protocol Titrate Cisatracurium Besylate 200 mg/ 200 mls @ 9.525 mls/hr 08/07/20 03:30 08/13/20 05:40 Sodium Chloride IV Not Given .Q21H EDY Protocol 1 MCG/KG/MIN Sodium Chloride 1,000 mls @ 75 mls/hr 08/07/20 19:30 08/13/20 21:37 Saline 0.9% IV 75 mls/hr .[id number] EDY Administration Ceftriaxone Sodium 1 gm/ 50 mls @ 100 mls/hr 08/09/20 14:45 08/13/20 08:40 Sodium Chloride IVPB 100 mls/hr Q24HR EDY Administration Insulin Aspart 0 unit 08/07/20 12:00 08/13/20 18:16 Insulin Aspart (Novolog) 100 Unit/Ml Vial SQ 7 unit Q6HR EDY Administration Protocol Lamotrigine 150 mg 08/05/20 21:00 08/13/20 20:29 Lamotrigine 100 Mg Tab PO 150 mg BID EDY Administration Miscellaneous Information 1 each 08/07/20 05:42 Potassium Replacement Protocol 1 Each Misc MISCELLANE DAILY PRN Per Protocol Protocol Patient's Own( 60 mg 08/06/20 09:00 08/13/20 08:39 Atomoxetine Hcl [ PO Not Given Strattera] 60 Mg DAILY EDY Capsule) Oxybutynin Chloride 5 mg 08/06/20 09:00 08/13/20 08:46 Oxybutynin Xl 5 Mg Tab.Er.24 PO Not Given DAILY EDY Paliperidone Palmitate 234 mg 08/07/20 09:00 08/07/20 09:24 Paliperidone Im 234 Mg/1.5 Ml Syg IM 234 mg Q28D EDY Administration Pantoprazole Sodium 40 mg 08/07/20 09:00 08/13/20 08:44 Pantoprazole 40 Mg/10 Ml Vial IVP 40 mg DAILY EDY Administration Sertraline HCl 100 mg 08/05/20 21:00 08/13/20 20:29 Sertraline 100 Mg Tab PO 100 mg BID EDY Administration Zinc Sulfate 220 mg 08/06/20 09:00 08/13/20 08:45 Zinc Sulfate 220 Mg Cap PO 220 mg DAILY EDY Administration Objective - Vital Signs Vital signs: Vital Signs Temp 97.7 F 08/13/20 12:00 Pulse 68 08/13/20 13:00 Resp 26 H 08/13/20 13:00 BP 126/74 08/10/20 10:00 Pulse Ox 95 08/13/20 13:00 Intake & Output 08/12/20 08/13/20 08/13/20 18:59 06:59 18:59 Intake Total 2214.046 9274.61 1100.602 Output Total 510 1460 1070 Balance 665.761 602.61 30.602 Weight 177.9 kg 173.3 kg Intake: IV 936 936 468 0.9 NS 900 900 450 pressure bag 36 36 18 Intake, IV Titration 181.761 398.61 224.602 Amount fentaNYL (PF) 1,000 mcg 81.761 In Sodium Chloride 0.9% 80 ml @ Per Protocol IV . Q0M EDY Rx#:[id number] propofoL 1,000 mg In 100 398.61 224.602 Empty Bag 1 bag @ Titrate IV .Q0M EDY Rx#: [id number] Tube Feeding 58 638 348 Other 90 60 Output: Urine 510 1460 1070 Other: Voiding Method Indwelling Catheter Indwelling Catheter Indwelling Catheter ABP, PAP, CO, CI - Last Documented Arterial Blood Pressure 140/67 - Exam -GENERAL: The patient is Sedated and intubated HEENT: Pupils are round and equally reacting to light. EOMI. No scleral icterus. No conjunctival pallor. Normocephalic, atraumatic. No pharyngeal erythema. No thyromegaly. CARDIOVASCULAR: S1 and S2 present. No murmurs, rubs, or gallops. PULMONARY: Chest is clear to auscultation, no wheezing or crackles. ABDOMEN: Soft, nontender, nondistended, normoactive bowel sounds. No palpable organomegaly. MUSCULOSKELETAL: No joint swelling or deformity. EXTREMITIES: No cyanosis, clubbing, or pedal edema. NEUROLOGICAL: Gross neurological examination did not reveal any focal deficits. SKIN: No rashes. no petechiae. - Labs CBC & Chem 7: 08/13/20 04:00 08/13/20 04:00 Labs: Abnormal Lab Results - Last 24 Hours (Table) 08/12/20 08/13/20 08/13/20 Range/Units 18:15 00:38 04:00 Lymphocytes # 0.5 L (1.0-4.8) k/uL ABG pCO2 (35-45) mmHg ABG pO2 (83-108) mmHg ABG HCO3 (21-25) mmol/L ABG Total CO2 (19-24) mmol/L Sodium (137-145) mmol/L Carbon Dioxide (22-30) mmol/L BUN (7-17) mg/dL Creatinine (0.52-1.04) mg/dL Glucose (74-99) mg/dL POC Glucose (mg/dL) 174 H 189 H (75-99) mg/dL AST (14-36) U/L ALT (4-34) U/L Total Protein (6.3-8.2) g/dL Albumin (3.5-5.0) g/dL 08/13/20 08/13/20 08/13/20 Range/Units 04:00 05:35 05:42 Lymphocytes # (1.0-4.8) k/uL ABG pCO2 52 H (35-45) mmHg ABG pO2 77 L (83-108) mmHg ABG HCO3 34 H (21-25) mmol/L ABG Total CO2 36 H (19-24) mmol/L Sodium 134 L (137-145) mmol/L Carbon Dioxide 33 H (22-30) mmol/L BUN 21 H (7-17) mg/dL Creatinine 0.48 L (0.52-1.04) mg/dL Glucose 223 H (74-99) mg/dL POC Glucose (mg/dL) 237 H (75-99) mg/dL AST 47 H (14-36) U/L ALT 227 H (4-34) U/L Total Protein 5.2 L (6.3-8.2) g/dL Albumin 2.8 L (3.5-5.0) g/dL 08/13/20 Range/Units 11:28 Lymphocytes # (1.0-4.8) k/uL ABG pCO2 (35-45) mmHg ABG pO2 (83-108) mmHg ABG HCO3 (21-25) mmol/L ABG Total CO2 (19-24) mmol/L Sodium (137-145) mmol/L Carbon Dioxide (22-30) mmol/L BUN (7-17) mg/dL Creatinine (0.52-1.04) mg/dL Glucose (74-99) mg/dL POC Glucose (mg/dL) 176 H (75-99) mg/dL AST (14-36) U/L ALT (4-34) U/L Total Protein (6.3-8.2) g/dL Albumin (3.5-5.0) g/dL Assessment and Plan Assessment: Bilateral covid pneumonia Acute hypoxic respiratory failure needing mechanical ventilation Increased inflammatory markers Hypertension History of fibromyalgia History of COPD/asthma History of nonalcoholic fatty liver disease History of migraine Pain and cervical pain and degenerative disc disease History of kidney stones and UTI. History of schizophrenia, depression and bipolar Plan: This is a pleasant 40 years old female who presents with colic pneumonia. Continue with vitamin C, vitamin D and zinc. Also continue with Lovenox and steroids. New with antibiotic Pulmonary/critical care team will help with vent management. Continue with sedation interruption per pulmonary/critical care team Labs and medication were reviewed.. Continue same treatment. Continue with symptomatic treatment. Resume home medication. Monitor lytes and vitals. DVT and GI prophylaxis. Further recommendationsas per clinical course of the patient DVT prophylaxis: Subcutaneous Lovenox GI Prophylaxis: Ppi Prognosis is guarded
[2020-08-13 23:50] LABS: Glucose,Whole Blood 182 mg/dL (75-99)
[2020-08-14] MEDS: CISATRACURIUM 200 MG in SODIUM CHLORIDE 0.9% 180 ML IV SCH (02:56)
[2020-08-14 04:28] LABS: Basophils % (A) 0 %; Eosinophils # (A) 0.1 k/uL (0-0.7); Eosinophils % (A) 1 %; HCT 39.3 % (34.0-46.0); HGB 12.6 gm/dL (11.4-16.0); Lymphocytes # (A) 0.5 k/uL (1.0-4.8); Lymphocytes % (A) 10 %; MCH 27.8 pg (25.0-35.0); MCHC 31.9 g/dL (31.0-37.0); MCV 86.9 fL (80.0-100.0); Mean Platelet Volume 11.1; Monocytes # (A) 0.3 k/uL (0-1.0); Monocytes % (A) 7 %; Neutrophils # (A) 3.6 k/uL (1.3-7.7); Neutrophils % (A) 80 %; Platelet Count 178 k/uL (150-450); RBC 4.53 m/uL (3.80-5.40); RDW 14.6 % (11.5-15.5); WBC 4.5 k/uL (3.8-10.6)
[2020-08-14 04:44] LABS: ALT 176 U/L (4-34); AST 35 U/L (14-36); African American GFR (CKD) >90 (>60 ml/min/1.73 sqM); Alkaline Phosphatase 62 U/L (38-126); Anion Gap 3 mmol/L; Blood Urea Nitrogen 20 mg/dL (7-17); C Reactive Protein 7.4 mg/L (<10.0); Calcium 8.6 mg/dL (8.4-10.2); Carbon Dioxide 33 mmol/L (22-30); Chloride 98 mmol/L (98-107); Glucose 196 mg/dL (74-99); LDH 457 U/L (313-618); Non-African American GFR(CKD) >90 (>60 ml/min/1.73 sqM); Potassium 4.4 mmol/L (3.5-5.1); Sodium 134 mmol/L (137-145); Total Bilirubin 0.6 mg/dL (0.2-1.3); Total Protein 5.3 g/dL (6.3-8.2)
[2020-08-14 05:58] LABS: Glucose,Whole Blood 218 mg/dL (75-99)
[2020-08-14] MEDS: INSULIN ASPART (NovoLOG) 100 UNIT/ML VIAL SQ SCH ×3 (06:11→17:54)
[2020-08-14 06:20] LABS: ABG Base Excess 10.5 mmol/L; ABG HCO3 34 mmol/L (21-25); ABG Oxygen Saturation 95.8 % (94-97); ABG PCO2 49 mmHg (35-45); ABG PH 7.46 (7.35-7.45); ABG PO2 79 mmHg (83-108); ABG TCO2 36 mmol/L (19-24)
[2020-08-14 07:14] LABS: Allen Test Performed? no
[2020-08-14] MEDS: ATOMOXETINE HCL 60 MG PO SCH (07:48)
[2020-08-14] MEDS: ENOXAPARIN 40 MG/0.4 ML SYRINGE SQ SCH ×2 (07:58→20:53)
[2020-08-14] MEDS: CHLORHEXIDINE GLUCONATE 15 ML CUP MUCOUS MEM SCH ×2 (07:58→20:53)
[2020-08-14] MEDS: PANTOPRAZOLE 40 MG/10 ML VIAL IVP SCH (07:59)
[2020-08-14] MEDS: DEXAMETHASONE SOD PHOSPHATE 10 MG/ML 1 ML VIAL IV SCH ×2 (07:59→20:54)
[2020-08-14] MEDS: CHOLECALCIFEROL 25 MCG (1000 IU) TABLET PO SCH (08:00)
[2020-08-14] MEDS: lamoTRIgine 100 MG TAB PO SCH ×2 (08:00→20:54)
[2020-08-14] MEDS: ASCORBIC ACID 500 MG TAB PO SCH (08:00)
[2020-08-14] MEDS: ZINC SULFATE 220 MG CAP PO SCH (08:01)
[2020-08-14] MEDS: ALBUTEROL HFA INHALER INHALATION SCH ×4 (09:19→19:48)
[2020-08-14] MEDS: OXYBUTYNIN XL 5 MG TAB.ER.24 PO SCH (09:46)
[2020-08-14] MEDS: BENZTROPINE MESYLATE 1 MG TAB PO SCH ×2 (09:46→21:00)
[2020-08-14] MEDS: SERTRALINE 100 MG TAB PO SCH ×2 (09:46→21:00)
[2020-08-14 11:31] LABS: Glucose,Whole Blood 185 mg/dL (75-99)
[2020-08-14] MEDS: SODIUM CHLORIDE 0.9% 1,000 ML IV SCH (12:21)
--- NOTE | 2020-08-14 12:39 | P.PN ---
Subjective Progress Note Date: 08/14/20 Principal diagnosis: Acute hypoxemic respiratory failure secondary to CoVID 19 pneumonia/pneumonitis This is a pleasant 40-year-old female patient who has a history of obesity, fi bromyalgia, hypertension, fatty liver disease, asthma schizophrenia, marijuana use. She presented to the emergency room yesterday with complaints of increasing shortness of breath, dizziness and lightheadedness. She states she had gotten a first dose of the CoVID vaccine on July 28 and started having symptoms shortly after that. She had symptoms of progressive shortness of breath, fever, chills. She tested positive for the CoVID 19 infection. CAT scan of the chest ruled out pulmonary embolism. There is extensive bilateral pneumonia bilaterally. White count 4.2. Hemoglobin 13.2. Lymphocytes 0.4. D- dimer 1.05. Sodium 137. Potassium 3.7. Creatinine 0.62. AST 200, ALT 114. Pro-calcitonin 0.15. LDH 1382. C-reactive protein 170. She is seen today in consultation in the intensive care unit. She is currently on BiPAP 14/7 and 100% FiO2 to maintain O2 saturations in the mid to upper 80s. She has been initiated on bronchodilators, Lovenox, dexamethasone vitamin supplements The patient is seen today 08/07/2020 in follow-up in the intensive care unit. She ended up requiring intubation mechanical ventilatory support earlier this morning for continued poor oxygenation. She is currently on mechanical ventilator with assist control mode at a rate of 26, tidal volume 400, FiO2 100% and a PEEP of 17. Blood gases revealed a pO2 of 87, pCO2 61, pH 7.38. She is now sedated on propofol 50 mcg/kg/m, Nimbex at 2 mcg/kg/m, fentanyl at 1 mcg/kg per hour. Normal saline at 75 ML's per hour. She does now qualify for tocilizumab, however, none is available today. We will order convalescent plasma. Right internal jugular triple lumen catheter and right radial arterial lines were placed this morning. Blood cultures reveal no growth. White count 3.9. Hemoglobin 12.7. D-dimer 1.74. Sodium 142. Potassium 3.9. Creatinine 0.68. Lactic dehydrogenase 1583. Creatinine kinase 5648. She remains on Lovenox, dexamethasone, vitamin supplements. Progress note dated 08/08/2020. This is a 40-year-old female, quite obese, admitted on August 05, with COVID 19 pneumonia. The patient was intubated on August 07 for worsening respiratory status. Currently, she is on the volume assist control mode, rate is 26, tidal volume 400, FiO2 now down to 70%, PEEP of 18. Arterial blood gases on 85%, show pO2 147, a CO2 of 55, and a pH is 7.43. The patient is receiving saline at 75 mL an hour, fentanyl 1 mcg/kg/h, propofol at 40 mcg/kg/m, and Nimbex at 1 mcg/m. The patient we started on tube feeds today. We did order TOCI on this patient. It may or may not be available. The Rocephin was discontinued. White count is 3.9, hemoglobin 12, hematocrit 36.2, platelet count 153,000. D-dimer is 3.23. Sodium 143, potassium 4.5, chlorides 103, CO2 38, anion gap 2, BUN 14, and c reatinine 0.61. Chest x-ray shows diffuse bilateral infiltrates. Progress note dated 08/09/2020. 40-year-old female, admitted on August 05 with COVID 19 pneumonia. The patient was intubated on August 07 for worsening respiratory failure. Currently, she remains on mechanical ventilator. She is on the volume assist control mode, rate 26, tidal volume 400, FiO2 65%, and a PEEP of 18. The blood gases show a PaO2 of 135, he's a CO2 of 55, the pH is 7.44. The FiO2 will be reduced down to 50%. Currently, patient's on saline at 75 mL an hour, fentanyl at 1 mcg/kg/h, Nimbex at 1 mcg/kg/m, propofol at 40 g kilogram per minute, vital high protein at 41 cc per hour, which is goal. In addition to reducing the FiO2 down to 50%, we'll see if we can discontinue the Nimbex. White count 3.4, hemoglobin and hematocrit and platelet count all normal. Sodium 140, potassium 4.4, chlorides 104, CO2 37, BUN 15, and creatinine 0.57. Chest x-ray show slightly improved infiltrates in both lungs. The patient is seen today 08/10/2020 in follow-up in the intensive care unit. She remains intubated on the mechanical ventilator and assist control mode with a rate of 26, tidal on 400, FiO2 50% and a PEEP of 18. Morning blood gases revealed a PaO2 122, pCO2 49, pH 7.47. She is sedated on propofol at 40 mcg/kg/m. Fentanyl at 1 mcg/kg per hour. 0.9 normal saline at 75 ML's per hour. She is being nourished with vital HP at 41 mL per hour which is goal. Blood cultures reveal no growth. Sputum culture positive for strep agalactiae, group B. White count 3.4. Hemoglobin 12.2. Lymphocytes 0.4. Sodium 143. Potassium 4.6. Creatinine 0.65. AST 223. ALT 318. She remains on dexamethasone, Lovenox, vitamin supplements. Antibiotics in the form of ceftriaxone. The patient is seen today 08/11/2020 and follow-up in the intensive care unit. She remains intubated on the mechanical ventilator at assist control mode at a rate of 26, tidal volume 400, FiO2 50% and a PEEP of 15. Morning blood gases revealed a PaO2 of 87, pCO2 50, pH 7.44. Currently sedated on propofol at 30 mcg/kg/m. Fentanyl at 1 mcg/mg per hour. 0.9 normal saline at 75 ML's per hour. Vital HP at 58 MLS per hour which is goal. Doppler of the lower extremities were negative for DVT. Chest x-ray reveals bibasilar opacities. Stable compared to previous. Blood cultures reveal no growth. Sputum cultures revealed few strep agalactiae group B. White count 3.5. Hemoglobin 12.0. Lymphocytes 0.5. D-dimer 3.50. Sodium 140. Potassium 4.7. Creatinine 0.60. LDH 1100. C-reactive protein 14.7. She remains on ceftriaxone. Continued on dexamethasone, Lovenox, vitamin supplements. The patient is seen today 08/12/2020 and follow-up in the intensive care unit. She remains intubated and sedated on the mechanical ventilator currently assist- control mode, rate of 26, FiO2 50%, tidal volume 400, PEEP of 10. Morning blood gases reveal a pO2 of 75, pCO2 50, pH 7.43. She is sedated on propofol at 30 mcg/kg/m. 0.9 normal saline at 75 ML's per hour. Fentanyl drip at 1 mcg/kg per hour. Vital HP at 56 ML's per hour which is goal. His chest x-ray reveals cardiomegaly with slight worsening of interstitial bilateral infiltrates. She did receive 1 unit of convalescent plasma. White count 4.5. Hemoglobin 12.2. D-dimer 3.8. Sodium 138. Potassium 4.6. Creatinine 0.53. LDH 737. C- reactive protein 9.7. Continued on dexamethasone, Lovenox, vitamin supplements. Antibiotics in the form of ceftriaxone. Previous sputum culture positive for strep agalactiae group B. Blood cultures revealed no growth. The patient is seen today 08/13/2020 and follow-up in the intensive care unit. She remains intubated and on mechanical ventilator. Current settings are assist-control mode at a rate of 26, tidal volume 400, FiO2 50% and a PEEP of 10. Arterial blood gases reveal a P O2 of 77, pCO2 52, pH 7.43. She is sedated on propofol 50 mcg/kg/m. 0.9 normal saline at 75 ML's per hour. Being nourished with vital HP 58 MLS per hour which is goal. Chest x-ray reveals cardiomegaly with prominent pulmonary vascular markings. Bibasilar infiltrates continued. She did receive convalescent plasma 1. Blood cultures revealed no growth. Sputum culture revealed no growth. White count 4.4. Hemoglobin 12.3. Lymphocytes 0.5. Sodium 134. Potassium 4.2. Creatinine 0.48. AST 47. ALT 227. She remains on dexamethasone, Lovenox, vitamin supplements. The patient is seen today 08/14/2020 in follow-up in the intensive care unit. She remains intubated and on the mechanical ventilator. Currently on assist control mode at a rate of 26, tidal volume 400, FiO2 50% and a PEEP of 10. Morning blood gases reveal a pO2 of 79, pCO2 49, pH 7.45. She remains sedated on propofol at 50 mcg/kg/m. 0.9 normal saline at 75 ML's per hour. Vital HP at 58 MLS per hour which is goal. Yesterday she did go on pressure support of 10 and a CPAP of 5 for about 30 minutes before she became restless and agitated tac hypneic and tachycardic. Chest x-ray continues to show cardiomegaly with prominent vascular markings. Bibasilar infiltrates. White count 4.5. Hemoglobin 12.6. Lymphocytes 0.5. D-dimer 2.8. Sodium 134. Potassium 4.4. Creatinine 0.48. AST 35. ALT 176. Remains on ceftriaxone. Continued on dexamethasone, Lovenox, vitamin supplements. Received 1 unit of convalescent plasma. Objective - Vital Signs Vital signs: Vital Signs Temp 98.7 F 08/14/20 04:00 Pulse 66 08/14/20 07:00 Resp 26 H 08/14/20 07:00 BP 112/55 08/14/20 07:00 Pulse Ox 93 L 08/14/20 07:00 Intake & Output 08/13/20 08/14/20 08/14/20 18:59 06:59 18:59 Intake Total 2038.294 2201.718 903.808 Output Total 4975 1355 455 Balance -2936.706 846.718 448.808 Weight 175.3 kg Intake: IV 936 936 390 0.9 NS 900 900 375 pressure bag 36 36 15 Intake, IV Titration 364.294 479.718 193.808 Amount propofoL 1,000 mg In 364.294 479.718 193.808 Empty Bag 1 bag @ Titrate IV .Q0M [facility] Rx#: [id number] Tube Feeding 638 696 290 Other 100 90 30 Output: Urine 4975 1355 455 Other: Voiding Method Indwelling Catheter Indwelling Catheter Indwelling Catheter ABP, PAP, CO, CI - Last Documented Arterial Blood Pressure 112/55 - Exam GENERAL EXAM: Intubated, sedated, morbidly obese 40-year-old female patient on FiO2 at 50% and a PEEP of 10, comfortable in no apparent distress. HEAD: Normocephalic. EYES: Normal reaction of pupils, equal size. NOSE: Clear with pink turbinates. THROAT: Oral endotracheal and gastric tube secured in place. No erythema or exudates. NECK: No masses, no JVD. CHEST: No chest wall deformity. LUNGS: Equal air entry with bibasilar crackles. CVS: S1 and S2 normal with no audible murmur, regular rhythm. ABDOMEN: No hepatosplenomegaly, normal bowel sounds, no guarding or rigidity. SPINE: No scoliosis or deformity SKIN: No rashes CENTRAL NERVOUS SYSTEM: Sedated, tone is normal in all 4 extremities. EXTREMITIES: There is no peripheral edema. No clubbing, no cyanosis. Peripheral pulses are intact. - Labs CBC & Chem 7: 08/14/20 04:00 08/14/20 04:00 Labs: Abnormal Lab Results - Last 24 Hours (Table) 08/13/20 08/13/20 08/14/20 Range/Units 17:59 23:46 04:00 Lymphocytes # (1.0-4.8) k/uL D-Dimer 2.80 H (<0.60) mg/L FEU ABG pH (7.35-7.45) ABG pCO2 (35-45) mmHg ABG pO2 (83-108) mmHg ABG HCO3 (21-25) mmol/L ABG Total CO2 (19-24) mmol/L Sodium (137-145) mmol/L Carbon Dioxide (22-30) mmol/L BUN (7-17) mg/dL Creatinine (0.52-1.04) mg/dL Glucose (74-99) mg/dL POC Glucose (mg/dL) 221 H 182 H (75-99) mg/dL ALT (4-34) U/L Total Protein (6.3-8.2) g/dL Albumin (3.5-5.0) g/dL 08/14/20 08/14/20 08/14/20 Range/Units 04:00 04:00 05:56 Lymphocytes # 0.5 L (1.0-4.8) k/uL D-Dimer (<0.60) mg/L FEU ABG pH (7.35-7.45) ABG pCO2 (35-45) mmHg ABG pO2 (83-108) mmHg ABG HCO3 (21-25) mmol/L ABG Total CO2 (19-24) mmol/L Sodium 134 L (137-145) mmol/L Carbon Dioxide 33 H (22-30) mmol/L BUN 20 H (7-17) mg/dL Creatinine 0.48 L (0.52-1.04) mg/dL Glucose 196 H (74-99) mg/dL POC Glucose (mg/dL) 218 H (75-99) mg/dL ALT 176 H (4-34) U/L Total Protein 5.3 L (6.3-8.2) g/dL Albumin 3.0 L (3.5-5.0) g/dL 08/14/20 08/14/20 Range/Units 06:17 11:27 Lymphocytes # (1.0-4.8) k/uL D-Dimer (<0.60) mg/L FEU ABG pH 7.46 H (7.35-7.45) ABG pCO2 49 H (35-45) mmHg ABG pO2 79 L (83-108) mmHg ABG HCO3 34 H (21-25) mmol/L ABG Total CO2 36 H (19-24) mmol/L Sodium (137-145) mmol/L Carbon Dioxide (22-30) mmol/L BUN (7-17) mg/dL Creatinine (0.52-1.04) mg/dL Glucose (74-99) mg/dL POC Glucose (mg/dL) 185 H (75-99) mg/dL ALT (4-34) U/L Total Protein (6.3-8.2) g/dL Albumin (3.5-5.0) g/dL Assessment and Plan Assessment: 1 Acute hypoxemic respiratory failure secondary to acute CoVID 19 pneumonia/pneumonitis requiring intubation and mechanical ventilatory support on 08/07/2020. Received tocilizumab. Received convalescent plasma. 2 Transaminitis in a patient with a known history of fatty liver disease versus CoVID 19 infection 3 Elevated inflammatory markers secondary to above 4 Morbid obesity 5 History of bipolar disorder 6 History of schizophrenia 7 History of chronic bronchial asthma 8 History of fibromyalgia 9 Hypertension 10 Gastric esophageal reflux disease Plan: The patient was seen and evaluated by Dr. Lennon Chest x-ray, ABGs and labs reviewed Give Lasix 40 mg IVP 1 again today Continue current vent settings Daily interruption of sedation and spontaneous breathing trial, pressure support of 10 and a CPAP of 5 Remains on Lovenox, dexamethasone, vitamin supplements We'll continue to follow and make further recommendations based on her clinical status Critical care time 38 minutes I, the cosigning physician, performed a history & physical examination of the patient. Lungs sounds worse crackles in the bilateral posterior bases. Maintaining good O2 saturations in the 90s on 50% FiO2 and a PEEP of 10 via the mechanical ventilator. I discussed the assessment and plan of care with my nurse practitioner, Christina Casey. I attest to the above note as dictated by her.
[2020-08-14] MEDS ORDERED: FUROSEMIDE 10 MG/ML 4 ML VIAL IV STA (12:41)
--- NOTE | 2020-08-14 13:13 | XR ---
EXAMINATION TYPE: XR chest 1V portable DATE OF EXAM: 08/14/2020 COMPARISON: 08/13/2020 INDICATION: Covid TECHNIQUE: Single frontal view of the chest is obtained. FINDINGS: The heart size is a prominent. The pulmonary vasculature is normal. Diffuse increased lung markings are present bilaterally.. The lungs are clear. Endotracheal tube tip is above the demetrius. Nasogastric tube transverses the thorax. Right central zoey ous catheter tip is in the right atrium. IMPRESSION: 1. Diffuse bilateral increased lung markings and cardiomegaly. Stable from comparison.
[2020-08-14 17:46] LABS: Glucose,Whole Blood 204 mg/dL (75-99)
--- NOTE | 2020-08-14 19:42 | PN ---
PROGRESS NOTE DATE OF SERVICE: 08/14/2020 REASON FOR FOLLOWUP: Pneumonia. INTERVAL HISTORY: The patient remains to be afebrile. The patient is hemodynamically stable, not on any pressor support. FiO2 is currently stable at 50%. No significant purulent secretions through the ET or diarrhea reported by nursing staff. PHYSICAL EXAMINATION: Blood pressure 112/54, pulse of 56, temperature 98. She is 96% on 50% FiO2. General description is an elderly middle-aged female lying in bed in no distress. Respiratory system: Unlabored breathing, decreased intensity of breath sounds. No wheeze. Heart: S1, S2. Regular rate and rhythm. Abdomen soft, no tenderness. LABS: White count 4.5. D-dimer is trending down. Creatinine 0.48. IMPRESSION/PLAN: Patient admitted to the hospital with acute respiratory failure which is multifactorial. Did have COVID-19 infection plus-minus component of bacterial pneumonia. Sputum has been Pseudomonas agalactiae. Patient is covered with dexamethasone, Lovenox, zinc and ascorbic acid along with Rocephin, to continue and monitor clinical course closely. MMODL / IJN: [id number] /
[2020-08-14] MEDS: DOCUSATE ORAL SOLN 100 MG/10 ML CUP OG-TUBE SCH (21:00)
[2020-08-14 23:56] LABS: Glucose,Whole Blood 171 mg/dL (75-99)
--- NOTE | 2020-08-15 00:01 | P.PN ---
Subjective This is a pleasant 40 years old female with past medical history of fibromyalgia, GERD, hypertension, COPD/asthma, non-alcoholic fatty liver disease , migraines, chronic back and cervical pain, degenerative disc disease, kidney stone and UTI. Presents with dyspnea and found to have bilateral colic pneumonia. Patient currently is debated and sedated in the ICU with pulmonary/critical care team following her closely No issues overnight, no sedation trial today. She is currently on fentanyl and propofol.no pressors. Also she is on vitamin C, vitamin D and zinc, she is on ceftriaxone, dexamethasone IV 6 mg twice a day, she is on normal saline 75 mL/h, Lovenox 40 mg twice a day She is a status post tocizilumab and convalescent plasma 08/12/2020 Patient remains in the ICU sedated and intubated with pulmonary/critical care team following the case closely and manage and her friend. Currently she is on PEEP of 10. D-dimer is stable at 3.8 compared to 3.5 yesterday. LDH going down to 1100 to 73 7, C-reactive protein is back to normal today at 9.7. Sputum culture is growing Streptococcus agalactiae Patient is covered with ceftriaxone besides that dexamethasone, normal saline at 75, Lovenox 40 twice a day and vitamins 08/13/2020 Patient still sedated and intubated, vent management as per pulmonary/critical care team. Patient needing PEEP of 10 daily. Similar to yesterday. She is undergoing sedation holiday and interruption. Chest x-ray showing bilateral infiltrates especially in the lower parts. She remains on ceftriaxone for pneumonia with Streptococcus and sputum culture. She is on Lovenox 40 mg twice daily, normal saline at 75 mL/h. Also she is on dexamethasone, vitamin cocktail for cold. 08/14/2020 Patient in the ICU intubated and sedated, pulmonary critical care team following the patient and help with vent management, her PEEP is 10, FiO2 50%, title volume 400 milliliter, and greater than right arm 26, she is undergoing sedation holiday yesterday she was found, but she got tired and placed on mechanical ve ntilation again. She is also constipated and Colace as needed is provided. Patient is afebrile. Labs including CBC and BMP are stable. She remains on ceftriaxone for her Streptococcus and sputum culture and also on dexamethasone 6 mg twice daily, vitamin C, D and St. Normal saline 75 mm/h and Lovenox 40 mg twice daily. Review of system: N/a Active Medications Generic Name Dose Route Start Last Admin Trade Name Freq PRN Reason Stop Dose Admin Albuterol Sulfate 2 puff 08/05/20 20:00 08/14/20 19:48 Albuterol Hfa Inhaler INHALATION 2 puff RT-QID EDY Administration Albuterol Sulfate 2 puff 08/05/20 23:41 08/06/20 23:27 Albuterol Hfa Inhaler INHALATION 2 puff RT-QID PRN Administration Shortness Of Breath Or Wheezing Ascorbic Acid 500 mg 08/06/20 09:00 08/14/20 08:00 Ascorbic Acid 500 Mg Tab PO 500 mg DAILY EDY Administration Benztropine Mesylate 1 mg 08/05/20 21:00 08/14/20 21:00 Benztropine Mesylate 1 Mg Tab PO 1 mg BID EDY Administration Chlorhexidine Gluconate 15 ml 08/07/20 09:00 08/14/20 20:53 Chlorhexidine Gluconate 15 Ml Cup MUCOUS MEM 15 ml BID EDY Administration Cholecalciferol 25 mcg 08/06/20 09:00 08/14/20 08:00 Cholecalciferol 25 Mcg (1000 Iu) Tablet PO 25 mcg DAILY EDY Administration Dexamethasone Sodium Phosphate 6 mg 08/06/20 09:15 08/14/20 20:54 Dexamethasone Sod Phosphate 10 Mg/Ml 1 Ml Vial IV 6 mg BID EDY Administration Docusate Sodium 100 mg 08/14/20 21:00 08/14/20 21:00 Docusate Oral Soln 100 Mg/10 Ml Cup OG-TUBE 100 mg BID EDY Administration Enoxaparin Sodium 40 mg 08/05/20 21:00 08/14/20 20:53 Enoxaparin 40 Mg/0.4 Ml Syringe SQ 40 mg BID EDY Administration Fentanyl Citrate 1,000 mcg/ 100 mls @ 0 mls/hr 08/07/20 03:30 08/12/20 07:05 Sodium Chloride IV 1 mcg/kg/h .Q0M EDY 15.876 mls/hr Administration Protocol Per Protocol Propofol 1,000 mg/ IV Solution 100 mls @ 0 mls/hr 08/07/20 03:30 08/14/20 23:58 IV 50 mcg/kg/min .Q0M EDY 52.59 mls/hr Administration Protocol Titrate Cisatracurium Besylate 200 mg/ 200 mls @ 9.525 mls/hr 08/07/20 03:30 08/14/20 02:56 Sodium Chloride IV Not Given .Q21H EDY Protocol 1 MCG/KG/MIN Sodium Chloride 1,000 mls @ 75 mls/hr 08/07/20 19:30 08/14/20 12:21 Saline 0.9% IV 75 mls/hr .[id number] EDY Administration Ceftriaxone Sodium 1 gm/ 50 mls @ 100 mls/hr 08/09/20 14:45 08/14/20 07:58 Sodium Chloride IVPB 100 mls/hr Q24HR EDY Administration Insulin Aspart 0 unit 08/07/20 12:00 08/14/20 17:54 Insulin Aspart (Novolog) 100 Unit/Ml Vial SQ 6 unit Q6HR EDY Administration Protocol Lamotrigine 150 mg 08/05/20 21:00 08/14/20 20:54 Lamotrigine 100 Mg Tab PO 150 mg BID EDY Administration Miscellaneous Information 1 each 08/07/20 05:42 Potassium Replacement Protocol 1 Each Misc MISCELLANE DAILY PRN Per Protocol Protocol Patient's Own( 60 mg 08/06/20 09:00 08/14/20 07:48 Atomoxetine Hcl [ PO Not Given Strattera] 60 Mg DAILY EDY Capsule) Oxybutynin Chloride 5 mg 08/06/20 09:00 08/14/20 09:46 Oxybutynin Xl 5 Mg Tab.Er.24 PO Not Given DAILY EDY Paliperidone Palmitate 234 mg 08/07/20 09:00 08/07/20 09:24 Paliperidone Im 234 Mg/1.5 Ml Syg IM 234 mg Q28D EDY Administration Pantoprazole Sodium 40 mg 08/07/20 09:00 08/14/20 07:59 Pantoprazole 40 Mg/10 Ml Vial IVP 40 mg DAILY EDY Administration Sertraline HCl 100 mg 08/05/20 21:00 08/14/20 21:00 Sertraline 100 Mg Tab PO 100 mg BID EDY Administration Zinc Sulfate 220 mg 08/06/20 09:00 08/14/20 08:01 Zinc Sulfate 220 Mg Cap PO 220 mg DAILY EDY Administration Objective - Vital Signs Vital signs: Vital Signs Temp 98.7 F 08/14/20 04:00 Pulse 66 08/14/20 07:00 Resp 26 H 08/14/20 07:00 BP 112/55 08/14/20 07:00 Pulse Ox 93 L 08/14/20 07:00 Intake & Output 08/13/20 08/14/20 08/14/20 18:59 06:59 18:59 Intake Total 2038.294 2201.718 1175.155 Output Total 4975 1355 805 Balance -2936.706 846.718 370.155 Weight 175.3 kg Intake: IV 936 936 546 0.9 NS 900 900 525 pressure bag 36 36 21 Intake, IV Titration 364.294 479.718 221.155 Amount propofoL 1,000 mg In 364.294 479.718 221.155 Empty Bag 1 bag @ Titrate IV .Q0M [facility] Rx#: [id number] Tube Feeding 638 696 348 Other 100 90 60 Output: Urine 4975 1355 805 Other: Voiding Method Indwelling Catheter Indwelling Catheter Indwelling Catheter ABP, PAP, CO, CI - Last Documented Arterial Blood Pressure 112/55 - Exam -GENERAL: The patient is Sedated and intubated HEENT: Pupils are round and equally reacting to light. EOMI. No scleral icterus. No conjunctival pallor. Normocephalic, atraumatic. No pharyngeal erythema. No thyromegaly. CARDIOVASCULAR: S1 and S2 present. No murmurs, rubs, or gallops. PULMONARY: Chest is clear to auscultation, no wheezing or crackles. ABDOMEN: Soft, nontender, nondistended, normoactive bowel sounds. No palpable organomegaly. MUSCULOSKELETAL: No joint swelling or deformity. EXTREMITIES: No cyanosis, clubbing, or pedal edema. NEUROLOGICAL: Gross neurological examination did not reveal any focal deficits. SKIN: No rashes. no petechiae. - Labs CBC & Chem 7: 08/14/20 04:00 08/14/20 04:00 Labs: Abnormal Lab Results - Last 24 Hours (Table) 08/13/20 08/13/20 08/14/20 Range/Units 17:59 23:46 04:00 Lymphocytes # (1.0-4.8) k/uL D-Dimer 2.80 H (<0.60) mg/L FEU ABG pH (7.35-7.45) ABG pCO2 (35-45) mmHg ABG pO2 (83-108) mmHg ABG HCO3 (21-25) mmol/L ABG Total CO2 (19-24) mmol/L Sodium (137-145) mmol/L Carbon Dioxide (22-30) mmol/L BUN (7-17) mg/dL Creatinine (0.52-1.04) mg/dL Glucose (74-99) mg/dL POC Glucose (mg/dL) 221 H 182 H (75-99) mg/dL ALT (4-34) U/L Total Protein (6.3-8.2) g/dL Albumin (3.5-5.0) g/dL 08/14/20 08/14/20 08/14/20 Range/Units 04:00 04:00 05:56 Lymphocytes # 0.5 L (1.0-4.8) k/uL D-Dimer (<0.60) mg/L FEU ABG pH (7.35-7.45) ABG pCO2 (35-45) mmHg ABG pO2 (83-108) mmHg ABG HCO3 (21-25) mmol/L ABG Total CO2 (19-24) mmol/L Sodium 134 L (137-145) mmol/L Carbon Dioxide 33 H (22-30) mmol/L BUN 20 H (7-17) mg/dL Creatinine 0.48 L (0.52-1.04) mg/dL Glucose 196 H (74-99) mg/dL POC Glucose (mg/dL) 218 H (75-99) mg/dL ALT 176 H (4-34) U/L Total Protein 5.3 L (6.3-8.2) g/dL Albumin 3.0 L (3.5-5.0) g/dL 08/14/20 08/14/20 Range/Units 06:17 11:27 Lymphocytes # (1.0-4.8) k/uL D-Dimer (<0.60) mg/L FEU ABG pH 7.46 H (7.35-7.45) ABG pCO2 49 H (35-45) mmHg ABG pO2 79 L (83-108) mmHg ABG HCO3 34 H (21-25) mmol/L ABG Total CO2 36 H (19-24) mmol/L Sodium (137-145) mmol/L Carbon Dioxide (22-30) mmol/L BUN (7-17) mg/dL Creatinine (0.52-1.04) mg/dL Glucose (74-99) mg/dL POC Glucose (mg/dL) 185 H (75-99) mg/dL ALT (4-34) U/L Total Protein (6.3-8.2) g/dL Albumin (3.5-5.0) g/dL Assessment and Plan Assessment: Bilateral covid pneumonia Acute hypoxic respiratory failure needing mechanical ventilation Increased inflammatory markers Hypertension History of fibromyalgia History of COPD/asthma History of nonalcoholic fatty liver disease History of migraine Pain and cervical pain and degenerative disc disease History of kidney stones and UTI. History of schizophrenia, depression and bipolar Plan: This is a pleasant 40 years old female who presents with colic pneumonia. Continue with vitamin C, vitamin D and zinc. Also continue with Lovenox and steroids. New with antibiotic Pulmonary/critical care team will help with vent management. Continue with sedation interruption per pulmonary/critical care team Labs and medication were reviewed.. Continue same treatment. Continue with symptomatic treatment. Resume home medication. Monitor lytes and vitals. DVT and GI prophylaxis. Further recommendationsas per clinical course of the patient DVT prophylaxis: Subcutaneous Lovenox GI Prophylaxis: Ppi Prognosis is guarded
[2020-08-15] MEDS: INSULIN ASPART (NovoLOG) 100 UNIT/ML VIAL SQ SCH ×5 (00:05→23:43)
[2020-08-15] MEDS: CISATRACURIUM 200 MG in SODIUM CHLORIDE 0.9% 180 ML IV SCH ×2 (00:06→20:43)
[2020-08-15] MEDS: SODIUM CHLORIDE 0.9% 1,000 ML IV SCH ×2 (00:06→14:36)
[2020-08-15 04:22] LABS: Basophils % (A) 0 %; Eosinophils % (A) 1 %; HCT 35.9 % (34.0-46.0); HGB 12.3 gm/dL (11.4-16.0); Lymphocytes # (A) 0.6 k/uL (1.0-4.8); Lymphocytes % (A) 12 %; MCH 29.1 pg (25.0-35.0); MCHC 34.2 g/dL (31.0-37.0); MCV 85.1 fL (80.0-100.0); Mean Platelet Volume 10.9; Monocytes # (A) 0.4 k/uL (0-1.0); Monocytes % (A) 8 %; Neutrophils # (A) 3.6 k/uL (1.3-7.7); Neutrophils % (A) 78 %; Platelet Count 162 k/uL (150-450); RBC 4.22 m/uL (3.80-5.40); RDW 14.4 % (11.5-15.5); WBC 4.6 k/uL (3.8-10.6)
[2020-08-15 04:43] LABS: ALT 144 U/L (4-34); AST 41 U/L (14-36); African American GFR (CKD) >90 (>60 ml/min/1.73 sqM); Albumin 2.9 g/dL (3.5-5.0); Alkaline Phosphatase 57 U/L (38-126); Anion Gap 3 mmol/L; Blood Urea Nitrogen 22 mg/dL (7-17); Calcium 8.5 mg/dL (8.4-10.2); Carbon Dioxide 33 mmol/L (22-30); Chloride 100 mmol/L (98-107); Glucose 203 mg/dL (74-99); Non-African American GFR(CKD) >90 (>60 ml/min/1.73 sqM); Sodium 136 mmol/L (137-145); Total Bilirubin 0.6 mg/dL (0.2-1.3); Total Protein 5.1 g/dL (6.3-8.2)
[2020-08-15 05:26] LABS: C Reactive Protein 6.8 mg/L (<10.0)
[2020-08-15 05:30] LABS: ABG Base Excess 10.2 mmol/L; ABG HCO3 34 mmol/L (21-25); ABG Oxygen Saturation 97.9 % (94-97); ABG PCO2 47 mmHg (35-45); ABG PH 7.47 (7.35-7.45); ABG PO2 97 mmHg (83-108); ABG TCO2 35 mmol/L (19-24); Allen Test Performed? Yes
[2020-08-15 05:38] LABS: Glucose,Whole Blood 215 mg/dL (75-99)
[2020-08-15 05:38] LABS: Glucose,Whole Blood 138 mg/dL (75-99)
--- NOTE | 2020-08-15 07:05 | P.PN ---
Subjective Progress Note Date: 08/15/20 Acute hypoxemic respiratory failure secondary to CoVID 19 pneumonia/pneumonitis 08/15/2020 the patient remains in the intensive care unit intubated on a mechanical ventilator. Is a morbidly obese 40-year-old male patient with COVID 19 pneumonia and secondary respiratory failure. The patient also has morbid obesity with a BMI of 62, fibromyalgia, hypertension, chronic fatty liver disease, asthma, schizophrenia and he has utilized marijuana. The patient was initially diagnosed with colitis on 07/28/2020. Initial CAT scan of the chest showed diffuse bilateral dullness of pulmonary infiltrates and the patient did not have pulmonary embolism. During the course of his treatment, the patient was given steroids, Tocilizumab and convalescent plasma. The patient has been intubated since 08/07/2020. The patient remains on a mechanical ventilator. On today's evaluation, the patient is sedated with propofol running at 50 mg/kg/m. patient is currently off paralytics. On a mechanical ventilator, the patient is at the rate of 26 with a tidal volume of 400 and FiO2 of 50% with a PEEP of 10. Not ready for weaning based on yesterday's evaluation and the patient was given a short trial of this point is breathing with pressure support and obviously the patient failed. The blood gases from today showed a pH of 7.47 with a pCO2 of 47 and pO2 of 97. The chest x-ray from today is showing cardiomegaly and bilateral pulmonary infiltrates more so in the lung bases. ET tube is in a good location. Orogastric tube is also in good location. D-dimer today is at 2.08 and the patient's LDH level is down to 393 and the CRP level is at 6.8. The Blood Work and Electrodes Are All within Normal Limits. The patient currently is on Lovenox 40 mg subcu for DVT prophylaxis. The patient is also on she Decadron 6 mg IV every 12 hours. Sedation is with a combination of propofol and fentanyl. He did have strep in his sputum on 08/13/2020 and the patient was given IV Rocephin accordingly. He is on a sliding scale of NovoLog for blood sugar control. The patient is on enteral feeding for nutritional support and the patient is on vital high protein at 50 mL an hour which is goal. The patient chest x-ray showed cardiomegaly and prominent vascular markings bilaterally and bilateral pulmonary infiltrates. Objective - Vital Signs Vital signs: Vital Signs Temp 98.4 F 08/15/20 04:00 Pulse 63 08/15/20 06:00 Resp 26 H 08/15/20 06:00 BP 107/51 08/15/20 06:00 Pulse Ox 94 L 08/15/20 06:00 Intake & Output 08/14/20 08/15/20 08/15/20 18:59 06:59 18:59 Intake Total 2045.155 2359.263 Output Total 3330 1015 Balance -3148.760 7372.263 Weight 173.9 kg Intake: IV 936 936 0.9 NS 900 900 pressure bag 36 36 Intake, IV Titration 421.155 645.263 Amount propofoL 1,000 mg In 421.155 645.263 Empty Bag 1 bag @ Titrate IV .Q0M [facility] Rx#: [id number] Tube Feeding 598 688 Other 90 90 Output: Urine 3330 1015 Other: Voiding Method Indwelling Catheter Indwelling Catheter ABP, PAP, CO, CI - Last Documented Arterial Blood Pressure 114/50 - Exam GENERAL EXAM: Intubated, sedated, morbidly obese 40-year-old female patient on FiO2 at 50% and a PEEP of 10, comfortable in no apparent distress. HEAD: Normocephalic. EYES: Normal reaction of pupils, equal size. NOSE: Clear with pink turbinates. THROAT: Oral endotracheal and gastric tube secured in place. No erythema or exudates. NECK: No masses, no JVD. CHEST: No chest wall deformity. LUNGS: Equal air entry with bibasilar crackles. CVS: S1 and S2 normal with no audible murmur, regular rhythm. ABDOMEN: No hepatosplenomegaly, normal bowel sounds, no guarding or rigidity. SPINE: No scoliosis or deformity SKIN: No rashes CENTRAL NERVOUS SYSTEM: Sedated, tone is normal in all 4 extremities. EXTREMITIES: There is no peripheral edema. No clubbing, no cyanosis. Peripheral pulses are intact. - Labs CBC & Chem 7: 08/15/20 04:00 08/15/20 04:00 Labs: Abnormal Lab Results - Last 24 Hours (Table) 08/14/20 08/14/20 08/14/20 Range/Units 06:17 11:27 17:44 Lymphocytes # (1.0-4.8) k/uL D-Dimer (<0.60) mg/L FEU ABG pH 7.46 H (7.35-7.45) ABG pCO2 49 H (35-45) mmHg ABG pO2 79 L (83-108) mmHg ABG HCO3 34 H (21-25) mmol/L ABG Total CO2 36 H (19-24) mmol/L ABG O2 Saturation (94-97) % Sodium (137-145) mmol/L Carbon Dioxide (22-30) mmol/L BUN (7-17) mg/dL Creatinine (0.52-1.04) mg/dL Glucose (74-99) mg/dL POC Glucose (mg/dL) 185 H 204 H (75-99) mg/dL AST (14-36) U/L ALT (4-34) U/L Total Protein (6.3-8.2) g/dL Albumin (3.5-5.0) g/dL 08/14/20 08/15/20 08/15/20 Range/Units 23:53 04:00 04:00 Lymphocytes # 0.6 L (1.0-4.8) k/uL D-Dimer 2.08 H (<0.60) mg/L FEU ABG pH (7.35-7.45) ABG pCO2 (35-45) mmHg ABG pO2 (83-108) mmHg ABG HCO3 (21-25) mmol/L ABG Total CO2 (19-24) mmol/L ABG O2 Saturation (94-97) % Sodium (137-145) mmol/L Carbon Dioxide (22-30) mmol/L BUN (7-17) mg/dL Creatinine (0.52-1.04) mg/dL Glucose (74-99) mg/dL POC Glucose (mg/dL) 171 H (75-99) mg/dL AST (14-36) U/L ALT (4-34) U/L Total Protein (6.3-8.2) g/dL Albumin (3.5-5.0) g/dL 08/15/20 08/15/20 08/15/20 Range/Units 04:00 05:22 05:35 Lymphocytes # (1.0-4.8) k/uL D-Dimer (<0.60) mg/L FEU ABG pH 7.47 H (7.35-7.45) ABG pCO2 47 H (35-45) mmHg ABG pO2 (83-108) mmHg ABG HCO3 34 H (21-25) mmol/L ABG Total CO2 35 H (19-24) mmol/L ABG O2 Saturation 97.9 H (94-97) % Sodium 136 L (137-145) mmol/L Carbon Dioxide 33 H (22-30) mmol/L BUN 22 H (7-17) mg/dL Creatinine 0.49 L (0.52-1.04) mg/dL Glucose 203 H (74-99) mg/dL POC Glucose (mg/dL) 138 H (75-99) mg/dL AST 41 H (14-36) U/L ALT 144 H (4-34) U/L Total Protein 5.1 L (6.3-8.2) g/dL Albumin 2.9 L (3.5-5.0) g/dL 08/15/20 Range/Units 05:37 Lymphocytes # (1.0-4.8) k/uL D-Dimer (<0.60) mg/L FEU ABG pH (7.35-7.45) ABG pCO2 (35-45) mmHg ABG pO2 (83-108) mmHg ABG HCO3 (21-25) mmol/L ABG Total CO2 (19-24) mmol/L ABG O2 Saturation (94-97) % Sodium (137-145) mmol/L Carbon Dioxide (22-30) mmol/L BUN (7-17) mg/dL Creatinine (0.52-1.04) mg/dL Glucose (74-99) mg/dL POC Glucose (mg/dL) 215 H (75-99) mg/dL AST (14-36) U/L ALT (4-34) U/L Total Protein (6.3-8.2) g/dL Albumin (3.5-5.0) g/dL Assessment and Plan Plan: 1 Acute hypoxemic respiratory failure secondary to acute CoVID 19 pneumonia/pneumonitis requiring intubation and mechanical ventilatory support on 08/07/2020. Received tocilizumab. Received convalescent plasma. The patient remains on Decadron 6 mg IV every 12 hours. The patient on Lovenox 40 mg subcu for DVT prophylaxis. Chest x-ray showing bilateral pulmonary infiltrates. ET tube is in a good location. 2 Transaminitis in a patient with a known history of fatty liver disease versus CoVID 19 infection, LFTs improved supporting this yielded infection over fatty liver disease. 3 Elevated inflammatory markers secondary to above, improved 4 Morbid obesity 5 History of bipolar disorder 6 History of schizophrenia 7 History of chronic bronchial asthma 8 History of fibromyalgia 9 Hypertension 10 Gastric esophageal reflux disease Plan: Continue ventilator support Drop the FiO2 down to 40% and drop the PEEP down to 8 I will be able to drop the PEEP down to 63 and saturation remains above 90%. She remains hemodynamically stable. Blood gases was noted Chest x-ray was noted Keep Decadron 6 mg every 12 hours Lovenox 40 mg subcu every 24 hours Continue propofol and the patient is currently off paralytics Continue enteral feeding. Support with vital high protein Continue Lovenox for DVT prophylaxis We'll continue to follow and make further recommendations based on her clinical status Critical care time >30 minutes Time with Patient: Greater than 30
[2020-08-15] MEDS: ALBUTEROL HFA INHALER INHALATION SCH ×4 (08:16→19:37)
[2020-08-15] MEDS: DOCUSATE ORAL SOLN 100 MG/10 ML CUP OG-TUBE SCH ×2 (08:23→20:43)
[2020-08-15] MEDS: CHLORHEXIDINE GLUCONATE 15 ML CUP MUCOUS MEM SCH ×2 (08:23→20:42)
[2020-08-15] MEDS: lamoTRIgine 100 MG TAB PO SCH ×2 (08:23→20:42)
[2020-08-15] MEDS: ASCORBIC ACID 500 MG TAB PO SCH (08:23)
[2020-08-15] MEDS: BENZTROPINE MESYLATE 1 MG TAB PO SCH ×2 (08:23→20:43)
[2020-08-15] MEDS: DEXAMETHASONE SOD PHOSPHATE 10 MG/ML 1 ML VIAL IV SCH ×2 (08:23→20:42)
[2020-08-15] MEDS: ENOXAPARIN 40 MG/0.4 ML SYRINGE SQ SCH (08:23)
[2020-08-15] MEDS: ZINC SULFATE 220 MG CAP PO SCH (08:23)
--- NOTE | 2020-08-15 08:23 | XR ---
EXAMINATION TYPE: XR chest 1V portable DATE OF EXAM: 08/15/2020 CLINICAL HISTORY: Difficulty breathing and covid progress study. TECHNIQUE: Single AP portable semiupright view of the chest is obtained. COMPARISON: Chest x-ray from one day earlier and older studies. FINDINGS: Stable endotracheal and orogastric tubes. Stable mild cardiomegaly with bilateral multifocal increased opacity. Worsening silhouetting left hem idiaphragm. Osseous structures remain intact. IMPRESSION: Persistent bilateral multifocal opacities along with cardiomegaly and small to tiny bilat eral pleural effusions. Findings consistent with covid-19 infection. Findings perhaps slightly worsen ed in the left lung base from most recent study.
[2020-08-15] MEDS: SERTRALINE 100 MG TAB PO SCH ×2 (08:24→20:43)
[2020-08-15] MEDS: OXYBUTYNIN XL 5 MG TAB.ER.24 PO SCH (08:24)
[2020-08-15] MEDS: PANTOPRAZOLE 40 MG/10 ML VIAL IVP SCH (08:24)
[2020-08-15] MEDS: ATOMOXETINE HCL 60 MG PO SCH (08:24)
[2020-08-15] MEDS: CHOLECALCIFEROL 25 MCG (1000 IU) TABLET PO SCH (09:03)
[2020-08-15 12:11] LABS: Glucose,Whole Blood 215 mg/dL (75-99)
[2020-08-15 17:22] LABS: Glucose,Whole Blood 200 mg/dL (75-99)
--- NOTE | 2020-08-15 17:47 | PN ---
PROGRESS NOTE DATE OF SERVICE: 08/15/2020 REASON FOR FOLLOWUP: Pneumonia. INTERVAL HISTORY: The patient is currently afebrile. The patient is hemodynamically stable, not on any pressor support. FiO2 is currently stable at 40%. No significant purulent secretions in the ET or diarrhea reported by the nursing staff. PHYSICAL EXAMINATION: Blood pressure 101/47, pulse of 67, temperature 98. She is 91% on 40% FiO2. General description is a middle-aged female lying in bed in no distress. RESPIRATORY SYSTEM: Unlabored breathing with decreased intensity of breath sounds. No wheeze. HEART: S1, S2. Regular rate and rhythm. ABDOMEN: Soft. No tenderness. LABS: Hemoglobin is 12.3, white count 4.6. BUN of 22, creatinine 0.49. DIAGNOSTIC IMPRESSION AND PLAN: Patient with acute respiratory failure which is multifactorial in this patient who did have COVID-19 infection plus/minus component of infection, covered with Rocephin, dexamethasone, ascorbic acid, Lovenox. Monitor her clinical course closely. Prognosis remains guarded. MMODL / IJN: [id number] /
[2020-08-15 23:34] LABS: Glucose,Whole Blood 142 mg/dL (75-99)
[2020-08-16] MEDS ORDERED: fentaNYL (PF). 1,000 MCG in SODIUM CHLORIDE 0.9% 80 ML IV SCH (01:00)
[2020-08-16] MEDS: SODIUM CHLORIDE 0.9% 1,000 ML IV SCH ×2 (02:55→18:18)
[2020-08-16 05:03] LABS: ALT 133 U/L (4-34); AST 37 U/L (14-36); African American GFR (CKD) >90 (>60 ml/min/1.73 sqM); Alkaline Phosphatase 59 U/L (38-126); Anion Gap 4 mmol/L; Blood Urea Nitrogen 19 mg/dL (7-17); Calcium 8.7 mg/dL (8.4-10.2); Carbon Dioxide 30 mmol/L (22-30); Chloride 101 mmol/L (98-107); Glucose 198 mg/dL (74-99); LDH 421 U/L (313-618); Non-African American GFR(CKD) >90 (>60 ml/min/1.73 sqM); Potassium 3.8 mmol/L (3.5-5.1); Sodium 135 mmol/L (137-145); Total Bilirubin 0.6 mg/dL (0.2-1.3); Total Protein 5.3 g/dL (6.3-8.2)
[2020-08-16 05:14] LABS: ABG Base Excess 7.7 mmol/L; ABG HCO3 32 mmol/L (21-25); ABG Oxygen Saturation 94.8 % (94-97); ABG PCO2 45 mmHg (35-45); ABG PH 7.46 (7.35-7.45); ABG PO2 75 mmHg (83-108); ABG TCO2 33 mmol/L (19-24); Allen Test Performed? Yes
[2020-08-16 05:37] LABS: Glucose,Whole Blood 201 mg/dL (75-99)
[2020-08-16] MEDS: INSULIN ASPART (NovoLOG) 100 UNIT/ML VIAL SQ SCH ×3 (05:40→18:16)
[2020-08-16 05:50] LABS: Basophils % (A) 0 %; Eosinophils % (A) 1 %; HGB 12.5 gm/dL (11.4-16.0); Lymphocytes # (A) 0.6 k/uL (1.0-4.8); Lymphocytes % (A) 12 %; MCHC 32.1 g/dL (31.0-37.0); MCV 87.3 fL (80.0-100.0); Mean Platelet Volume 11.7; Monocytes # (A) 0.3 k/uL (0-1.0); Monocytes % (A) 7 %; Neutrophils # (A) 3.7 k/uL (1.3-7.7); Neutrophils % (A) 80 %; Platelet Count 144 k/uL (150-450); RBC 4.47 m/uL (3.80-5.40); RDW 14.6 % (11.5-15.5); WBC 4.6 k/uL (3.8-10.6)
[2020-08-16] MEDS ORDERED: POTASSIUM BICARBONATE/CIT AC 20 MEQ TABLET.EFF NG-TUBE SCH (06:00)
--- NOTE | 2020-08-16 08:05 | XR ---
EXAMINATION TYPE: XR chest 1V portable DATE OF EXAM: 08/16/2020 Comparison: 08/15/2020 Clinical History: 40-year-old female covid Findings: ET tube is satisfactory. NG tube courses below the diaphragm. Right IJ CVC tip in the lower right atr ium. Heart is moderately enlarged. Diffuse interstitial opacities and patchy bibasilar consolidation persists. Impression: 1. Moderate cardiomegaly. 2. Diffuse interstitial opacities persist, either interstitial pulmonary edema versus atypical pneumo javad. 3. Continued patchy bibasilar consolidation.
[2020-08-16] MEDS: DEXAMETHASONE SOD PHOSPHATE 10 MG/ML 1 ML VIAL IV SCH ×2 (08:15→08:58)
[2020-08-16] MEDS: CHOLECALCIFEROL 25 MCG (1000 IU) TABLET PO SCH (08:15)
[2020-08-16] MEDS: ENOXAPARIN 40 MG/0.4 ML SYRINGE SQ SCH (08:15)
[2020-08-16] MEDS: CHLORHEXIDINE GLUCONATE 15 ML CUP MUCOUS MEM SCH (08:15)
[2020-08-16] MEDS: ZINC SULFATE 220 MG CAP PO SCH (08:15)
[2020-08-16] MEDS: PANTOPRAZOLE 40 MG/10 ML VIAL IVP SCH (08:15)
[2020-08-16] MEDS: ASCORBIC ACID 500 MG TAB PO SCH (08:16)
[2020-08-16] MEDS: lamoTRIgine 100 MG TAB PO SCH ×2 (08:16→21:55)
[2020-08-16] MEDS: ATOMOXETINE HCL 60 MG PO SCH (08:16)
[2020-08-16] MEDS: DOCUSATE ORAL SOLN 100 MG/10 ML CUP OG-TUBE SCH (08:17)
[2020-08-16] MEDS: OXYBUTYNIN XL 5 MG TAB.ER.24 PO SCH (08:17)
[2020-08-16] MEDS: BENZTROPINE MESYLATE 1 MG TAB PO SCH ×2 (08:22→21:50)
[2020-08-16] MEDS: SERTRALINE 100 MG TAB PO SCH ×2 (08:23→21:51)
[2020-08-16] MEDS ORDERED: FUROSEMIDE 10 MG/ML 4 ML VIAL IV STA (08:29)
--- NOTE | 2020-08-16 08:29 | P.PN ---
Subjective Progress Note Date: 08/16/20 Acute hypoxemic respiratory failure secondary to CoVID 19 pneumonia/pneumonitis 08/15/2020 the patient remains in the intensive care unit intubated on a mechanical ventilator. Is a morbidly obese 40-year-old male patient with COVID 19 pneumonia and secondary respiratory failure. The patient also has morbid obesity with a BMI of 62, fibromyalgia, hypertension, chronic fatty liver disease, asthma, schizophrenia and he has utilized marijuana. The patient was initially diagnosed with colitis on 07/28/2020. Initial CAT scan of the chest showed diffuse bilateral dullness of pulmonary infiltrates and the patient did not have pulmonary embolism. During the course of his treatment, the patient was given steroids, Tocilizumab and convalescent plasma. The patient has been intubated since 08/07/2020. The patient remains on a mechanical ventilator. On today's evaluation, the patient is sedated with propofol running at 50 mg/kg/m. patient is currently off paralytics. On a mechanical ventilator, the patient is at the rate of 26 with a tidal volume of 400 and FiO2 of 50% with a PEEP of 10. Not ready for weaning based on yesterday's evaluation and the patient was given a short trial of this point is breathing with pressure support and obviously the patient failed. The blood gases from today showed a pH of 7.47 with a pCO2 of 47 and pO2 of 97. The chest x-ray from today is showing cardiomegaly and bilateral pulmonary infiltrates more so in the lung bases. ET tube is in a good location. Orogastric tube is also in good location. D-dimer today is at 2.08 and the patient's LDH level is down to 393 and the CRP level is at 6.8. The Blood Work and Electrodes Are All within Normal Limits. The patient currently is on Lovenox 40 mg subcu for DVT prophylaxis. The patient is also on she Decadron 6 mg IV every 12 hours. Sedation is with a combination of propofol and fentanyl. He did have strep in his sputum on 08/13/2020 and the patient was given IV Rocephin accordingly. He is on a sliding scale of NovoLog for blood sugar control. The patient is on enteral feeding for nutritional support and the patient is on vital high protein at 50 mL an hour which is goal. The patient chest x-ray showed cardiomegaly and prominent vascular markings bilaterally and bilateral pulmonary infiltrates. 08/16/2020, the patient is being seen in follow-up. This is a case of Covid pneumonia and the patient remains intubated on a mechanical ventilator. The patient is morbidly obese with a BMI of 62 and she has multiple other medical problems and comorbidities. On today's evaluation, Niki is on a propofol drip which is running at 50 mcg/kg per minute. The patient is on no paralytics for now. The patient has been intubated since 08/07/2020. The patient currently is on a PEEP of 6, FiO2 of 40%, tidal volume of 400 and the rate of 26. The blood gases from today shows a pH of 7.46 with a pCO2 of 45 and pO2 of 75. The chest x-ray from today is showing lower lobe at the pulmonary infiltrates, consolidations which are essentially stable. The patient has cardiomegaly. ET tube is in a good location. The patient is afebrile. The patient is hemodynamically stable. No hypotension. In terms of her blood work, she has a normal white count, or d-dimer is at 1.76, her LDH level is at 421, CRP level is at 7, rest of the blood work and electrodes are all within normal limits pH carry some degree of metabolic alkalosis. The patient remains on IV Rocephin that was discontinued yesterday, the patient is on Decadron 6 mg IV every 24 hours and the patient is also on Lovenox 40 mg subcu for DVT prophylaxis. The fluid balance over the past 24 hours has been +568 mL. Objective - Vital Signs Vital signs: Vital Signs Temp 98.9 F 08/16/20 08:00 Pulse 46 L 08/16/20 08:00 Resp 26 H 08/16/20 08:00 BP 126/73 08/16/20 08:00 Pulse Ox 93 L 08/16/20 08:00 Intake & Output 08/15/20 08/16/20 08/16/20 18:59 06:59 18:59 Intake Total 1723.423 4057.800 156 Output Total 1420 1370 200 Balance -105.653 673.800 -44 Weight 173.9 kg 175.6 kg Intake: IV 936 858 156 0.9 NS 900 825 150 pressure bag 36 33 6 Intake, IV Titration 204.347 567.800 Amount propofoL 1,000 mg In 204.347 567.800 Empty Bag 1 bag @ Titrate IV .[facility] Rx#: [id number] Tube Feeding 174 498 Other 120 Output: Urine 1420 1370 200 Other: Voiding Method Indwelling Catheter Indwelling Catheter Indwelling Catheter ABP, PAP, CO, CI - Last Documented Arterial Blood Pressure 118/60 - Exam GENERAL EXAM: Intubated, sedated, morbidly obese 40-year-old female patient on FiO2 at 40% and a PEEP of 8, comfortable in no apparent distress. HEAD: Normocephalic. EYES: Normal reaction of pupils, equal size. NOSE: Clear with pink turbinates. THROAT: Oral endotracheal and gastric tube secured in place. No erythema or exudates. NECK: No masses, no JVD. CHEST: No chest wall deformity. LUNGS: Equal air entry with bibasilar crackles. CVS: S1 and S2 normal with no audible murmur, regular rhythm. ABDOMEN: No hepatosplenomegaly, normal bowel sounds, no guarding or rigidity. SPINE: No scoliosis or deformity SKIN: No rashes CENTRAL NERVOUS SYSTEM: Sedated, tone is normal in all 4 extremities. EXTREMITIES: There is no peripheral edema. No clubbing, no cyanosis. Peripheral pulses are intact. - Labs CBC & Chem 7: 08/16/20 03:45 08/16/20 03:45 Labs: Abnormal Lab Results - Last 24 Hours (Table) 08/15/20 08/15/20 08/15/20 Range/Units 12:10 17:20 23:33 Plt Count (150-450) k/uL D-Dimer (<0.60) mg/L FEU ABG pH (7.35-7.45) ABG pO2 (83-108) mmHg ABG HCO3 (21-25) mmol/L ABG Total CO2 (19-24) mmol/L Sodium (137-145) mmol/L BUN (7-17) mg/dL Creatinine (0.52-1.04) mg/dL Glucose (74-99) mg/dL POC Glucose (mg/dL) 215 H 200 H 142 H (75-99) mg/dL AST (14-36) U/L ALT (4-34) U/L Total Protein (6.3-8.2) g/dL Albumin (3.5-5.0) g/dL 08/16/20 08/16/20 08/16/20 Range/Units 03:45 03:45 03:45 Plt Count 144 L (150-450) k/uL D-Dimer 1.79 H (<0.60) mg/L FEU ABG pH (7.35-7.45) ABG pO2 (83-108) mmHg ABG HCO3 (21-25) mmol/L ABG Total CO2 (19-24) mmol/L Sodium 135 L (137-145) mmol/L BUN 19 H (7-17) mg/dL Creatinine 0.51 L (0.52-1.04) mg/dL Glucose 198 H (74-99) mg/dL POC Glucose (mg/dL) (75-99) mg/dL AST 37 H (14-36) U/L ALT 133 H (4-34) U/L Total Protein 5.3 L (6.3-8.2) g/dL Albumin 3.0 L (3.5-5.0) g/dL 08/16/20 08/16/20 Range/Units 05:01 05:35 Plt Count (150-450) k/uL D-Dimer (<0.60) mg/L FEU ABG pH 7.46 H (7.35-7.45) ABG pO2 75 L (83-108) mmHg ABG HCO3 32 H (21-25) mmol/L ABG Total CO2 33 H (19-24) mmol/L Sodium (137-145) mmol/L BUN (7-17) mg/dL Creatinine (0.52-1.04) mg/dL Glucose (74-99) mg/dL POC Glucose (mg/dL) 201 H (75-99) mg/dL AST (14-36) U/L ALT (4-34) U/L Total Protein (6.3-8.2) g/dL Albumin (3.5-5.0) g/dL Assessment and Plan Plan: 1 Acute hypoxemic respiratory failure secondary to acute CoVID 19 pneumonia/pneumonitis requiring intubation and mechanical ventilatory support on 08/07/2020. Received tocilizumab. Received convalescent plasma. The patient remains on Decadron 6 mg IV every 12 hours. The patient on Lovenox 40 mg subcu for DVT prophylaxis. Chest x-ray showing bilateral pulmonary infiltrates. ET tube is in a good location. On today's evaluation, the patient was evaluated further weaning down to 5 and we are the process of waking up this patient and giving it a sedation holiday. She has been intubated since 08/07/2020. Chest x -ray was reviewed and is still showing some consolidation of the lung bases bilaterally. Oxygenation has improved. 2 Transaminitis in a patient with a known history of fatty liver disease versus CoVID 19 infection, LFTs improved supporting this yielded infection over fatty liver disease. 3 Elevated inflammatory markers secondary to above, improved 4 Morbid obesity 5 History of bipolar disorder 6 History of schizophrenia 7 History of chronic bronchial asthma 8 History of fibromyalgia 9 Hypertension 10 Gastric esophageal reflux disease Plan: Continue ventilator support Sedation holiday Check weaning parameters Drop the FiO2 down to 40% and drop the PEEP down to 5 IV fluids to KVO Lasix 40 mg IV every 24 hours hemodynamically stable. Blood gases was noted Chest x-ray was noted Keep Decadron 6 mg every 12 hours Lovenox 40 mg subcu every 24 hours Continue enteral feeding. Support with vital high protein Continue Lovenox for DVT prophylaxis We'll continue to follow and make further recommendations based on her clinical status Critical care time >30 minutes Time with Patient: Greater than 30
[2020-08-16] MEDS: ALBUTEROL HFA INHALER INHALATION SCH ×4 (08:48→19:35)
[2020-08-16] MEDS ORDERED: FUROSEMIDE 10 MG/ML 4 ML VIAL IV SCH (09:00)
[2020-08-16 09:22] LABS: Large Platelets Present
[2020-08-16 11:39] LABS: Glucose,Whole Blood 171 mg/dL (75-99)
[2020-08-16 12:48] LABS: ABG Base Excess 12.5 mmol/L; ABG HCO3 36 mmol/L (21-25); ABG Oxygen Saturation 93.8 % (94-97); ABG PCO2 49 mmHg (35-45); ABG PH 7.48 (7.35-7.45); ABG PO2 69 mmHg (83-108); ABG TCO2 38 mmol/L (19-24); Allen Test Performed? Yes
[2020-08-16 17:32] LABS: Glucose,Whole Blood 167 mg/dL (75-99)
[2020-08-16] MEDS ORDERED: traMADol 50 MG TAB PO PRN (17:55)
--- NOTE | 2020-08-16 19:49 | PN ---
PROGRESS NOTE DATE OF SERVICE: 08/16/2020 REASON FOR FOLLOWUP: COVID-19 infection. INTERVAL HISTORY: The patient remains intubated on the vent. The patient is hemodynamically stable, not on any pressor support. The patient was more awake and alert today and was following verbal commands. No other changes reported by the nursing staff. PHYSICAL EXAMINATION: Blood pressure 145/82 with a pulse of 75, temperature 98.9. She is 92% on 40% FiO2. General description is a middle-aged female intubated on the vent. RESPIRATORY SYSTEM: Unlabored breathing with decreased intensity of breath sounds. No wheeze. HEART: S1, S2. Regular rate and rhythm. ABDOMEN: Soft. No tenderness. LABS: Hemoglobin is 12.5, white count 4.6. BUN of 19, creatinine 0.51. DIAGNOSTIC IMPRESSION AND PLAN: Patient with acute respiratory failure which is multifactorial in this patient who did have a COVID-19 infection plus/minus a component of secondary bacteremia with sputum positive for Streptococcus agalactiae. Chest x-ray showing diffuse infiltrate and some bibasilar consolidation. Patient has seen clinical improvement. To continue with the dexamethasone, Lovenox, zinc and ascorbic acid. Rocephin discontinued by Pulmonary. Continue with supportive care. MMODL / IJN: [id number] /
[2020-08-17 00:28] LABS: Glucose,Whole Blood 115 mg/dL (75-99)
[2020-08-17] MEDS: INSULIN ASPART (NovoLOG) 100 UNIT/ML VIAL SQ SCH ×5 (00:33→23:47)
[2020-08-17] MEDS: DOCUSATE ORAL SOLN 100 MG/10 ML CUP OG-TUBE SCH (03:04)
[2020-08-17 05:18] LABS: Basophils % (A) 0 %; Eosinophils % (A) 1 %; HCT 41.2 % (34.0-46.0); HGB 13.2 gm/dL (11.4-16.0); Lymphocytes # (A) 0.9 k/uL (1.0-4.8); Lymphocytes % (A) 19 %; MCH 27.9 pg (25.0-35.0); MCV 87.1 fL (80.0-100.0); Mean Platelet Volume 10.5; Monocytes # (A) 0.6 k/uL (0-1.0); Monocytes % (A) 12 %; Neutrophils # (A) 3.2 k/uL (1.3-7.7); Neutrophils % (A) 67 %; Platelet Count 128 k/uL (150-450); RBC 4.73 m/uL (3.80-5.40); RDW 14.8 % (11.5-15.5); WBC 4.7 k/uL (3.8-10.6)
[2020-08-17 05:48] LABS: ALT 138 U/L (4-34); AST 48 U/L (14-36); African American GFR (CKD) >90 (>60 ml/min/1.73 sqM); Albumin 3.5 g/dL (3.5-5.0); Alkaline Phosphatase 60 U/L (38-126); Anion Gap 2 mmol/L; Blood Urea Nitrogen 26 mg/dL (7-17); Calcium 9.1 mg/dL (8.4-10.2); Carbon Dioxide 35 mmol/L (22-30); Chloride 102 mmol/L (98-107); Glucose 120 mg/dL (74-99); Non-African American GFR(CKD) >90 (>60 ml/min/1.73 sqM); Potassium 3.8 mmol/L (3.5-5.1); Sodium 139 mmol/L (137-145); Total Bilirubin 0.7 mg/dL (0.2-1.3); Total Protein 5.9 g/dL (6.3-8.2)
[2020-08-17 05:52] LABS: C Reactive Protein 7.1 mg/L (<10.0)
[2020-08-17 06:13] LABS: Glucose,Whole Blood 106 mg/dL (75-99)
[2020-08-17] MEDS ORDERED: FUROSEMIDE 10 MG/ML 4 ML VIAL IV STA (07:25)
--- NOTE | 2020-08-17 07:25 | P.PN ---
Subjective Progress Note Date: 08/17/20 08/15/2020 the patient remains in the intensive care unit intubated on a mechanical ventilator. Is a morbidly obese 40-year-old male patient with COVID 19 pneumonia and secondary respiratory failure. The patient also has morbid obesity with a BMI of 62, fibromyalgia, hypertension, chronic fatty liver d isease, asthma, schizophrenia and he has utilized marijuana. The patient was initially diagnosed with colitis on 07/28/2020. Initial CAT scan of the chest showed diffuse bilateral dullness of pulmonary infiltrates and the patient did not have pulmonary embolism. During the course of his treatment, the patient was given steroids, Tocilizumab and convalescent plasma. The patient has been intubated since 08/07/2020. The patient remains on a mechanical ventilator. On today's evaluation, the patient is sedated with propofol running at 50 mg/kg/m. patient is currently off paralytics. On a mechanical ventilator, the patient is at the rate of 26 with a tidal volume of 400 and FiO2 of 50% with a PEEP of 10. Not ready for weaning based on yesterday's evaluation and the patient was given a short trial of this point is breathing with pressure support and obviously the patient failed. The blood gases from today showed a pH of 7.47 with a pCO2 of 47 and pO2 of 97. The chest x-ray from today is showing cardiomegaly and bilateral pulmonary infiltrates more so in the lung bases. ET tube is in a good location. Orogastric tube is also in good location. D-dimer today is at 2.08 and the patient's LDH level is down to 393 and the CRP level is at 6.8. The Blood Work and Electrodes Are All within Normal Limits. The patient currently is on Lovenox 40 mg subcu for DVT prophylaxis. The patient is also on she Decadron 6 mg IV every 12 hours. Sedation is with a combination of propofol and fentanyl. He did have strep in his sputum on 08/13/2020 and the patient was given IV Rocephin accordingly. He is on a sliding scale of NovoLog for blood sugar control. The patient is on enteral feeding for nutritional support and the patient is on vital high protein at 50 mL an hour which is goal. The patient chest x-ray showed cardiomegaly and prominent vascular markings bilaterally and bilateral pulmonary infiltrates. 08/16/2020, the patient is being seen in follow-up. This is a case of Covid pneumonia and the patient remains intubated on a mechanical ventilator. The patient is morbidly obese with a BMI of 62 and she has multiple other medical problems and comorbidities. On today's evaluation, Niki is on a propofol drip which is running at 50 mcg/kg per minute. The patient is on no paralytics for now. The patient has been intubated since 08/07/2020. The patient currently is on a PEEP of 6, FiO2 of 40%, tidal volume of 400 and the rate of 26. The blood gases from today shows a pH of 7.46 with a pCO2 of 45 and pO2 of 75. The chest x-ray from today is showing lower lobe at the pulmonary infiltrates, consolidations which are essentially stable. The patient has cardiomegaly. ET tube is in a good location. The patient is afebrile. The patient is hemodynamically stable. No hypotension. In terms of her blood work, she has a normal white count, or d-dimer is at 1.76, her LDH level is at 421, CRP level is at 7, rest of the blood work and electrodes are all within normal limits pH carry some degree of metabolic alkalosis. The patient remains on IV Rocephin that was discontinued yesterday, the patient is on Decadron 6 mg IV every 24 hours and the patient is also on Lovenox 40 mg subcu for DVT prophylaxis. The fluid balance over the past 24 hours has been +568 mL. On today's evaluation of 08/17/2020, the patient extubated and currently she is on 40 production by nasal cannula. She is awake and alert and she is doing well. No significant respiratory distress. She is following commands. The patient has a follow-up chest x-ray today that shows cardiomegaly and there is some persistent infiltration of the lung bases bilaterally. She also has a central line in her right IJ. Otherwise, the blood work from today is essentially within normal limits. D-dimer is at 2.89 and electrodes are all within normal limits, her LDH is down to 529 and a BUN is 26 with a creatinine of 0.5. Fluid balance over the past 24 hours has been -1 L. As such, the patient is doing well. She is on Decadron. She is on Lovenox EDMOND be transferred out to a medical floor. She was extubated yesterday without any major difficulties. Objective - Vital Signs Vital signs: Vital Signs Temp 98.6 F 08/17/20 04:00 Pulse 78 08/17/20 07:00 Resp 22 08/17/20 07:00 BP 132/70 08/16/20 21:00 Pulse Ox 95 08/17/20 07:00 Intake & Output 08/16/20 08/17/20 08/17/20 18:59 06:59 18:59 Intake Total 1024 582 3 Output Total 2075 575 50 Balance -1051 7 -47 Intake: IV 936 342 3 0.9 NS 900 300 pressure bag 36 42 3 Oral 240 Tube Feeding 88 Output: Urine 5 575 50 Other: Voiding Method Indwelling Catheter Indwelling Catheter ABP, PAP, CO, CI - Last Documented Arterial Blood Pressure 118/60 - Exam GENERAL EXAM: A beta to a 4 L of oxygen by nasal cannula and she is calm and comfortable HEAD: Normocephalic. EYES: Normal reaction of pupils, equal size. NOSE: Clear with pink turbinates. THROAT: Oral endotracheal and gastric tube secured in place. No erythema or exudates. NECK: No masses, no JVD. CHEST: No chest wall deformity. LUNGS: Equal air entry with bibasilar crackles. CVS: S1 and S2 normal with no audible murmur, regular rhythm. ABDOMEN: No hepatosplenomegaly, normal bowel sounds, no guarding or rigidity. SPINE: No scoliosis or deformity SKIN: No rashes CENTRAL NERVOUS SYSTEM: Awake, alert, has motor weakness, following commands and answering questions appropriately EXTREMITIES: There is no peripheral edema. No clubbing, no cyanosis. Peripheral pulses are intact. - Labs CBC & Chem 7: 08/17/20 04:30 08/17/20 04:30 Labs: Abnormal Lab Results - Last 24 Hours (Table) 08/16/20 08/16/20 08/16/20 Range/Units 03:45 11:37 12:43 Plt Count (150-450) k/uL Lymphocytes # 0.6 L (1.0-4.8) k/uL D-Dimer (<0.60) mg/L FEU ABG pH 7.48 H (7.35-7.45) ABG pCO2 49 H (35-45) mmHg ABG pO2 69 L (83-108) mmHg ABG HCO3 36 H (21-25) mmol/L ABG Total CO2 38 H (19-24) mmol/L ABG O2 Saturation 93.8 L (94-97) % Carbon Dioxide (22-30) mmol/L BUN (7-17) mg/dL Glucose (74-99) mg/dL POC Glucose (mg/dL) 171 H (75-99) mg/dL AST (14-36) U/L ALT (4-34) U/L Creatine Kinase (30-135) U/L Total Protein (6.3-8.2) g/dL 08/16/20 08/17/20 08/17/20 Range/Units 17:29 00:16 04:30 Plt Count (150-450) k/uL Lymphocytes # (1.0-4.8) k/uL D-Dimer 2.89 H (<0.60) mg/L FEU ABG pH (7.35-7.45) ABG pCO2 (35-45) mmHg ABG pO2 (83-108) mmHg ABG HCO3 (21-25) mmol/L ABG Total CO2 (19-24) mmol/L ABG O2 Saturation (94-97) % Carbon Dioxide (22-30) mmol/L BUN (7-17) mg/dL Glucose (74-99) mg/dL POC Glucose (mg/dL) 167 H 115 H (75-99) mg/dL AST (14-36) U/L ALT (4-34) U/L Creatine Kinase (30-135) U/L Total Protein (6.3-8.2) g/dL 08/17/20 08/17/20 08/17/20 Range/Units 04:30 04:30 04:30 Plt Count 128 L (150-450) k/uL Lymphocytes # 0.9 L (1.0-4.8) k/uL D-Dimer (<0.60) mg/L FEU ABG pH (7.35-7.45) ABG pCO2 (35-45) mmHg ABG pO2 (83-108) mmHg ABG HCO3 (21-25) mmol/L ABG Total CO2 (19-24) mmol/L ABG O2 Saturation (94-97) % Carbon Dioxide 35 H (22-30) mmol/L BUN 26 H (7-17) mg/dL Glucose 120 H (74-99) mg/dL POC Glucose (mg/dL) (75-99) mg/dL AST 48 H (14-36) U/L ALT 138 H (4-34) U/L Creatine Kinase 214 H (30-135) U/L Total Protein 5.9 L (6.3-8.2) g/dL 08/17/20 Range/Units 06:11 Plt Count (150-450) k/uL Lymphocytes # (1.0-4.8) k/uL D-Dimer (<0.60) mg/L FEU ABG pH (7.35-7.45) ABG pCO2 (35-45) mmHg ABG pO2 (83-108) mmHg ABG HCO3 (21-25) mmol/L ABG Total CO2 (19-24) mmol/L ABG O2 Saturation (94-97) % Carbon Dioxide (22-30) mmol/L BUN (7-17) mg/dL Glucose (74-99) mg/dL POC Glucose (mg/dL) 106 H (75-99) mg/dL AST (14-36) U/L ALT (4-34) U/L Creatine Kinase (30-135) U/L Total Protein (6.3-8.2) g/dL Assessment and Plan Plan: 1 Acute hypoxemic respiratory failure secondary to acute CoVID 19 pneumonia/pneumonitis requiring intubation and mechanical ventilatory support on 08/07/2020. Received tocilizumab. Received convalescent plasma. The patient remains on Decadron 6 mg IV every 12 hours. The patient on Lovenox 40 mg subcu for DVT prophylaxis. Chest x-ray showing bilateral pulmonary infiltrates. The patient was extubated yesterday and currently she is on 4 L of oxygen by nasal cannula. She is awake and an alert and following commands. She has global generalized weakness and she would need aggressive physical therapy and a swallow evaluation. 2 Transaminitis in a patient with a known history of fatty liver disease versus CoVID 19 infection, LFTs improved supporting this yielded infection over fatty liver disease. 3 Elevated inflammatory markers secondary to above, improved 4 Morbid obesity 5 History of bipolar disorder 6 History of schizophrenia 7 History of chronic bronchial asthma 8 History of fibromyalgia 9 Hypertension 10 Gastric esophageal reflux disease Plan: Oxygen at 4 L per minute nasal cannula and the patient is extubated IV fluids to KVO Lasix 40 mg IV every 24 hours hemodynamically stable. Keep Decadron 6 mg every 12 hours Assessment swallow evaluation Physical therapy Lovenox 40 mg subcu every 24 hours Continue Lovenox for DVT prophylaxis Transfer out of the intensive care unit yesterday to a medical surgical floor with remote telemetry. We'll continue to follow and make further recommendations based on her clinical status
[2020-08-17] MEDS: ALBUTEROL HFA INHALER INHALATION SCH ×4 (08:55→21:11)
[2020-08-17] MEDS: ENOXAPARIN 40 MG/0.4 ML SYRINGE SQ SCH (09:00)
[2020-08-17] MEDS: PANTOPRAZOLE 40 MG/10 ML VIAL IVP SCH (09:00)
[2020-08-17] MEDS: CHOLECALCIFEROL 25 MCG (1000 IU) TABLET PO SCH (09:01)
[2020-08-17] MEDS: lamoTRIgine 100 MG TAB PO SCH ×2 (09:01→20:57)
[2020-08-17] MEDS: DEXAMETHASONE SOD PHOSPHATE 10 MG/ML 1 ML VIAL IV SCH (09:01)
[2020-08-17] MEDS: ASCORBIC ACID 500 MG TAB PO SCH (09:01)
[2020-08-17] MEDS: ZINC SULFATE 220 MG CAP PO SCH (09:01)
[2020-08-17] MEDS: DOCUSATE 100 MG CAP PO SCH ×2 (09:02→20:56)
[2020-08-17] MEDS: BENZTROPINE MESYLATE 1 MG TAB PO SCH ×2 (09:02→21:24)
[2020-08-17] MEDS: OXYBUTYNIN XL 5 MG TAB.ER.24 PO SCH (09:02)
[2020-08-17] MEDS: SERTRALINE 100 MG TAB PO SCH ×2 (09:02→20:56)
[2020-08-17] MEDS: ATOMOXETINE HCL 60 MG PO SCH (09:03)
--- NOTE | 2020-08-17 10:00 | XR ---
EXAMINATION TYPE: XR chest 1V portable DATE OF EXAM: 08/17/2020 COMPARISON: 08/16/2020 INDICATION: Follow-up previous abnormal TECHNIQUE: Single frontal view of the chest is obtained. FINDINGS: The heart size is enlarged. The pulmonary vasculature is normal. Diffuse increased patchy infiltrates are present bilaterally. Small right pleural effusion and minima l left pleural effusion is present. Right central venous catheter is present with tip in right atrium. IMPRESSION: 1. Patchy bilateral lung infiltrates with slight improvement from comparison. 2. Small pleural effusions. 3. Right central venous catheter with the tip in the right atrium.
[2020-08-17 12:08] LABS: Glucose,Whole Blood 152 mg/dL (75-99)
[2020-08-17] MEDS: CHLORHEXIDINE GLUCONATE 15 ML CUP MUCOUS MEM SCH (16:44)
[2020-08-17] MEDS: SODIUM CHLORIDE 0.9% 1,000 ML IV SCH (16:46)
[2020-08-17 17:06] LABS: Glucose,Whole Blood 103 mg/dL (75-99)
[2020-08-17 20:39] LABS: Glucose,Whole Blood 91 mg/dL (75-99)
[2020-08-17 21:27] LABS: Glucose,Whole Blood 91 mg/dL (75-99)
--- NOTE | 2020-08-17 23:19 | P.PN ---
Subjective Progress Note Date: 08/16/20 Principal diagnosis: Acute hypoxic respiratory failure requiring mechanical ventilation. This is a pleasant 40 years old female with past medical history of fibromyalgia, GERD, hypertension, COPD/asthma, non-alcoholic fatty liver disease, migraines, chronic back and cervical pain, degenerative disc disease, kidney stone and UTI. Presents with dyspnea and found to have bilateral colic pneumonia. Patient currently is debated and sedated in the ICU with pulmonary/critical care team following her closely No issues overnight, no sedation trial today. She is currently on fentanyl and propofol.no pressors. Also she is on vitamin C, vitamin D and zinc, she is on ceftriaxone, dexamethasone IV 6 mg twice a day, she is on normal saline 75 mL/h, Lovenox 40 mg twice a day She is a status post tocizilumab and convalescent plasma 08/12/2020 Patient remains in the ICU sedated and intubated with pulmonary/critical care team following the case closely and manage and her friend. Currently she is on PEEP of 10. D-dimer is stable at 3.8 compared to 3.5 yesterday. LDH going down to 1100 to 73 7, C-reactive protein is back to normal today at 9.7. Sputum culture is growing Streptococcus agalactiae Patient is covered with ceftriaxone besides that dexamethasone, normal saline at 75, Lovenox 40 twice a day and vitamins 08/13/2020 Patient still sedated and intubated, vent management as per pulmonary/critical care team. Patient needing PEEP of 10 daily. Similar to yesterday. She is undergoing sedation holiday and interruption. Chest x-ray showing bilateral infiltrates especially in the lower parts. She remains on ceftriaxone for pneumonia with Streptococcus and sputum culture. She is on Lovenox 40 mg twice daily, normal saline at 75 mL/h. Also she is on dexamethasone, vitamin cocktail for cold. 08/14/2020 Patient in the ICU intubated and sedated, pulmonary critical care team following the patient and help with vent management, her PEEP is 10, FiO2 50%, title volume 400 milliliter, and greater than right arm 26, she is undergoing sedation holiday yesterday she was found, but she got tired and placed on mechanical ventilation again. She is also constipated and Colace as needed is provided. Patient is afebrile. Labs including CBC and BMP are stable. She remains on ceftriaxone for her Streptococcus and sputum culture and also on dexamethasone 6 mg twice daily, vitamin C, D and St. Normal saline 75 mm/h and Lovenox 40 mg twice daily. 08/16/2020 Patient is currently in MICU intubated and on mechanical ventilator. Off s edation and patient is awake and oriented. Patient is being extubated today. Otherwise afebrile. Chest x-ray showed moderate cardiomegaly. Diffuse interstitial opacities persist. Continued patchy bibasilar consolidation. Patient is being continued on IV Decadron and Lovenox and multivitamins. Laboratory data showed D-dimer 1.79, sodium 135 potassium 3.8 BUN 19 and creatinine 0.51 AST 37 ALT 133 and LDH 421 Pulmonary is on board. Current medications reviewed. Objective - Vital Signs Vital signs: Vital Signs Temp 98.1 F 08/16/20 12:00 Pulse 73 08/16/20 12:00 Resp 26 H 08/16/20 12:00 BP 129/81 08/16/20 12:00 Pulse Ox 93 L 08/16/20 12:00 Intake & Output 08/15/20 08/16/20 08/16/20 18:59 06:59 18:59 Intake Total 4029.791 4072.800 512 Output Total 1420 1370 310 Balance -105.653 673.800 202 Weight 173.9 kg 175.6 kg Intake: IV 936 858 468 0.9 NS 900 825 450 pressure bag 36 33 18 Intake, IV Titration 204.347 567.800 Amount propofoL 1,000 mg In 204.347 567.800 Empty Bag 1 bag @ Titrate IV .[facility] Rx#: [id number] Tube Feeding 174 498 44 Other 120 Output: Urine 1420 1370 310 Other: Voiding Method Indwelling Catheter Indwelling Catheter Indwelling Catheter ABP, PAP, CO, CI - Last Documented Arterial Blood Pressure 149/68 - Exam - Exam -GENERAL: The patient is intubated. Awake alert. HEENT: Pupils are round and equally reacting to light. EOMI. No scleral icterus. No conjunctival pallor. Normocephalic, atraumatic. No pharyngeal erythema. No thyromegaly. CARDIOVASCULAR: S1 and S2 present. No murmurs, rubs, or gallops. PULMONARY: Chest is clear to auscultation, no wheezing or crackles. ABDOMEN: Soft, nontender, nondistended, normoactive bowel sounds. No palpable organomegaly. MUSCULOSKELETAL: No joint swelling or deformity. EXTREMITIES: No cyanosis, clubbing, or pedal edema. NEUROLOGICAL: Gross neurological examination did not reveal any focal deficits. SKIN: No rashes. no petechiae. - Labs CBC & Chem 7: 08/17/20 04:30 08/17/20 04:30 Labs: Abnormal Lab Results - Last 24 Hours (Table) 08/15/20 08/15/20 08/16/20 Range/Units 17:20 23:33 03:45 Plt Count 144 L (150-450) k/uL Lymphocytes # 0.6 L (1.0-4.8) k/uL D-Dimer (<0.60) mg/L FEU ABG pH (7.35-7.45) ABG pCO2 (35-45) mmHg ABG pO2 (83-108) mmHg ABG HCO3 (21-25) mmol/L ABG Total CO2 (19-24) mmol/L ABG O2 Saturation (94-97) % Sodium (137-145) mmol/L BUN (7-17) mg/dL Creatinine (0.52-1.04) mg/dL Glucose (74-99) mg/dL POC Glucose (mg/dL) 200 H 142 H (75-99) mg/dL AST (14-36) U/L ALT (4-34) U/L Total Protein (6.3-8.2) g/dL Albumin (3.5-5.0) g/dL 08/16/20 08/16/20 08/16/20 Range/Units 03:45 03:45 05:01 Plt Count (150-450) k/uL Lymphocytes # (1.0-4.8) k/uL D-Dimer 1.79 H (<0.60) mg/L FEU ABG pH 7.46 H (7.35-7.45) ABG pCO2 (35-45) mmHg ABG pO2 75 L (83-108) mmHg ABG HCO3 32 H (21-25) mmol/L ABG Total CO2 33 H (19-24) mmol/L ABG O2 Saturation (94-97) % Sodium 135 L (137-145) mmol/L BUN 19 H (7-17) mg/dL Creatinine 0.51 L (0.52-1.04) mg/dL Glucose 198 H (74-99) mg/dL POC Glucose (mg/dL) (75-99) mg/dL AST 37 H (14-36) U/L ALT 133 H (4-34) U/L Total Protein 5.3 L (6.3-8.2) g/dL Albumin 3.0 L (3.5-5.0) g/dL 08/16/20 08/16/20 08/16/20 Range/Units 05:35 11:37 12:43 Plt Count (150-450) k/uL Lymphocytes # (1.0-4.8) k/uL D-Dimer (<0.60) mg/L FEU ABG pH 7.48 H (7.35-7.45) ABG pCO2 49 H (35-45) mmHg ABG pO2 69 L (83-108) mmHg ABG HCO3 36 H (21-25) mmol/L ABG Total CO2 38 H (19-24) mmol/L ABG O2 Saturation 93.8 L (94-97) % Sodium (137-145) mmol/L BUN (7-17) mg/dL Creatinine (0.52-1.04) mg/dL Glucose (74-99) mg/dL POC Glucose (mg/dL) 201 H 171 H (75-99) mg/dL AST (14-36) U/L ALT (4-34) U/L Total Protein (6.3-8.2) g/dL Albumin (3.5-5.0) g/dL Assessment and Plan Assessment: Bilateral covid pneumonia Acute hypoxic respiratory failure needing mechanical ventilation Increased inflammatory markers Hypertension History of fibromyalgia History of COPD/asthma History of nonalcoholic fatty liver disease History of migraine Pain and cervical pain and degenerative disc disease History of kidney stones and UTI. History of schizophrenia, depression and bipolar Morbid obesity with BMI 62.5 Plan: This is a pleasant 40 years old female who presents with covid pneumonia. Continue with vitamin C, vitamin D and zinc. Also continue with Lovenox and steroids. Continue with sedation interruption per pulmonary/critical care team.Patient has been extubated today. Labs and medication were reviewed. Continue with symptomatic treatment. Monitor lytes and vitals. DVT and GI prophylaxis. Further recommendationsas per clinical course of the patient DVT prophylaxis: Subcutaneous Lovenox GI Prophylaxis: Ppi Prognosis is guarded Time with Patient: Greater than 30
--- NOTE | 2020-08-17 23:23 | P.PN ---
Subjective Progress Note Date: 08/17/20 Principal diagnosis: Acute hypoxic respiratory failure requiring mechanical ventilation. This is a pleasant 40 years old female with past medical history of fibromyalgia, GERD, hypertension, COPD/asthma, non-alcoholic fatty liver disease, migraines, chronic back and cervical pain, degenerative disc disease, kidney stone and UTI. Presents with dyspnea and found to have bilateral colic pneumonia. Patient currently is debated and sedated in the ICU with pulmonary/critical care team following her closely No issues overnight, no sedation trial today. She is currently on fentanyl and propofol.no pressors. Also she is on vitamin C, vitamin D and zinc, she is on ceftriaxone, dexamethasone IV 6 mg twice a day, she is on normal saline 75 mL/h, Lovenox 40 mg twice a day She is a status post tocizilumab and convalescent plasma 08/12/2020 Patient remains in the ICU sedated and intubated with pulmonary/critical care team following the case closely and manage and her friend. Currently she is on PEEP of 10. D-dimer is stable at 3.8 compared to 3.5 yesterday. LDH going down to 1100 to 73 7, C-reactive protein is back to normal today at 9.7. Sputum culture is growing Streptococcus agalactiae Patient is covered with ceftriaxone besides that dexamethasone, normal saline at 75, Lovenox 40 twice a day and vitamins 08/13/2020 Patient still sedated and intubated, vent management as per pulmonary/critical care team. Patient needing PEEP of 10 daily. Similar to yesterday. She is undergoing sedation holiday and interruption. Chest x-ray showing bilateral infiltrates especially in the lower parts. She remains on ceftriaxone for pneumonia with Streptococcus and sputum culture. She is on Lovenox 40 mg twice daily, normal saline at 75 mL/h. Also she is on dexamethasone, vitamin cocktail for cold. 08/14/2020 Patient in the ICU intubated and sedated, pulmonary critical care team following the patient and help with vent management, her PEEP is 10, FiO2 50%, title volume 400 milliliter, and greater than right arm 26, she is undergoing sedation holiday yesterday she was found, but she got tired and placed on mechanical ventilation again. She is also constipated and Colace as needed is provided. Patient is afebrile. Labs including CBC and BMP are stable. She remains on ceftriaxone for her Streptococcus and sputum culture and also on dexamethasone 6 mg twice daily, vitamin C, D and St. Normal saline 75 mm/h and Lovenox 40 mg twice daily. 08/16/2020 Patient is currently in MICU intubated and on mechanical ventilator. Off s edation and patient is awake and oriented. Patient is being extubated today. Otherwise afebrile. Chest x-ray showed moderate cardiomegaly. Diffuse interstitial opacities persist. Continued patchy bibasilar consolidation. Patient is being continued on IV Decadron and Lovenox and multivitamins. Laboratory data showed D-dimer 1.79, sodium 135 potassium 3.8 BUN 19 and creatinine 0.51 AST 37 ALT 133 and LDH 421 Pulmonary is on board. 08/17/2020 Patient is being transferred to medical floor today. Requiring oxygen at 3 L via nasal cannula. Patient is awake alert and oriented. Chest x-ray showed cardiomegaly and persistent infiltrates of the lung bases bilaterally. Laboratory data showed D-dimer 2.89 and BUN 26 and creatinine 0.56 and AST 48 ALT 138 and LDH 214. Patient has been afebrile. Denies any complaints of chest pain. Started on oral diet. No nausea vomiting abdominal pain or diarrhea. Continued on dexamethasone and Lovenox and multivitamins. Current medications reviewed. Objective - Vital Signs Vital signs: Vital Signs Temp 98.2 F 08/17/20 19:23 Pulse 81 08/17/20 19:23 Resp 16 08/17/20 20:00 BP 108/75 08/17/20 19:23 Pulse Ox 95 08/17/20 19:23 Intake & Output 08/17/20 08/17/20 08/18/20 06:59 18:59 06:59 Intake Total 582 112 200 Output Total 575 2530 300 Balance 7 -2368 -100 Intake: IV 342 12 0.9 NS 300 pressure bag 42 12 Oral 240 100 200 Output: Urine 575 2530 300 Other: Voiding Method Indwelling Catheter Indwelling Catheter Indwelling Catheter # Voids 1 ABP, PAP, CO, CI - Last Documented Arterial Blood Pressure 118/60 - Exam PHYSICAL EXAMINATION: Patient is lying in the bed comfortably, no acute distress, awake alert and oriented. Morbidly obese..Seems to be weak and lethargic. HEENT: Normocephalic. Neck is supple. Pupils reactive. Nostrils clear. Oral cavity is moist. Ears reveal no drainage. Neck reveals no JVD, carotid bruits, or thyromegaly. CHEST EXAMINATION: Trachea is central. Symmetrical expansion. Bibasilar diminished air entry. No wheezing or rhonchi.. CARDIAC: Normal S1, S2 with no gallops. No murmurs ABDOMEN: Soft. Bowel sounds normal. No organomegaly. No abdominal bruits. Extremities: reveal no edema. No clubbing or cyanosis Neurologically awake, alert, oriented x3 with well-coordinated movements. No focal deficits noted Skin: No rash or skin lesions. Psychiatric: Coperative. Nonsuicidal Musculoskeletal: No joint swelling or deformity. Normal range of motion. - Labs CBC & Chem 7: 08/17/20 04:30 08/17/20 04:30 Labs: Abnormal Lab Results - Last 24 Hours (Table) 08/17/20 08/17/20 08/17/20 Range/Units 00:16 04:30 04:30 Plt Count (150-450) k/uL Lymphocytes # (1.0-4.8) k/uL D-Dimer 2.89 H (<0.60) mg/L FEU Carbon Dioxide (22-30) mmol/L BUN (7-17) mg/dL Glucose (74-99) mg/dL POC Glucose (mg/dL) 115 H (75-99) mg/dL AST (14-36) U/L ALT (4-34) U/L Creatine Kinase 214 H (30-135) U/L Total Protein (6.3-8.2) g/dL 08/17/20 08/17/20 08/17/20 Range/Units 04:30 04:30 06:11 Plt Count 128 L (150-450) k/uL Lymphocytes # 0.9 L (1.0-4.8) k/uL D-Dimer (<0.60) mg/L FEU Carbon Dioxide 35 H (22-30) mmol/L BUN 26 H (7-17) mg/dL Glucose 120 H (74-99) mg/dL POC Glucose (mg/dL) 106 H (75-99) mg/dL AST 48 H (14-36) U/L ALT 138 H (4-34) U/L Creatine Kinase (30-135) U/L Total Protein 5.9 L (6.3-8.2) g/dL 08/17/20 08/17/20 Range/Units 12:06 17:04 Plt Count (150-450) k/uL Lymphocytes # (1.0-4.8) k/uL D-Dimer (<0.60) mg/L FEU Carbon Dioxide (22-30) mmol/L BUN (7-17) mg/dL Glucose (74-99) mg/dL POC Glucose (mg/dL) 152 H 103 H (75-99) mg/dL AST (14-36) U/L ALT (4-34) U/L Creatine Kinase (30-135) U/L Total Protein (6.3-8.2) g/dL Assessment and Plan Assessment: Bilateral covid pneumonia Acute hypoxic respiratory failure needing mechanical ventilation. Status post extubation on 08/16/2020 Increased inflammatory markers Hypertension History of fibromyalgia History of COPD/asthma History of nonalcoholic fatty liver disease History of migraine Pain and cervical pain and degenerative disc disease History of kidney stones and UTI. History of schizophrenia, depression and bipolar Morbid obesity with BMI 62.5 Plan: This is a pleasant 40 years old female who presents with covid pneumonia. Continue with vitamin C, vitamin D and zinc. Also continue with Lovenox and steroids. Status post extubation on 08/16/2020 Labs and medication were reviewed. Continue with symptomatic treatment. Monitor lytes and vitals. DVT and GI prophylaxis. Further recommendationsas per clinical course of the patient DVT prophylaxis: Subcutaneous Lovenox GI Prophylaxis: Ppi Prognosis is guarded Time with Patient: Greater than 30
[2020-08-17 23:31] LABS: Glucose,Whole Blood 86 mg/dL (75-99)
[2020-08-18 05:53] LABS: Glucose,Whole Blood 87 mg/dL (75-99)
[2020-08-18] MEDS: INSULIN ASPART (NovoLOG) 100 UNIT/ML VIAL SQ SCH ×3 (06:09→17:58)
[2020-08-18] MEDS: ALBUTEROL HFA INHALER INHALATION SCH ×3 (07:26→15:37)
[2020-08-18] MEDS ORDERED: PANTOPRAZOLE 40 MG TABLET PO SCH (07:30)
[2020-08-18] MEDS: DOCUSATE 100 MG CAP PO SCH (08:43)
[2020-08-18] MEDS: CHOLECALCIFEROL 25 MCG (1000 IU) TABLET PO SCH (08:43)
[2020-08-18] MEDS: lamoTRIgine 100 MG TAB PO SCH (08:43)
[2020-08-18] MEDS: ZINC SULFATE 220 MG CAP PO SCH (08:43)
[2020-08-18] MEDS: SERTRALINE 100 MG TAB PO SCH (08:43)
[2020-08-18] MEDS: ASCORBIC ACID 500 MG TAB PO SCH (08:43)
[2020-08-18] MEDS: DEXAMETHASONE SOD PHOSPHATE 10 MG/ML 1 ML VIAL IV SCH (08:44)
[2020-08-18] MEDS: BENZTROPINE MESYLATE 1 MG TAB PO SCH (08:44)
[2020-08-18] MEDS: OXYBUTYNIN XL 5 MG TAB.ER.24 PO SCH (08:44)
[2020-08-18] MEDS: ENOXAPARIN 40 MG/0.4 ML SYRINGE SQ SCH (08:45)
[2020-08-18] MEDS: ATOMOXETINE HCL 60 MG PO SCH (08:49)
--- NOTE | 2020-08-18 09:45 | XR ---
EXAMINATION TYPE: XR chest 1V portable DATE OF EXAM: 08/18/2020 COMPARISON: 08/17/2020 INDICATION: Covid TECHNIQUE: Single frontal view of the chest is obtained. FINDINGS: The heart size is mildly prominent. The pulmonary vasculature is prominent. Diffuse increased lung markings are present bilaterally. Findings may be worsened. This may be relate d to less optimal inspiration. Right central venous catheter is present with the tip in the right atrium IMPRESSION: 1. Apparent worsening diffuse infiltrate bilaterally. Differential can include atypical pneumonia and congestive heart failure.
[2020-08-18 12:05] LABS: Glucose,Whole Blood 144 mg/dL (75-99)
[2020-08-18 12:39] LABS: Basophils # (A) 0.01 X 10*3/uL (0.00-0.10); Basophils % (A) 0.2 %; Eosinophils # (A) 0.07 X 10*3/uL (0.04-0.35); Eosinophils % (A) 1.7 %; HCT 40.3 % (37.2-46.3); HGB 12.5 g/dL (12.0-15.0); Lymphocytes # (A) 0.87 X 10*3/uL (0.90-5.00); Lymphocytes % (A) 20.9 %; MCV 90.4 fL (80.0-97.0); Monocytes # (A) 0.65 X 10*3/uL (0.20-1.00); Monocytes % (A) 15.6 %; Neutrophils # (A) 2.55 X 10*3/uL (1.80-7.70); Neutrophils % (A) 61.1 %; Platelet Count 115 X 10*3/uL (140-440); RBC 4.46 X 10*6/uL (4.10-5.20); RDW 14.6 % (11.5-14.5); WBC 4.17 X 10*3/uL (4.50-10.00)
[2020-08-18 13:15] LABS: African American GFR (CKD) 131.2 (60.0-200.0); Albumin 3.7 g/dL (3.80-4.90); Albumin/Globulin Ratio 2.18 (1.60-3.17); Anion Gap 10.5 mmol/L (4.00-12.00); Calcium 8.9 mg/dL (8.7-10.3); Carbon Dioxide 32.5 mmol/L (21.6-31.8); Globulin 1.7 g/dL (1.6-3.3); Non-African American GFR(CKD) 113.2 (60.0-200.0); Potassium 3.8 mmol/L (3.5-5.5); Total Bilirubin 1.1 mg/dL (0.2-1.2); Total Protein 5.4 g/dL (6.2-8.2)
--- NOTE | 2020-08-18 13:16 | P.PN ---
Subjective Progress Note Date: 08/18/20 Principal diagnosis: Acute hypoxemic respiratory failure secondary to CoVID 19 pneumonia/pneumonitis This is a pleasant 40-year-old female patient who has a history of obesity, fi bromyalgia, hypertension, fatty liver disease, asthma schizophrenia, marijuana use. She presented to the emergency room yesterday with complaints of increasing shortness of breath, dizziness and lightheadedness. She states she had gotten a first dose of the CoVID vaccine on July 28 and started having symptoms shortly after that. She had symptoms of progressive shortness of breath, fever, chills. She tested positive for the CoVID 19 infection. CAT scan of the chest ruled out pulmonary embolism. There is extensive bilateral pneumonia bilaterally. White count 4.2. Hemoglobin 13.2. Lymphocytes 0.4. D- dimer 1.05. Sodium 137. Potassium 3.7. Creatinine 0.62. AST 200, ALT 114. Pro-calcitonin 0.15. LDH 1382. C-reactive protein 170. She is seen today in consultation in the intensive care unit. She is currently on BiPAP 14/7 and 100% FiO2 to maintain O2 saturations in the mid to upper 80s. She has been initiated on bronchodilators, Lovenox, dexamethasone vitamin supplements The patient is seen today 08/07/2020 in follow-up in the intensive care unit. She ended up requiring intubation mechanical ventilatory support earlier this morning for continued poor oxygenation. She is currently on mechanical ventilator with assist control mode at a rate of 26, tidal volume 400, FiO2 100% and a PEEP of 17. Blood gases revealed a pO2 of 87, pCO2 61, pH 7.38. She is now sedated on propofol 50 mcg/kg/m, Nimbex at 2 mcg/kg/m, fentanyl at 1 mcg/kg per hour. Normal saline at 75 ML's per hour. She does now qualify for tocilizumab, however, none is available today. We will order convalescent plasma. Right internal jugular triple lumen catheter and right radial arterial lines were placed this morning. Blood cultures reveal no growth. White count 3.9. Hemoglobin 12.7. D-dimer 1.74. Sodium 142. Potassium 3.9. Creatinine 0.68. Lactic dehydrogenase 1583. Creatinine kinase 5648. She remains on Lovenox, dexamethasone, vitamin supplements. Progress note dated 08/08/2020. This is a 40-year-old female, quite obese, admitted on August 05, with COVID 19 pneumonia. The patient was intubated on August 07 for worsening respiratory status. Currently, she is on the volume assist control mode, rate is 26, tidal volume 400, FiO2 now down to 70%, PEEP of 18. Arterial blood gases on 85%, show pO2 147, a CO2 of 55, and a pH is 7.43. The patient is receiving saline at 75 mL an hour, fentanyl 1 mcg/kg/h, propofol at 40 mcg/kg/m, and Nimbex at 1 mcg/m. The patient we started on tube feeds today. We did order TOCI on this patient. It may or may not be available. The Rocephin was discontinued. White count is 3.9, hemoglobin 12, hematocrit 36.2, platelet count 153,000. D-dimer is 3.23. Sodium 143, potassium 4.5, chlorides 103, CO2 38, anion gap 2, BUN 14, and c reatinine 0.61. Chest x-ray shows diffuse bilateral infiltrates. Progress note dated 08/09/2020. 40-year-old female, admitted on August 05 with COVID 19 pneumonia. The patient was intubated on August 07 for worsening respiratory failure. Currently, she remains on mechanical ventilator. She is on the volume assist control mode, rate 26, tidal volume 400, FiO2 65%, and a PEEP of 18. The blood gases show a PaO2 of 135, he's a CO2 of 55, the pH is 7.44. The FiO2 will be reduced down to 50%. Currently, patient's on saline at 75 mL an hour, fentanyl at 1 mcg/kg/h, Nimbex at 1 mcg/kg/m, propofol at 40 g kilogram per minute, vital high protein at 41 cc per hour, which is goal. In addition to reducing the FiO2 down to 50%, we'll see if we can discontinue the Nimbex. White count 3.4, hemoglobin and hematocrit and platelet count all normal. Sodium 140, potassium 4.4, chlorides 104, CO2 37, BUN 15, and creatinine 0.57. Chest x-ray show slightly improved infiltrates in both lungs. The patient is seen today 08/10/2020 in follow-up in the intensive care unit. She remains intubated on the mechanical ventilator and assist control mode with a rate of 26, tidal on 400, FiO2 50% and a PEEP of 18. Morning blood gases revealed a PaO2 122, pCO2 49, pH 7.47. She is sedated on propofol at 40 mcg/kg/m. Fentanyl at 1 mcg/kg per hour. 0.9 normal saline at 75 ML's per hour. She is being nourished with vital HP at 41 mL per hour which is goal. Blood cultures reveal no growth. Sputum culture positive for strep agalactiae, group B. White count 3.4. Hemoglobin 12.2. Lymphocytes 0.4. Sodium 143. Potassium 4.6. Creatinine 0.65. AST 223. ALT 318. She remains on dexamethasone, Lovenox, vitamin supplements. Antibiotics in the form of ceftriaxone. The patient is seen today 08/11/2020 and follow-up in the intensive care unit. She remains intubated on the mechanical ventilator at assist control mode at a rate of 26, tidal volume 400, FiO2 50% and a PEEP of 15. Morning blood gases revealed a PaO2 of 87, pCO2 50, pH 7.44. Currently sedated on propofol at 30 mcg/kg/m. Fentanyl at 1 mcg/mg per hour. 0.9 normal saline at 75 ML's per hour. Vital HP at 58 MLS per hour which is goal. Doppler of the lower extremities were negative for DVT. Chest x-ray reveals bibasilar opacities. Stable compared to previous. Blood cultures reveal no growth. Sputum cultures revealed few strep agalactiae group B. White count 3.5. Hemoglobin 12.0. Lymphocytes 0.5. D-dimer 3.50. Sodium 140. Potassium 4.7. Creatinine 0.60. LDH 1100. C-reactive protein 14.7. She remains on ceftriaxone. Continued on dexamethasone, Lovenox, vitamin supplements. The patient is seen today 08/12/2020 and follow-up in the intensive care unit. She remains intubated and sedated on the mechanical ventilator currently assist- control mode, rate of 26, FiO2 50%, tidal volume 400, PEEP of 10. Morning blood gases reveal a pO2 of 75, pCO2 50, pH 7.43. She is sedated on propofol at 30 mcg/kg/m. 0.9 normal saline at 75 ML's per hour. Fentanyl drip at 1 mcg/kg per hour. Vital HP at 56 ML's per hour which is goal. His chest x-ray reveals cardiomegaly with slight worsening of interstitial bilateral infiltrates. She did receive 1 unit of convalescent plasma. White count 4.5. Hemoglobin 12.2. D-dimer 3.8. Sodium 138. Potassium 4.6. Creatinine 0.53. LDH 737. C- reactive protein 9.7. Continued on dexamethasone, Lovenox, vitamin supplements. Antibiotics in the form of ceftriaxone. Previous sputum culture positive for strep agalactiae group B. Blood cultures revealed no growth. The patient is seen today 08/13/2020 and follow-up in the intensive care unit. She remains intubated and on mechanical ventilator. Current settings are assist-control mode at a rate of 26, tidal volume 400, FiO2 50% and a PEEP of 10. Arterial blood gases reveal a P O2 of 77, pCO2 52, pH 7.43. She is sedated on propofol 50 mcg/kg/m. 0.9 normal saline at 75 ML's per hour. Being nourished with vital HP 58 MLS per hour which is goal. Chest x-ray reveals cardiomegaly with prominent pulmonary vascular markings. Bibasilar infiltrates continued. She did receive convalescent plasma 1. Blood cultures revealed no growth. Sputum culture revealed no growth. White count 4.4. Hemoglobin 12.3. Lymphocytes 0.5. Sodium 134. Potassium 4.2. Creatinine 0.48. AST 47. ALT 227. She remains on dexamethasone, Lovenox, vitamin supplements. The patient is seen today 08/14/2020 in follow-up in the intensive care unit. She remains intubated and on the mechanical ventilator. Currently on assist control mode at a rate of 26, tidal volume 400, FiO2 50% and a PEEP of 10. Morning blood gases reveal a pO2 of 79, pCO2 49, pH 7.45. She remains sedated on propofol at 50 mcg/kg/m. 0.9 normal saline at 75 ML's per hour. Vital HP at 58 MLS per hour which is goal. Yesterday she did go on pressure support of 10 and a CPAP of 5 for about 30 minutes before she became restless and agitated tac hypneic and tachycardic. Chest x-ray continues to show cardiomegaly with prominent vascular markings. Bibasilar infiltrates. White count 4.5. Hemoglobin 12.6. Lymphocytes 0.5. D-dimer 2.8. Sodium 134. Potassium 4.4. Creatinine 0.48. AST 35. ALT 176. Remains on ceftriaxone. Continued on dexamethasone, Lovenox, vitamin supplements. Received 1 unit of convalescent plasma. 08/15/2020 the patient remains in the intensive care unit intubated on a mechanical ventilator. Is a morbidly obese 40-year-old male patient with COVID 19 pneumonia and secondary respiratory failure. The patient also has morbid obesity with a BMI of 62, fibromyalgia, hypertension, chronic fatty liver disease, asthma, schizophrenia and he has utilized marijuana. The patient was initially diagnosed with colitis on 07/28/2020. Initial CAT scan of the chest showed diffuse bilateral dullness of pulmonary infiltrates and the patient did not have pulmonary embolism. During the course of his treatment, the patient was given steroids, Tocilizumab and convalescent plasma. The patient has been intubated since 08/07/2020. The patient remains on a mechanical ventilator. On today's evaluation, the patient is sedated with propofol running at 50 mg/kg/m. patient is currently off paralytics. On a mechanical ventilator, the patient is at the rate of 26 with a tidal volume of 400 and FiO2 of 50% with a PEEP of 10. Not ready for weaning based on yesterday's evaluation and the patient was given a short trial of this point is breathing with pressure support and obviously the patient failed. The blood gases from today showed a pH of 7.47 with a pCO2 of 47 and pO2 of 97. The chest x-ray from today is showing cardiomegaly and bilateral pulmonary infiltrates more so in the lung bases. ET tube is in a good location. Orogastric tube is also in good location. D-dimer today is at 2.08 and the patient's LDH level is down to 393 and the CRP level is at 6.8. The Blood Work and Electrodes Are All within Normal Limits. The patient currently is on Lovenox 40 mg subcu for DVT prophylaxis. The patient is also on she Decadron 6 mg IV every 12 hours. Sedation is with a combination of propofol and fentanyl. He did have strep in his sputum on 08/13/2020 and the patient was given IV Rocephin accordingly. He is on a sliding scale of NovoLog for blood sugar control. The patient is on enteral feeding for nutritional support and the patient is on vital high protein at 50 mL an hour which is goal. The patient chest x-ray showed cardiomegaly and prominent vascular markings bilaterally and bilateral pulmonary infiltrates. 08/16/2020, the patient is being seen in follow-up. This is a case of Covid pneumonia and the patient remains intubated on a mechanical ventilator. The patient is morbidly obese with a BMI of 62 and she has multiple other medical problems and comorbidities. On today's evaluation, Niki is on a propofol drip which is running at 50 mcg/kg per minute. The patient is on no paralytics for now. The patient has been intubated since 08/07/2020. The patient currently is on a PEEP of 6, FiO2 of 40%, tidal volume of 400 and the rate of 26. The blood gases from today shows a pH of 7.46 with a pCO2 of 45 and pO2 of 75. The chest x-ray from today is showing lower lobe at the pulmonary infiltrates, consolidations which are essentially stable. The patient has cardiomegaly. ET tube is in a good location. The patient is afebrile. The patient is hemodynamically stable. No hypotension. In terms of her blood work, she has a normal white count, or d-dimer is at 1.76, her LDH level is at 421, CRP level is at 7, rest of the blood work and electrodes are all within normal limits pH carry some degree of metabolic alkalosis. The patient remains on IV Rocephin that was discontinued yesterday, the patient is on Decadron 6 mg IV every 24 hours and the patient is also on Lovenox 40 mg subcu for DVT prophylaxis. The fluid balance over the past 24 hours has been +568 mL. On today's evaluation of 08/17/2020, the patient extubated and currently she is on 40 production by nasal cannula. She is awake and alert and she is doing well. No significant respiratory distress. She is following commands. The patient has a follow-up chest x-ray today that shows cardiomegaly and there is some persistent infiltration of the lung bases bilaterally. She also has a central line in her right IJ. Otherwise, the blood work from today is essentially within normal limits. D-dimer is at 2.89 and electrodes are all within normal limits, her LDH is down to 529 and a BUN is 26 with a creatinine of 0.5. Fluid balance over the past 24 hours has been -1 L. As such, the carla arevalo is doing well. She is on Decadron. She is on Lovenox EDMOND be transferred out to a medical floor. She was extubated yesterday without any major difficulties. The patient is seen today 08/18/2020 in follow-up on the regular medical floor. She is currently awake and alert in no acute distress. Resting quite comfortably in bed. She is down to 2 L/m per nasal cannula to maintain O2 saturations in the 90s. Chest x-rays continue to show bilateral patchy infiltrates. She did receive tocilizumab and convalescent plasma. She remains on Lovenox, dexamethasone, vitamin supplements. White count 4.1. Hemoglobin 12.5. Platelet count 1:15. Leukocyte 0.7. D-dimer 2.91. Objective - Vital Signs Vital signs: Vital Signs Temp 97.6 F 08/18/20 07:15 Pulse 80 08/18/20 07:15 Resp 18 08/18/20 07:15 BP 105/70 08/18/20 07:15 Pulse Ox 97 08/18/20 10:53 Intake & Output 08/17/20 08/18/20 08/18/20 18:59 06:59 18:59 Intake Total 112 200 Output Total 2530 600 Balance -2418 -400 Weight 172.5 kg Intake: IV 12 pressure bag 12 Oral 100 200 Output: Urine 2530 600 Other: Voiding Method Indwelling Catheter Indwelling Catheter Indwelling Catheter # Voids 1 2 ABP, PAP, CO, CI - Last Documented Arterial Blood Pressure 118/60 - Exam GENERAL EXAM: Awake, alert, morbidly obese pleasant 40-year-old female patient, and 2 L of oxygen by nasal cannula and she is calm and comfortable HEAD: Normocephalic. EYES: Normal reaction of pupils, equal size. NOSE: Clear with pink turbinates. THROAT: Oral endotracheal and gastric tube secured in place. No erythema or exudates. NECK: No masses, no JVD. CHEST: No chest wall deformity. LUNGS: Equal air entry with bibasilar crackles. CVS: S1 and S2 normal with no audible murmur, regular rhythm. ABDOMEN: No hepatosplenomegaly, normal bowel sounds, no guarding or rigidity. SPINE: No scoliosis or deformity SKIN: No rashes CENTRAL NERVOUS SYSTEM: Awake, alert, has motor weakness, following commands and answering questions appropriately EXTREMITIES: There is no peripheral edema. No clubbing, no cyanosis. Peripheral pulses are intact. - Labs CBC & Chem 7: 08/18/20 07:09 08/17/20 04:30 Labs: Abnormal Lab Results - Last 24 Hours (Table) 08/17/20 08/18/20 08/18/20 Range/Units 17:04 07:09 07:09 WBC 4.17 L (4.50-10.00) X 10*3/uL MCHC 31.0 L (32.0-37.0) g/dL RDW 14.6 H (11.5-14.5) % Plt Count 115 L (140-440) X 10*3/uL Lymphocytes # 0.87 L (0.90-5.00) X 10*3/uL D-Dimer 2.91 H (<0.60) mg/L FEU POC Glucose (mg/dL) 103 H (75-99) mg/dL 08/18/20 Range/Units 12:04 WBC (4.50-10.00) X 10*3/uL MCHC (32.0-37.0) g/dL RDW (11.5-14.5) % Plt Count (140-440) X 10*3/uL Lymphocytes # (0.90-5.00) X 10*3/uL D-Dimer (<0.60) mg/L FEU POC Glucose (mg/dL) 144 H (75-99) mg/dL Assessment and Plan Assessment: 1 Acute hypoxemic respiratory failure secondary to acute CoVID 19 pneumonia/pne umonitis requiring intubation and mechanical ventilatory support on 08/07/2020. Received tocilizumab. Received convalescent plasma. 2 Transaminitis in a patient with a known history of fatty liver disease versus CoVID 19 infection 3 Elevated inflammatory markers secondary to above 4 Morbid obesity 5 History of bipolar disorder 6 History of schizophrenia 7 History of chronic bronchial asthma 8 History of fibromyalgia 9 Hypertension 10 Gastric esophageal reflux disease Plan: The patient was seen and evaluated by Dr.Artinian Chest x-ray and labs reviewed Remains on Lovenox, dexamethasone, vitamin supplements Down to 2 L nasal cannula and stable We'll continue to follow
[2020-08-18 14:04] VITALS: BMI 61.4
--- NOTE | 2020-08-18 14:15 | P.DS ---
Providers Date of admission: 08/05/20 14:09 Expected date of discharge: 08/18/20 Attending physician: Maria Elena Rangel Consults: 08/05/20 14:09 Consult Physician Urgent Consulting Provider: Porsha Arzola Consult Reason/Comments: COVID pneumonia Do you want consulting provider notified?: Yes 08/05/20 17:23 Consult Physician Routine Consulting Provider: Ade Lino Consult Reason/Comments: covid Do you want consulting provider notified?: Yes Primary care physician: Vinayak Britton Hospital Course: Final diagnosis Bilateral covid 19 pneumonia Acute hypoxic respiratory failure needing mechanical ventilation. Status post extubation on 08/16/2020 Increased inflammatory markers Hypertension History of fibromyalgia History of COPD/asthma History of nonalcoholic fatty liver disease History of migraine Pain and cervical pain and degenerative disc disease History of kidney stones and UTI. History of schizophrenia, depression and bipolar Morbid obesity with BMI 62.5 Full code Discharge disposition Patient is being discharged in a stable condition with guarded prognosis to [facility] for continued PT/OT therapy. Patient will follow-up with Dr. Licea in the outpatient setting upon discharge. Patient is to continue with eczema was on 6 mg daily for the next 4 days to complete the course. Patient will need to follow-up with pulmonary in the outpatient setting. Total time taken is greater than 35 minutes. Hospital course Acute hypoxic respiratory failure requiring mechanical ventilation. This is a pleasant 40 years old female with past medical history of fibromyalgia, GERD, hypertension, COPD/asthma, non-alcoholic fatty liver disease, migraines, chronic back and cervical pain, degenerative disc disease, kidney stone and UTI. Presents with dyspnea and found to have bilateral COVID- 19 pneumonia. Patient currently is intubated and sedated in the ICU with pulmonary/critical care team following her closely No issues overnight, no sedation trial today. She is currently on fentanyl and propofol.no pressors. Also she is on vitamin C, vitamin D and zinc, she is on ceftriaxone, dexamethasone IV 6 mg twice a day, she is on normal saline 75 mL/h, Lovenox 40 mg twice a day She is status post tocizilumab and convalescent plasma 08/18/2020 Patient is seen and evaluated in follow-up this morning recently extubated 2 days ago and maintained on 3 L of oxygen at 95% oxygen saturation and tolerating well. Patient is tolerating diet of clear liquids and slowly being advanced to consistent carb. She is maintained on dexamethasone and will continue for the next 4 days and then may discontinue. Patient to continue with indwelling Kerns catheter as well until more mobile. Patient continues to be weak and needs continued daily PT/OT therapy for strengthening mobility. Patient will need to follow-up outpatient with her primary care provider upon discharge along with pulmonary in the outpatient setting. Currently maintained on 3 L via nasal cannula and titrate as tolerated. Patient to continue with daily Lovenox injections until more mobile as well. Currently no reports of chest pain, worsening shortness of breath, or palpitations. Patient is afebrile. No reports of nausea or vomiting and patient is tolerating diet. Patient will be going to [facility] on the [facility] today. On exam vital signs are stable. Temp is 97.6F, pulse is 80, respirations are 18, blood pressure is 105/70, oxygen saturation is 95% on 3 L via nasal cannula. Cardio S1, S2 are muffled. Respiratory system shows diminished breath sounds at the bases with no wheezing or rhonchi noted. Abdomen is soft and obese, and nontender. Nervous system shows diffuse weakness. Please refer to medication reconciliation sheet for a list of medications. Patient Condition at Discharge: Fair Plan - Discharge Summary Discharge Rx Participant: Yes New Discharge Prescriptions: New Dexamethasone [Decadron] 6 mg PO DAILY 4 Days #4 tablet INSULIN ASPART (NovoLOG) [NovoLOG (formulary)] 0 unit SQ Q6HR vial Albuterol Inhaler [Ventolin Hfa Inhaler] 2 puff INHALATION RT-QID PRN puff PRN Reason: Shortness Of Breath Or Wheezing Ascorbic Acid [Vitamin C] 500 mg PO DAILY tab Docusate [Colace] 100 mg PO BID cap Enoxaparin [Lovenox] 40 mg SQ DAILY syringe Zinc Sulfate [Orazinc] 220 mg PO DAILY cap Pantoprazole [Protonix] 40 mg PO AC-BRKFST tablet. traMADol HCl [Ultram] 100 mg PO QID PRN #10 tab PRN Reason: Headache Albuterol Inhaler [Ventolin Hfa Inhaler] 2 puff INHALATION RT-QID puff Cholecalciferol [Vitamin D3 (25 Mcg = 1000 Iu)] 25 mcg PO DAILY tablet Continue Paliperidone IM [Invega Sustenna] 234 mg IM Q28D Sertraline HCl [Zoloft] 100 mg PO BID Loratadine [Claritin] 10 mg PO DAILY Advair Unkown Dose 1 puff INHALATION RT-DAILY PRN PRN Reason: Shortness Of Breath Benztropine Mesylate 1 mg PO BID #4 tab Atomoxetine HCl [Strattera] 60 mg PO DAILY #4 cap Oxybutynin Chloride [Ditropan XL] 5 mg PO DAILY lamoTRIgine [LaMICtal] 150 mg PO BID #6 tab Discontinued metFORMIN HCL [Glucophage] 500 mg PO DAILY Discharge Medication List Loratadine [Claritin] 10 mg PO DAILY 11/19/18 [History] Paliperidone IM [Invega Sustenna] 234 mg IM Q28D 11/19/18 [History] Sertraline HCl [Zoloft] 100 mg PO BID 11/19/18 [History] Advair Unkown Dose 1 puff INHALATION RT-DAILY PRN 07/16/19 [History] Oxybutynin Chloride [Ditropan XL] 5 mg PO DAILY 08/05/20 [History] Albuterol Inhaler [Ventolin Hfa Inhaler] 2 puff INHALATION RT-QID puff 08/18/20 [Rx] Albuterol Inhaler [Ventolin Hfa Inhaler] 2 puff INHALATION RT-QID PRN puff 08/18/20 [Rx] Ascorbic Acid [Vitamin C] 500 mg PO DAILY tab 08/18/20 [Rx] Atomoxetine HCl [Strattera] 60 mg PO DAILY #4 cap 08/18/20 [Rx] Benztropine Mesylate 1 mg PO BID #4 tab 08/18/20 [Rx] Cholecalciferol [Vitamin D3 (25 Mcg = 1000 Iu)] 25 mcg PO DAILY tablet 08/18/20 [Rx] Dexamethasone [Decadron] 6 mg PO DAILY 4 Days #4 tablet 08/18/20 [Rx] Docusate [Colace] 100 mg PO BID cap 08/18/20 [Rx] Enoxaparin [Lovenox] 40 mg SQ DAILY syringe 08/18/20 [Rx] INSULIN ASPART (NovoLOG) [NovoLOG (formulary)] 0 unit SQ Q6HR vial 08/18/20 [Rx] Pantoprazole [Protonix] 40 mg PO AC-BRKFST tablet. 08/18/20 [Rx] Zinc Sulfate [Orazinc] 220 mg PO DAILY cap 08/18/20 [Rx] lamoTRIgine [LaMICtal] 150 mg PO BID #6 tab 08/18/20 [Rx] traMADol HCl [Ultram] 100 mg PO QID PRN #10 tab 08/18/20 [Rx] Follow up Appointment(s)/Referral(s): Reba Licea MD [Primary Care Provider] - 1-2 days Phil Starks MD [STAFF PHYSICIAN] - 1 Week Activity/Diet/Wound Care/Special Instructions: Patient is going to [facility] on the [facility] Activity as tolerated Needs daily PT/OT therapy Continue with oxygen and titrate as tolerated Continue with indwelling Kerns catheter until more mobile Continue with dexamethasone for the next 4 days and then may discontinue Continue with Lovenox subcutaneous injections daily until more mobile Follow-up with primary care provider upon discharge Continue with consistent carb diet and advance slowly as tolerated continue to monitor blood sugars before meals and at bedtime and treat accordingly with sliding scale NovoLog sliding scale 0-150 equals 0 units 151-200 equals 2 units 201-250 equals 4 units 251-300 equals 6 units 301-350 equals 8 units 351-400 equals 10 units Please notify provider if blood sugar is 400 or above Follow-up of pulmonary outpatient Discharge Disposition: TRANSFER TO SNF/ECF
[2020-08-18 14:34] VITALS: BP 126/79; PULSE 88; RESP 20; TEMP 98.5
[2020-08-18 17:02] LABS: Glucose,Whole Blood 128 mg/dL (75-99)
[2020-08-18] MEDS: SODIUM CHLORIDE 0.9% 1,000 ML IV SCH (17:58)
--- NOTE | 2020-08-19 14:01 | CDI ---
Documentation Clarification Form Date: 08/19/20 From: Echo Oliveira Phone: Admit Date: 08/05/2020 02:09:00 PM Patient Name: Niki German Visit Number: [id number] Discharge Date: 08/18/2020 06:30:00 PM ATTENTION: The Clinical Documentation Specialists (CDI) and [facility] Coding Staff appreciate your assistance in clarifying documentation. Please respond to the clarification below the line at the bottom and electronically sign. The CDI & [facility] Coding staff will review the response and follow-up if needed. Please note: Queries are made part of the Legal Health Record. If you have any questions, please contact the author of this message via ITS. Dr. Maria Elena Rangel, Possible sepsis is documented in the H&P, in your progress notes 08/05-08/10, but is not noted in subsequent documentation. Clarification is requested. History/Risk Factors: Morbid obesity w BMI 61.4, mental health issues, COPD/Asthma, hypertensive heart disease wo heart failure Clinical Indicators: Acute bilateral COVID-19 interstitial pneumonia with acute hypoxic hypercarbic respiratory failure. Possible sepsis with elevated lactic acid 5.9, T-102.2, P-121, R-56, BP-109/55 present on admission. Treatment: IV fluids, IV Rocephin on .4 Please clarify if the sepsis due to COVID] is: [ ] Sepsis due to COVID-POA [ ] Sepsis due to COVID-Not POA [ ] Sepsis ruled [ ] Other condition, please specify [ ] Unable to determine POSSIBLE Sepsis due to COVID-POA MTDD
== END 2020-08-18 18:30 | DRG 870 ==
LOC: EC 10:48 → 3SCARD 14:09 → 2SICU 08-06 01:27 → 6NMEDSUR 08-17 11:09
PROVIDERS: ADMIT Hospitalist; ATTEND Hospitalist
PROC: 5A09457 Assistance with Respiratory Ventilation, 24-96 Consecutive Hours, Continuous Positive Airway Pressure (ICD-10-PCS; 2020-08-05)
PROC: 0BH17EZ Insertion of Endotracheal Airway into Trachea, Via Natural or Artificial Opening (ICD-10-PCS; principal; 2020-08-07)
PROC: 5A1955Z Respiratory Ventilation, Greater than 96 Consecutive Hours (ICD-10-PCS; principal; 2020-08-07)
PROC: 0D9670Z Drainage of Stomach with Drainage Device, Via Natural or Artificial Opening (ICD-10-PCS; principal; 2020-08-07)
PROC: XW13325 Transfusion of Convalescent Plasma (Nonautologous) into Peripheral Vein, Percutaneous Approach, New Technology Group 5 (ICD-10-PCS; 2020-08-07)
PROC: 4A133B1 Monitoring of Arterial Pressure, Peripheral, Percutaneous Approach (ICD-10-PCS; 2020-08-07)
PROC: 02H633Z Insertion of Infusion Device into Right Atrium, Percutaneous Approach (ICD-10-PCS; 2020-08-07)
PROC: 4A133J1 Monitoring of Arterial Pulse, Peripheral, Percutaneous Approach (ICD-10-PCS; 2020-08-07)
PROC: 03HY32Z Insertion of Monitoring Device into Upper Artery, Percutaneous Approach (ICD-10-PCS; 2020-08-07)
PROC: XW033H5 Introduction of Tocilizumab into Peripheral Vein, Percutaneous Approach, New Technology Group 5 (ICD-10-PCS; 2020-08-08)
PROC: 3E0G76Z Introduction of Nutritional Substance into Upper GI, Via Natural or Artificial Opening (ICD-10-PCS; 2020-08-08)
PROC: 4A133B1 Monitoring of Arterial Pressure, Peripheral, Percutaneous Approach (ICD-10-PCS; 2020-08-10)
PROC: 4A133J1 Monitoring of Arterial Pulse, Peripheral, Percutaneous Approach (ICD-10-PCS; 2020-08-10)
PROC: 03HY32Z Insertion of Monitoring Device into Upper Artery, Percutaneous Approach (ICD-10-PCS; 2020-08-10)
DX: A41.89 Other specified sepsis (principal); U07.1 COVID-19; J12.82 Pneumonia due to coronavirus disease 2019; N17.0 Acute kidney failure with tubular necrosis; J15.3 Pneumonia due to streptococcus, group B; J96.01 Acute respiratory failure with hypoxia; J96.02 Acute respiratory failure with hypercapnia; E87.4 Mixed disorder of acid-base balance; Z68.44 Body mass index [BMI] 60.0-69.9, adult; M62.82 Rhabdomyolysis; F31.30 Bipolar disorder, current episode depressed, mild or moderate severity, unspecified; J44.0 Chronic obstructive pulmonary disease with (acute) lower respiratory infection; D69.6 Thrombocytopenia, unspecified; E66.01 Morbid (severe) obesity due to excess calories; F20.9 Schizophrenia, unspecified; I11.9 Hypertensive heart disease without heart failure; E87.6 Hypokalemia; K21.9 Gastro-esophageal reflux disease without esophagitis; K44.9 Diaphragmatic hernia without obstruction or gangrene; M79.7 Fibromyalgia; M54.2 Cervicalgia; G89.29 Other chronic pain; M54.9 Dorsalgia, unspecified; K76.0 Fatty (change of) liver, not elsewhere classified; M19.90 Unspecified osteoarthritis, unspecified site; K59.00 Constipation, unspecified; R31.9 Hematuria, unspecified; F41.9 Anxiety disorder, unspecified; M26.609 Unspecified temporomandibular joint disorder, unspecified side; F12.90 Cannabis use, unspecified, uncomplicated; Z79.84 Long term (current) use of oral hypoglycemic drugs; Z79.51 Long term (current) use of inhaled steroids; Z79.899 Other long term (current) drug therapy; Z87.01 Personal history of pneumonia (recurrent); Z87.442 Personal history of urinary calculi; Z87.440 Personal history of urinary (tract) infections; Z87.2 Personal history of diseases of the skin and subcutaneous tissue; Z90.49 Acquired absence of other specified parts of digestive tract; Z87.19 Personal history of other diseases of the digestive system; Z87.39 Personal history of other diseases of the musculoskeletal system and connective tissue; Z87.891 Personal history of nicotine dependence; Z86.69 Personal history of other diseases of the nervous system and sense organs; Z98.51 Tubal ligation status; Z71.3 Dietary counseling and surveillance; Z88.6 Allergy status to analgesic agent; Z88.8 Allergy status to other drugs, medicaments and biological substances; Z83.3 Family history of diabetes mellitus; D72.819 Decreased white blood cell count, unspecified
CPT/HCPCS: 36415; 36600; 71045; 71275; 80053; 81001; 82550; 82553; 82728; 82805; 83036; 83605; 83615; 83735; 84145; 85025; 85379; 85384; 85610; 85730; 86140; 86850; 86900; 86901; 87040; 87070; 87205; 87635; 93005; 93970; 94002; 94003; 94640; 94660; 96365; 96366; 99291

== ENCOUNTER → 2021-03-01 | Outpatient (CLI) | payer MEDICARE, OTHER ==
[2021-03-01 14:46] LABS: African American GFR (CKD) >90 (>60 ml/min/1.73 sqM); Blood Urea Nitrogen 15 mg/dL (7-17); Non-African American GFR(CKD) >90 (>60 ml/min/1.73 sqM)
--- NOTE | 2021-03-01 15:09 | CT ---
EXAMINATION TYPE: CT angio chest DATE OF EXAM: 03/01/2021 COMPARISON: 08/05/2020 HISTORY: Continued shortness of breath CT DLP: 871.9 mGycm CONTRAST: CT chest with contrast and 3D reconstruction with MIP imaging is performed with IV Contrast, patient injected with 100 mL of Isovue 370. Contrast-enhanced CT of the chest was performed through the course of the pulmonary arteries with earnest g and mediastinal window settings submitted. 3D reconstruction with MIP imaging was also performed. PULMONARY ARTERIES: The pulmonary arteries and their major tributaries are patent. I do not see parisa dence for sizable filling defect to suggest pulmonary embolic process. LUNGS: The lungs are clear and free of infiltrate. No evidence for atelectasis. No pulmonary nodule or mass is detected. No pleural effusion. MEDIASTINUM: Thoracic aorta is of normal caliber,however, evaluation is limited given timing of the contrast bolus. If there is concern for thoracic aortic pathology consider DANO. Correlate clinicall y . The heart is not enlarged. No evidence for mediastinal mass. No mediastinal lymph nodes greater than 1cm. HILAR STRUCTURES: No evidence for mass. No hilar lymph nodes greater than 1 cm. UPPER ABDOMEN: No significant abnormality is seen. IMPRESSION: 1. No evidence for Pulmonary embolism at this time.
== END | disposition home or self-care (01) ==
LOC: RADCTMAIN 14:00
PROVIDERS: ATTEND Internal Medicine Critical Care Medicine
DX: R06.02 Shortness of breath (principal)
CPT/HCPCS: 82565; 84520; 71275; 36415; Q9967

== ENCOUNTER 2022-07-18 13:34 | Emergency (ER) | payer MEDICARE, OTHER ==
[2022-07-18 13:49] VITALS: TEMP 98.1
[2022-07-18 14:25] LABS: Appearance,Urine Cloudy (Clear); Bacteria,Urine Occasional /hpf; Bilirubin,Urine Negative (Negative); Blood,Urine Negative (Negative); Color,Urine Yellow; Glucose,Urine (UA) Negative (Negative); Ketones,Urine Negative (Negative); Leukocyte Esterase,Urine Small (Negative); Mucus,Urine Rare /hpf; Nitrite,Urine Negative (Negative); Protein,Urine Negative (Negative); RBC,Urine <1 /hpf (0-5); Specific Gravity,Urine 1.013 (1.001-1.035); Squamous Epithelial Cell,Urine 24 /hpf (0-4); Urobilinogen,Urine <2.0 mg/dL (<2.0); WBC,Urine 6 /hpf (0-5)
[2022-07-18] MEDS ORDERED: ONDANSETRON 4 MG/2 ML VIAL IVP STA (15:21)
[2022-07-18] MEDS ORDERED: SODIUM CHLORIDE 0.9% 1,000 ML IV STA (15:21)
[2022-07-18] MEDS ORDERED: MORPHINE SULFATE 4 MG/ML SYRINGE IVP STA (15:22)
[2022-07-18 15:47] LABS: Basophils % (A) 1 %; Eosinophils # (A) 0.2 k/uL (0-0.7); Eosinophils % (A) 4 %; HCT 44.2 % (34.0-46.0); HGB 14.6 gm/dL (11.4-16.0); Lymphocytes # (A) 1.4 k/uL (1.0-4.8); Lymphocytes % (A) 28 %; MCH 28.3 pg (25.0-35.0); MCHC 32.9 g/dL (31.0-37.0); Mean Platelet Volume 10.1; Monocytes # (A) 0.4 k/uL (0-1.0); Monocytes % (A) 7 %; Neutrophils # (A) 2.9 k/uL (1.3-7.7); Neutrophils % (A) 60 %; Platelet Count 147 k/uL (150-450); RBC 5.14 m/uL (3.80-5.40); RDW 13.2 % (11.5-15.5); WBC 4.9 k/uL (3.8-10.6)
[2022-07-18 15:55] LABS: ALT 29 U/L (4-34); AST 28 U/L (14-36); African American GFR (CKD) >90 (>60 ml/min/1.73 sqM); Albumin 4.4 g/dL (3.5-5.0); Alkaline Phosphatase 78 U/L (38-126); Anion Gap 8 mmol/L; Blood Urea Nitrogen 8 mg/dL (7-17); Calcium 8.9 mg/dL (8.4-10.2); Carbon Dioxide 29 mmol/L (22-30); Chloride 102 mmol/L (98-107); Glucose 85 mg/dL (74-99); Lipase 69 U/L (23-300); Non-African American GFR(CKD) >90 (>60 ml/min/1.73 sqM); Sodium 139 mmol/L (137-145); Total Bilirubin 0.5 mg/dL (0.2-1.3); Total Protein 7.3 g/dL (6.3-8.2)
[2022-07-18 15:57] LABS: Potassium 4.5 mmol/L (3.5-5.1)
--- NOTE | 2022-07-18 16:31 | CT ---
EXAMINATION TYPE: CT abdomen pelvis w con DATE OF EXAM: 07/18/2022 HISTORY: abdominal pain CT DLP: 3950mGycm Automated Exposure Control for Dose Reduction was Utilized. CONTRAST: CT scan of the abdomen and pelvis is performed with IV Contrast, patient injected with 100 mL of Isov ue 300. COMPARISON: Prior CT 2010 FINDINGS: LUNG BASES: No significant abnormality is appreciated. LIVER/GB: Cholecystectomy clips are redemonstrated. PANCREAS: No significant abnormality is seen. SPLEEN: No significant abnormality is seen. ADRENALS: No significant abnormality is seen. KIDNEYS: There are suspected 2 adjacent small calculi lower pole right kidney near coronal image 80 m easuring up to 5 mm in size. There is symmetric cortical medullary uptake and excretion from both kid neys without hydronephrosis seen bilaterally. No left-sided nephrolithiasis. BOWEL: Suboptimal evaluation without enteric contrast. No suspicious small or large bowel dilatation is seen. Normal-appearing appendix is noted. UTERUS/ADNEXA: Anteverted uterus. The ovaries are symmetric and normal in size. LYMPH NODES: No greater than 1cm abdominal or pelvic lymph nodes are appreciated. OSSEOUS STRUCTURES: No significant abnormality is seen. OTHER: No significant additional abnormality is seen. IMPRESSION: No significant acute finding is seen.
[2022-07-18 17:39] VITALS: BP 150/82; PULSE 81; RESP 16
--- NOTE | 2022-07-18 17:40 | ED ---
Abdominal Pain HPI - General Chief Complaint: Abdominal Pain Stated Complaint: stomach pain Time Seen by Provider: 07/18/22 15:10 Source: patient Mode of arrival: ambulatory Limitations: no limitations - History of Present Illness Initial Comments: 42-year-old female presents emergency department with abdominal pain. Reports that for the past 3 days she has had supraumbilical abdominal pain without radiation. Denies any nausea or vomiting. No diarrhea, constant, black or bloody stools. No dysuria, hematuria or difficulty voiding. She has had pr evious cholecystectomy. No fevers. Denies any chest pain or shortness of breath. She is taking Tylenol at home without much improvement in her symptoms. No other alleviating, Perceptin or modifying factors - Related Data Home Medications Medication Instructions Recorded Confirmed Loratadine [Claritin] 10 mg PO DAILY 11/19/18 08/05/20 Paliperidone IM [Invega Sustenna] 234 mg IM Q28D 11/19/18 08/05/20 Sertraline HCl [Zoloft] 100 mg PO BID 11/19/18 08/05/20 Advair Unkown Dose 1 puff INHALATION RT-DAILY PRN 07/16/19 08/05/20 Oxybutynin Chloride [Ditropan XL] 5 mg PO DAILY 08/05/20 08/05/20 Previous Rx's Medication Instructions Recorded Albuterol Inhaler [Ventolin Hfa 2 puff INHALATION RT-QID puff 08/18/20 Inhaler] Albuterol Inhaler [Ventolin Hfa 2 puff INHALATION RT-QID PRN puff 08/18/20 Inhaler] Ascorbic Acid [Vitamin C] 500 mg PO DAILY tab 08/18/20 Atomoxetine HCl [Strattera] 60 mg PO DAILY #4 cap 08/18/20 Benztropine Mesylate 1 mg PO BID #4 tab 08/18/20 Cholecalciferol [Vitamin D3 (25 25 mcg PO DAILY tablet 08/18/20 Mcg = 1000 Iu)] Docusate [Colace] 100 mg PO BID cap 08/18/20 Enoxaparin [Lovenox] 40 mg SQ DAILY syringe 08/18/20 INSULIN ASPART (NovoLOG) [NovoLOG 0 unit SQ Q6HR vial 08/18/20 (formulary)] Pantoprazole [Protonix] 40 mg PO AC-BRKFST tablet. 08/18/20 Zinc Sulfate [Orazinc] 220 mg PO DAILY cap 08/18/20 dexAMETHasone [Decadron] 6 mg PO DAILY 4 Days #4 tablet 08/18/20 lamoTRIgine [LaMICtal] 150 mg PO BID #6 tab 08/18/20 traMADol HCl [Ultram] 100 mg PO QID PRN #10 tab 08/18/20 Allergies Allergy/AdvReac Type Severity Reaction Status Date / Time aspirin Allergy Anaphylaxis Verified 07/18/22 13:49 enalapril maleate Allergy Anaphylaxis Verified 07/18/22 13:49 [From Vasotec] enalaprilat dihydrate Allergy Anaphylaxis Verified 07/18/22 13:49 [From Vasotec] famotidine [From Pepcid] Allergy Anaphylaxis Verified 07/18/22 13:49 ibuprofen [From Motrin] Allergy Anaphylaxis Verified 07/18/22 13:49 methylphenidate HCl Allergy Anaphylaxis Verified 07/18/22 13:49 [From Ritalin] ranitidine HCl [From Zantac] Allergy Anaphylaxis Verified 07/18/22 13:49 ziprasidone HCl [From Geodon] Allergy Anaphylaxis Verified 07/18/22 13:49 ziprasidone mesylate Allergy Anaphylaxis Verified 07/18/22 13:49 [From Geodon] Review of Systems ROS Statement: Those systems with pertinent positive or pertinent negative responses have been documented in the HPI. ROS Other: All systems not noted in ROS Statement are negative. Past Medical History Past Medical History: Asthma, Chest Pain / Angina, COPD, Fibromyalgia, GERD/Reflux, Hypertension, Liver Disease, Memory Impairment, Pneumonia, Renal Disease, Syncope Additional Past Medical History / Comment(s): Bronchitis, small hiatal hernia, migraines, TMJ, sinus tach, chronic back and cervical pain d/t pinched nerves, DDD, L leg nerve damage, nonalcoholic fatty liver, nephrolithiasis-passed stones on he own, UTI, past cellulitis beneath r breast History of Any Multi-Drug Resistant Organisms: None Reported Past Surgical History: Cholecystectomy, Tubal Ligation Additional Past Surgical History / Comment(s): EGD with stomach scraping/bx, R carpal tunnel release, sinus surgery. Past Anesthesia/Blood Transfusion Reactions: No Reported Reaction Additional Past Anesthesia/Blood Transfusion Reaction / Comment(s): clausterphobia Past Psychological History: Bipolar, Depression, Schizophrenia Smoking Status: Former smoker Past Alcohol Use History: None Reported, Occasional Past Drug Use History: Marijuana - Past Family History Father History Unknown: Yes Family Medical History: No Reported History Mother Family Medical History: Diabetes Mellitus Additional Family Medical History / Comment(s): Mother is living. General Exam Limitations: no limitations General appearance: alert, in no apparent distress Head exam: Present: atraumatic, normocephalic, normal inspection Eye exam: Present: normal appearance, PERRL, EOMI. Absent: scleral icterus, conjunctival injection, periorbital swelling ENT exam: Present: normal exam, mucous membranes moist Neck exam: Present: normal inspection. Absent: tenderness, meningismus, lymphadenopathy Respiratory exam: Present: normal lung sounds bilaterally. Absent: respiratory distress, wheezes, rales, rhonchi, stridor Cardiovascular Exam: Present: regular rate, normal rhythm, normal heart sounds. Absent: systolic murmur, diastolic murmur, rubs, gallop, clicks GI/Abdominal exam: Present: soft, normal bowel sounds. Absent: distended, tenderness (supraumbilical), guarding, rebound, rigid Extremities exam: Present: normal inspection, full ROM, normal capillary refill. Absent: tenderness, pedal edema, joint swelling, calf tenderness Back exam: Present: normal inspection Neurological exam: Present: alert, oriented X3, CN II-XII intact Psychiatric exam: Present: normal affect, normal mood Skin exam: Present: warm, dry, intact, normal color. Absent: rash Course Vital Signs 07/18/22 07/18/22 13:46 17:37 Temperature 98.1 F 98.1 F Pulse Rate 89 81 Respiratory 20 16 Rate Blood Pressure 147/83 150/82 O2 Sat by Pulse 99 97 Oximetry Medical Decision Making - Medical Decision Making Was pt. sent in by a medical professional or institution (, PA, SPARES SCHEDULER, urgent care, hospital, or half-way...) When possible be specific @ -No Did you speak to anyone other than the patient for history (EMS, parent, family, police, friend...)? What history was obtained from this source @ -No Did you review nursing and triage notes (agree or disagree)? Why? @ -I reviewed and agree with nursing and triage notes Were old charts reviewed (outside hosp., previous admission, EMS record, old EKG, old radiological studies, urgent care reports/EKG's, half-way records)? Report findings @ -No old charts were reviewed Differential Diagnosis (chest pain, altered mental status, abdominal pain women, abdominal pain men, vaginal bleeding, weakness, fever, dyspnea, syncope, headache, dizziness, GI bleed, back pain, seizure, CVA, palpatations, mental health, musculoskeletal)? @ -pancreatitis, gastritis, diveritculitis, peptic ulcer EKG interpreted by me (3pts min.). @ -yes X-rays interpreted by me (1pt min.). @ -None done CT interpreted by me (1pt min.). @ -yes U/S interpreted by me (1pt. min.). @ -no What testing was considered but not performed or refused? (CT, X-rays, U/S, labs)? Why? @ -None What meds were considered but not given or refused? Why? @ -None Did you discuss the management of the patient with other professionals (professionals i.e. , PA, SPARES SCHEDULER, lab, RT, psych nurse, pediatric social worker, market superintendent, teacher, special forces warrant officer, case technician)? Give summary @ -None Was smoking cessation discussed for >3mins.? @ -No Was critical care preformed (if so, how long)? @ -no Were there social determinants of health that impacted care today? How? (H omelessness, low income, unemployed, alcoholism, drug addiction, transportation, low edu. Level, literacy, decrease access to med. care, penitentiary, rehab)? @ -No Was there de-escalation of care discussed even if they declined (Discuss DNR or withdrawal of care, Hospice)? DNR status @ -No What co-morbidities impacted this encounter? (DM, HTN, Smoking, COPD, CAD, Cancer, CVA, ARF, Chemo, Hep., AIDS, mental health diagnosis, sleep apnea, morbid obesity)? @ -obesity Was patient admitted / discharged? Hospital course, mention meds given and route, prescriptions, significant lab abnormalities, going to OR and other pertinent info. @ -Upon arrival patient was placed into hallway 22. A thorough history and physical exam was performed. Laboratory studies are conducted and reviewed. The patient was given morphine for pain control. Abdominal CT demonstrates no acute process. Results are discussed patient. States that she was just prescribed Carafate yesterday by her primary care doctor. I did recommend that she take this medication as directed. She should follow up with GI or surgery for endoscopy. Return for any new or worsening symptoms for patient was agreeable to plan she is discharged in stable condition Undiagnosed new problem with uncertain prognosis? @ -yes Drug Therapy requiring intensive monitoring for toxicity (Heparin, Nitro, Insulin, Cardizem)? @ -No Were any procedures done? @ -No Diagnosis/symptom? @ -acute abd pain Acute, or Chronic, or Acute on Chronic? @ -acute Uncomplicated (without systemic symptoms) or Complicated (systemic symptoms)? @ -complicated Side effects of treatment? @ -No Exacerbation, Progression, or Severe Exacerbation? @ -No Poses a threat to life or bodily function? How? (Chest pain, USA, LA, pneumonia, PE, COPD, DKA, ARF, appy, cholecystitis, CVA, Diverticulitis, Homicidal, Suicidal, threat to staff... and all critical care pts) @ -no - Lab Data Result diagrams: 07/18/22 15:24 07/18/22 15:24 Lab Results 07/18/22 07/18/22 07/18/22 Range/Units 14:15 14:15 15:24 WBC 4.9 (3.8-10.6) k/uL RBC 5.14 (3.80-5.40) m/uL Hgb 14.6 (11.4-16.0) gm/dL Hct 44.2 (34.0-46.0) % MCV 86.0 (80.0-100.0) fL MCH 28.3 (25.0-35.0) pg MCHC 32.9 (31.0-37.0) g/dL RDW 13.2 (11.5-15.5) % Plt Count 147 L (150-450) k/uL MPV 10.1 Neutrophils % 60 % Lymphocytes % 28 % Monocytes % 7 % Eosinophils % 4 % Basophils % 1 % Neutrophils # 2.9 (1.3-7.7) k/uL Lymphocytes # 1.4 (1.0-4.8) k/uL Monocytes # 0.4 (0-1.0) k/uL Eosinophils # 0.2 (0-0.7) k/uL Basophils # 0.0 (0-0.2) k/uL Sodium (137-145) mmol/L Potassium (3.5-5.1) mmol/L Chloride (98-107) mmol/L Carbon Dioxide (22-30) mmol/L Anion Gap mmol/L BUN (7-17) mg/dL Creatinine (0.52-1.04) mg/dL Est GFR (CKD-EPI)AfAm (>60 ml/min/1.73 sqM) Est GFR (CKD-EPI)NonAf (>60 ml/min/1.73 sqM) Glucose (74-99) mg/dL Calcium (8.4-10.2) mg/dL Total Bilirubin (0.2-1.3) mg/dL AST (14-36) U/L ALT (4-34) U/L Alkaline Phosphatase (38-126) U/L Total Protein (6.3-8.2) g/dL Albumin (3.5-5.0) g/dL Lipase (23-300) U/L Urine Color Yellow Urine Appearance Cloudy H (Clear) Urine pH 8.0 (5.0-8.0) Ur Specific Welches 1.013 (1.001-1.035) Urine Protein Negative (Negative) Urine Glucose (UA) Negative (Negative) Urine Ketones Negative (Negative) Urine Blood Negative (Negative) Urine Nitrite Negative (Negative) Urine Bilirubin Negative (Negative) Urine Urobilinogen <2.0 (<2.0) mg/dL Ur Leukocyte Esterase Small H (Negative) Urine RBC <1 (0-5) /hpf Urine WBC 6 H (0-5) /hpf Ur Squamous Epith Cells 24 H (0-4) /hpf Urine Bacteria Occasional H (None) /hpf Urine Mucus Rare H (None) /hpf Urine HCG, Qual Not Detected (Not Detectd) 07/18/22 Range/Units 15:24 WBC (3.8-10.6) k/uL RBC (3.80-5.40) m/uL Hgb (11.4-16.0) gm/dL Hct (34.0-46.0) % MCV (80.0-100.0) fL MCH (25.0-35.0) pg MCHC (31.0-37.0) g/dL RDW (11.5-15.5) % Plt Count (150-450) k/uL MPV Neutrophils % % Lymphocytes % % Monocytes % % Eosinophils % % Basophils % % Neutrophils # (1.3-7.7) k/uL Lymphocytes # (1.0-4.8) k/uL Monocytes # (0-1.0) k/uL Eosinophils # (0-0.7) k/uL Basophils # (0-0.2) k/uL Sodium 139 (137-145) mmol/L Potassium 4.5 (3.5-5.1) mmol/L Chloride 102 (98-107) mmol/L Carbon Dioxide 29 (22-30) mmol/L Anion Gap 8 mmol/L BUN 8 (7-17) mg/dL Creatinine 0.76 (0.52-1.04) mg/dL Est GFR (CKD-EPI)AfAm >90 (>60 ml/min/1.73 sqM) Est GFR (CKD-EPI)NonAf >90 (>60 ml/min/1.73 sqM) Glucose 85 (74-99) mg/dL Calcium 8.9 (8.4-10.2) mg/dL Total Bilirubin 0.5 (0.2-1.3) mg/dL AST 28 (14-36) U/L ALT 29 (4-34) U/L Alkaline Phosphatase 78 (38-126) U/L Total Protein 7.3 (6.3-8.2) g/dL Albumin 4.4 (3.5-5.0) g/dL Lipase 69 (23-300) U/L Urine Color Urine Appearance (Clear) Urine pH (5.0-8.0) Ur Specific Welches (1.001-1.035) Urine Protein (Negative) Urine Glucose (UA) (Negative) Urine Ketones (Negative) Urine Blood (Negative) Urine Nitrite (Negative) Urine Bilirubin (Negative) Urine Urobilinogen (<2.0) mg/dL Ur Leukocyte Esterase (Negative) Urine RBC (0-5) /hpf Urine WBC (0-5) /hpf Ur Squamous Epith Cells (0-4) /hpf Urine Bacteria (None) /hpf Urine Mucus (None) /hpf Urine HCG, Qual (Not Detectd) - EKG Data EKG Comments: EKG demonstrates sinus rhythm with a rate of 85. [place] interval 151. QRS 104. QTC of 393. No acute ST segment elevations or depressions Disposition Clinical Impression: Epigastric abdominal pain Disposition: HOME SELF-CARE Condition: Stable Instructions (If sedation given, give patient instructions): Abdominal Pain (ED) Additional Instructions: Take the Carafate as directed. Follow-up with the GI doctor or surgeon for EGD. Avoid spicy foods and alcohol. Return for any new or worsening symptoms Is patient prescribed a controlled substance at d/c from ED?: No Referrals: Reba Licea MD [Primary Care Provider] - 1-2 days Essie Nunes MD [STAFF PHYSICIAN] - 1-2 days Lizet Zimmerman MD [STAFF PHYSICIAN] - 1-2 days Time of Disposition: 17:37
== END 2022-07-18 18:03 | disposition home or self-care (01) ==
LOC: EC 13:34
DX: R10.13 Epigastric pain (principal); I10 Essential (primary) hypertension; J44.9 Chronic obstructive pulmonary disease, unspecified; K21.9 Gastro-esophageal reflux disease without esophagitis; E66.9 Obesity, unspecified; F31.9 Bipolar disorder, unspecified; F20.9 Schizophrenia, unspecified; F12.90 Cannabis use, unspecified, uncomplicated; Z87.891 Personal history of nicotine dependence; Z68.43 Body mass index [BMI] 50.0-59.9, adult; Z79.899 Other long term (current) drug therapy; Z88.6 Allergy status to analgesic agent; Z88.8 Allergy status to other drugs, medicaments and biological substances; Z90.49 Acquired absence of other specified parts of digestive tract
CPT/HCPCS: 36415; 93005; 80053; 83690; 85025; 81001; 81025; 74177; 99284; 96374; 96375; 96361; J2270; J2405; Q9967

== ENCOUNTER → 2024-03-23 | Outpatient (CLI) | payer MEDICARE ==
--- NOTE | 2024-03-25 12:52 | MM ---
Reason for Exam: Screening (asymptomatic). Patient History: Menarche at age 11. First Full-Term at age 20. Paternal aunt had breast cancer. Risk Values: Shelbie 5 year model risk: 0.7%. NCI Lifetime model risk: 8.6%. Prior Study Comparison: No prior studies available for comparison. Tissue Density: There are scattered areas of fibroglandular density. Findings: Analyzed By CAD. There is no suspicious group of microcalcifications or new suspicious mass in either breast. Overall Assessment: Benign, BI-RAD 2 Management: Screening Mammogram of both breasts in 1 year. . Patient should continue monthly self-breast exams. A clinical breast exam by your physician is recommended on an annual basis. This exam should not preclude additional follow-up of suspicious palpable abnormalities. Note on Shelbie scores and lifetime risk: 1. A Shelbie score greater than 3% is considered moderate risk. If this is the case, consider specialist referral to assess eligibility for a risk reducing agent. 2. If overall lifetime risk for the development of breast cancer is 20% or higher, the patient may qualify for future screening with alternating mammogram and breast MRI. [facility], , 03/25/2024 12:49 PM. Electronically signed and approved by: Narendra Herzog M.D. Radiolog[facility]
== END | disposition home or self-care (01) ==
LOC: RADMAMWWP 15:42
PROVIDERS: ATTEND Family Medicine
DX: Z12.31 Encounter for screening mammogram for malignant neoplasm of breast (principal); Z80.3 Family history of malignant neoplasm of breast; R92.323 Mammographic fibroglandular density, bilateral breasts
CPT/HCPCS: 77067